=== PATIENT | female | born 1955 | race Caucasian/White ===

== ENCOUNTER 2017-06-12 15:58 | Inpatient (IN) | payer MEDICARE, MEDICAID ==
[2017-06-12] MEDS ORDERED: Sodium Chloride 0.9% 1,000 ML IV ONE (16:33)
--- NOTE | 2017-06-12 16:39 | ED Physician Chart ---
ED Chief Complaint/HPI - Patient Information Date Seen:: 06/12/17 Time Seen:: 16:25 Chief Complaint:: anorexia History of Present Illness:: Patient sent here for evaluation of anorexia. She states she is anorexic just because she does not have a good appetite. Allergies:: Allergies Allergy/AdvReac Type Severity Reaction Status Date / Time ciprofloxacin [From Cipro] Allergy Mild Verified 06/12/17 16:20 clonazepam [From Klonopin] Allergy Verified 06/12/17 16:20 tramadol Allergy Verified 06/12/17 16:20 Vitals:: Vital Signs - 8 hr 06/12/17 16:20 Temp 99.0 F HR 103 RR 21 BP 126/84 O2 Sat % 98 Historian:: Patient Review:: Nurse's Note Reviewed, Transfer documents Reviewed ED Review of Systems - Review of Systems General/Constitutional: No fever, No chills Skin: No skin lesions Head: No headache Eyes: No loss of vision ENT: No earache Neck: No neck pain, No swelling Cardio Vascular: No chest pain, No palpitations Pulmonary: No SOB GI: No nausea, No vomiting, No diarrhea G/U: No dysuria Musculoskeletal: No bone or joint pain Endocrine: No polyuria, No polydipsia Psychiatric: No prior psych history Hematopoietic: No bruising Allergic/Immuno: No urticaria Neurological: No syncope, No focal symptoms ED Past Medical History - Past Medical History Past Medical History: Other (Parkinson's disease; chronic pain of the neck and spine) Family History: None Social History: Non Smoker, No Alcohol Surgical History: Cholecystectomy, other (right knee surgery) Psychiatricy History: None Medication: Reviewed Family Medical History - Family Member Mother Ethnicity: Non- Living Status: Hx Family Cancer: Yes (melanoma) ED Physical Exam - Physical Examination General/Constitutional: Well-developed, well-nourished, Alert, No distress Other Gen/Cons comments:: Patient is alert and oriented to the correct month and a chronic year; she has constant head movement from side to side Head: Atraumatic Eyes: Lids, conjuctiva normal, PERRL Skin: Nl inspection, No rash, No skin lesions, No ecchymosis, Well hydrated, No lymphadenopathy ENMT: External ears, nose nl, Lips, teeth, gums nl, Oropharynx nl Neck: No nuchal rigidity Respiratory: Nl effort/Exclusion, Clear to Auscultation Cardio Vascular: RRR, No murmur, gallop, rubs, NL S1 S2 GI: No tenderness/rebounding/guarding : No CVA tenderness Extremities: Normal digits & nails Neuro/Psych: No focal deficits ED Labs/Radiology/EKG Results - Lab Results Results: Laboratory Results - last 24 hr 06/12/17 06/12/17 16:47 16:47 WBC 9.0 RBC 4.67 Hgb 14.1 Hct 42.4 MCV 90.7 MCH 30.2 MCHC Differential 33.3 RDW 14.1 Plt Count 203 MPV 8.1 Neutrophils % 73.3 Lymphocytes % 20.0 Monocytes % 5.0 Eosinophils % 1.0 Basophils % 0.7 Sodium 132 L Potassium 3.5 Chloride 104 Carbon Dioxide 20.3 L Anion Gap 11.2 BUN 9 Creatinine 0.4 L Est GFR ( Amer) > 60.0 Est GFR (Non-Af Amer) > 60.0 BUN/Creatinine Ratio 22.5 Glucose 101 Calcium 9.0 Total Bilirubin 0.4 AST 22 ALT < 3 L Alkaline Phosphatase 65 Total Protein 6.2 Albumin 3.7 Globulin 2.5 Albumin/Globulin Ratio 1.5 - EKG Interpretations Rate & Rhythm: normal sinus rhythm with a rate of 99 [place]: left axis deviation Comments:: Old anterior myocardial infarction ED Septic Shock - . Is Septic Shock (SBP<90, OR Lactate>4 mmol\L) present?: No - <6hrs of presentation: Vital Signs: Vital Signs - 8 hr 06/12/17 16:20 Temp 99.0 F HR 103 RR 21 BP 126/84 O2 Sat % 98 ED Reassessment (Disposition) - Reassessment Reassessment Condition:: Unchanged - Diagnosis Diagnosis:: Anorexia; Parkinson's disease - Patient Disposition Admitted to:: [facility] Spoke to:: Dannie Bowers Admitting Medical Physician:: Dannie Bowers Admitting Psych Physician:: Karen Diego ED Discharge Plan - Patient Disposition Instructions: Psychosis
[2017-06-12 16:56] LABS: % BASOPHILS 0.7 % (0.0-2.0); % NEUTROPHILS 73.3 % (40.0-80.0); BASOPHILE ABSOLUTE 0.1 Th/cumm (0-0.2); EOSINOPHILE ABSOLUTE 0.1 Th/cmm (0.1-0.4); HEMATOCRIT 42.4 % (41.0-60); HEMOGLOBIN 14.1 gm/dL (12-16); LYMPHOCYTE ABSOLUTE 1.8 Th/cmm (1.5-3.0); MEAN CELL VOLUME 90.7 fl (81-100); MEAN CORPUSCULAR HEMOGLOBIN 30.2 pg (27.0-31.0); MEAN CORPUSCULAR HGB CONC 33.3 pg (28.0-36.0); MEAN PLATELET VOLUME 8.1 fl; MONOCYTE ABSOLUTE 0.5 Th/cmm (0.3-1.0); NEUTROPHILE ABSOLUTE 6.5 Th/cmm (1.8-8.0); PLATELET COUNT 203 Th/cmm (150-400); RED BLOOD COUNT 4.67 Mil/cmm (3.80-5.10); RED CELL DISTRIBUTION WIDTH 14.1 % (11.5-20.0)
[2017-06-12 17:09] LABS: ALB/GLOB RATIO 1.5 (1.0-1.8); ALBUMIN 3.7 gm/dL (3.7-5.3); ALKALINE PHOSPHATASE 65 U/L (34-104); ANION GAP 11.2 (7.0-16.0); BILIRUBIN,TOTAL 0.4 mg/dL (0.3-1.0); BUN - UREA NITROGEN 9 mg/dL (7-25); CARBON DIOXIDE 20.3 mEq/L (21.0-31.0); CHLORIDE 104 mEq/L (98-107); CREATININE - SERUM 0.4 mg/dL (0.6-1.2); GFR AFRICAN-AMERICAN > 60.0 ml/min (>90); GFR NON AFRICAN-AMERICAN > 60.0 ml/min; GLUCOSE 101 mg/dL (70-105); POTASSIUM SERUM 3.5 mEq/L (3.5-5.1); SGOT 22 U/L (13-39); SODIUM SERUM 132 mEq/L (136-145); TOTAL PROTEIN,SERUM 6.2 gm/dL (6.0-8.3)
[2017-06-12 17:10] LABS: SGPT/ALT < 3 U/L (7-52)
[2017-06-12 18:26] LABS: CHOLESTEROL 171 mg/dL (<200); HDL -HIGH DENSITY LIPOPROTEIN 29 mg/dL (23-92); TRIGLYCERIDES 178 mg/dL (<150)
[2017-06-12 18:27] LABS: ACETAMINOPHEN < 10.0 ug/mL (10.0-30.0); SALICYLATES (ASPIRIN) < 25.0 mg/L (30.0-100.0)
[2017-06-12 19:14] VITALS: BP 130/75
--- NOTE | 2017-06-12 19:51 | History & Physical ---
ADMIT DATE: CHIEF COMPLAINT: Severe depression. HISTORY OF PRESENT ILLNESS: The patient is a 62-year-old female with long history of advanced Parkinson's disease, resident at [facility], presented to the Emergency Room with severe depression. The patient evaluated by the ER physician, admitted to the Geropsych Department under Dr. Diego's service. The patient denies any chest pain, shortness of breath, nausea, vomiting, fever or chills. No diarrhea. PAST MEDICAL HISTORY: Significant for advanced Parkinson disease, recurrent urinary infections, recurrent C. diff colitis. PAST SURGICAL HISTORY: No recent surgery. ALLERGIES: Ciprofloxacin, clonazepam, and trazodone. SOCIAL HISTORY: No smoking, no alcohol, no drugs. FAMILY HISTORY: Noncontributory. REVIEW OF SYSTEMS: RENAL SYSTEM: No history of chronic renal disorder. CARDIOVASCULAR SYSTEM: No coronary artery disease. ENDOCRINE SYSTEM: No diabetes or thyroid problem. GASTROINTESTINAL SYSTEM: She has history of recurrent Clostridium difficile colitis. NEUROLOGICAL: She has history of advanced Parkinson's disease, seizure disorder. MUSCULOSKELETAL SYSTEM: She has weakness on both lower extremities, chronic pain, joint pain. HEMATOLOGIC SYSTEM: No bleeding tendency. GENITOURINARY: She has recurrent urinary infection, bladder dysfunction. PHYSICAL EXAMINATION: GENERAL: She is awake, alert, oriented. VITAL SIGNS: Temperature 98.8, heart rate 100, blood pressure 120/70. HEENT: Normocephalic. Pupils reactive to light and accommodation. Sclerae clear. NECK: Supple. Negative for lymphadenopathy, JVD or bruit. CHEST: Bilateral normal. No rhonchi or wheezing. HEART: S1, S2 normal. No gallop or murmur. ABDOMEN: Soft, bowel sounds positive. EXTREMITIES: No edema. NEUROLOGIC: She is awake, alert, oriented. She has weakness of both lower extremities. LABORATORY DATA: White blood cell 9, hemoglobin 14.1, hematocrit 42.4, platelet is 203. Sodium 132, potassium 3.5, BUN 9, creatinine 0.4. ASSESSMENT: 1. Advanced Parkinson disease. 2. Seizure disorder. 3. Bladder dysfunction. 4. Depression. PLAN: The patient admitted to the hospital under Dr. Diego's service. MEDICAL PROBLEMS ADDRESSED DURING THE HOSPITALIZATION: Depression MEDICAL PROBLEM ADDRESSED AT DISCHARGE: Parkinson disease, seizure disorder. The patient is medically stable for activity. Thank you Dr. Diego for asking us to see your patient. [facility]# [id number]
[2017-06-12] MEDS: Potassium Chloride 20 mEq ER Tab PO SCH (21:18)
[2017-06-12] MEDS: Hydrocodone/APAP 5mg/325mg Tab PO PRN (21:21)
[2017-06-13] MEDS: Hydrocodone/APAP 5mg/325mg Tab PO PRN ×3 (01:08→17:32)
[2017-06-13] MEDS: Calcium Carb/Vit D 500 mg/200 U Tab PO SCH ×2 (09:00→17:32)
[2017-06-13] MEDS ORDERED: Non-Formulary Item 1 EA (Solifenacin Succinate [Vesicare] 5 MG) PO SCH (09:00)
[2017-06-13] MEDS: Potassium Chloride 20 mEq ER Tab PO SCH (09:15)
[2017-06-13] MEDS: Multivitamin w/ Minerals Tab PO SCH (09:15)
--- NOTE | 2017-06-13 19:47 | Internal Medicine Prog Note ---
Internal Medicine Subjective - Subjective Patient is:: awake, verbal, in bed, talking Per staff patient has:: no adverse event Internal Medicine Objective - Results Result Diagrams: 06/12/17 16:47 06/12/17 16:47 Recent Labs: Laboratory Last Values WBC 9.0 Th/cmm (4.8-10.8) 06/12/17 16:47 RBC 4.67 Mil/cmm (3.80-5.10) 06/12/17 16:47 Hgb 14.1 gm/dL (12-16) 06/12/17 16:47 Hct 42.4 % (41.0-60) 06/12/17 16:47 MCV 90.7 fl (81-100) 06/12/17 16:47 MCH 30.2 pg (27.0-31.0) 06/12/17 16:47 MCHC Differential 33.3 pg (28.0-36.0) 06/12/17 16:47 RDW 14.1 % (11.5-20.0) 06/12/17 16:47 Plt Count 203 Th/cmm (150-400) 06/12/17 16:47 MPV 8.1 fl 06/12/17 16:47 Neutrophils % 73.3 % (40.0-80.0) 06/12/17 16:47 Lymphocytes % 20.0 % (20.0-50.0) 06/12/17 16:47 Monocytes % 5.0 % (2.0-10.0) 06/12/17 16:47 Eosinophils % 1.0 % (0.0-5.0) 06/12/17 16:47 Basophils % 0.7 % (0.0-2.0) 06/12/17 16:47 Sodium 132 mEq/L (136-145) L 06/12/17 16:47 Potassium 3.5 mEq/L (3.5-5.1) 06/12/17 16:47 Chloride 104 mEq/L (98-107) 06/12/17 16:47 Carbon Dioxide 20.3 mEq/L (21.0-31.0) L 06/12/17 16:47 Anion Gap 11.2 (7.0-16.0) 06/12/17 16:47 BUN 9 mg/dL (7-25) 06/12/17 16:47 Creatinine 0.4 mg/dL (0.6-1.2) L 06/12/17 16:47 Est GFR ( Amer) > 60.0 ml/min (>90) 06/12/17 16:47 Est GFR (Non-Af Amer) > 60.0 ml/min 06/12/17 16:47 BUN/Creatinine Ratio 22.5 06/12/17 16:47 Glucose 101 mg/dL (70-105) 06/12/17 16:47 Hemoglobin A1c % 5.0 % (4.0-6.0) 06/12/17 16:47 Calcium 9.0 mg/dL (8.6-10.3) 06/12/17 16:47 Total Bilirubin 0.4 mg/dL (0.3-1.0) 06/12/17 16:47 AST 22 U/L (13-39) 06/12/17 16:47 ALT < 3 U/L (7-52) L 06/12/17 16:47 Alkaline Phosphatase 65 U/L (34-104) 06/12/17 16:47 Troponin I 0.11 ng/mL (0.01-0.05) H* 06/12/17 16:47 Total Protein 6.2 gm/dL (6.0-8.3) 06/12/17 16:47 Albumin 3.7 gm/dL (3.7-5.3) 06/12/17 16:47 Globulin 2.5 gm/dL 06/12/17 16:47 Albumin/Globulin Ratio 1.5 (1.0-1.8) 06/12/17 16:47 Triglycerides 178 mg/dL (<150) H 06/12/17 16:47 Cholesterol 171 mg/dL (<200) 06/12/17 16:47 LDL Cholesterol Direct 124 mg/dL (75-193) 06/12/17 16:47 HDL Cholesterol 29 mg/dL (23-92) 06/12/17 16:47 TSH 0.51 uIU/ml (0.34-5.60) 06/12/17 16:47 Salicylates < 25.0 mg/L (30.0-100.0) L 06/12/17 16:47 Acetaminophen < 10.0 ug/mL (10.0-30.0) L 06/12/17 16:47 Ethyl Alcohol < 10 mg/dL (0-10) 06/12/17 16:47 RPR NONREACTIVE (NONREACTIVE) 06/12/17 16:47 - Physical Exam Vitals and I&O: Vital Signs Temp 98.4 F 06/13/17 14:00 Pulse 98 06/13/17 14:00 Resp 18 06/13/17 14:00 BP 105/77 06/13/17 14:00 Pulse Ox 97 06/13/17 14:00 Intake & Output 06/13/17 06/13/17 06/14/17 06:59 18:59 06:59 Intake Total 1000 Balance 1000 Intake: Oral 1000 Other: # Voids 3 # Bowel Movements 1 Active Medications: Current Medications Acetaminophen (Tylenol) 650 mg PO Q4HR PRN PRN Reason: MILD BACK PAIN Stop: 08/11/17 20:08 Acetaminophen/Hydrocodone Bitart ([place] 5mg/325mg) 1 tab PO Q4H PRN PRN Reason: MOD/SEVERE PAIN Stop: 08/11/17 20:14 Last Admin: 06/13/17 17:32 Dose: 1 tab Amantadine HCl (Symmetrel) 100 mg PO TID [facility] Stop: 08/11/17 20:59 Last Admin: 06/13/17 14:57 Dose: 100 mg Calcium/Vitamin D (Oscal W/Vitamin D) 1 tab PO BIDWM [facility] Stop: 08/12/17 07:59 Last Admin: 06/13/17 17:32 Dose: 1 tab Carbidopa/Levodopa (Sinemet 25 Mg-250 Mg) 1 tab PO BID [facility] Stop: 08/12/17 08:59 Last Admin: 06/13/17 17:32 Dose: 1 tab Carisoprodol (Soma) 350 mg PO DAILY PRN PRN Reason: MUSCLE SPASM Stop: 08/11/17 19:27 Last Admin: 06/12/17 21:21 Dose: 350 mg Diphenoxylate HCl/Atropine (Lomotil) 1 tab PO Q8H PRN PRN Reason: Diarrhea Stop: 08/11/17 19:27 Docusate Sodium (Colace) 100 mg PO DAILY [facility] Stop: 08/12/17 08:59 Last Admin: 06/13/17 09:14 Dose: 100 mg Famotidine (Pepcid) 40 mg PO DAILY [facility] Stop: 08/11/17 20:14 Last Admin: 06/13/17 09:05 Dose: 40 mg Lactobacillus Rhamnosus (Culturelle 15b) 1 each PO DAILY [facility] Stop: 08/13/17 08:59 Levetiracetam (Keppra) 1,000 mg PO BID [facility] Stop: 08/11/17 20:59 Last Admin: 06/13/17 17:32 Dose: 1,000 mg Lorazepam (Ativan) 0.5 mg PO Q6HR PRN; Protocol PRN Reason: Agitation Stop: 08/12/17 03:08 Megestrol Acetate (Megace) 400 mg PO BID [facility] Stop: 08/11/17 20:29 Last Admin: 06/13/17 17:08 Dose: Not Given Miscellaneous (Solifenacin Succinate [Vesicare]) 5 mg PO DAILY [facility] Stop: 08/12/17 08:59 Ondansetron HCl (Zofran Odt) 8 mg PO Q8HR PRN PRN Reason: NAUSEA/VOMITING Stop: 08/11/17 20:29 Phenytoin (Dilantin) 200 mg PO Q12H [facility] Stop: 08/11/17 20:59 Last Admin: 06/13/17 09:04 Dose: 200 mg Potassium Chloride (Klor-Con) 20 meq PO DAILY [facility] Stop: 08/11/17 20:29 Last Admin: 06/13/17 09:15 Dose: 20 meq Sertraline HCl (Zoloft) 100 mg PO DAILY [facility] Stop: 08/11/17 20:29 Last Admin: 06/13/17 09:14 Dose: 100 mg Zolpidem Tartrate (Ambien) 5 mg PO HS PRN PRN Reason: Insomnia Stop: 08/12/17 03:10 General: alert HEENT: NC/AT, PERRLA, EOMI, anicteric sclerae, throat clear Neck: Supple, No JVD, No thyromegaly, +2 carotid pulse wo bruit, No LAD Lungs: congested Cardiovascular: Normal S1, Normal S2, without murmur Abdomen: soft Extremities: clear Neurological: no change - Procedures Procedures: Procedures Procedure Code Date CLOSED [ENDOSCOPIC] BIOPSY OF LARYNX 31.43 07/12/96 INJECT/INFUSE NEC 99.29 11/11/07 LARYGNOSCOPY AND OTH TRACHEOSCOPY 31.42 07/12/96 LARYNGOSCOPY WITH BIOPSY 22979 07/12/96 OTHER GROUP THERAPY 94.44 11/26/07 RECREATIONAL THERAPY 93.81 11/26/07 Internal Medicine Assmt/Plan - Assessment Assessment: 1.PARKINSON DISEASE. 2.SEIZURE DISORDER. 3.BLADDER DYSFUNCTION. 4.MAJOR DEPRESSION. - Plan Plan: CONTINUE ON CURRENT MEDICATION AND DIET.
[2017-06-14] MEDS: Hydrocodone/APAP 5mg/325mg Tab PO PRN ×2 (03:37→08:54)
[2017-06-14] MEDS: Multivitamin w/ Minerals Tab PO SCH (08:53)
[2017-06-14] MEDS: Potassium Chloride 20 mEq ER Tab PO SCH (08:53)
[2017-06-14] MEDS: Calcium Carb/Vit D 500 mg/200 U Tab PO SCH ×2 (08:53→17:17)
[2017-06-14] MEDS: Lactobacillus Rhamnosus GG 15 Billion CFU CAP.SPRINK PO SCH (08:53)
--- NOTE | 2017-06-14 19:18 | Internal Medicine Prog Note ---
Internal Medicine Subjective - Subjective Service Date: 06/14/17 Patient seen and examined:: with staff (SHE FEELS BETTER) Patient is:: awake, verbal, in bed, talking Per staff patient has:: no adverse event Internal Medicine Objective - Results Result Diagrams: 06/12/17 16:47 06/12/17 16:47 Recent Labs: Laboratory Last Values WBC 9.0 Th/cmm (4.8-10.8) 06/12/17 16:47 RBC 4.67 Mil/cmm (3.80-5.10) 06/12/17 16:47 Hgb 14.1 gm/dL (12-16) 06/12/17 16:47 Hct 42.4 % (41.0-60) 06/12/17 16:47 MCV 90.7 fl (81-100) 06/12/17 16:47 MCH 30.2 pg (27.0-31.0) 06/12/17 16:47 MCHC Differential 33.3 pg (28.0-36.0) 06/12/17 16:47 RDW 14.1 % (11.5-20.0) 06/12/17 16:47 Plt Count 203 Th/cmm (150-400) 06/12/17 16:47 MPV 8.1 fl 06/12/17 16:47 Neutrophils % 73.3 % (40.0-80.0) 06/12/17 16:47 Lymphocytes % 20.0 % (20.0-50.0) 06/12/17 16:47 Monocytes % 5.0 % (2.0-10.0) 06/12/17 16:47 Eosinophils % 1.0 % (0.0-5.0) 06/12/17 16:47 Basophils % 0.7 % (0.0-2.0) 06/12/17 16:47 Sodium 132 mEq/L (136-145) L 06/12/17 16:47 Potassium 3.5 mEq/L (3.5-5.1) 06/12/17 16:47 Chloride 104 mEq/L (98-107) 06/12/17 16:47 Carbon Dioxide 20.3 mEq/L (21.0-31.0) L 06/12/17 16:47 Anion Gap 11.2 (7.0-16.0) 06/12/17 16:47 BUN 9 mg/dL (7-25) 06/12/17 16:47 Creatinine 0.4 mg/dL (0.6-1.2) L 06/12/17 16:47 Est GFR ( Amer) > 60.0 ml/min (>90) 06/12/17 16:47 Est GFR (Non-Af Amer) > 60.0 ml/min 06/12/17 16:47 BUN/Creatinine Ratio 22.5 06/12/17 16:47 Glucose 101 mg/dL (70-105) 06/12/17 16:47 Hemoglobin A1c % 5.0 % (4.0-6.0) 06/12/17 16:47 Calcium 9.0 mg/dL (8.6-10.3) 06/12/17 16:47 Total Bilirubin 0.4 mg/dL (0.3-1.0) 06/12/17 16:47 AST 22 U/L (13-39) 06/12/17 16:47 ALT < 3 U/L (7-52) L 06/12/17 16:47 Alkaline Phosphatase 65 U/L (34-104) 06/12/17 16:47 Troponin I 0.11 ng/mL (0.01-0.05) H* 06/12/17 16:47 Total Protein 6.2 gm/dL (6.0-8.3) 06/12/17 16:47 Albumin 3.7 gm/dL (3.7-5.3) 06/12/17 16:47 Globulin 2.5 gm/dL 06/12/17 16:47 Albumin/Globulin Ratio 1.5 (1.0-1.8) 06/12/17 16:47 Triglycerides 178 mg/dL (<150) H 06/12/17 16:47 Cholesterol 171 mg/dL (<200) 06/12/17 16:47 LDL Cholesterol Direct 124 mg/dL (75-193) 06/12/17 16:47 HDL Cholesterol 29 mg/dL (23-92) 06/12/17 16:47 TSH 0.51 uIU/ml (0.34-5.60) 06/12/17 16:47 Salicylates < 25.0 mg/L (30.0-100.0) L 06/12/17 16:47 Acetaminophen < 10.0 ug/mL (10.0-30.0) L 06/12/17 16:47 Ethyl Alcohol < 10 mg/dL (0-10) 06/12/17 16:47 RPR NONREACTIVE (NONREACTIVE) 06/12/17 16:47 - Physical Exam Vitals and I&O: Vital Signs Temp 98.5 F 06/14/17 16:43 Pulse 84 06/14/17 16:43 Resp 20 06/14/17 16:43 BP 129/73 06/14/17 16:43 Pulse Ox 98 06/14/17 16:43 Intake & Output 06/14/17 06/14/17 06/15/17 06:59 18:59 07:59 Intake Total 240 1345 Balance 240 1345 Intake: Oral 240 1345 Other: # Voids 1 3 # Bowel Movements 2 Active Medications: Current Medications Acetaminophen (Tylenol) 650 mg PO Q4HR PRN PRN Reason: MILD BACK PAIN Stop: 08/11/17 20:08 Acetaminophen/Hydrocodone Bitart ([place] 5mg/325mg) 1 tab PO Q4H PRN PRN Reason: MOD/SEVERE PAIN Stop: 08/11/17 20:14 Last Admin: 06/14/17 08:54 Dose: 1 tab Amantadine HCl (Symmetrel) 100 mg PO TID [facility] Stop: 08/11/17 20:59 Last Admin: 06/14/17 15:46 Dose: Not Given Calcium/Vitamin D (Oscal W/Vitamin D) 1 tab PO BIDWM [facility] Stop: 08/12/17 07:59 Last Admin: 06/14/17 17:17 Dose: 1 tab Carbidopa/Levodopa (Sinemet 25 Mg-250 Mg) 1 tab PO BID [facility] Stop: 08/12/17 08:59 Last Admin: 06/14/17 17:16 Dose: 1 tab Carisoprodol (Soma) 350 mg PO DAILY PRN PRN Reason: MUSCLE SPASM Stop: 08/11/17 19:27 Last Admin: 06/12/17 21:21 Dose: 350 mg Diphenoxylate HCl/Atropine (Lomotil) 1 tab PO Q8H PRN PRN Reason: Diarrhea Stop: 08/11/17 19:27 Docusate Sodium (Colace) 100 mg PO DAILY [facility] Stop: 08/12/17 08:59 Last Admin: 06/14/17 08:54 Dose: 100 mg Famotidine (Pepcid) 40 mg PO DAILY [facility] Stop: 08/11/17 20:14 Last Admin: 06/14/17 08:53 Dose: 40 mg Lactobacillus Rhamnosus (Culturelle 15b) 1 each PO DAILY [facility] Stop: 08/13/17 08:59 Last Admin: 06/14/17 08:53 Dose: 1 each Levetiracetam (Keppra) 1,000 mg PO BID [facility] Stop: 08/11/17 20:59 Last Admin: 06/14/17 17:16 Dose: 1,000 mg Lorazepam (Ativan) 0.5 mg PO Q6HR PRN; Protocol PRN Reason: Agitation Stop: 08/12/17 03:08 Megestrol Acetate (Megace) 400 mg PO BID [facility] Stop: 08/11/17 20:29 Last Admin: 06/14/17 17:16 Dose: Not Given Miscellaneous (Solifenacin Succinate [Vesicare]) 5 mg PO DAILY [facility] Stop: 08/12/17 08:59 Ondansetron HCl (Zofran Odt) 8 mg PO Q8HR PRN PRN Reason: NAUSEA/VOMITING Stop: 08/11/17 20:29 Phenytoin (Dilantin) 200 mg PO Q12H [facility] Stop: 08/11/17 20:59 Last Admin: 06/14/17 08:52 Dose: 200 mg Potassium Chloride (Klor-Con) 20 meq PO DAILY [facility] Stop: 08/11/17 20:29 Last Admin: 06/14/17 08:53 Dose: 20 meq Sertraline HCl (Zoloft) 100 mg PO DAILY [facility] Stop: 08/11/17 20:29 Last Admin: 06/14/17 08:53 Dose: 100 mg Zolpidem Tartrate (Ambien) 5 mg PO HS PRN PRN Reason: Insomnia Stop: 08/12/17 03:10 Last Admin: 06/13/17 21:23 Dose: 5 mg General: alert HEENT: NC/AT, PERRLA, EOMI, anicteric sclerae, throat clear Neck: Supple, No JVD, No thyromegaly, +2 carotid pulse wo bruit, No LAD Lungs: congested Cardiovascular: Normal S1, Normal S2, without murmur Abdomen: soft Extremities: clear Neurological: no change - Procedures Procedures: Procedures Procedure Code Date CLOSED [ENDOSCOPIC] BIOPSY OF LARYNX 31.43 07/12/96 INJECT/INFUSE NEC 99.29 11/11/07 LARYGNOSCOPY AND OTH TRACHEOSCOPY 31.42 07/12/96 LARYNGOSCOPY WITH BIOPSY 78142 07/12/96 OTHER GROUP THERAPY 94.44 11/26/07 RECREATIONAL THERAPY 93.81 11/26/07 Internal Medicine Assmt/Plan - Assessment Assessment: 1.PARKINSON DISEASE. 2.SEIZURE DISORDER. 3.BLADDER DYSFUNCTION. 4.MAJOR DEPRESSION. - Plan Plan: CONTINUE ON CURRENT MEDICATION AND DIET.
--- NOTE | 2017-06-15 05:17 | Psychosocial Evaluation ---
DATE OF SERVICE: INITIAL EVALUATION AND MENTAL STATUS EXAM PATIENT'S AGE: 62-year-old SEX: Female. PHYSICIAN: Karen Diego MD, MPH CHIEF COMPLAINT: Striking others and hallucinating. HISTORY OF PRESENT ILLNESS: The patient is a 62-year-old female who was transferred from [facility] because of increased irritability and striking out behavior as well as hallucination. The patient has history of depression. The patient also has been easily irritable and has been throwing at times objects towards others. The patient threw a blanket towards the staff. She also seems to be responding to stimuli and seems to be hallucinating. PAST PSYCHIATRIC HISTORY: The patient has history of depression and anxiety. PAST MEDICAL HISTORY: The patient has Parkinson disease as well as seizure disorder and bladder dysfunction. SOCIAL HISTORY: The patient lives in [facility]. No known alcohol or drug use. ALLERGIES: CIPROFLOXACIN, CLONAZEPAM, AND TRAZODONE. MENTAL STATUS EXAMINATION: The patient appears older than her stated age. Irritable mood. Flat affect. Thought processes are with anger and irritability. The patient did not answer question regarding hallucinations or delusions, but she seems to be suspicious and paranoid. The patient denies any thoughts of suicide or homicide. The patient is alert and oriented to situation, but not to place and person. Impaired immediate, recent memories but intact remote memories. Poor insight and poor judgment. ASSESSMENT: PRIMARY DIAGNOSIS: Major depression, severe, recurrent, with psychotic features. TREATMENT PLAN: We will continue to monitor her behavior and her condition closely. Also, continue Zoloft 100 mg everyday and will consider adding antipsychotic medications depending on further evaluation. ESTIMATED LENGTH OF STAY: 5-7 days. THE PATIENT'S STRENGTHS AND WEAKNESSES: The patient's strength is not clear at this time. Weaknesses is ineffective coping and also psychosis and poor impulse control. AFTER DISCHARGE PLAN: The patient will return to [facility] with plans for outpatient treatment there. CRITERIA FOR DISCHARGE: Better impulse control. JOB# [id number]
--- NOTE | 2017-06-15 06:39 | Progress Notes ---
DATE: 06/14/2017 SUBJECTIVE: Chart reviewed and the patient interviewed. Also discussed the patient's condition with the staff and reviewed records and labs. The patient is still anxious and is still confused. Also, has unpredictable behavior. The patient also wants to be left alone and she is still easily agitated and easily irritable. Otherwise, the patient is compliant with taking her medications with no side effects of medications. ASSESSMENT: The patient is psychotic. TREATMENT PLAN: Continue to monitor her behavior and continue to work on her alcohol. Also, continue adjusting psychotropic medications and will continue to follow up. The patient is currently still taking Zoloft in a dose of 100 mg every day with no side effects. JOB# [id number]
[2017-06-15] MEDS: Calcium Carb/Vit D 500 mg/200 U Tab PO SCH ×2 (08:16→18:32)
[2017-06-15] MEDS: Lactobacillus Rhamnosus GG 15 Billion CFU CAP.SPRINK PO SCH (09:14)
[2017-06-15] MEDS: Multivitamin w/ Minerals Tab PO SCH (09:14)
[2017-06-15] MEDS: Potassium Chloride 20 mEq ER Tab PO SCH (09:16)
[2017-06-15] MEDS: Hydrocodone/APAP 5mg/325mg Tab PO PRN (09:57)
--- NOTE | 2017-06-15 23:49 | Internal Medicine Prog Note ---
Internal Medicine Subjective - Subjective Service Date: 06/15/17 Patient seen and examined:: with staff (SHE FEELS BETTER) Patient is:: awake, verbal, in bed, talking Per staff patient has:: no adverse event Internal Medicine Objective - Results Result Diagrams: 06/12/17 16:47 06/12/17 16:47 Recent Labs: Laboratory Last Values WBC 9.0 Th/cmm (4.8-10.8) 06/12/17 16:47 RBC 4.67 Mil/cmm (3.80-5.10) 06/12/17 16:47 Hgb 14.1 gm/dL (12-16) 06/12/17 16:47 Hct 42.4 % (41.0-60) 06/12/17 16:47 MCV 90.7 fl (81-100) 06/12/17 16:47 MCH 30.2 pg (27.0-31.0) 06/12/17 16:47 MCHC Differential 33.3 pg (28.0-36.0) 06/12/17 16:47 RDW 14.1 % (11.5-20.0) 06/12/17 16:47 Plt Count 203 Th/cmm (150-400) 06/12/17 16:47 MPV 8.1 fl 06/12/17 16:47 Neutrophils % 73.3 % (40.0-80.0) 06/12/17 16:47 Lymphocytes % 20.0 % (20.0-50.0) 06/12/17 16:47 Monocytes % 5.0 % (2.0-10.0) 06/12/17 16:47 Eosinophils % 1.0 % (0.0-5.0) 06/12/17 16:47 Basophils % 0.7 % (0.0-2.0) 06/12/17 16:47 Sodium 132 mEq/L (136-145) L 06/12/17 16:47 Potassium 3.5 mEq/L (3.5-5.1) 06/12/17 16:47 Chloride 104 mEq/L (98-107) 06/12/17 16:47 Carbon Dioxide 20.3 mEq/L (21.0-31.0) L 06/12/17 16:47 Anion Gap 11.2 (7.0-16.0) 06/12/17 16:47 BUN 9 mg/dL (7-25) 06/12/17 16:47 Creatinine 0.4 mg/dL (0.6-1.2) L 06/12/17 16:47 Est GFR ( Amer) > 60.0 ml/min (>90) 06/12/17 16:47 Est GFR (Non-Af Amer) > 60.0 ml/min 06/12/17 16:47 BUN/Creatinine Ratio 22.5 06/12/17 16:47 Glucose 101 mg/dL (70-105) 06/12/17 16:47 Hemoglobin A1c % 5.0 % (4.0-6.0) 06/12/17 16:47 Calcium 9.0 mg/dL (8.6-10.3) 06/12/17 16:47 Total Bilirubin 0.4 mg/dL (0.3-1.0) 06/12/17 16:47 AST 22 U/L (13-39) 06/12/17 16:47 ALT < 3 U/L (7-52) L 06/12/17 16:47 Alkaline Phosphatase 65 U/L (34-104) 06/12/17 16:47 Troponin I 0.11 ng/mL (0.01-0.05) H* 06/12/17 16:47 Total Protein 6.2 gm/dL (6.0-8.3) 06/12/17 16:47 Albumin 3.7 gm/dL (3.7-5.3) 06/12/17 16:47 Globulin 2.5 gm/dL 06/12/17 16:47 Albumin/Globulin Ratio 1.5 (1.0-1.8) 06/12/17 16:47 Triglycerides 178 mg/dL (<150) H 06/12/17 16:47 Cholesterol 171 mg/dL (<200) 06/12/17 16:47 LDL Cholesterol Direct 124 mg/dL (75-193) 06/12/17 16:47 HDL Cholesterol 29 mg/dL (23-92) 06/12/17 16:47 TSH 0.51 uIU/ml (0.34-5.60) 06/12/17 16:47 Salicylates < 25.0 mg/L (30.0-100.0) L 06/12/17 16:47 Acetaminophen < 10.0 ug/mL (10.0-30.0) L 06/12/17 16:47 Ethyl Alcohol < 10 mg/dL (0-10) 06/12/17 16:47 RPR NONREACTIVE (NONREACTIVE) 06/12/17 16:47 - Physical Exam Vitals and I&O: Vital Signs Temp 98.4 F 06/15/17 20:30 Pulse 108 06/15/17 20:30 Resp 19 06/15/17 20:30 BP 103/58 06/15/17 20:30 Pulse Ox 97 06/15/17 20:30 Intake & Output 06/15/17 06/15/17 06/16/17 06:59 18:59 06:59 Intake Total 1200 Output Total Balance 1200 Intake: Oral 1200 Output: Urine Other: # Voids 3 # Bowel Movements 1 Active Medications: Current Medications Acetaminophen (Tylenol) 650 mg PO Q4HR PRN PRN Reason: MILD BACK PAIN Stop: 08/11/17 20:08 Acetaminophen/Hydrocodone Bitart ([place] 5mg/325mg) 1 tab PO Q4H PRN PRN Reason: MOD/SEVERE PAIN Stop: 08/11/17 20:14 Last Admin: 06/15/17 09:57 Dose: 1 tab Amantadine HCl (Symmetrel) 100 mg PO TID [facility] Stop: 08/11/17 20:59 Last Admin: 06/15/17 21:41 Dose: 100 mg Calcium/Vitamin D (Oscal W/Vitamin D) 1 tab PO BIDWM [facility] Stop: 08/12/17 07:59 Last Admin: 06/15/17 18:32 Dose: 1 tab Carbidopa/Levodopa (Sinemet 25 Mg-250 Mg) 1 tab PO BID [facility] Stop: 08/12/17 08:59 Last Admin: 06/15/17 17:32 Dose: 1 tab Carisoprodol (Soma) 350 mg PO DAILY PRN PRN Reason: MUSCLE SPASM Stop: 08/11/17 19:27 Last Admin: 06/15/17 09:57 Dose: 350 mg Diphenoxylate HCl/Atropine (Lomotil) 1 tab PO Q8H PRN PRN Reason: Diarrhea Stop: 08/11/17 19:27 Docusate Sodium (Colace) 100 mg PO DAILY [facility] Stop: 08/12/17 08:59 Last Admin: 06/15/17 09:15 Dose: 100 mg Famotidine (Pepcid) 40 mg PO DAILY [facility] Stop: 08/11/17 20:14 Last Admin: 06/15/17 09:16 Dose: 40 mg Lactobacillus Rhamnosus (Culturelle 15b) 1 each PO DAILY [facility] Stop: 08/13/17 08:59 Last Admin: 06/15/17 09:14 Dose: 1 each Levetiracetam (Keppra) 1,000 mg PO BID [facility] Stop: 08/11/17 20:59 Last Admin: 06/15/17 17:33 Dose: 1,000 mg Lorazepam (Ativan) 0.5 mg PO Q6HR PRN; Protocol PRN Reason: Agitation Stop: 08/12/17 03:08 Megestrol Acetate (Megace) 400 mg PO BID [facility] Stop: 08/11/17 20:29 Last Admin: 06/15/17 18:34 Dose: Not Given Miscellaneous (Solifenacin Succinate [Vesicare]) 5 mg PO DAILY [facility] Stop: 08/12/17 08:59 Ondansetron HCl (Zofran Odt) 8 mg PO Q8HR PRN PRN Reason: NAUSEA/VOMITING Stop: 08/11/17 20:29 Phenytoin (Dilantin) 200 mg PO Q12H [facility] Stop: 08/11/17 20:59 Last Admin: 06/15/17 21:41 Dose: 200 mg Potassium Chloride (Klor-Con) 20 meq PO DAILY [facility] Stop: 08/11/17 20:29 Last Admin: 06/15/17 09:16 Dose: 20 meq Sertraline HCl (Zoloft) 100 mg PO DAILY [facility] Stop: 08/11/17 20:29 Last Admin: 06/15/17 09:16 Dose: 100 mg Zolpidem Tartrate (Ambien) 5 mg PO HS PRN PRN Reason: Insomnia Stop: 08/12/17 03:10 Last Admin: 06/13/17 21:23 Dose: 5 mg General: alert HEENT: NC/AT, PERRLA, EOMI, anicteric sclerae, throat clear Neck: Supple, No JVD, No thyromegaly, +2 carotid pulse wo bruit, No LAD Lungs: congested Cardiovascular: Normal S1, Normal S2, without murmur Abdomen: soft Extremities: clear Neurological: no change - Procedures Procedures: Procedures Procedure Code Date CLOSED [ENDOSCOPIC] BIOPSY OF LARYNX 31.43 07/12/96 INJECT/INFUSE NEC 99.29 11/11/07 LARYGNOSCOPY AND OTH TRACHEOSCOPY 31.42 07/12/96 LARYNGOSCOPY WITH BIOPSY 12538 07/12/96 OTHER GROUP THERAPY 94.44 11/26/07 RECREATIONAL THERAPY 93.81 11/26/07 Internal Medicine Assmt/Plan - Assessment Assessment: 1.PARKINSON DISEASE. 2.SEIZURE DISORDER. 3.BLADDER DYSFUNCTION. 4.MAJOR DEPRESSION. - Plan Plan: CONTINUE ON CURRENT MEDICATION AND DIET.
[2017-06-16] MEDS: Lactobacillus Rhamnosus GG 15 Billion CFU CAP.SPRINK PO SCH (10:07)
[2017-06-16] MEDS: Potassium Chloride 20 mEq ER Tab PO SCH (10:08)
[2017-06-16] MEDS: Multivitamin w/ Minerals Tab PO SCH (10:08)
[2017-06-16] MEDS: Hydrocodone/APAP 5mg/325mg Tab PO PRN ×2 (10:48→17:11)
[2017-06-16] MEDS: Calcium Carb/Vit D 500 mg/200 U Tab PO SCH ×2 (10:48→17:37)
--- NOTE | 2017-06-16 19:14 | Internal Medicine Prog Note ---
Internal Medicine Subjective - Subjective Service Date: 06/16/17 Patient seen and examined:: without staff (she feels better.no diarrhea) Patient is:: awake, verbal, in bed, talking Per staff patient has:: no adverse event Internal Medicine Objective - Results Result Diagrams: 06/12/17 16:47 06/12/17 16:47 Recent Labs: Laboratory Last Values WBC 9.0 Th/cmm (4.8-10.8) 06/12/17 16:47 RBC 4.67 Mil/cmm (3.80-5.10) 06/12/17 16:47 Hgb 14.1 gm/dL (12-16) 06/12/17 16:47 Hct 42.4 % (41.0-60) 06/12/17 16:47 MCV 90.7 fl (81-100) 06/12/17 16:47 MCH 30.2 pg (27.0-31.0) 06/12/17 16:47 MCHC Differential 33.3 pg (28.0-36.0) 06/12/17 16:47 RDW 14.1 % (11.5-20.0) 06/12/17 16:47 Plt Count 203 Th/cmm (150-400) 06/12/17 16:47 MPV 8.1 fl 06/12/17 16:47 Neutrophils % 73.3 % (40.0-80.0) 06/12/17 16:47 Lymphocytes % 20.0 % (20.0-50.0) 06/12/17 16:47 Monocytes % 5.0 % (2.0-10.0) 06/12/17 16:47 Eosinophils % 1.0 % (0.0-5.0) 06/12/17 16:47 Basophils % 0.7 % (0.0-2.0) 06/12/17 16:47 Sodium 132 mEq/L (136-145) L 06/12/17 16:47 Potassium 3.5 mEq/L (3.5-5.1) 06/12/17 16:47 Chloride 104 mEq/L (98-107) 06/12/17 16:47 Carbon Dioxide 20.3 mEq/L (21.0-31.0) L 06/12/17 16:47 Anion Gap 11.2 (7.0-16.0) 06/12/17 16:47 BUN 9 mg/dL (7-25) 06/12/17 16:47 Creatinine 0.4 mg/dL (0.6-1.2) L 06/12/17 16:47 Est GFR ( Amer) > 60.0 ml/min (>90) 06/12/17 16:47 Est GFR (Non-Af Amer) > 60.0 ml/min 06/12/17 16:47 BUN/Creatinine Ratio 22.5 06/12/17 16:47 Glucose 101 mg/dL (70-105) 06/12/17 16:47 Hemoglobin A1c % 5.0 % (4.0-6.0) 06/12/17 16:47 Calcium 9.0 mg/dL (8.6-10.3) 06/12/17 16:47 Total Bilirubin 0.4 mg/dL (0.3-1.0) 06/12/17 16:47 AST 22 U/L (13-39) 06/12/17 16:47 ALT < 3 U/L (7-52) L 06/12/17 16:47 Alkaline Phosphatase 65 U/L (34-104) 06/12/17 16:47 Troponin I 0.11 ng/mL (0.01-0.05) H* 06/12/17 16:47 Total Protein 6.2 gm/dL (6.0-8.3) 06/12/17 16:47 Albumin 3.7 gm/dL (3.7-5.3) 06/12/17 16:47 Globulin 2.5 gm/dL 06/12/17 16:47 Albumin/Globulin Ratio 1.5 (1.0-1.8) 06/12/17 16:47 Triglycerides 178 mg/dL (<150) H 06/12/17 16:47 Cholesterol 171 mg/dL (<200) 06/12/17 16:47 LDL Cholesterol Direct 124 mg/dL (75-193) 06/12/17 16:47 HDL Cholesterol 29 mg/dL (23-92) 06/12/17 16:47 TSH 0.51 uIU/ml (0.34-5.60) 06/12/17 16:47 Salicylates < 25.0 mg/L (30.0-100.0) L 06/12/17 16:47 Acetaminophen < 10.0 ug/mL (10.0-30.0) L 06/12/17 16:47 Ethyl Alcohol < 10 mg/dL (0-10) 06/12/17 16:47 RPR NONREACTIVE (NONREACTIVE) 06/12/17 16:47 - Physical Exam Vitals and I&O: Vital Signs Temp 98.3 F 06/16/17 18:17 Pulse 86 06/16/17 18:17 Resp 18 06/16/17 18:17 BP 105/73 06/16/17 18:17 Pulse Ox 98 06/16/17 18:17 Intake & Output 06/16/17 06/16/17 06/17/17 06:59 18:59 06:59 Intake Total 180 Balance 180 Intake: Oral 180 Other: # Voids 2 # Bowel Movements 1 Active Medications: Current Medications Acetaminophen (Tylenol) 650 mg PO Q4HR PRN PRN Reason: MILD BACK PAIN Stop: 08/11/17 20:08 Acetaminophen/Hydrocodone Bitart ([place] 5mg/325mg) 1 tab PO Q4H PRN PRN Reason: MOD/SEVERE PAIN Stop: 08/11/17 20:14 Last Admin: 06/16/17 17:11 Dose: 1 tab Amantadine HCl (Symmetrel) 100 mg PO TID [facility] Stop: 08/11/17 20:59 Last Admin: 06/16/17 14:08 Dose: 100 mg Calcium/Vitamin D (Oscal W/Vitamin D) 1 tab PO BIDWM [facility] Stop: 08/12/17 07:59 Last Admin: 06/16/17 17:37 Dose: 1 tab Carbidopa/Levodopa (Sinemet 25 Mg-250 Mg) 1 tab PO BID [facility] Stop: 08/12/17 08:59 Last Admin: 06/16/17 17:11 Dose: 1 tab Carisoprodol (Soma) 350 mg PO DAILY PRN PRN Reason: MUSCLE SPASM Stop: 08/11/17 19:27 Last Admin: 06/15/17 09:57 Dose: 350 mg Diphenoxylate HCl/Atropine (Lomotil) 1 tab PO Q8H PRN PRN Reason: Diarrhea Stop: 08/11/17 19:27 Docusate Sodium (Colace) 100 mg PO DAILY [facility] Stop: 08/12/17 08:59 Last Admin: 06/16/17 10:08 Dose: 100 mg Famotidine (Pepcid) 40 mg PO DAILY [facility] Stop: 08/11/17 20:14 Last Admin: 06/16/17 10:08 Dose: 40 mg Lactobacillus Rhamnosus (Culturelle 15b) 1 each PO DAILY [facility] Stop: 08/13/17 08:59 Last Admin: 06/16/17 10:07 Dose: 1 each Levetiracetam (Keppra) 1,000 mg PO BID [facility] Stop: 08/11/17 20:59 Last Admin: 06/16/17 17:11 Dose: 1,000 mg Lorazepam (Ativan) 0.5 mg PO Q6HR PRN; Protocol PRN Reason: Agitation Stop: 08/12/17 03:08 Megestrol Acetate (Megace) 400 mg PO BID [facility] Stop: 08/11/17 20:29 Last Admin: 06/16/17 17:28 Dose: Not Given Miscellaneous (Solifenacin Succinate [Vesicare]) 5 mg PO DAILY [facility] Stop: 08/12/17 08:59 Ondansetron HCl (Zofran Odt) 8 mg PO Q8HR PRN PRN Reason: NAUSEA/VOMITING Stop: 08/11/17 20:29 Phenytoin (Dilantin) 200 mg PO Q12H [facility] Stop: 08/11/17 20:59 Last Admin: 06/16/17 10:07 Dose: 200 mg Potassium Chloride (Klor-Con) 20 meq PO DAILY [facility] Stop: 08/11/17 20:29 Last Admin: 06/16/17 10:08 Dose: 20 meq Sertraline HCl (Zoloft) 100 mg PO DAILY [facility] Stop: 08/11/17 20:29 Last Admin: 06/16/17 10:06 Dose: 100 mg Zolpidem Tartrate (Ambien) 5 mg PO HS PRN PRN Reason: Insomnia Stop: 08/12/17 03:10 Last Admin: 06/13/17 21:23 Dose: 5 mg General: alert HEENT: NC/AT, PERRLA, EOMI, anicteric sclerae, throat clear Neck: Supple, No JVD, No thyromegaly, +2 carotid pulse wo bruit, No LAD Lungs: congested Cardiovascular: Normal S1, Normal S2, without murmur Abdomen: soft Extremities: clear Neurological: no change - Procedures Procedures: Procedures Procedure Code Date CLOSED [ENDOSCOPIC] BIOPSY OF LARYNX 31.43 07/12/96 INJECT/INFUSE NEC 99.29 11/11/07 LARYGNOSCOPY AND OTH TRACHEOSCOPY 31.42 07/12/96 LARYNGOSCOPY WITH BIOPSY 88514 07/12/96 OTHER GROUP THERAPY 94.44 11/26/07 RECREATIONAL THERAPY 93.81 11/26/07 Internal Medicine Assmt/Plan - Assessment Assessment: 1.PARKINSON DISEASE. 2.SEIZURE DISORDER. 3.BLADDER DYSFUNCTION. 4.MAJOR DEPRESSION. - Plan Plan: CONTINUE ON CURRENT MEDICATION AND DIET.
--- NOTE | 2017-06-16 20:00 | Progress Notes ---
DATE: 06/16/2017 A 62-year-old female transferred from [place], increased irritability, striking out behaviors, hallucinations. On [id number], the patient is a poor historian, asking for Dr. Diego, fairly confused, somewhat restless, alluding to poor appetite. She states she was drinking large amounts of water. Apparently, the patient was throwing items at other peoples, irritable, unruly, could not be cared for at a lower level of care. Dr. Diego saw the patient over the weekend noting that she remained still symptomatic, anxious, still confused, highly unpredictable, wanted to be left alone. He felt that she was quite psychotic. ASSESSMENT: The patient remains symptomatic, still unruly, a poor historian. Medications reviewed. PLAN: The patient is not safe for a lower level of care. We will continue Zoloft. The patient may need medication adjustments. She may need a low dose antipsychotic as well. She is currently on Amitiza and Zoloft. JOB# [id number]
[2017-06-17] MEDS: Diphenoxylate/Atropine 2.5mg Tab PO PRN ×3 (01:48→18:03)
[2017-06-17] MEDS: Calcium Carb/Vit D 500 mg/200 U Tab PO SCH ×2 (09:11→17:15)
[2017-06-17] MEDS: Lactobacillus Rhamnosus GG 15 Billion CFU CAP.SPRINK PO SCH (09:11)
[2017-06-17] MEDS: Multivitamin w/ Minerals Tab PO SCH (09:11)
[2017-06-17] MEDS: Potassium Chloride 20 mEq ER Tab PO SCH (09:12)
--- NOTE | 2017-06-17 20:35 | Progress Notes ---
DATE: 06/17/2017 SUBJECTIVE: The patient is in the hospital, transferred from [facility], with increased irritability, threatening behaviors, hallucinations, depression, easily irritable, throwing objects at staff. On face to face, the patient is significantly calmer, more redirectable. There are concerns about impulse control, but attesting to fair sleep and fair appetite. The patient remains anxious, still somewhat disoriented, mostly reclusive, isolating. It seems any psychotic symptoms are dissipating. There may be some residual psychotic symptoms. MEDICATIONS: Reviewed. ASSESSMENT: The patient is still impulsive, poor impulse control, highly unpredictable, but seemingly calmer. PLAN: We will continue to monitor. Continue medications at current dose. We will continue to monitor the patient and work on her coping. JOB# [id number]
[2017-06-18] MEDS: Diphenoxylate/Atropine 2.5mg Tab PO PRN ×2 (06:58→17:44)
[2017-06-18] MEDS: Hydrocodone/APAP 5mg/325mg Tab PO PRN ×2 (07:10→13:04)
[2017-06-18] MEDS: Calcium Carb/Vit D 500 mg/200 U Tab PO SCH ×2 (08:46→17:56)
[2017-06-18] MEDS: Potassium Chloride 20 mEq ER Tab PO SCH (08:46)
[2017-06-18] MEDS: Multivitamin w/ Minerals Tab PO SCH (08:46)
[2017-06-18] MEDS: Lactobacillus Rhamnosus GG 15 Billion CFU CAP.SPRINK PO SCH (08:47)
--- NOTE | 2017-06-18 13:33 | Internal Medicine Prog Note ---
Internal Medicine Subjective - Subjective Service Date: 06/17/17 Patient seen and examined:: with staff Patient is:: awake, verbal, in bed, talking Per staff patient has:: no adverse event Internal Medicine Objective - Results Result Diagrams: 06/12/17 16:47 06/12/17 16:47 Recent Labs: Laboratory Last Values WBC 9.0 Th/cmm (4.8-10.8) 06/12/17 16:47 RBC 4.67 Mil/cmm (3.80-5.10) 06/12/17 16:47 Hgb 14.1 gm/dL (12-16) 06/12/17 16:47 Hct 42.4 % (41.0-60) 06/12/17 16:47 MCV 90.7 fl (81-100) 06/12/17 16:47 MCH 30.2 pg (27.0-31.0) 06/12/17 16:47 MCHC Differential 33.3 pg (28.0-36.0) 06/12/17 16:47 RDW 14.1 % (11.5-20.0) 06/12/17 16:47 Plt Count 203 Th/cmm (150-400) 06/12/17 16:47 MPV 8.1 fl 06/12/17 16:47 Neutrophils % 73.3 % (40.0-80.0) 06/12/17 16:47 Lymphocytes % 20.0 % (20.0-50.0) 06/12/17 16:47 Monocytes % 5.0 % (2.0-10.0) 06/12/17 16:47 Eosinophils % 1.0 % (0.0-5.0) 06/12/17 16:47 Basophils % 0.7 % (0.0-2.0) 06/12/17 16:47 Sodium 132 mEq/L (136-145) L 06/12/17 16:47 Potassium 3.5 mEq/L (3.5-5.1) 06/12/17 16:47 Chloride 104 mEq/L (98-107) 06/12/17 16:47 Carbon Dioxide 20.3 mEq/L (21.0-31.0) L 06/12/17 16:47 Anion Gap 11.2 (7.0-16.0) 06/12/17 16:47 BUN 9 mg/dL (7-25) 06/12/17 16:47 Creatinine 0.4 mg/dL (0.6-1.2) L 06/12/17 16:47 Est GFR ( Amer) > 60.0 ml/min (>90) 06/12/17 16:47 Est GFR (Non-Af Amer) > 60.0 ml/min 06/12/17 16:47 BUN/Creatinine Ratio 22.5 06/12/17 16:47 Glucose 101 mg/dL (70-105) 06/12/17 16:47 Hemoglobin A1c % 5.0 % (4.0-6.0) 06/12/17 16:47 Calcium 9.0 mg/dL (8.6-10.3) 06/12/17 16:47 Total Bilirubin 0.4 mg/dL (0.3-1.0) 06/12/17 16:47 AST 22 U/L (13-39) 06/12/17 16:47 ALT < 3 U/L (7-52) L 06/12/17 16:47 Alkaline Phosphatase 65 U/L (34-104) 06/12/17 16:47 Troponin I 0.11 ng/mL (0.01-0.05) H* 06/12/17 16:47 Total Protein 6.2 gm/dL (6.0-8.3) 06/12/17 16:47 Albumin 3.7 gm/dL (3.7-5.3) 06/12/17 16:47 Globulin 2.5 gm/dL 06/12/17 16:47 Albumin/Globulin Ratio 1.5 (1.0-1.8) 06/12/17 16:47 Triglycerides 178 mg/dL (<150) H 06/12/17 16:47 Cholesterol 171 mg/dL (<200) 06/12/17 16:47 LDL Cholesterol Direct 124 mg/dL (75-193) 06/12/17 16:47 HDL Cholesterol 29 mg/dL (23-92) 06/12/17 16:47 TSH 0.51 uIU/ml (0.34-5.60) 06/12/17 16:47 Salicylates < 25.0 mg/L (30.0-100.0) L 06/12/17 16:47 Acetaminophen < 10.0 ug/mL (10.0-30.0) L 06/12/17 16:47 Ethyl Alcohol < 10 mg/dL (0-10) 06/12/17 16:47 RPR NONREACTIVE (NONREACTIVE) 06/12/17 16:47 - Physical Exam Vitals and I&O: Vital Signs Temp 97.9 F 06/18/17 05:51 Pulse 95 06/18/17 05:51 Resp 19 06/18/17 05:51 BP 113/75 06/18/17 05:51 Pulse Ox 95 06/18/17 05:51 Intake & Output 06/17/17 06/18/17 06/18/17 18:59 06:59 18:59 Intake Total 180 Balance 180 Weight (lbs) 77.111 kg Intake: Oral 180 Other: # Voids 3 # Bowel Movements 2 Stool Characteristics Liquid Liquid Active Medications: Current Medications Acetaminophen (Tylenol) 650 mg PO Q4HR PRN PRN Reason: MILD BACK PAIN Stop: 08/11/17 20:08 Last Admin: 06/17/17 21:24 Dose: 650 mg Acetaminophen/Hydrocodone Bitart ([place] 5mg/325mg) 1 tab PO Q4H PRN PRN Reason: MOD/SEVERE PAIN Stop: 08/11/17 20:14 Last Admin: 06/18/17 13:04 Dose: 1 tab Amantadine HCl (Symmetrel) 100 mg PO TID [facility] Stop: 08/11/17 20:59 Last Admin: 06/18/17 13:04 Dose: 100 mg Calcium/Vitamin D (Oscal W/Vitamin D) 1 tab PO BIDWM [facility] Stop: 08/12/17 07:59 Last Admin: 06/18/17 08:46 Dose: 1 tab Carbidopa/Levodopa (Sinemet 25 Mg-250 Mg) 1 tab PO BID [facility] Stop: 08/12/17 08:59 Last Admin: 06/18/17 08:46 Dose: 1 tab Carisoprodol (Soma) 350 mg PO DAILY PRN PRN Reason: MUSCLE SPASM Stop: 08/11/17 19:27 Last Admin: 06/18/17 07:10 Dose: 350 mg Diphenoxylate HCl/Atropine (Lomotil) 1 tab PO Q8H PRN PRN Reason: Diarrhea Stop: 08/11/17 19:27 Last Admin: 06/18/17 06:58 Dose: 1 tab Docusate Sodium (Colace) 100 mg PO DAILY [facility] Stop: 08/12/17 08:59 Last Admin: 06/18/17 08:46 Dose: Not Given Famotidine (Pepcid) 40 mg PO DAILY [facility] Stop: 08/11/17 20:14 Last Admin: 06/18/17 08:45 Dose: 40 mg Ketorolac Tromethamine (Toradol) 30 mg IM Q6HR [facility] Stop: 08/17/17 17:59 Lactobacillus Rhamnosus (Culturelle 15b) 1 each PO DAILY [facility] Stop: 08/13/17 08:59 Last Admin: 06/18/17 08:47 Dose: 1 each Levetiracetam (Keppra) 1,000 mg PO BID [facility] Stop: 08/11/17 20:59 Last Admin: 06/18/17 08:46 Dose: 1,000 mg Lidocaine (Lidoderm 5% Patch) 1 patch TD Q12HR [facility] Stop: 08/17/17 20:59 Lorazepam (Ativan) 0.5 mg PO Q6HR PRN; Protocol PRN Reason: Agitation Stop: 08/12/17 03:08 Megestrol Acetate (Megace) 400 mg PO BID [facility] Stop: 08/11/17 20:29 Last Admin: 06/18/17 08:47 Dose: Not Given Miscellaneous (Solifenacin Succinate [Vesicare]) 5 mg PO DAILY [facility] Stop: 08/12/17 08:59 Ondansetron HCl (Zofran Odt) 8 mg PO Q8HR PRN PRN Reason: NAUSEA/VOMITING Stop: 08/11/17 20:29 Last Admin: 06/17/17 09:13 Dose: 8 mg Phenytoin (Dilantin) 200 mg PO Q12H [facility] Stop: 08/11/17 20:59 Last Admin: 06/18/17 08:46 Dose: 200 mg Potassium Chloride (Klor-Con) 20 meq PO DAILY [facility] Stop: 08/11/17 20:29 Last Admin: 06/18/17 08:46 Dose: 20 meq Sertraline HCl (Zoloft) 100 mg PO DAILY [facility] Stop: 08/11/17 20:29 Last Admin: 06/18/17 08:45 Dose: 100 mg Zolpidem Tartrate (Ambien) 5 mg PO HS PRN PRN Reason: Insomnia Stop: 08/12/17 03:10 Last Admin: 06/13/17 21:23 Dose: 5 mg General: alert HEENT: NC/AT, PERRLA, EOMI, anicteric sclerae, throat clear Neck: Supple, No JVD, No thyromegaly, +2 carotid pulse wo bruit, No LAD Lungs: congested Cardiovascular: Normal S1, Normal S2, without murmur Abdomen: soft Extremities: clear Neurological: no change - Procedures Procedures: Procedures Procedure Code Date CLOSED [ENDOSCOPIC] BIOPSY OF LARYNX 31.43 07/12/96 INJECT/INFUSE NEC 99.29 11/11/07 LARYGNOSCOPY AND OTH TRACHEOSCOPY 31.42 07/12/96 LARYNGOSCOPY WITH BIOPSY 00053 07/12/96 OTHER GROUP THERAPY 94.44 11/26/07 RECREATIONAL THERAPY 93.81 11/26/07 Internal Medicine Assmt/Plan - Assessment Assessment: 1.PARKINSON DISEASE. 2.SEIZURE DISORDER. 3.BLADDER DYSFUNCTION. 4.MAJOR DEPRESSION. - Plan Plan: CONTINUE ON CURRENT MEDICATION AND DIET. Nutritional Asmnt/Malnutr-PDOC - Dietary Evaluation Malnutrition Findings (Please click <Entered> for more info): Nutritional Asmnt/Malnutrition Start: 06/17/17 17: 42 Text: Status: Complete Freq: Document 06/17/17 17:42 LCHENG (Rec: 06/17/17 17:49 [email or web address]) Nutritional Asmnt/Malnutrition Patient General Information Nutritional Screening Moderate Risk Diagnosis psychosis Pertinent Medical Hx/Surgical Hx [place], UTI, c diff colitis Subjective Information Per EMR, PO intake 75-100%. Per nurse note, Pt had loose BM x 4. pt refused medications d/t nausea. Current Diet Order/ Nutrition Support [facility] soft chopped Pertinent Medications oscal w/vit D, colace, culturelle, megace, kcl Pertinent Labs 06/12 Na 132,Cr 0.4 Nutritional Hx/Data Height 1.68 m Height (Calculated Centimeters) 167.6 Current Weight (lbs) 77.111 kg Weight (Calculated Kilograms) 77.1 Weight (Calculated Grams) 96474.7 [place] Body Weight 130 Body Mass Index (BMI) 27.4 Weight Status Overweight GI Symptoms GI Symptoms Nausea Last BM 06/17 x 4 Difficult in: None Skin Integrity/Comment: intact Current %PO Good (75-100%) Estimated Nutritional Goals Calories/Kcals/Kg 25-30 based on IBW 65kg Kcals Calculated 6531-4846 Protein g/k Protein Calculated 65 Fluid: ml 1625-1950ml (1ml/kcal) Nutritional Problem No current Nutrition Prob Problem N/A Malnutrition Alert Protein-Calorie Malnutrition N/A Is there a minimum of two criteria No selected? Query Text:Check all the applicable criteria. A minimum of two criteria are recommended for diagnosis of either severe or non-severe malnutrition. Intervention/Recommendation Comments 1. Continue with current diet as ordered. 2. Monitor PO intake, wt, labs and skin integrity 3. F/U as moderate risk in 3-5 days, 06/20-06/22 Expected Outcomes/Goals Expected Outcomes/Goals 1. PO intake to meet at least 75% of nutritional needs. 2. Wt stability, skin to remain intact, labs to approach WNL.
--- NOTE | 2017-06-18 13:35 | Internal Medicine Prog Note ---
Internal Medicine Subjective - Subjective Service Date: 06/18/17 Patient seen and examined:: with staff (she has back pain) Patient is:: awake, verbal, in bed, talking Per staff patient has:: no adverse event Internal Medicine Objective - Results Result Diagrams: 06/12/17 16:47 06/12/17 16:47 Recent Labs: Laboratory Last Values WBC 9.0 Th/cmm (4.8-10.8) 06/12/17 16:47 RBC 4.67 Mil/cmm (3.80-5.10) 06/12/17 16:47 Hgb 14.1 gm/dL (12-16) 06/12/17 16:47 Hct 42.4 % (41.0-60) 06/12/17 16:47 MCV 90.7 fl (81-100) 06/12/17 16:47 MCH 30.2 pg (27.0-31.0) 06/12/17 16:47 MCHC Differential 33.3 pg (28.0-36.0) 06/12/17 16:47 RDW 14.1 % (11.5-20.0) 06/12/17 16:47 Plt Count 203 Th/cmm (150-400) 06/12/17 16:47 MPV 8.1 fl 06/12/17 16:47 Neutrophils % 73.3 % (40.0-80.0) 06/12/17 16:47 Lymphocytes % 20.0 % (20.0-50.0) 06/12/17 16:47 Monocytes % 5.0 % (2.0-10.0) 06/12/17 16:47 Eosinophils % 1.0 % (0.0-5.0) 06/12/17 16:47 Basophils % 0.7 % (0.0-2.0) 06/12/17 16:47 Sodium 132 mEq/L (136-145) L 06/12/17 16:47 Potassium 3.5 mEq/L (3.5-5.1) 06/12/17 16:47 Chloride 104 mEq/L (98-107) 06/12/17 16:47 Carbon Dioxide 20.3 mEq/L (21.0-31.0) L 06/12/17 16:47 Anion Gap 11.2 (7.0-16.0) 06/12/17 16:47 BUN 9 mg/dL (7-25) 06/12/17 16:47 Creatinine 0.4 mg/dL (0.6-1.2) L 06/12/17 16:47 Est GFR ( Amer) > 60.0 ml/min (>90) 06/12/17 16:47 Est GFR (Non-Af Amer) > 60.0 ml/min 06/12/17 16:47 BUN/Creatinine Ratio 22.5 06/12/17 16:47 Glucose 101 mg/dL (70-105) 06/12/17 16:47 Hemoglobin A1c % 5.0 % (4.0-6.0) 06/12/17 16:47 Calcium 9.0 mg/dL (8.6-10.3) 06/12/17 16:47 Total Bilirubin 0.4 mg/dL (0.3-1.0) 06/12/17 16:47 AST 22 U/L (13-39) 06/12/17 16:47 ALT < 3 U/L (7-52) L 06/12/17 16:47 Alkaline Phosphatase 65 U/L (34-104) 06/12/17 16:47 Troponin I 0.11 ng/mL (0.01-0.05) H* 06/12/17 16:47 Total Protein 6.2 gm/dL (6.0-8.3) 06/12/17 16:47 Albumin 3.7 gm/dL (3.7-5.3) 06/12/17 16:47 Globulin 2.5 gm/dL 06/12/17 16:47 Albumin/Globulin Ratio 1.5 (1.0-1.8) 06/12/17 16:47 Triglycerides 178 mg/dL (<150) H 06/12/17 16:47 Cholesterol 171 mg/dL (<200) 06/12/17 16:47 LDL Cholesterol Direct 124 mg/dL (75-193) 06/12/17 16:47 HDL Cholesterol 29 mg/dL (23-92) 06/12/17 16:47 TSH 0.51 uIU/ml (0.34-5.60) 06/12/17 16:47 Salicylates < 25.0 mg/L (30.0-100.0) L 06/12/17 16:47 Acetaminophen < 10.0 ug/mL (10.0-30.0) L 06/12/17 16:47 Ethyl Alcohol < 10 mg/dL (0-10) 06/12/17 16:47 RPR NONREACTIVE (NONREACTIVE) 06/12/17 16:47 - Physical Exam Vitals and I&O: Vital Signs Temp 97.9 F 06/18/17 05:51 Pulse 95 06/18/17 05:51 Resp 19 06/18/17 05:51 BP 113/75 06/18/17 05:51 Pulse Ox 95 06/18/17 05:51 Intake & Output 06/17/17 06/18/17 06/18/17 18:59 06:59 18:59 Intake Total 180 Balance 180 Weight (lbs) 77.111 kg Intake: Oral 180 Other: # Voids 3 # Bowel Movements 2 Stool Characteristics Liquid Liquid Active Medications: Current Medications Acetaminophen (Tylenol) 650 mg PO Q4HR PRN PRN Reason: MILD BACK PAIN Stop: 08/11/17 20:08 Last Admin: 06/17/17 21:24 Dose: 650 mg Acetaminophen/Hydrocodone Bitart ([place] 5mg/325mg) 1 tab PO Q4H PRN PRN Reason: MOD/SEVERE PAIN Stop: 08/11/17 20:14 Last Admin: 06/18/17 13:04 Dose: 1 tab Amantadine HCl (Symmetrel) 100 mg PO TID [facility] Stop: 08/11/17 20:59 Last Admin: 06/18/17 13:04 Dose: 100 mg Calcium/Vitamin D (Oscal W/Vitamin D) 1 tab PO BIDWM [facility] Stop: 08/12/17 07:59 Last Admin: 06/18/17 08:46 Dose: 1 tab Carbidopa/Levodopa (Sinemet 25 Mg-250 Mg) 1 tab PO BID [facility] Stop: 08/12/17 08:59 Last Admin: 06/18/17 08:46 Dose: 1 tab Carisoprodol (Soma) 350 mg PO DAILY PRN PRN Reason: MUSCLE SPASM Stop: 08/11/17 19:27 Last Admin: 06/18/17 07:10 Dose: 350 mg Diphenoxylate HCl/Atropine (Lomotil) 1 tab PO Q8H PRN PRN Reason: Diarrhea Stop: 08/11/17 19:27 Last Admin: 06/18/17 06:58 Dose: 1 tab Docusate Sodium (Colace) 100 mg PO DAILY [facility] Stop: 08/12/17 08:59 Last Admin: 06/18/17 08:46 Dose: Not Given Famotidine (Pepcid) 40 mg PO DAILY [facility] Stop: 08/11/17 20:14 Last Admin: 06/18/17 08:45 Dose: 40 mg Ketorolac Tromethamine (Toradol) 30 mg IM Q6HR [facility] Stop: 08/17/17 17:59 Lactobacillus Rhamnosus (Culturelle 15b) 1 each PO DAILY [facility] Stop: 08/13/17 08:59 Last Admin: 06/18/17 08:47 Dose: 1 each Levetiracetam (Keppra) 1,000 mg PO BID [facility] Stop: 08/11/17 20:59 Last Admin: 06/18/17 08:46 Dose: 1,000 mg Lidocaine (Lidoderm 5% Patch) 1 patch TD Q12HR [facility] Stop: 08/17/17 20:59 Lorazepam (Ativan) 0.5 mg PO Q6HR PRN; Protocol PRN Reason: Agitation Stop: 08/12/17 03:08 Megestrol Acetate (Megace) 400 mg PO BID [facility] Stop: 08/11/17 20:29 Last Admin: 06/18/17 08:47 Dose: Not Given Miscellaneous (Solifenacin Succinate [Vesicare]) 5 mg PO DAILY [facility] Stop: 08/12/17 08:59 Ondansetron HCl (Zofran Odt) 8 mg PO Q8HR PRN PRN Reason: NAUSEA/VOMITING Stop: 08/11/17 20:29 Last Admin: 06/17/17 09:13 Dose: 8 mg Phenytoin (Dilantin) 200 mg PO Q12H [facility] Stop: 08/11/17 20:59 Last Admin: 06/18/17 08:46 Dose: 200 mg Potassium Chloride (Klor-Con) 20 meq PO DAILY [facility] Stop: 08/11/17 20:29 Last Admin: 06/18/17 08:46 Dose: 20 meq Sertraline HCl (Zoloft) 100 mg PO DAILY [facility] Stop: 08/11/17 20:29 Last Admin: 06/18/17 08:45 Dose: 100 mg Zolpidem Tartrate (Ambien) 5 mg PO HS PRN PRN Reason: Insomnia Stop: 08/12/17 03:10 Last Admin: 06/13/17 21:23 Dose: 5 mg General: alert HEENT: NC/AT, PERRLA, EOMI, anicteric sclerae, throat clear Neck: Supple, No JVD, No thyromegaly, +2 carotid pulse wo bruit, No LAD Lungs: congested Cardiovascular: Normal S1, Normal S2, without murmur Abdomen: soft Extremities: clear Neurological: no change - Procedures Procedures: Procedures Procedure Code Date CLOSED [ENDOSCOPIC] BIOPSY OF LARYNX 31.43 07/12/96 INJECT/INFUSE NEC 99.29 11/11/07 LARYGNOSCOPY AND OTH TRACHEOSCOPY 31.42 07/12/96 LARYNGOSCOPY WITH BIOPSY 42080 07/12/96 OTHER GROUP THERAPY 94.44 11/26/07 RECREATIONAL THERAPY 93.81 11/26/07 Internal Medicine Assmt/Plan - Assessment Assessment: 1.PARKINSON DISEASE. 2.SEIZURE DISORDER. 3.BLADDER DYSFUNCTION. 4.MAJOR DEPRESSION. 5.BACK PAIN. - Plan Plan: CONTINUE ON CURRENT MEDICATION AND DIET.TORADOL 30 MG IM Q 6H PRN.LIDOCAIN PATCH APPLY TO LOWER BACK. Nutritional Asmnt/Malnutr-PDOC - Dietary Evaluation Malnutrition Findings (Please click <Entered> for more info): Nutritional Asmnt/Malnutrition Start: 06/17/17 17: 42 Text: Status: Complete Freq: Document 06/17/17 17:42 LORETA (Rec: 06/17/17 17:49 LORETAREGENCY [email or web address]) Nutritional Asmnt/Malnutrition Patient General Information Nutritional Screening Moderate Risk Diagnosis psychosis Pertinent Medical Hx/Surgical Hx [place], UTI, c diff colitis Subjective Information Per EMR, PO intake 75-100%. Per nurse note, Pt had loose BM x 4. pt refused medications d/t nausea. Current Diet Order/ Nutrition Support [facility] soft chopped Pertinent Medications oscal w/vit D, colace, culturelle, megace, kcl Pertinent Labs 3/8 Na 132,Cr 0.4 Nutritional Hx/Data Height 1.68 m Height (Calculated Centimeters) 167.6 Current Weight (lbs) 77.111 kg Weight (Calculated Kilograms) 77.1 Weight (Calculated Grams) 87160.7 [place] Body Weight 130 Body Mass Index (BMI) 27.4 Weight Status Overweight GI Symptoms GI Symptoms Nausea Last BM 06/17 x 4 Difficult in: None Skin Integrity/Comment: intact Current %PO Good (75-100%) Estimated Nutritional Goals Calories/Kcals/Kg 25-30 based on IBW 65kg Kcals Calculated 0610-1084 Protein g/k Protein Calculated 65 Fluid: ml 1625-1950ml (1ml/kcal) Nutritional Problem No current Nutrition Prob Problem N/A Malnutrition Alert Protein-Calorie Malnutrition N/A Is there a minimum of two criteria No selected? Query Text:Check all the applicable criteria. A minimum of two criteria are recommended for diagnosis of either severe or non-severe malnutrition. Intervention/Recommendation Comments 1. Continue with current diet as ordered. 2. Monitor PO intake, wt, labs and skin integrity 3. F/U as moderate risk in 3-5 days, 06/20-06/22 Expected Outcomes/Goals Expected Outcomes/Goals 1. PO intake to meet at least 75% of nutritional needs. 2. Wt stability, skin to remain intact, labs to approach WNL.
[2017-06-18] MEDS ORDERED: NYSTATIN 100000 UNITS/GM POWD TP SCH (17:00)
[2017-06-18] MEDS: Menthol/Zinc Oxide Oint 113gm Tube TP SCH ×2 (17:56→23:57)
[2017-06-18] MEDS ORDERED: Lidocaine 5% Patch TD SCH (21:00)
--- NOTE | 2017-06-19 09:05 | Progress Notes ---
DATE: SUBJECTIVE: Chart reviewed and the patient interviewed. I also discussed the patient's condition with the staff and reviewed records and labs. The patient is still depressed and is still withdrawn. She also is still interacting minimally with peers and others. The patient also still has poor appetite and poor intake. Otherwise, the patient is cooperative and compliant with taking her medications with no side effects of medications. ASSESSMENT: The patient is still depressed and psychotic. TREATMENT PLAN: We will continue to monitor her behavior and her condition closely. Also, continue to work on her poor intake and her ineffective coping and continue to follow up closely. JOB# [id number]
--- NOTE | 2017-06-24 22:35 | Progress Notes ---
DATE: 06/15/2017 SUBJECTIVE: Chart reviewed and the patient interviewed. Also discussed the patient's condition with the staff and reviewed records and labs. The patient is still confused. The patient also still seems to be depressed and she still wants to be left alone, which made her have episodes of agitation and irritability. She also still needs redirections. On the other hand, the patient is compliant with taking her medications with no side effect of Zoloft. ASSESSMENT: The patient is still depressed and still seems to be psychotic. TREATMENT PLAN: Continue to monitor her behavior and medications and continue to work on her unpredictable behavior and followup. JOB# [id number]
== END 2017-06-19 00:55 | DRG 885 ==
LOC: ER 15:58 → GERO2 18:00
PROVIDERS: ADMIT Psychiatry & Neurology Psychiatry; ATTEND Psychiatry & Neurology Psychiatry
DX: F33.3 Major depressive disorder, recurrent, severe with psychotic symptoms (principal); G20 Parkinson's disease; Z66 Do not resuscitate; G40.909 Epilepsy, unspecified, not intractable, without status epilepticus; R63.0 Anorexia; N31.9 Neuromuscular dysfunction of bladder, unspecified; G89.29 Other chronic pain; M54.9 Dorsalgia, unspecified; Z88.1 Allergy status to other antibiotic agents; Z90.49 Acquired absence of other specified parts of digestive tract; Z88.8 Allergy status to other drugs, medicaments and biological substances; Z68.27 Body mass index [BMI] 27.0-27.9, adult
CPT/HCPCS: 36415-UA; 80053-TC; 80061-TC; 80320-TC; 80329-TC; 83036-90; 84443-TC; 84484-TC; 85025-TC; 86592-TC; 87046-90; 93005; J1885; J7030; Q0162; Z7610

== ENCOUNTER 2017-06-19 00:55 | Inpatient (IN) | payer MEDICARE, MEDICAID ==
[2017-06-19] MEDS: D5-0.9NS w/KCL 20mEq 1,000 ML IV SCH ×2 (02:34→13:15)
[2017-06-19] MEDS ORDERED: Sodium Chloride 0.9% 500 ML IV ONE (03:30)
[2017-06-19 04:18] VITALS: BP 101/58
[2017-06-19 06:07] LABS: % EOSINOPHILS 0.1 % (0.0-5.0); % LYMPHOCYTES 10.3 % (20.0-50.0); % MONOCYTES 5.4 % (2.0-10.0); % NEUTROPHILS 84.2 % (40.0-80.0); HEMOGLOBIN 16.6 gm/dL (12-16); LYMPHOCYTE ABSOLUTE 0.4 Th/cmm (1.5-3.0); MEAN CELL VOLUME 91.3 fl (81-100); MEAN PLATELET VOLUME 8.6 fl; MONOCYTE ABSOLUTE 0.2 Th/cmm (0.3-1.0); NEUTROPHILE ABSOLUTE 2.8 Th/cmm (1.8-8.0); PLATELET COUNT 217 Th/cmm (150-400); RED BLOOD COUNT 5.37 Mil/cmm (3.80-5.10); RED CELL DISTRIBUTION WIDTH 14.9 % (11.5-20.0)
[2017-06-19 06:15] LABS: WHITE BLOOD COUNT 3.4 Th/cmm (4.8-10.8)
[2017-06-19 06:25] LABS: ALB/GLOB RATIO 1.2 (1.0-1.8); ALBUMIN 3.5 gm/dL (3.7-5.3); ANION GAP 18.8 (7.0-16.0); BILIRUBIN,TOTAL 1.2 mg/dL (0.3-1.0); CALCIUM SERUM 9.4 mg/dL (8.6-10.3); CARBON DIOXIDE 13.1 mEq/L (21.0-31.0); CREATININE - SERUM 1.5 mg/dL (0.6-1.2); GFR AFRICAN-AMERICAN 45.4 ml/min (>90); GFR NON AFRICAN-AMERICAN 37.5 ml/min; TOTAL PROTEIN,SERUM 6.4 gm/dL (6.0-8.3)
[2017-06-19 06:29] LABS: POTASSIUM SERUM 2.9 mEq/L (3.5-5.1)
--- NOTE | 2017-06-19 06:38 | Discharge Summary ---
DATE OF DISCHARGE: 06/19/2017 AGE: 62. SEX: Female. PHYSICIAN: Karne Diego M.D., M.P.H. FINAL DIAGNOSIS: Psychosis, unspecified. SECONDARY DIAGNOSIS: Dementia, moderate to severe, with psychotic features. REASON FOR HOSPITALIZATION: The patient was admitted to the hospital from [facility] because of striking out behavior and agitation. HOSPITAL COURSE: The patient continued to be depressed and withdrawn and she was also actively hallucinating. The patient was having poor intake and poor appetite. The patient also was restless and she was not very cooperative with her treatment. The patient was discharged from the hospital to the medical floor when her oxygen level was fluctuating up and down. Physical examination of the patient was ____ by Dr. Bowers. AFTER DISCHARGE PLANS: The patient discharged from the hospital with plans for outpatient treatment and follow up in medical floor. EXPECTED OUTCOME AFTER DISCHARGE: Depends on course in medical floor. JOB# [id number]
[2017-06-19 06:46] LABS: pH 7.47 (7.35-7.45)
[2017-06-19 06:49] LABS: URINE MICROSCOPIC INDICATED? YES; URINE SOURCE FOLEY PORT
[2017-06-19 07:06] LABS: URINE BILIRUBIN MODERATE (NEGATIVE); URINE BLOOD LARGE (NEGATIVE); URINE GLUCOSE (UA) NEGATIVE (NEGATIVE); URINE KETONE 15 mg/dL (NEGATIVE); URINE LEUKOCYTE ESTERASE NEGATIVE (NEGATIVE); URINE NITRATE POSITIVE (NEGATIVE); URINE PROTEIN 30 mg/dL (NEGATIVE)
[2017-06-19 07:17] LABS: URINE CLARITY TURBID (CLEAR); URINE COLOR DARK YELLOW
[2017-06-19 07:19] LABS: URINE BACTERIA 3+ /hpf (NONE SEEN); URINE EPITHELIAL CELLS OCCASIONAL /lpf (FEW)
[2017-06-19] MEDS ORDERED: Potassium Chloride 40 MEQ, Lidocaine 1% 20mL Vial 25 MG in Sodium Chloride 0.9% 250 ML IV ONE (08:01)
[2017-06-19 13:26] LABS: ALB/GLOB RATIO 1.2 (1.0-1.8); ALBUMIN 3.4 gm/dL (3.7-5.3); ANION GAP 22.7 (7.0-16.0); BILIRUBIN,TOTAL 1.1 mg/dL (0.3-1.0); CREATININE - SERUM 1.6 mg/dL (0.6-1.2); GFR AFRICAN-AMERICAN 42.1 ml/min (>90); GFR NON AFRICAN-AMERICAN 34.8 ml/min; POTASSIUM SERUM 4.1 mEq/L (3.5-5.1); TOTAL PROTEIN,SERUM 6.3 gm/dL (6.0-8.3)
[2017-06-19 13:58] LABS: CARBON DIOXIDE 8.4 mEq/L (21.0-31.0)
--- NOTE | 2017-06-19 14:07 | Diagnostic Imaging Report ---
Portable chest x-ray HISTORY: Shortness of breath, nasogastric tube placement Patient is markedly rotated. There is a poor inspiration. Heart size difficult to assess. No focal pulmonary processes. A nasogastric tube is seen with tip extending into the region of the stomach. Surgical clips noted over the left abdomen. IMPRESSION: 1. Nasogastric tube extending into the region of the stomach over 2. No definite focal pulmonary processes
[2017-06-19] MEDS ORDERED: Morphine Sulfate 2 mg/mL 1mL Syr IVP PRN (15:22)
[2017-06-19] MEDS ORDERED: SODIUM BICARBONATE IVP ONE (16:37)
[2017-06-19] MEDS ORDERED: Sodium Bicarbonate 8.4% 50mEq PFS IVP ONE ×4 (16:38→23:59)
[2017-06-19] MEDS: Sodium Chloride 0.9% 1,000 ML IV SCH (18:00)
[2017-06-19] MEDS ORDERED: Sodium Chloride 0.9% 1,000 ML IV ONE (18:21)
--- NOTE | 2017-06-19 18:43 | History & Physical ---
ADMIT DATE: CHIEF COMPLAINT: Altered level of consciousness. HISTORY OF PRESENT ILLNESS: The patient is a 62-year-old female with long history of Parkinson's disease, depression, and psychosis, resident at [facility] and was found very lethargic yesterday, transferred to the ICU and started on IV fluid, IV antibiotic. The patient was found with urinary tract infection, possible C. diff colitis, dehydration, acute kidney injury. The patient is a very poor historian. PAST MEDICAL HISTORY: Significant for Parkinson's disease, recurrent urinary infection, and recurrent C. diff colitis. She has history of depression and psychosis. PAST SURGICAL HISTORY: No recent surgery. ALLERGIES: SHE IS ALLERGIC TO CIPRO, CLONAZEPAM, AND TRAMADOL. SOCIAL HISTORY: No smoking, no alcohol, no drugs. FAMILY HISTORY: Noncontributory. REVIEW OF SYSTEMS: IMMUNOSYSTEM: No history of chronic renal disorder. CARDIOVASCULAR SYSTEM: No coronary artery disease. ENDOCRINE SYSTEM: No diabetes or thyroid problem. GASTROINTESTINAL SYSTEM: No upper or lower GI bleeding. She has history of C. diff colitis. NEUROLOGICAL SYSTEM: She has history of Parkinson's disease and seizure disorder. SKELETOMUSCULAR SYSTEM: She has contracture of the lower extremities. HEMATOLOGIC SYSTEM: No bleeding tendencies. RESPIRATORY SYSTEM: No asthma. GENITOURINARY: She has recurrent urinary infection. PHYSICAL EXAMINATION: GENERAL: She is awake, not coherent. She is agitated. VITAL SIGNS: Temperature is 97.8, heart rate 132, and blood pressure 105/60. HEENT: Normocephalic. Pupils are reactive to light and accommodation. Sclerae clear. NECK: Supple. Negative for lymphadenopathy, JVD, or bruit. CHEST: ____ bilaterally normal. No rales, rhonchi, or wheezing. HEART: S1 and S2 normal. No gallop rhythm. Tachycardia. ABDOMEN: Soft. Bowel sounds positive. EXTREMITIES: No edema. NEUROLOGIC: Awake and not coherent. LABORATORY DATA: White blood cell 3.4, hemoglobin 16.6, hematocrit 49.0, and platelet is 217. ABG: pH 7.47, pCO2 13, pO2 425. Sodium 135, potassium 4.1, BUN 30, creatinine 0.6. Urinalysis; positive for nitrite, white blood cells 2 to 5. ASSESSMENT: 1. Urinary tract infection. 2. Possible Clostridium difficile colitis. 3. Sepsis. 4. Acute metabolic encephalopathy. 5. Parkinson's disease. 6. Seizure disorder. 7. Dehydration. 8. Acute kidney injury. PLAN: The patient admitted to the hospital under Dr. Bowers's service. Started on IV fluid, antibiotic. NG tube was placed for medication. Neurology consultation, Infectious Disease consultation, Psych consultation, and Cardiac consultation obtained. CBC and CMP for tomorrow. The patient is a full code. JOB# [id number]
[2017-06-19] MEDS: Calcium Carb/Vit D 500 mg/200 U Tab PO SCH (18:59)
[2017-06-19] MEDS: Vancomycin HCL 250 mg /10mL UDC NG SCH (19:45)
[2017-06-19] MEDS: Diltiazem 30 mg Tab PO SCH (19:47)
[2017-06-19] MEDS: metroNIDAZOLE 500mg/NS 100mL 500 MG/100 ML BAG IV SCH (22:30)
[2017-06-19] MEDS ORDERED: Piperacillin Sodium/Tazobact 3.375 gm Vial IV ONE (22:30)
--- NOTE | 2017-06-19 23:24 | Consultation ---
DATE OF CONSULTATION: 06/19/2017 RENAL CONSULTATION I was kindly asked because the patient has a decreased urine output. HISTORY OF PRESENT ILLNESS: The patient is a 62-year-old female with a history of dementia with psychotic feature. The patient was admitted to the hospital from [facility], because she had originally had striking out behavior and agitation. She was noted to have a decreased p.o. intake and altered and restless. Her oxygenation was down. Therefore, she was transferred to ICU. PAST MEDICAL HISTORY: Includes history of dementia with psychosis. PAST SURGICAL HISTORY: Not known. ALLERGIES: Includes CIPRO, CLONAZEPAM, and TRAMADOL. SOCIAL HISTORY: Negative for smoking, alcohol or drugs. LABORATORY DATA: Shows white count is 3.4, H and H is 16 and 49, platelets 217; pH is 7.47, pCO2 is 13, pO2 is 425. Serum potassium is 4.1, carbon dioxide is 8, BUN 30, creatinine 1.6, glucose is 372. She has very a positive urinalysis. PHYSICAL EXAMINATION: VITAL SIGNS: Blood pressure is 105/60, heart rate 130, temperature 97.8. HEENT: Anicteric sclerae. LUNGS: Bilateral rhonchi. CARDIOVASCULAR: Tachycardic, S1, S2. ABDOMEN: Soft. EXTREMITIES: No edema. ASSESSMENT: This is a 62-year-old female with dementia, psychosis, admitted with septic shock, urinary tract infection, acute renal failure and acute respiratory failure. The patient will get broad spectrum antibiotics. The patient will require to have some bicarbonates and aggressive fluid resuscitation. JOB# [id number]
[2017-06-20] MEDS: Enoxaparin 30 mg/0.3 mL 0.3mL Syr SUBQ SCH ×3 (01:00→21:15)
[2017-06-20] MEDS: Vancomycin HCL 250 mg /10mL UDC NG SCH ×4 (01:28→17:53)
[2017-06-20] MEDS ORDERED: Levetiracetam 500 mg/5mL 5mL Vial IV ONE (01:32)
[2017-06-20] MEDS ORDERED: Piperacillin Sodium/Tazobact 3.375 gm Vial IV ONE (04:24)
[2017-06-20] MEDS: metroNIDAZOLE 500mg/NS 100mL 500 MG/100 ML BAG IV SCH ×3 (04:55→21:14)
[2017-06-20 04:57] LABS: HEMATOCRIT 47.4 % (41.0-60); HEMOGLOBIN 15.8 gm/dL (12-16); MEAN CELL VOLUME 89.5 fl (81-100); MEAN CORPUSCULAR HEMOGLOBIN 29.9 pg (27.0-31.0); MEAN CORPUSCULAR HGB CONC 33.4 pg (28.0-36.0); MEAN PLATELET VOLUME 9.9 fl; PLATELET COUNT 204 Th/cmm (150-400); RED CELL DISTRIBUTION WIDTH 15.2 % (11.5-20.0); WHITE BLOOD COUNT 7.8 Th/cmm (4.8-10.8)
--- NOTE | 2017-06-20 05:00 | Consultation ---
DATE OF CONSULTATION: 06/19/[address] Bowers. HISTORY AND PHYSICAL: This is a 62-year-old female patient who was at [facility]. The patient became altered level at this time. The patient was transferred to ICU. The patient was found to have supraventricular tachycardia and hence Cardiology consult is requested. PAST MEDICAL HISTORY: Parkinson's disease, recurrent C. diff colitis, urinary tract infection, major depression and seizure disorder. FAMILY HISTORY: Unremarkable. SOCIAL HISTORY: No history of smoking or alcohol abuse. ALLERGIES: No known allergies. PHYSICAL EXAMINATION: VITAL SIGNS: Blood pressure 130/80, pulse 120 and respirations 28. HEAD: Normocephalic. No lumps or bumps. EYES: Pupils equal, reactive to light. Fundi show AV nicking, sclerae white, conjunctivae pink. NECK: Carotid 2+. Normal upstroke. JVD flat. Thyroid not palpable. Lymph nodes not palpable. CHEST: Shows increased AP diameter. No kyphosis or scoliosis. LUNGS: Bilateral bronchovesicular breath sounds. Occasional wheeze. No rales. HEART: PMI, fifth intercostal space with lateral to midclavicular line. S1 and S2. No S3 or S4. Soft systolic murmur. ABDOMEN: Soft. Liver and spleen not palpable. No organomegaly. Bowel sounds active. EXTREMITIES: Peripheral pulses 2+. No pedal edema. NEUROLOGIC: The patient has symptoms of Parkinson's disease. CLINICAL IMPRESSION: Acute respiratory failure, supraventricular tachycardia, Parkinson's disease, clostridium difficile colitis, recurrent urinary tract infection, major depression and seizure disorder. PLAN: We will start the patient on Cardizem and monitor the patient for any arrhythmias. JOB# [id number]
[2017-06-20 05:16] LABS: ALBUMIN 2.6 gm/dL (3.7-5.3); ANION GAP 20.7 (7.0-16.0); BILIRUBIN,TOTAL 0.9 mg/dL (0.3-1.0); CARBON DIOXIDE 24.5 mEq/L (21.0-31.0); CREATININE - SERUM 1.6 mg/dL (0.6-1.2); GFR AFRICAN-AMERICAN 42.1 ml/min (>90); GFR NON AFRICAN-AMERICAN 34.8 ml/min; POTASSIUM SERUM 3.2 mEq/L (3.5-5.1); TOTAL PROTEIN,SERUM 5.2 gm/dL (6.0-8.3)
[2017-06-20 05:23] LABS: MANUAL DIFF REQUIRED? YES
[2017-06-20 06:03] LABS: BAND NEUTROPHILE 10 % (0-10); LYMPHOCYTE 13 % (20-50); MONOCYTE 7 % (2-10); NEUTROPHILS 70 % (40-80); TOTAL CELLS COUNTED 100
--- NOTE | 2017-06-20 07:58 | Diagnostic Imaging Report ---
Exam: Portable KUB of the abdomen. HISTORY: Pain. Findings: Portable examination of the abdomen 1830 hours reviewed. Upper abdomen is not visualized on this examination. The study demonstrates nonspecific bowel gas pattern. There is a appearance of the mash device overlying the lower abdomen, most likely representing postsurgical changes status post hernia repair.. Bony structures are unremarkable for degenerative changes. No abnormal masses or calcifications are noted. IMPRESSION nonspecific bowel gas pattern.
[2017-06-20] MEDS: Sodium Chloride 0.9% 1,000 ML IV SCH ×2 (09:00→14:58)
[2017-06-20] MEDS: Calcium Carb/Vit D 500 mg/200 U Tab PO SCH ×2 (09:01→17:53)
[2017-06-20] MEDS: Potassium Chloride 20 mEq ER Tab PO SCH (09:01)
[2017-06-20] MEDS: Diltiazem 30 mg Tab PO SCH ×4 (09:02→16:00)
[2017-06-20 09:06] LABS: INR 1.93 (0.5-1.4); PROTHROMBIN TIME (TEST) 20.8 SECONDS (9.5-11.5)
--- NOTE | 2017-06-20 11:09 | Progress Notes ---
DATE: SUBJECTIVE: Chart reviewed and the patient interviewed. Also discussed the patient's condition with the staff and reviewed records and labs. The patient seems to be calmer and she is less agitated and less irritable. The patient also seems to be sedated. No major behavioral problems. Continue monitoring her behavior in ICU and continue working up on her both psychological issues as well as here behavior and also her medical issues. [facility]# [id number]
[2017-06-20] MEDS: Linezolid 600mg/300mL Premix Bag IV SCH (14:01)
[2017-06-20] MEDS ORDERED: Sodium Chloride 0.9% 200 ML IV ONE (14:47)
[2017-06-20] MEDS ORDERED: Probiotic Screen MC PRN (15:01)
[2017-06-20 15:07] LABS: pH 7.56 (7.35-7.45)
--- NOTE | 2017-06-20 15:32 | Diagnostic Imaging Report ---
Portable chest x-ray HISTORY: Shortness of breath Compared to prior exam of June 19, 2017, no focal point processes are seen. Nasogastric tube tip projects over the epigastric area. IMPRESSION: 1. No focal pulmonary processes 2. Nasogastric tube projecting over the upper gastric region.
--- NOTE | 2017-06-20 15:35 | General Progress Note ---
Subjective - Review of Systems Service Date: 06/20/17 Subjective: pt in icu low BP low urine out put Tachycardia Objective - Results Result Diagrams: 06/20/17 04:05 06/20/17 04:05 Recent Labs: Laboratory Last Values WBC 7.8 Th/cmm (4.8-10.8) D 06/20/17 04:05 RBC 5.30 Mil/cmm (3.80-5.10) H 06/20/17 04:05 Hgb 15.8 gm/dL (12-16) 06/20/17 04:05 Hct 47.4 % (41.0-60) 06/20/17 04:05 MCV 89.5 fl (81-100) 06/20/17 04:05 MCH 29.9 pg (27.0-31.0) 06/20/17 04:05 MCHC Differential 33.4 pg (28.0-36.0) 06/20/17 04:05 RDW 15.2 % (11.5-20.0) 06/20/17 04:05 Plt Count 204 Th/cmm (150-400) 06/20/17 04:05 MPV 9.9 fl 06/20/17 04:05 Neutrophils % 84.2 % (40.0-80.0) H 06/19/17 06:00 Band Neutrophils % 10 % (0-10) 06/20/17 04:05 Lymphocytes % 10.3 % (20.0-50.0) L 06/19/17 06:00 Monocytes % 5.4 % (2.0-10.0) 06/19/17 06:00 Eosinophils % 0.1 % (0.0-5.0) 06/19/17 06:00 Basophils % 0.0 % (0.0-2.0) 06/19/17 06:00 Neutrophils (Manual) 70 % (40-80) 06/20/17 04:05 Lymphocytes 13 % (20-50) L 06/20/17 04:05 Monocytes 7 % (2-10) 06/20/17 04:05 PT 20.8 SECONDS (9.5-11.5) H 06/20/17 08:30 INR 1.93 (0.5-1.4) H 06/20/17 08:30 Specimen Source Arterial 06/20/17 15:00 Sample Site RB 06/20/17 15:00 pH 7.56 (7.35-7.45) H* 06/20/17 15:00 pCO2 25.0 mmHg (35.0-45.0) L 06/20/17 15:00 pO2 198.0 mmHg (80.0-100.0) H 06/20/17 15:00 HCO3 26.1 mEq/L (20.0-26.0) H 06/20/17 15:00 Base Excess 1.4 mEq/L (-3.0-3.0) 06/20/17 15:00 O2 Saturation 100.0 % (92.0-100.0) 06/20/17 15:00 Stephen Test NA 06/20/17 15:00 Vent Rate NA 06/20/17 15:00 Inspired O2 28 06/20/17 15:00 Tidal Volume NA 06/20/17 15:00 PEEP NA 06/20/17 15:00 Pressure (ins/psv/peep) NA 06/20/17 15:00 Critical Value E.ESCAMILLA 06/20/17 15:00 Sodium 155 mEq/L (136-145) H D 06/20/17 04:05 Potassium 3.2 mEq/L (3.5-5.1) L 06/20/17 04:05 Chloride 113 mEq/L (98-107) H 06/20/17 04:05 Carbon Dioxide 24.5 mEq/L (21.0-31.0) 06/20/17 04:05 Anion Gap 20.7 (7.0-16.0) H 06/20/17 04:05 BUN 48 mg/dL (7-25) H 06/20/17 04:05 Creatinine 1.6 mg/dL (0.6-1.2) H 06/20/17 04:05 Est GFR ( Amer) 42.1 ml/min (>90) 06/20/17 04:05 Est GFR (Non-Af Amer) 34.8 ml/min 06/20/17 04:05 BUN/Creatinine Ratio 30.0 06/20/17 04:05 Glucose 232 mg/dL (70-105) H D 06/20/17 04:05 Calcium 8.0 mg/dL (8.6-10.3) L 06/20/17 04:05 Total Bilirubin 0.9 mg/dL (0.3-1.0) 06/20/17 04:05 AST 42 U/L (13-39) H 06/20/17 04:05 ALT 24 U/L (7-52) 06/20/17 04:05 Alkaline Phosphatase 38 U/L (34-104) 06/20/17 04:05 Total Protein 5.2 gm/dL (6.0-8.3) L 06/20/17 04:05 Albumin 2.6 gm/dL (3.7-5.3) L 06/20/17 04:05 Globulin 2.6 gm/dL 06/20/17 04:05 Albumin/Globulin Ratio 1.0 (1.0-1.8) 06/20/17 04:05 Urine Source [place] 06/19/17 05:55 Urine Color DARK YELLOW 06/19/17 05:55 Urine Clarity TURBID (CLEAR) H 06/19/17 05:55 Urine pH 5.0 (4.6 - 8.0) 06/19/17 05:55 Ur Specific [place] >= 1.030 (1.005-1.030) 06/19/17 05:55 Urine Protein 30 mg/dL (NEGATIVE) H 06/19/17 05:55 Urine Glucose (UA) NEGATIVE mg/dL (NEGATIVE) 06/19/17 05:55 Urine Ketones 15 mg/dL (NEGATIVE) H 06/19/17 05:55 Urine Blood LARGE (NEGATIVE) H 06/19/17 05:55 Urine Nitrate POSITIVE (NEGATIVE) H 06/19/17 05:55 Urine Bilirubin MODERATE (NEGATIVE) H 06/19/17 05:55 Urine Urobilinogen 1.0 E.U./dL (0.2 - 1.0) 06/19/17 05:55 Ur Leukocyte Esterase NEGATIVE (NEGATIVE) 06/19/17 05:55 Urine RBC 10-25 /hpf (0-5) H 06/19/17 05:55 Urine WBC 2-5 /hpf (0-5) 06/19/17 05:55 Ur Epithelial Cells OCCASIONAL /lpf (FEW) 06/19/17 05:55 Urine Bacteria 3+ /hpf (NONE SEEN) H 06/19/17 05:55 - Physical Exam Vitals and I&O: Vital Signs Temp 98.6 F 06/20/17 08:00 Pulse 136 06/20/17 12:00 Resp 40 06/20/17 15:20 BP 117/66 06/20/17 09:00 Pulse Ox 96 06/20/17 15:20 Intake & Output 06/19/17 06/20/17 06/20/17 18:59 06:59 18:59 Intake Total 1110 1200 1216.667 Output Total 200 Balance 1110 1000 1216.667 Weight (lbs) 77.111 kg 78.698 kg Intake: Intake, IV Amount 1110 1200 1216.667 D5-0.9NS w/KCL 20mEq 1, 1000 000 ml @ 100 mls/hr IV . Q10H [facility] Rx#:[id number] Levetiracetam 1,000 mg In 110 220 Sodium Chloride 0.9% 100 ml @ 400 mls/hr IV Q12H [facility] Rx#:[id number] Piperacillin Sodium/ 100 200 Tazobact 3.375 gm In Sodium Chloride 0.9% 100 ml @ 100 mls/hr IV Q6HR [facility] Rx#:[id number] Sodium Chloride 0.9% 1, 1000 596.667 000 ml @ 100 mls/hr IV . Q10H [facility] Rx#:[id number] metroNIDAZOLE 500mg/NS 100 200 100mL 500 mg In 100 ml @ 100 mls/hr IV Q8HR [facility] Rx #:[id number] Oral 0 0 Output: Urine 200 Other: # Voids 2 # Bowel Movements 1 2 Stool Characteristics Liquid Liquid Brown [place] Active Medications: Current Medications Acetaminophen (Tylenol) 650 mg PO Q4H PRN PRN Reason: MILD BACK PAIN Amantadine HCl (Symmetrel) 100 mg PO TID [facility] Stop: 08/18/17 20:59 Last Admin: 06/20/17 14:40 Dose: 100 mg Calcium/Vitamin D (Oscal W/Vitamin D) 1 tab PO BID [facility] Stop: 08/18/17 16:59 Last Admin: 06/20/17 09:01 Dose: 1 tab Carbidopa/Levodopa (Sinemet 25 Mg-250 Mg) 1 tab PO BID [facility] Stop: 08/18/17 16:59 Last Admin: 06/20/17 09:02 Dose: 1 tab Carisoprodol (Soma) 350 mg PO DAILY PRN PRN Reason: MUSCLE SPASM Stop: 08/18/17 15:12 Diltiazem HCl (Cardizem) 60 mg PO Q6HR [facility] Stop: 08/18/17 17:59 Last Admin: 06/20/17 12:00 Dose: Not Given Enoxaparin Sodium (Lovenox) 30 mg SUBQ Q12HR [facility] Stop: 08/18/17 20:59 Last Admin: 06/20/17 09:02 Dose: 30 mg Famotidine (Pepcid) 40 mg PO DAILY [facility] Stop: 08/19/17 08:59 Last Admin: 06/20/17 09:02 Dose: 40 mg Levetiracetam 1,000 mg/ Sodium (Chloride) 110 mls @ 400 mls/hr IV Q12H [facility] Stop: 08/18/17 12:59 Last Infusion: 06/20/17 14:39 Dose: Infused Metronidazole (Flagyl) 500 mg in 100 mls @ 100 mls/hr IV Q8HR [facility] Stop: 08/18/17 20:59 Last Infusion: 06/20/17 13:59 Dose: Infused Piperacillin Sod/Tazobactam (Sod 3.375 gm/ Sodium Chloride) 100 mls @ 100 mls/ hr IV Q6HR [facility] Stop: 08/18/17 20:59 Last Infusion: 06/20/17 13:59 Dose: Infused Sodium Chloride (Nacl 0.9%) 1,000 mls @ 100 mls/hr IV .Q10H [facility] Stop: 08/18/17 18:22 Last Admin: 06/20/17 14:58 Dose: 100 mls/hr Linezolid (Zyvox) 600 mg in 300 mls @ 300 mls/hr IV Q12H [facility] Stop: 08/19/17 13:59 Last Admin: 06/20/17 14:01 Dose: 300 mls/hr Amiodarone HCl 450 mg/ (Dextrose) 259 mls @ 0 mls/hr IV TITR [facility]; Titrate PRN Reason: Protocol Stop: 08/19/17 14:29 Norepinephrine Bitartrate 4 mg (/ Sodium Chloride) 254 mls @ 30.48 mls/hr IV TITR [facility]; 8 MCG/MIN PRN Reason: Protocol Stop: 08/19/17 14:44 Lactobacillus Rhamnosus (Culturelle 15b) 1 each PO DAILY [facility] Stop: 08/20/17 08:59 Levetiracetam (Keppra) 1,000 mg PO BID [facility] Stop: 08/18/17 16:59 Lorazepam (Ativan) 1 mg IVP Q4HR PRN; Protocol PRN Reason: Agitation Stop: 08/18/17 15:16 Miscellaneous (Zosyn Iv Per Pharmacy) 1 ea PRN PRN PRN Reason: PROTOCOL Stop: 08/18/17 18:14 Miscellaneous (Clinical Monitoring) 1 ea PRN PRN PRN Reason: ZOSYN PER RX Stop: 08/19/17 08:23 Miscellaneous (Probiotic Screen) 1 ea PRN PRN PRN Reason: PROTOCOL Stop: 08/19/17 15:00 Morphine Sulfate (Morphine) 2 mg IVP Q4HR PRN PRN Reason: Pain (Severe) Stop: 08/18/17 15:21 Ondansetron HCl (Zofran) 4 mg IV Q4H PRN PRN Reason: Nausea / Vomiting Stop: 08/18/17 15:23 Potassium Chloride (Klor-Con) 20 meq PO DAILY [facility] Stop: 08/19/17 08:59 Last Admin: 06/20/17 09:01 Dose: 20 meq Sertraline HCl (Zoloft) 100 mg PO DAILY [facility] Stop: 08/19/17 08:59 Vancomycin HCl (Vancomycin Oral) 250 mg NG Q6HR [facility] Stop: 08/18/17 17:59 Last Admin: 06/20/17 12:07 Dose: 250 mg General: Severe distress Neck: Supple, JVD Cardiovascular: Regular rate, Other (tachycardia) Lungs: Other (b/l rhonchi) Abdomen: Soft Extremities: Edema - Procedures Procedures: Procedures Procedure Code Date CLOSED [ENDOSCOPIC] BIOPSY OF LARYNX 31.43 07/12/96 INJECT/INFUSE NEC 99.29 11/11/07 LARYGNOSCOPY AND OTH TRACHEOSCOPY 31.42 07/12/96 LARYNGOSCOPY WITH BIOPSY 31047 07/12/96 OTHER GROUP THERAPY 94.44 11/26/07 RECREATIONAL THERAPY 93.81 11/26/07 Assessment/Plan - Assessment Assessment: sepsis septic shock acute respiratory failure acute renal failure UTI C. Diff colitis depression parkinson - Plan Plan: continue BiPAP IV abx IV fluids Nutritional Asmnt/Malnutr-PDOC - Dietary Evaluation Malnutrition Findings (Please click <Entered> for more info): Nutritional Asmnt/Malnutrition Start: 06/19/17 13: 46 Text: Status: Complete Freq: Document 06/19/17 13:46 HUGH (Rec: 06/19/17 13:59 [email or web address] [email or web address]) Nutritional Asmnt/Malnutrition Patient General Information Nutritional Screening High Risk Consult Diagnosis dehydration, tachycardia Pertinent Medical Hx/Surgical Hx [place], UTI, c diff colitis Subjective Information Consult received for BS 294 at admitting. Pt was transfered from [facility]. Pt seen resting in bed at time of visit. RN reported pt on NPO. Per nurse note, pt will start tube feeding when NGT placement verified. ordered Fibersource 30ml/hr continuous to start at dinner time today . Current Diet Order/ Nutrition Support NPO Pertinent Medications D5-0.9ns w/kcl 20meq Pertinent Labs 06/19 Na 135, K 2.9, Cl 106, BUN 23, Cr 1.5, glucose 295, alb 3.5 Nutritional Hx/Data Height 1.68 m Height (Calculated Centimeters) 167.6 Current Weight (lbs) 77.111 kg Weight (Calculated Kilograms) 77.1 Weight (Calculated Grams) 24863.7 [place] Body Weight 130 Body Mass Index (BMI) 27.4 Weight Status Overweight GI Symptoms GI Symptoms None Last BM 06/19 Difficult in: None Skin Integrity/Comment: GROIN AND SACRUM REDDNESS Estimated Nutritional Goals BEE in Kcals: Adj wt of IBW Calories/Kcals/Kg 25-30 Kcals Calculated 8646-4020 Protein: Adj wt of IBW Protein g/k Protein Calculated 64 Fluid: ml 1600-1920ml (1ml/kcal) Nutritional Problem 1. Problem Problem altered nutrition related lab values Etiology hyperglycemia Signs/Symptoms: glucose 295 Intervention/Recommendation Comments 1. Start TF as ordered - Fibersource HN 30ml/hr continuous. This will provide 864kcal, 38g protein and 589ml free water, meeting about 55% of nutritional needs. 2. pt on potassium replacement noted. If K level normal, will consider increase TF rate . 3. Monitor TF rate, tolerance, wt weekly, skin integrity and labs 4. F/U as high risk in 2-3 days, 06/21-06/22 Expected Outcomes/Goals Expected Outcomes/Goals 1. Pt to meet at least 75% of nutritional needs via nutrition support with tolerance 2. Wt stability, skin to remain intact, labs to approach WNL.
[2017-06-20] MEDS ORDERED: Amiodarone 150 MG in Sodium Chloride 0.9% 100 ML IV ONE (16:00)
--- NOTE | 2017-06-20 17:32 | Internal Medicine Prog Note ---
Internal Medicine Subjective - Subjective Service Date: 06/20/17 Patient seen and examined:: with staff Patient is:: asleep, non-verbal, in bed Per staff patient has:: other (THE PATIENT ON BIPAP,LEVAPHID AND AMIODARON IV DRIP.URIN OUTPUT IS NOT GOOD) Internal Medicine Objective - Results Result Diagrams: 06/20/17 04:05 06/20/17 04:05 Recent Labs: Laboratory Last Values WBC 7.8 Th/cmm (4.8-10.8) D 06/20/17 04:05 RBC 5.30 Mil/cmm (3.80-5.10) H 06/20/17 04:05 Hgb 15.8 gm/dL (12-16) 06/20/17 04:05 Hct 47.4 % (41.0-60) 06/20/17 04:05 MCV 89.5 fl (81-100) 06/20/17 04:05 MCH 29.9 pg (27.0-31.0) 06/20/17 04:05 MCHC Differential 33.4 pg (28.0-36.0) 06/20/17 04:05 RDW 15.2 % (11.5-20.0) 06/20/17 04:05 Plt Count 204 Th/cmm (150-400) 06/20/17 04:05 MPV 9.9 fl 06/20/17 04:05 Neutrophils % 84.2 % (40.0-80.0) H 06/19/17 06:00 Band Neutrophils % 10 % (0-10) 06/20/17 04:05 Lymphocytes % 10.3 % (20.0-50.0) L 06/19/17 06:00 Monocytes % 5.4 % (2.0-10.0) 06/19/17 06:00 Eosinophils % 0.1 % (0.0-5.0) 06/19/17 06:00 Basophils % 0.0 % (0.0-2.0) 06/19/17 06:00 Neutrophils (Manual) 70 % (40-80) 06/20/17 04:05 Lymphocytes 13 % (20-50) L 06/20/17 04:05 Monocytes 7 % (2-10) 06/20/17 04:05 PT 20.8 SECONDS (9.5-11.5) H 06/20/17 08:30 INR 1.93 (0.5-1.4) H 06/20/17 08:30 Specimen Source Arterial 06/20/17 15:00 Sample Site RB 06/20/17 15:00 pH 7.56 (7.35-7.45) H* 06/20/17 15:00 pCO2 25.0 mmHg (35.0-45.0) L 06/20/17 15:00 pO2 198.0 mmHg (80.0-100.0) H 06/20/17 15:00 HCO3 26.1 mEq/L (20.0-26.0) H 06/20/17 15:00 Base Excess 1.4 mEq/L (-3.0-3.0) 06/20/17 15:00 O2 Saturation 100.0 % (92.0-100.0) 06/20/17 15:00 Stephen Test NA 06/20/17 15:00 Vent Rate NA 06/20/17 15:00 Inspired O2 28 06/20/17 15:00 Tidal Volume NA 06/20/17 15:00 PEEP NA 06/20/17 15:00 Pressure (ins/psv/peep) NA 06/20/17 15:00 Critical Value E.ESCAMILLA 06/20/17 15:00 Sodium 155 mEq/L (136-145) H D 06/20/17 04:05 Potassium 3.2 mEq/L (3.5-5.1) L 06/20/17 04:05 Chloride 113 mEq/L (98-107) H 06/20/17 04:05 Carbon Dioxide 24.5 mEq/L (21.0-31.0) 06/20/17 04:05 Anion Gap 20.7 (7.0-16.0) H 06/20/17 04:05 BUN 48 mg/dL (7-25) H 06/20/17 04:05 Creatinine 1.6 mg/dL (0.6-1.2) H 06/20/17 04:05 Est GFR ( Amer) 42.1 ml/min (>90) 06/20/17 04:05 Est GFR (Non-Af Amer) 34.8 ml/min 06/20/17 04:05 BUN/Creatinine Ratio 30.0 06/20/17 04:05 Glucose 232 mg/dL (70-105) H D 06/20/17 04:05 Calcium 8.0 mg/dL (8.6-10.3) L 06/20/17 04:05 Total Bilirubin 0.9 mg/dL (0.3-1.0) 06/20/17 04:05 AST 42 U/L (13-39) H 06/20/17 04:05 ALT 24 U/L (7-52) 06/20/17 04:05 Alkaline Phosphatase 38 U/L (34-104) 06/20/17 04:05 Total Protein 5.2 gm/dL (6.0-8.3) L 06/20/17 04:05 Albumin 2.6 gm/dL (3.7-5.3) L 06/20/17 04:05 Globulin 2.6 gm/dL 06/20/17 04:05 Albumin/Globulin Ratio 1.0 (1.0-1.8) 06/20/17 04:05 Urine Source [place] 06/19/17 05:55 Urine Color DARK YELLOW 06/19/17 05:55 Urine Clarity TURBID (CLEAR) H 06/19/17 05:55 Urine pH 5.0 (4.6 - 8.0) 06/19/17 05:55 Ur Specific [place] >= 1.030 (1.005-1.030) 06/19/17 05:55 Urine Protein 30 mg/dL (NEGATIVE) H 06/19/17 05:55 Urine Glucose (UA) NEGATIVE mg/dL (NEGATIVE) 06/19/17 05:55 Urine Ketones 15 mg/dL (NEGATIVE) H 06/19/17 05:55 Urine Blood LARGE (NEGATIVE) H 06/19/17 05:55 Urine Nitrate POSITIVE (NEGATIVE) H 06/19/17 05:55 Urine Bilirubin MODERATE (NEGATIVE) H 06/19/17 05:55 Urine Urobilinogen 1.0 E.U./dL (0.2 - 1.0) 06/19/17 05:55 Ur Leukocyte Esterase NEGATIVE (NEGATIVE) 06/19/17 05:55 Urine RBC 10-25 /hpf (0-5) H 06/19/17 05:55 Urine WBC 2-5 /hpf (0-5) 06/19/17 05:55 Ur Epithelial Cells OCCASIONAL /lpf (FEW) 06/19/17 05:55 Urine Bacteria 3+ /hpf (NONE SEEN) H 06/19/17 05:55 - Physical Exam Vitals and I&O: Vital Signs Temp 98.6 F 06/20/17 08:00 Pulse 136 06/20/17 16:20 Resp 29 06/20/17 16:00 BP 108/87 06/20/17 16:13 Pulse Ox 95 06/20/17 16:00 Intake & Output 06/19/17 06/20/17 06/20/17 18:59 06:59 18:59 Intake Total 1110 1200 1651.163 Output Total 200 Balance 1110 1000 1651.163 Weight (lbs) 77.111 kg 78.698 kg Intake: Intake, IV Amount 1110 1200 1651.163 Amiodarone 150 mg In 103 Sodium Chloride 0.9% 100 ml @ 400 mls/hr IV ONCE ONE Rx#:[id number] D5-0.9NS w/KCL 20mEq 1, 1000 000 ml @ 100 mls/hr IV . Q10H [facility] Rx#:[id number] Levetiracetam 1,000 mg In 110 220 Sodium Chloride 0.9% 100 ml @ 400 mls/hr IV Q12H [facility] Rx#:[id number] Linezolid 600mg/300mL 600 300 mg In 300 ml @ 300 mls/ hr IV Q12H [facility] Rx#: [id number] Norepinephrine 4 mg In 31.496 Sodium Chloride 0.9% 250 ml @ 8 MCG/MIN 30.48 mls/ hr IV TITR [facility] Rx#: [id number] Piperacillin Sodium/ 100 200 Tazobact 3.375 gm In Sodium Chloride 0.9% 100 ml @ 100 mls/hr IV Q6HR [facility] Rx#:[id number] Sodium Chloride 0.9% 1, 1000 596.667 000 ml @ 100 mls/hr IV . Q10H [facility] Rx#:[id number] metroNIDAZOLE 500mg/NS 100 200 100mL 500 mg In 100 ml @ 100 mls/hr IV Q8HR [facility] Rx #:[id number] Oral 0 0 Output: Urine 200 Other: # Voids 2 # Bowel Movements 1 2 Stool Characteristics Liquid Liquid [place] Active Medications: Current Medications Acetaminophen (Tylenol) 650 mg PO Q4H PRN PRN Reason: MILD BACK PAIN Amantadine HCl (Symmetrel) 100 mg PO TID [facility] Stop: 08/18/17 20:59 Last Admin: 06/20/17 14:40 Dose: 100 mg Calcium/Vitamin D (Oscal W/Vitamin D) 1 tab PO BID [facility] Stop: 08/18/17 16:59 Last Admin: 06/20/17 09:01 Dose: 1 tab Carbidopa/Levodopa (Sinemet 25 Mg-250 Mg) 1 tab PO BID [facility] Stop: 08/18/17 16:59 Last Admin: 06/20/17 09:02 Dose: 1 tab Carisoprodol (Soma) 350 mg PO DAILY PRN PRN Reason: MUSCLE SPASM Stop: 08/18/17 15:12 Diltiazem HCl (Cardizem) 60 mg PO Q6HR [facility] Stop: 08/18/17 17:59 Last Admin: 06/20/17 12:00 Dose: Not Given Enoxaparin Sodium (Lovenox) 30 mg SUBQ Q12HR [facility] Stop: 08/18/17 20:59 Last Admin: 06/20/17 09:02 Dose: 30 mg Famotidine (Pepcid) 40 mg PO DAILY [facility] Stop: 08/19/17 08:59 Last Admin: 06/20/17 09:02 Dose: 40 mg Levetiracetam 1,000 mg/ Sodium (Chloride) 110 mls @ 400 mls/hr IV Q12H [facility] Stop: 08/18/17 12:59 Last Infusion: 06/20/17 14:39 Dose: Infused Metronidazole (Flagyl) 500 mg in 100 mls @ 100 mls/hr IV Q8HR [facility] Stop: 08/18/17 20:59 Last Infusion: 06/20/17 13:59 Dose: Infused Piperacillin Sod/Tazobactam (Sod 3.375 gm/ Sodium Chloride) 100 mls @ 100 mls/ hr IV Q6HR [facility] Stop: 08/18/17 20:59 Last Infusion: 06/20/17 13:59 Dose: Infused Sodium Chloride (Nacl 0.9%) 1,000 mls @ 100 mls/hr IV .Q10H [facility] Stop: 08/18/17 18:22 Last Admin: 06/20/17 14:58 Dose: 100 mls/hr Linezolid (Zyvox) 600 mg in 300 mls @ 300 mls/hr IV Q12H [facility] Stop: 08/19/17 13:59 Last Infusion: 06/20/17 16:00 Dose: Infused Amiodarone HCl 450 mg/ (Dextrose) 259 mls @ 0 mls/hr IV TITR [facility]; Titrate PRN Reason: Protocol Stop: 08/19/17 14:29 Last Admin: 06/20/17 16:20 Dose: 1 mg/hr, 0.57 mls/hr Norepinephrine Bitartrate 4 mg (/ Sodium Chloride) 254 mls @ 30.48 mls/hr IV TITR [facility]; 8 MCG/MIN PRN Reason: Protocol Stop: 08/19/17 14:44 Last Titration: 06/20/17 17:00 Dose: 6 mcg/min, 22.86 mls/hr Lactobacillus Rhamnosus (Culturelle 15b) 1 each PO DAILY [facility] Stop: 08/20/17 08:59 Levetiracetam (Keppra) 1,000 mg PO BID [facility] Stop: 08/18/17 16:59 Lorazepam (Ativan) 1 mg IVP Q4HR PRN; Protocol PRN Reason: Agitation Stop: 08/18/17 15:16 Miscellaneous (Zosyn Iv Per Pharmacy) 1 ea PRN PRN PRN Reason: PROTOCOL Stop: 08/18/17 18:14 Miscellaneous (Clinical Monitoring) 1 ea PRN PRN PRN Reason: ZOSYN PER RX Stop: 08/19/17 08:23 Miscellaneous (Probiotic Screen) 1 ea PRN PRN PRN Reason: PROTOCOL Stop: 08/19/17 15:00 Morphine Sulfate (Morphine) 2 mg IVP Q4HR PRN PRN Reason: Pain (Severe) Stop: 08/18/17 15:21 Ondansetron HCl (Zofran) 4 mg IV Q4H PRN PRN Reason: Nausea / Vomiting Stop: 08/18/17 15:23 Potassium Chloride (Klor-Con) 20 meq PO DAILY [facility] Stop: 08/19/17 08:59 Last Admin: 06/20/17 09:01 Dose: 20 meq Sertraline HCl (Zoloft) 100 mg PO DAILY [facility] Stop: 08/19/17 08:59 Vancomycin HCl (Vancomycin Oral) 250 mg NG Q6HR [facility] Stop: 08/18/17 17:59 Last Admin: 06/20/17 12:07 Dose: 250 mg General: obtunded HEENT: NC/AT, PERRLA, EOMI, anicteric sclerae, throat clear Neck: Supple, No JVD, No thyromegaly, +2 carotid pulse wo bruit, No LAD Lungs: CTAB Cardiovascular: tachy Abdomen: tender Extremities: clear Neurological: lethargic - Procedures Procedures: Procedures Procedure Code Date CLOSED [ENDOSCOPIC] BIOPSY OF LARYNX 31.43 07/12/96 INJECT/INFUSE NEC 99.29 11/11/07 LARYGNOSCOPY AND OTH TRACHEOSCOPY 31.42 07/12/96 LARYNGOSCOPY WITH BIOPSY 22385 07/12/96 OTHER GROUP THERAPY 94.44 11/26/07 RECREATIONAL THERAPY 93.81 11/26/07 Internal Medicine Assmt/Plan - Assessment Assessment: 1.SEPTIC SHOCK. 2.ACUTE RENAL FAILURE. 3.ACUTE REPIRATORY FAILURE. 4.PARKINSONS DISEASE. 5.POSSIBLE C DIFF COLITIS. - Plan Plan: CONTINUE ON CURRENT MEDICATION AND DIET. Nutritional Asmnt/Malnutr-PDOC - Dietary Evaluation Malnutrition Findings (Please click <Entered> for more info): Nutritional Asmnt/Malnutrition Start: 06/19/17 13: 46 Text: Status: Complete Freq: Document 06/19/17 13:46 LCHENG (Rec: 06/19/17 13:59 LCHENG [email or web address]) Nutritional Asmnt/Malnutrition Patient General Information Nutritional Screening High Risk Consult Diagnosis dehydration, tachycardia Pertinent Medical Hx/Surgical Hx [place], UTI, c diff colitis Subjective Information Consult received for BS 294 at admitting. Pt was transfered from [facility]. Pt seen resting in bed at time of visit. RN reported pt on NPO. Per nurse note, pt will start tube feeding when NGT placement verified. ordered Fibersource 30ml/hr continuous to start at dinner time today . Current Diet Order/ Nutrition Support NPO Pertinent Medications D5-0.9ns w/kcl 20meq Pertinent Labs 06/19 Na 135, K 2.9, Cl 106, BUN 23, Cr 1.5, glucose 295, alb 3.5 Nutritional Hx/Data Height 1.68 m Height (Calculated Centimeters) 167.6 Current Weight (lbs) 77.111 kg Weight (Calculated Kilograms) 77.1 Weight (Calculated Grams) 23583.7 [place] Body Weight 130 Body Mass Index (BMI) 27.4 Weight Status Overweight GI Symptoms GI Symptoms None Last BM 06/19 Difficult in: None Skin Integrity/Comment: GROIN AND SACRUM REDDNESS Estimated Nutritional Goals BEE in Kcals: Adj wt of IBW Calories/Kcals/Kg 25-30 Kcals Calculated 0024-0383 Protein: Adj wt of IBW Protein g/k Protein Calculated 64 Fluid: ml 1600-1920ml (1ml/kcal) Nutritional Problem 1. Problem Problem altered nutrition related lab values Etiology hyperglycemia Signs/Symptoms: glucose 295 Intervention/Recommendation Comments 1. Start TF as ordered - Fibersource HN 30ml/hr continuous. This will provide 864kcal, 38g protein and 589ml free water, meeting about 55% of nutritional needs. 2. pt on potassium replacement noted. If K level normal, will consider increase TF rate . 3. Monitor TF rate, tolerance, wt weekly, skin integrity and labs 4. F/U as high risk in 2-3 days, 06/21-06/22 Expected Outcomes/Goals Expected Outcomes/Goals 1. Pt to meet at least 75% of nutritional needs via nutrition support with tolerance 2. Wt stability, skin to remain intact, labs to approach WNL.
--- NOTE | 2017-06-20 17:48 | Consultation ---
DATE OF CONSULTATION: 06/20/[address] Bowers. Thank you very much Dr. Bowers for this consultation. HISTORY OF PRESENT ILLNESS: This is a 62-year-old female with history of dementia, dysphagia, who was admitted for sepsis, dehydration. We will start antibiotics and IV fluids. The patient is still very lethargic and tachypneic and called for further evaluation. The patient is do not resuscitate on nasal cannula, still hyperventilating with tachycardia. PAST MEDICAL HISTORY: Parkinson's disease. SOCIAL HISTORY: [facility] resident. REVIEW OF SYSTEMS: Unable to obtain because of the patient's condition. PHYSICAL EXAMINATION: GENERAL: The patient is lethargic, tachypneic. VITAL SIGNS: Temperature 98.6, pulse 120-134, blood pressure is 90/55, saturation 98%, respirations 22-30. HEENT: Atraumatic, normocephalic. Pupils react to light and accommodation. Ears, nose and throat are normal. NECK: Supple. No JVD. CHEST: There is fair air entry with rhonchi in bases. HEART: Regular. Sinus tachycardia. No murmurs. ABDOMEN: Soft. No tenderness. EXTREMITIES: No edema. LABORATORY DATA: WBC 7.8, hemoglobin 15.8, platelets 204. ABGs: pH 7.56, pCO2 of 25, pO2 of 198, bicarbonate 26. Sodium 150, potassium 3.2, BUN 40, creatinine 1.6. UA was positive. IMPRESSION: A 62-year-old female with: 1. Urinary tract infection. 2. Sepsis. 3. Hypoventilation secondary to sepsis. 4. Possible underlying neurologic issues. PLAN: 1. We will try to BiPAP hopefully to improve her decrease work of breathing and improve her heart rate and breathing. 2. Nebulizer treatment. 3. Antibiotics and supportive care. I will follow the patient with you. Thank you very much for this consultation. JOB# [id number]
[2017-06-20] MEDS ORDERED: Potassium Chloride Elixir 20 mEq /15 mL UDC GT ONE (19:44)
[2017-06-20] MEDS ORDERED: Linezolid 600mg/300mL Premix Bag IV SCH (21:00)
[2017-06-20] MEDS: D5-0.9%NS 1,000 ML IV SCH (21:13)
--- NOTE | 2017-06-20 21:22 | Cardiology ---
06/20/2017 ECHOCARDIOGRAM REPORT The patient of Dr. Bowers. M-MODE ECHOCARDIOGRAM: Mitral valve: Anterior leaflet of mitral valve shows decreased excursion, EF velocity. Posterior leaflet of the mitral valve shows decreased excursion. Left ventricular posterior wall shows increased thickness, decreased excursion. Interventricular septum shows increased thickness, decreased excursion cardiomyopathy, ejection fraction 45%. Left atrium normal. Aortic root shows normal dimension, normal excursion of aortic leaflets. CONCLUSION: Hypertrophy of the left ventricle, ejection fraction 45%. 2D ECHO: Long axis view showed no enlarged left ventricular cavity with hypertrophy of the left ventricle. Left atrium normal. Aortic root shows normal dimension, normal excursion of aortic leaflets. Short axis view of mitral valve normal. Short axis view of aortic valve normal. Apical four chamber view shows enlarged left ventricular cavity with decreased ejection fraction. Left atrium normal. Right ventricular cavity, right atrium normal. No pericardial effusion. CONCLUSION: Hypertrophy of the left ventricle, ejection fraction 45%. Doppler study shows trace mitral regurgitation. [facility]# [id number]
[2017-06-20] MEDS ORDERED: Amiodarone 450 MG in Sodium Chloride 0.9% 250 ML IV SCH (23:30)
[2017-06-21] MEDS: Vancomycin HCL 250 mg /10mL UDC NG SCH ×4 (00:16→18:09)
[2017-06-21] MEDS ORDERED: Levetiracetam 500 mg/5mL 5mL Vial IV ONE (01:28)
[2017-06-21] MEDS: Linezolid 600mg/300mL Premix Bag IV SCH ×2 (01:40→13:55)
[2017-06-21] MEDS: Diltiazem 30 mg Tab PO SCH ×4 (01:48→18:09)
--- NOTE | 2017-06-21 02:27 | Consultation ---
DATE OF CONSULTATION: 06/19/2017 PRIMARY CARE PHYSICIAN: Dr. Bowers. REASON FOR CONSULTATION: Septic shock. HISTORY OF PRESENT ILLNESS: This is a 62-year-old female who was transferred from [facility] because of altered mental status. The patient was found in septic shock, transferred to ICU. IV fluid was given, bolus 1 liter over half an hour followed by normal saline 100 mL an hour and antibiotic adjusted. The patient unable to provide meaningful history, unresponsive. Old chart reviewed, pertinent information obtained. PAST MEDICAL HISTORY: Parkinson's disease, intestinal obstruction, hemorrhage, gastroduodenitis, urinary incontinence, dermatophytosis, diabetes, hypertension, hyperlipidemia, interstitial cystitis, gastroparesis, seizures, neck pain, COPD, hyperlipidemia, arthritis, diabetes type 2, esophageal reflux, essential hypertension and depression. PAST SURGICAL HISTORY: Vocal cord tumor removal, hernia repair, ventral and cholecystectomy. FAMILY HISTORY: Hypertension present. SOCIAL HISTORY: Nonsmoker. REVIEW OF SYSTEMS: A 14-point review of system negative as the patient unable to provide any meaningful history, responding to only pain stimulus, no HIV, hepatitis, fall, trauma, bleeding, seizures noted. Also, she is allergic to CIPRO, KLONOPIN and TRAMADOL. A 14-point review of system negative except for above. PHYSICAL EXAMINATION: NEUROLOGIC: Unresponsive with cold, clammy skin. Peripheral pulses not palpable. VITAL SIGNS: Temperature 98.9, pulse 64 and respirations 19. HEENT: Mild pallor. No icterus or plaque. NECK: Supple. LUNGS: Breath sounds bilateral vesicular. ABDOMEN: Soft, bowel sounds ____. LYMPHATICS: No thyroid or cervical lymph nodes. LABORATORY AND DIAGNOSTIC DATA: Chest x-ray reviewed, nasogastric tube. No definite infiltrates seen. KUB ordered. White count is 3000, hemoglobin 16 grams and platelets 217. AB.4/7/13/425, creatinine 1.5. UA, large amount of blood and positive nitrites. DIAGNOSES: Septic shock. The patient was given IV fluids. Urinary tract infection and history of Clostridium difficile. The patient on p.o. vancomycin and IV Flagyl started. Because of septic shock, we will hold antihypertensive. Maxipime has been discontinued. Seizures, Keppra. Morphine for pain. Rest of the care as ordered in CPOE. Critical care of 60 minutes. Thank you, Dr. Bowers for this consultation. JOB# [id number]
[2017-06-21] MEDS: metroNIDAZOLE 500mg/NS 100mL 500 MG/100 ML BAG IV SCH ×3 (05:47→20:25)
[2017-06-21] MEDS: D5-0.9%NS 1,000 ML IV SCH ×2 (05:49→16:48)
[2017-06-21 05:56] LABS: HEMATOCRIT 44.6 % (41.0-60); HEMOGLOBIN 15.1 gm/dL (12-16); MEAN CELL VOLUME 91.4 fl (81-100); MEAN CORPUSCULAR HEMOGLOBIN 31.1 pg (27.0-31.0); MEAN PLATELET VOLUME 9.8 fl; PLATELET COUNT 188 Th/cmm (150-400); RED BLOOD COUNT 4.88 Mil/cmm (3.80-5.10); RED CELL DISTRIBUTION WIDTH 15.5 % (11.5-20.0)
[2017-06-21 06:25] LABS: ALBUMIN 2.5 gm/dL (3.7-5.3); ANION GAP 16.6 (7.0-16.0); BILIRUBIN,TOTAL 0.7 mg/dL (0.3-1.0); CALCIUM SERUM 7.2 mg/dL (8.6-10.3); CARBON DIOXIDE 21.8 mEq/L (21.0-31.0); CREATININE - SERUM 1.8 mg/dL (0.6-1.2); GFR AFRICAN-AMERICAN 36.8 ml/min (>90); GFR NON AFRICAN-AMERICAN 30.4 ml/min; POTASSIUM SERUM 3.4 mEq/L (3.5-5.1); TOTAL PROTEIN,SERUM 5.1 gm/dL (6.0-8.3)
[2017-06-21 06:48] LABS: MANUAL DIFF REQUIRED? YES; WHITE BLOOD COUNT 12.6 Th/cmm (4.8-10.8)
[2017-06-21 08:32] LABS: BAND NEUTROPHILE 12 % (0-10); LYMPHOCYTE 14 % (20-50); MONOCYTE 4 % (2-10); NEUTROPHILS 70 % (40-80); PLATELET ESTIMATE ADEQUATE (NORMAL); TOTAL CELLS COUNTED 100
[2017-06-21 08:33] LABS: TOXIC GRANULATION 2+
[2017-06-21] MEDS: Potassium Chloride 20 mEq ER Tab PO SCH (09:33)
[2017-06-21] MEDS: Enoxaparin 30 mg/0.3 mL 0.3mL Syr SUBQ SCH ×2 (09:35→20:26)
[2017-06-21] MEDS: Calcium Carb/Vit D 500 mg/200 U Tab PO SCH ×2 (09:35→16:48)
[2017-06-21] MEDS: Lactobacillus Rhamnosus GG 15 Billion CFU CAP.SPRINK PO SCH (09:35)
[2017-06-21] MEDS ORDERED: Morphine Sulfate 4 mg/mL 1mL Syr IVP PRN (11:33)
--- NOTE | 2017-06-21 14:41 | General Progress Note ---
Subjective - Review of Systems Service Date: 06/21/17 Subjective: awake and responsive feels better Objective - Results Result Diagrams: 06/21/17 05:01 06/21/17 05:01 Recent Labs: Laboratory Last Values WBC 12.6 Th/cmm (4.8-10.8) H 06/21/17 05:01 RBC 4.88 Mil/cmm (3.80-5.10) 06/21/17 05:01 Hgb 15.1 gm/dL (12-16) 06/21/17 05:01 Hct 44.6 % (41.0-60) 06/21/17 05:01 MCV 91.4 fl (81-100) 06/21/17 05:01 MCH 31.1 pg (27.0-31.0) H 06/21/17 05:01 MCHC Differential 34.0 pg (28.0-36.0) 06/21/17 05:01 RDW 15.5 % (11.5-20.0) 06/21/17 05:01 Plt Count 188 Th/cmm (150-400) 06/21/17 05:01 MPV 9.8 fl 06/21/17 05:01 Neutrophils % 84.2 % (40.0-80.0) H 06/19/17 06:00 Band Neutrophils % 12 % (0-10) H 06/21/17 05:01 Lymphocytes % 10.3 % (20.0-50.0) L 06/19/17 06:00 Monocytes % 5.4 % (2.0-10.0) 06/19/17 06:00 Eosinophils % 0.1 % (0.0-5.0) 06/19/17 06:00 Basophils % 0.0 % (0.0-2.0) 06/19/17 06:00 Neutrophils (Manual) 70 % (40-80) 06/21/17 05:01 Lymphocytes 14 % (20-50) L 06/21/17 05:01 Monocytes 4 % (2-10) 06/21/17 05:01 Toxic Granulation 2+ 06/21/17 05:01 Platelet Estimate ADEQUATE (NORMAL) 06/21/17 05:01 PT 20.8 SECONDS (9.5-11.5) H 06/20/17 08:30 INR 1.93 (0.5-1.4) H 06/20/17 08:30 Specimen Source Arterial 06/20/17 15:00 Sample Site RB 06/20/17 15:00 pH 7.56 (7.35-7.45) H* 06/20/17 15:00 pCO2 25.0 mmHg (35.0-45.0) L 06/20/17 15:00 pO2 198.0 mmHg (80.0-100.0) H 06/20/17 15:00 HCO3 26.1 mEq/L (20.0-26.0) H 06/20/17 15:00 Base Excess 1.4 mEq/L (-3.0-3.0) 06/20/17 15:00 O2 Saturation 100.0 % (92.0-100.0) 06/20/17 15:00 Stephen Test NA 06/20/17 15:00 Vent Rate NA 06/20/17 15:00 Inspired O2 28 06/20/17 15:00 Tidal Volume NA 06/20/17 15:00 PEEP NA 06/20/17 15:00 Pressure (ins/psv/peep) NA 06/20/17 15:00 Critical Value E.ESCAMILLA 06/20/17 15:00 Sodium 149 mEq/L (136-145) H 06/21/17 05:01 Potassium 3.4 mEq/L (3.5-5.1) L 06/21/17 05:01 Chloride 114 mEq/L (98-107) H 06/21/17 05:01 Carbon Dioxide 21.8 mEq/L (21.0-31.0) 06/21/17 05:01 Anion Gap 16.6 (7.0-16.0) H 06/21/17 05:01 BUN 64 mg/dL (7-25) H 06/21/17 05:01 Creatinine 1.8 mg/dL (0.6-1.2) H 06/21/17 05:01 Est GFR ( Amer) 36.8 ml/min (>90) 06/21/17 05:01 Est GFR (Non-Af Amer) 30.4 ml/min 06/21/17 05:01 BUN/Creatinine Ratio 35.6 06/21/17 05:01 Glucose 300 mg/dL (70-105) H 06/21/17 05:01 Calcium 7.2 mg/dL (8.6-10.3) L 06/21/17 05:01 Total Bilirubin 0.7 mg/dL (0.3-1.0) 06/21/17 05:01 AST 229 U/L (13-39) H 06/21/17 05:01 ALT 31 U/L (7-52) 06/21/17 05:01 Alkaline Phosphatase 62 U/L (34-104) 06/21/17 05:01 Total Protein 5.1 gm/dL (6.0-8.3) L 06/21/17 05:01 Albumin 2.5 gm/dL (3.7-5.3) L 06/21/17 05:01 Globulin 2.6 gm/dL 06/21/17 05:01 Albumin/Globulin Ratio 1.0 (1.0-1.8) 06/21/17 05:01 Urine Source [place] 06/19/17 05:55 Urine Color DARK YELLOW 06/19/17 05:55 Urine Clarity TURBID (CLEAR) H 06/19/17 05:55 Urine pH 5.0 (4.6 - 8.0) 06/19/17 05:55 Ur Specific [place] >= 1.030 (1.005-1.030) 06/19/17 05:55 Urine Protein 30 mg/dL (NEGATIVE) H 06/19/17 05:55 Urine Glucose (UA) NEGATIVE mg/dL (NEGATIVE) 06/19/17 05:55 Urine Ketones 15 mg/dL (NEGATIVE) H 06/19/17 05:55 Urine Blood LARGE (NEGATIVE) H 06/19/17 05:55 Urine Nitrate POSITIVE (NEGATIVE) H 06/19/17 05:55 Urine Bilirubin MODERATE (NEGATIVE) H 06/19/17 05:55 Urine Urobilinogen 1.0 E.U./dL (0.2 - 1.0) 06/19/17 05:55 Ur Leukocyte Esterase NEGATIVE (NEGATIVE) 06/19/17 05:55 Urine RBC 10-25 /hpf (0-5) H 06/19/17 05:55 Urine WBC 2-5 /hpf (0-5) 06/19/17 05:55 Ur Epithelial Cells OCCASIONAL /lpf (FEW) 06/19/17 05:55 Urine Bacteria 3+ /hpf (NONE SEEN) H 06/19/17 05:55 - Physical Exam Vitals and I&O: Vital Signs Temp 97.6 F 06/21/17 08:00 Pulse 91 06/21/17 13:56 Resp 13 06/21/17 10:00 BP 107/78 06/21/17 10:00 Pulse Ox 96 06/21/17 10:00 Intake & Output 06/20/17 06/21/17 06/21/17 18:59 06:59 18:59 Intake Total 8580.066 3088 1730 Output Total 1000 200 Balance 473.145 0577 1530 Weight (lbs) 78.698 kg 79.469 kg Intake: Intake, IV Amount 4159.046 3861 920 Amiodarone 150 mg In 103 Sodium Chloride 0.9% 100 ml @ 400 mls/hr IV ONCE ONE Rx#:[id number] Amiodarone 450 mg In 259 Dextrose 5% 250 ml @ Titrate 33.3 mls/hr IV TITR [facility] Rx#:[id number] D5-0.9%Ns 1,000 ml @ 100 860 mls/hr IV .Q10H [facility] Rx#: [id number] Levetiracetam 1,000 mg In 220 220 Sodium Chloride 0.9% 100 ml @ 400 mls/hr IV Q12H [facility] Rx#:[id number] Linezolid 600mg/300mL 600 300 300 mg In 300 ml @ 300 mls/ hr IV Q12H [facility] Rx#: [id number] Norepinephrine 4 mg In 52.832 Sodium Chloride 0.9% 250 ml @ 8 MCG/MIN 30.48 mls/ hr IV TITR [facility] Rx#: [id number] Piperacillin Sodium/ 200 200 200 Tazobact 3.375 gm In Sodium Chloride 0.9% 100 ml @ 100 mls/hr IV Q6HR [facility] Rx#:[id number] Sodium Chloride 0.9% 1, 596.667 000 ml @ 100 mls/hr IV . Q10H [facility] Rx#:[id number] metroNIDAZOLE 500mg/NS 200 100 200 100mL 500 mg In 100 ml @ 100 mls/hr IV Q8HR [facility] Rx #:[id number] Oral 0 Other 300 810 Output: Urine 1000 200 Other: # Bowel Movements 2 Active Medications: Current Medications Acetaminophen (Tylenol) 650 mg PO Q4H PRN PRN Reason: MILD BACK PAIN Amantadine HCl (Symmetrel) 100 mg PO TID [facility] Stop: 08/18/17 20:59 Last Admin: 06/21/17 13:44 Dose: 100 mg Calcium/Vitamin D (Oscal W/Vitamin D) 1 tab PO BID [facility] Stop: 08/18/17 16:59 Last Admin: 06/21/17 09:35 Dose: 1 tab Carbidopa/Levodopa (Sinemet 25 Mg-250 Mg) 1 tab PO BID [facility] Stop: 08/18/17 16:59 Last Admin: 06/21/17 09:34 Dose: 1 tab Carisoprodol (Soma) 350 mg PO DAILY PRN PRN Reason: MUSCLE SPASM Stop: 08/18/17 15:12 Diltiazem HCl (Cardizem) 60 mg PO Q6HR [facility] Stop: 08/18/17 17:59 Last Admin: 06/21/17 13:56 Dose: 60 mg Enoxaparin Sodium (Lovenox) 30 mg SUBQ Q12HR [facility] Stop: 08/18/17 20:59 Last Admin: 06/21/17 09:35 Dose: 30 mg Famotidine (Pepcid) 40 mg PO DAILY [facility] Stop: 08/19/17 08:59 Last Admin: 06/21/17 09:33 Dose: 40 mg Levetiracetam 1,000 mg/ Sodium (Chloride) 110 mls @ 400 mls/hr IV Q12H [facility] Stop: 08/18/17 12:59 Last Infusion: 06/21/17 13:57 Dose: Infused Metronidazole (Flagyl) 500 mg in 100 mls @ 100 mls/hr IV Q8HR [facility] Stop: 08/18/17 20:59 Last Infusion: 06/21/17 13:57 Dose: Infused Piperacillin Sod/Tazobactam (Sod 3.375 gm/ Sodium Chloride) 100 mls @ 100 mls/ hr IV Q6HR [facility] Stop: 08/18/17 20:59 Last Infusion: 06/21/17 13:56 Dose: Infused Linezolid (Zyvox) 600 mg in 300 mls @ 300 mls/hr IV Q12H [facility] Stop: 08/19/17 13:59 Last Admin: 06/21/17 13:55 Dose: 300 mls/hr Norepinephrine Bitartrate 4 mg (/ Sodium Chloride) 254 mls @ 30.48 mls/hr IV TITR [facility]; 8 MCG/MIN PRN Reason: Protocol Stop: 08/19/17 14:44 Last Titration: 06/20/17 17:56 Dose: 0 mcg/min, 0 mls/hr Amiodarone HCl 450 mg/ Sodium (Chloride) 259 mls @ 16.6 mls/hr IV TITR [facility]; Titrate PRN Reason: Protocol Stop: 08/19/17 23:29 Dextrose/Sodium Chloride (D5-0.9%Ns) 1,000 mls @ 100 mls/hr IV .Q10H [facility] Stop: 08/19/17 20:22 Last Admin: 06/21/17 05:49 Dose: 100 mls/hr Lactobacillus Rhamnosus (Culturelle 15b) 1 each PO DAILY [facility] Stop: 08/20/17 08:59 Last Admin: 06/21/17 09:35 Dose: 1 each Levetiracetam (Keppra) 1,000 mg PO BID [facility] Stop: 08/18/17 16:59 Lorazepam (Ativan) 1 mg IVP Q4HR PRN; Protocol PRN Reason: Seizures Stop: 08/18/17 15:16 Miscellaneous (Zosyn Iv Per Pharmacy) 1 ea PRN PRN PRN Reason: PROTOCOL Stop: 08/18/17 18:14 Miscellaneous (Clinical Monitoring) 1 [facility] PRN PRN PRN Reason: ZOSYN PER RX Stop: 08/19/17 08:23 Miscellaneous (Probiotic Screen) 1 [facility] PRN PRN PRN Reason: PROTOCOL Stop: 08/19/17 15:00 Morphine Sulfate (Morphine) 2 mg IVP Q4HR PRN PRN Reason: Pain (Severe) Stop: 08/18/17 15:21 Ondansetron HCl (Zofran) 4 mg IV Q4H PRN PRN Reason: Nausea / Vomiting Stop: 08/18/17 15:23 Potassium Chloride (Klor-Con) 20 meq PO DAILY [facility] Stop: 08/19/17 08:59 Last Admin: 06/21/17 09:33 Dose: 20 meq Sertraline HCl (Zoloft) 100 mg PO DAILY [facility] Stop: 08/19/17 08:59 Vancomycin HCl (Vancomycin Oral) 250 mg NG Q6HR [facility] Stop: 08/18/17 17:59 Last Admin: 06/21/17 12:07 Dose: 250 mg General: Alert, No acute distress, Severe distress HEENT: Atraumatic, PERRLA Neck: Supple, JVD Cardiovascular: Regular rate, Normal S1, Normal S2, Other (tachycardia) Lungs: Other (b/l rhonchi) Abdomen: Bowel sounds, Soft Extremities: Edema - Procedures Procedures: Procedures Procedure Code Date CLOSED [ENDOSCOPIC] BIOPSY OF LARYNX 31.43 07/12/96 INJECT/INFUSE NEC 99.29 11/11/07 LARYGNOSCOPY AND OTH TRACHEOSCOPY 31.42 07/12/96 LARYNGOSCOPY WITH BIOPSY 17564 07/12/96 OTHER GROUP THERAPY 94.44 11/26/07 RECREATIONAL THERAPY 93.81 11/26/07 Assessment/Plan - Assessment Assessment: 1.SEPTIC SHOCK. 2.ACUTE RENAL FAILURE. 3.ACUTE REPIRATORY FAILURE. 4.PARKINSONS DISEASE. 5.POSSIBLE C DIFF COLITIS. - Plan Plan: cont current treatment Nutritional Asmnt/Malnutr-PDOC - Dietary Evaluation Malnutrition Findings (Please click <Entered> for more info): Nutritional Asmnt/Malnutrition Start: 06/19/17 13: 46 Text: Status: Complete Freq: Document 06/19/17 13:46 TJ (Rec: 06/19/17 13:59 LCMARIOLA MOSHEFN) Nutritional Asmnt/Malnutrition Patient General Information Nutritional Screening High Risk Consult Diagnosis dehydration, tachycardia Pertinent Medical Hx/Surgical Hx [place], UTI, c diff colitis Subjective Information Consult received for BS 294 at admitting. Pt was transfered from [facility]. Pt seen resting in bed at time of visit. RN reported pt on NPO. Per nurse note, pt will start tube feeding when NGT placement verified. ordered Fibersource 30ml/hr continuous to start at dinner time today . Current Diet Order/ Nutrition Support NPO Pertinent Medications D5-0.9ns w/kcl 20meq Pertinent Labs 06/19 Na 135, K 2.9, Cl 106, BUN 23, Cr 1.5, glucose 295, alb 3.5 Nutritional Hx/Data Height 1.68 m Height (Calculated Centimeters) 167.6 Current Weight (lbs) 77.111 kg Weight (Calculated Kilograms) 77.1 Weight (Calculated Grams) 54219.7 [place] Body Weight 130 Body Mass Index (BMI) 27.4 Weight Status Overweight GI Symptoms GI Symptoms None Last BM 06/19 Difficult in: None Skin Integrity/Comment: GROIN AND SACRUM REDDNESS Estimated Nutritional Goals BEE in Kcals: Adj wt of IBW Calories/Kcals/Kg 25-30 Kcals Calculated 5023-5349 Protein: Adj wt of IBW Protein g/k Protein Calculated 64 Fluid: ml 1600-1920ml (1ml/kcal) Nutritional Problem 1. Problem Problem altered nutrition related lab values Etiology hyperglycemia Signs/Symptoms: glucose 295 Intervention/Recommendation Comments 1. Start TF as ordered - Fibersource HN 30ml/hr continuous. This will provide 864kcal, 38g protein and 589ml free water, meeting about 55% of nutritional needs. 2. pt on potassium replacement noted. If K level normal, will consider increase TF rate . 3. Monitor TF rate, tolerance, wt weekly, skin integrity and labs 4. F/U as high risk in 2-3 days, 06/21-06/22 Expected Outcomes/Goals Expected Outcomes/Goals 1. Pt to meet at least 75% of nutritional needs via nutrition support with tolerance 2. Wt stability, skin to remain intact, labs to approach WNL.
--- NOTE | 2017-06-21 15:05 | General Progress Note ---
Subjective - Review of Systems Service Date: 06/21/17 Events since last encounter: Off levophed. Better UO, more alert. Subjective: +NGT Objective - Results Result Diagrams: 06/21/17 05:01 06/21/17 05:01 Recent Labs: Laboratory Last Values WBC 12.6 Th/cmm (4.8-10.8) H 06/21/17 05:01 RBC 4.88 Mil/cmm (3.80-5.10) 06/21/17 05:01 Hgb 15.1 gm/dL (12-16) 06/21/17 05:01 Hct 44.6 % (41.0-60) 06/21/17 05:01 MCV 91.4 fl (81-100) 06/21/17 05:01 MCH 31.1 pg (27.0-31.0) H 06/21/17 05:01 MCHC Differential 34.0 pg (28.0-36.0) 06/21/17 05:01 RDW 15.5 % (11.5-20.0) 06/21/17 05:01 Plt Count 188 Th/cmm (150-400) 06/21/17 05:01 MPV 9.8 fl 06/21/17 05:01 Neutrophils % 84.2 % (40.0-80.0) H 06/19/17 06:00 Band Neutrophils % 12 % (0-10) H 06/21/17 05:01 Lymphocytes % 10.3 % (20.0-50.0) L 06/19/17 06:00 Monocytes % 5.4 % (2.0-10.0) 06/19/17 06:00 Eosinophils % 0.1 % (0.0-5.0) 06/19/17 06:00 Basophils % 0.0 % (0.0-2.0) 06/19/17 06:00 Neutrophils (Manual) 70 % (40-80) 06/21/17 05:01 Lymphocytes 14 % (20-50) L 06/21/17 05:01 Monocytes 4 % (2-10) 06/21/17 05:01 Toxic Granulation 2+ 06/21/17 05:01 Platelet Estimate ADEQUATE (NORMAL) 06/21/17 05:01 PT 20.8 SECONDS (9.5-11.5) H 06/20/17 08:30 INR 1.93 (0.5-1.4) H 06/20/17 08:30 Specimen Source Arterial 06/20/17 15:00 Sample Site RB 06/20/17 15:00 pH 7.56 (7.35-7.45) H* 06/20/17 15:00 pCO2 25.0 mmHg (35.0-45.0) L 06/20/17 15:00 pO2 198.0 mmHg (80.0-100.0) H 06/20/17 15:00 HCO3 26.1 mEq/L (20.0-26.0) H 06/20/17 15:00 Base Excess 1.4 mEq/L (-3.0-3.0) 06/20/17 15:00 O2 Saturation 100.0 % (92.0-100.0) 06/20/17 15:00 Stephen Test NA 06/20/17 15:00 Vent Rate NA 06/20/17 15:00 Inspired O2 28 06/20/17 15:00 Tidal Volume NA 06/20/17 15:00 PEEP NA 06/20/17 15:00 Pressure (ins/psv/peep) NA 06/20/17 15:00 Critical Value E.ESCAMILLA 06/20/17 15:00 Sodium 149 mEq/L (136-145) H 06/21/17 05:01 Potassium 3.4 mEq/L (3.5-5.1) L 06/21/17 05:01 Chloride 114 mEq/L (98-107) H 06/21/17 05:01 Carbon Dioxide 21.8 mEq/L (21.0-31.0) 06/21/17 05:01 Anion Gap 16.6 (7.0-16.0) H 06/21/17 05:01 BUN 64 mg/dL (7-25) H 06/21/17 05:01 Creatinine 1.8 mg/dL (0.6-1.2) H 06/21/17 05:01 Est GFR ( Amer) 36.8 ml/min (>90) 06/21/17 05:01 Est GFR (Non-Af Amer) 30.4 ml/min 06/21/17 05:01 BUN/Creatinine Ratio 35.6 06/21/17 05:01 Glucose 300 mg/dL (70-105) H 06/21/17 05:01 Calcium 7.2 mg/dL (8.6-10.3) L 06/21/17 05:01 Total Bilirubin 0.7 mg/dL (0.3-1.0) 06/21/17 05:01 AST 229 U/L (13-39) H 06/21/17 05:01 ALT 31 U/L (7-52) 06/21/17 05:01 Alkaline Phosphatase 62 U/L (34-104) 06/21/17 05:01 Total Protein 5.1 gm/dL (6.0-8.3) L 06/21/17 05:01 Albumin 2.5 gm/dL (3.7-5.3) L 06/21/17 05:01 Globulin 2.6 gm/dL 06/21/17 05:01 Albumin/Globulin Ratio 1.0 (1.0-1.8) 06/21/17 05:01 Urine Source [place] 06/19/17 05:55 Urine Color DARK YELLOW 06/19/17 05:55 Urine Clarity TURBID (CLEAR) H 06/19/17 05:55 Urine pH 5.0 (4.6 - 8.0) 06/19/17 05:55 Ur Specific [place] >= 1.030 (1.005-1.030) 06/19/17 05:55 Urine Protein 30 mg/dL (NEGATIVE) H 06/19/17 05:55 Urine Glucose (UA) NEGATIVE mg/dL (NEGATIVE) 06/19/17 05:55 Urine Ketones 15 mg/dL (NEGATIVE) H 06/19/17 05:55 Urine Blood LARGE (NEGATIVE) H 06/19/17 05:55 Urine Nitrate POSITIVE (NEGATIVE) H 06/19/17 05:55 Urine Bilirubin MODERATE (NEGATIVE) H 06/19/17 05:55 Urine Urobilinogen 1.0 E.U./dL (0.2 - 1.0) 06/19/17 05:55 Ur Leukocyte Esterase NEGATIVE (NEGATIVE) 06/19/17 05:55 Urine RBC 10-25 /hpf (0-5) H 06/19/17 05:55 Urine WBC 2-5 /hpf (0-5) 06/19/17 05:55 Ur Epithelial Cells OCCASIONAL /lpf (FEW) 06/19/17 05:55 Urine Bacteria 3+ /hpf (NONE SEEN) H 06/19/17 05:55 - Physical Exam Vitals and I&O: Vital Signs Temp 97.6 F 06/21/17 08:00 Pulse 91 06/21/17 13:56 Resp 13 06/21/17 10:00 BP 107/78 06/21/17 10:00 Pulse Ox 96 06/21/17 10:00 Intake & Output 06/20/17 06/21/17 06/21/17 18:59 06:59 18:59 Intake Total 5305.255 6842 1730 Output Total 1000 200 Balance 777.808 9392 1530 Weight (lbs) 78.698 kg 79.469 kg Intake: Intake, IV Amount 0485.338 2686 920 Amiodarone 150 mg In 103 Sodium Chloride 0.9% 100 ml @ 400 mls/hr IV ONCE ONE Rx#:[id number] Amiodarone 450 mg In 259 Dextrose 5% 250 ml @ Titrate 33.3 mls/hr IV TITR [facility] Rx#:[id number] D5-0.9%Ns 1,000 ml @ 100 860 mls/hr IV .Q10H [facility] Rx#: [id number] Levetiracetam 1,000 mg In 220 220 Sodium Chloride 0.9% 100 ml @ 400 mls/hr IV Q12H [facility] Rx#:[id number] Linezolid 600mg/300mL 600 300 300 mg In 300 ml @ 300 mls/ hr IV Q12H [facility] Rx#: [id number] Norepinephrine 4 mg In 52.832 Sodium Chloride 0.9% 250 ml @ 8 MCG/MIN 30.48 mls/ hr IV TITR [facility] Rx#: [id number] Piperacillin Sodium/ 200 200 200 Tazobact 3.375 gm In Sodium Chloride 0.9% 100 ml @ 100 mls/hr IV Q6HR [facility] Rx#:[id number] Sodium Chloride 0.9% 1, 596.667 000 ml @ 100 mls/hr IV . Q10H [facility] Rx#:[id number] metroNIDAZOLE 500mg/NS 200 100 200 100mL 500 mg In 100 ml @ 100 mls/hr IV Q8HR [facility] Rx #:[id number] Oral 0 Other 300 810 Output: Urine 1000 200 Other: # Bowel Movements 2 Active Medications: Current Medications Acetaminophen (Tylenol) 650 mg PO Q4H PRN PRN Reason: MILD BACK PAIN Amantadine HCl (Symmetrel) 100 mg PO TID [facility] Stop: 08/18/17 20:59 Last Admin: 06/21/17 13:44 Dose: 100 mg Calcium/Vitamin D (Oscal W/Vitamin D) 1 tab PO BID [facility] Stop: 08/18/17 16:59 Last Admin: 06/21/17 09:35 Dose: 1 tab Carbidopa/Levodopa (Sinemet 25 Mg-250 Mg) 1 tab PO BID [facility] Stop: 08/18/17 16:59 Last Admin: 06/21/17 09:34 Dose: 1 tab Carisoprodol (Soma) 350 mg PO DAILY PRN PRN Reason: MUSCLE SPASM Stop: 08/18/17 15:12 Diltiazem HCl (Cardizem) 60 mg PO Q6HR [facility] Stop: 08/18/17 17:59 Last Admin: 06/21/17 13:56 Dose: 60 mg Enoxaparin Sodium (Lovenox) 30 mg SUBQ Q12HR [facility] Stop: 08/18/17 20:59 Last Admin: 06/21/17 09:35 Dose: 30 mg Famotidine (Pepcid) 40 mg PO DAILY [facility] Stop: 08/19/17 08:59 Last Admin: 06/21/17 09:33 Dose: 40 mg Levetiracetam 1,000 mg/ Sodium (Chloride) 110 mls @ 400 mls/hr IV Q12H [facility] Stop: 08/18/17 12:59 Last Infusion: 06/21/17 13:57 Dose: Infused Metronidazole (Flagyl) 500 mg in 100 mls @ 100 mls/hr IV Q8HR [facility] Stop: 08/18/17 20:59 Last Infusion: 06/21/17 13:57 Dose: Infused Piperacillin Sod/Tazobactam (Sod 3.375 gm/ Sodium Chloride) 100 mls @ 100 mls/ hr IV Q6HR [facility] Stop: 08/18/17 20:59 Last Infusion: 06/21/17 13:56 Dose: Infused Linezolid (Zyvox) 600 mg in 300 mls @ 300 mls/hr IV Q12H [facility] Stop: 08/19/17 13:59 Last Admin: 06/21/17 13:55 Dose: 300 mls/hr Norepinephrine Bitartrate 4 mg (/ Sodium Chloride) 254 mls @ 30.48 mls/hr IV TITR [facility]; 8 MCG/MIN PRN Reason: Protocol Stop: 08/19/17 14:44 Last Titration: 06/20/17 17:56 Dose: 0 mcg/min, 0 mls/hr Amiodarone HCl 450 mg/ Sodium (Chloride) 259 mls @ 16.6 mls/hr IV TITR [facility]; Titrate PRN Reason: Protocol Stop: 08/19/17 23:29 Dextrose/Sodium Chloride (D5-0.9%Ns) 1,000 mls @ 100 mls/hr IV .Q10H [facility] Stop: 08/19/17 20:22 Last Admin: 06/21/17 05:49 Dose: 100 mls/hr Lactobacillus Rhamnosus (Culturelle 15b) 1 each PO DAILY [facility] Stop: 08/20/17 08:59 Last Admin: 06/21/17 09:35 Dose: 1 each Levetiracetam (Keppra) 1,000 mg PO BID [facility] Stop: 08/18/17 16:59 Lorazepam (Ativan) 1 mg IVP Q4HR PRN; Protocol PRN Reason: Seizures Stop: 08/18/17 15:16 Miscellaneous (Zosyn Iv Per Pharmacy) 1 ea PRN PRN PRN Reason: PROTOCOL Stop: 08/18/17 18:14 Miscellaneous (Clinical Monitoring) 1 ea PRN PRN PRN Reason: ZOSYN PER RX Stop: 08/19/17 08:23 Miscellaneous (Probiotic Screen) 1 ea PRN PRN PRN Reason: PROTOCOL Stop: 08/19/17 15:00 Morphine Sulfate (Morphine) 2 mg IVP Q4HR PRN PRN Reason: Pain (Severe) Stop: 08/18/17 15:21 Ondansetron HCl (Zofran) 4 mg IV Q4H PRN PRN Reason: Nausea / Vomiting Stop: 08/18/17 15:23 Potassium Chloride (Klor-Con) 20 meq PO DAILY [facility] Stop: 08/19/17 08:59 Last Admin: 06/21/17 09:33 Dose: 20 meq Sertraline HCl (Zoloft) 100 mg PO DAILY [facility] Stop: 08/19/17 08:59 Vancomycin HCl (Vancomycin Oral) 250 mg NG Q6HR [facility] Stop: 08/18/17 17:59 Last Admin: 06/21/17 12:07 Dose: 250 mg General: Alert (Has NGT in place. Has mittens on. Tried to climb out of bed), No acute distress HEENT: Atraumatic, PERRLA Neck: Supple, JVD Cardiovascular: Regular rate, Normal S1, Normal S2, Other (Irreg, irreg rhythm) Lungs: Other (b/l rhonchi) Abdomen: Bowel sounds, Soft Extremities: Edema (contractures) - Procedures Procedures: Procedures Procedure Code Date CLOSED [ENDOSCOPIC] BIOPSY OF LARYNX 31.43 07/12/96 INJECT/INFUSE NEC 99.29 11/11/07 LARYGNOSCOPY AND OTH TRACHEOSCOPY 31.42 07/12/96 LARYNGOSCOPY WITH BIOPSY 68432 07/12/96 OTHER GROUP THERAPY 94.44 11/26/07 RECREATIONAL THERAPY 93.81 11/26/07 Assessment/Plan - Assessment Assessment: sepsis septic shock. Better. Off pressor. acute respiratory failure. acute renal failure. Better UO today. UTI C. Diff colitis depression parkinson - Plan Plan: Improving. Continue current management. Nutritional Asmnt/Malnutr-PDOC - Dietary Evaluation Malnutrition Findings (Please click <Entered> for more info): Nutritional Asmnt/Malnutrition Start: 06/19/17 13: 46 Text: Status: Complete Freq: Document 06/19/17 13:46 [facility] (Rec: 06/19/17 13:59 [facility] Nutritional Asmnt/Malnutrition Patient General Information Nutritional Screening High Risk Consult Diagnosis dehydration, tachycardia Pertinent Medical Hx/Surgical Hx parkingson, UTI, c diff colitis Subjective Information Consult received for BS 294 at admitting. Pt was transfered from [facility]. Pt seen resting in bed at time of visit. RN reported pt on NPO. Per nurse note, pt will start tube feeding when NGT placement verified. ordered Fibersource 30ml/hr continuous to start at dinner time today . Current Diet Order/ Nutrition Support NPO Pertinent Medications D5-0.9ns w/kcl 20meq Pertinent Labs 06/19 Na 135, K 2.9, Cl 106, BUN 23, Cr 1.5, glucose 295, alb 3.5 Nutritional Hx/Data Height 1.68 m Height (Calculated Centimeters) 167.6 Current Weight (lbs) 77.111 kg Weight (Calculated Kilograms) 77.1 Weight (Calculated Grams) 36968.7 [place] Body Weight 130 Body Mass Index (BMI) 27.4 Weight Status Overweight GI Symptoms GI Symptoms None Last BM 06/19 Difficult in: None Skin Integrity/Comment: GROIN AND SACRUM REDDNESS Estimated Nutritional Goals BEE in Kcals: Adj wt of IBW Calories/Kcals/Kg 25-30 Kcals Calculated 7060-0255 Protein: Adj wt of IBW Protein g/k Protein Calculated 64 Fluid: ml 1600-1920ml (1ml/kcal) Nutritional Problem 1. Problem Problem altered nutrition related lab values Etiology hyperglycemia Signs/Symptoms: glucose 295 Intervention/Recommendation Comments 1. Start TF as ordered - Fibersource HN 30ml/hr continuous. This will provide 864kcal, 38g protein and 589ml free water, meeting about 55% of nutritional needs. 2. pt on potassium replacement noted. If K level normal, will consider increase TF rate . 3. Monitor TF rate, tolerance, wt weekly, skin integrity and labs 4. F/U as high risk in 2-3 days, 06/21-06/22 Expected Outcomes/Goals Expected Outcomes/Goals 1. Pt to meet at least 75% of nutritional needs via nutrition support with tolerance 2. Wt stability, skin to remain intact, labs to approach WNL.
--- NOTE | 2017-06-21 22:55 | Progress Notes ---
DATE: 06/21/[address] Diego. The patient was transferred from the psych unit. The patient is less agitated, irritable. She is calmer, but seems to be sedated. The patient have a seizure disorder and fungal infection. She is on Zoloft 100 mg daily. The patient was transferred from the medical floor because of being lethargic, transferred to ICU, started on IV fluid, have urinary tract infection, possible C. difficile colitis, dehydration and acute kidney injury. She is a poor historian with Parkinson's disease. Continues to monitor her medication. Thank you very much for allowing me to participate in the care of this most interesting lady. JOB# [id number]
[2017-06-22] MEDS: Diltiazem 30 mg Tab PO SCH ×4 (00:13→19:43)
[2017-06-22] MEDS: Vancomycin HCL 250 mg /10mL UDC NG SCH ×4 (00:13→18:15)
[2017-06-22] MEDS: Linezolid 600mg/300mL Premix Bag IV SCH ×2 (01:52→14:00)
[2017-06-22] MEDS: metroNIDAZOLE 500mg/NS 100mL 500 MG/100 ML BAG IV SCH ×3 (04:30→20:32)
[2017-06-22] MEDS: D5-0.9%NS 1,000 ML IV SCH ×2 (04:31→17:00)
[2017-06-22 05:10] LABS: % BASOPHILS 0.2 % (0.0-2.0); % EOSINOPHILS 0.2 % (0.0-5.0); % LYMPHOCYTES 5.7 % (20.0-50.0); % MONOCYTES 5.3 % (2.0-10.0); % NEUTROPHILS 88.6 % (40.0-80.0); HEMATOCRIT 42.4 % (41.0-60); HEMOGLOBIN 14.2 gm/dL (12-16); LYMPHOCYTE ABSOLUTE 0.7 Th/cmm (1.5-3.0); MEAN CELL VOLUME 91.6 fl (81-100); MEAN CORPUSCULAR HEMOGLOBIN 30.6 pg (27.0-31.0); MEAN CORPUSCULAR HGB CONC 33.4 pg (28.0-36.0); MONOCYTE ABSOLUTE 0.7 Th/cmm (0.3-1.0); NEUTROPHILE ABSOLUTE 11.7 Th/cmm (1.8-8.0); RED BLOOD COUNT 4.62 Mil/cmm (3.80-5.10); RED CELL DISTRIBUTION WIDTH 15.4 % (11.5-20.0)
[2017-06-22 05:18] LABS: WHITE BLOOD COUNT 13.1 Th/cmm (4.8-10.8)
[2017-06-22 05:19] LABS: PLATELET COUNT 122 Th/cmm (150-400)
[2017-06-22 05:41] LABS: ALBUMIN 2.4 gm/dL (3.7-5.3); ALKALINE PHOSPHATASE 68 U/L (34-104); ANION GAP 12.6 (7.0-16.0); BILIRUBIN,TOTAL 0.5 mg/dL (0.3-1.0); BUN - UREA NITROGEN 50 mg/dL (7-25); CALCIUM SERUM 7.3 mg/dL (8.6-10.3); CARBON DIOXIDE 21.8 mEq/L (21.0-31.0); CHLORIDE 119 mEq/L (98-107); CREATININE - SERUM 0.9 mg/dL (0.6-1.2); GFR AFRICAN-AMERICAN > 60.0 ml/min (>90); GFR NON AFRICAN-AMERICAN > 60.0 ml/min; GLUCOSE 285 mg/dL (70-105); SGOT 118 U/L (13-39); SGPT/ALT 28 U/L (7-52); SODIUM SERUM 151 mEq/L (136-145); TOTAL PROTEIN,SERUM 4.8 gm/dL (6.0-8.3)
[2017-06-22 06:21] LABS: POTASSIUM SERUM 2.4 mEq/L (3.5-5.1)
[2017-06-22] MEDS ORDERED: POTASSIUM PHOSPHATE IV ONE (06:38)
[2017-06-22] MEDS ORDERED: SODIUM CHLORIDE IV ONE (06:38)
[2017-06-22] MEDS ORDERED: Potassium Chloride Elixir 20 mEq /15 mL UDC NG ONE (06:39)
[2017-06-22] MEDS ORDERED: KCL 20mEq/100mL Premix 20 MEQ/100 ML PIGGYBACK IV ONE (07:03)
[2017-06-22] MEDS: KCL 20mEq/100mL Premix 20 MEQ/100 ML PIGGYBACK IV SCH ×2 (07:07→13:03)
[2017-06-22] MEDS ORDERED: KCL 20mEq/100mL Premix 20 MEQ/100 ML PIGGYBACK IV SCH (07:15)
[2017-06-22] MEDS: Enoxaparin 30 mg/0.3 mL 0.3mL Syr SUBQ SCH ×2 (09:12→21:10)
[2017-06-22] MEDS: Potassium Chloride 20 mEq ER Tab PO SCH (09:13)
[2017-06-22] MEDS: Lactobacillus Rhamnosus GG 15 Billion CFU CAP.SPRINK PO SCH (09:13)
[2017-06-22] MEDS: Calcium Carb/Vit D 500 mg/200 U Tab PO SCH ×2 (09:13→17:02)
--- NOTE | 2017-06-22 11:08 | General Progress Note ---
Subjective - Review of Systems Service Date: 06/22/17 Subjective: awake and responsive no distress Objective - Results Result Diagrams: 06/22/17 04:40 06/22/17 04:40 Recent Labs: Laboratory Last Values WBC 13.1 Th/cmm (4.8-10.8) H 06/22/17 04:40 RBC 4.62 Mil/cmm (3.80-5.10) 06/22/17 04:40 Hgb 14.2 gm/dL (12-16) 06/22/17 04:40 Hct 42.4 % (41.0-60) 06/22/17 04:40 MCV 91.6 fl (81-100) 06/22/17 04:40 MCH 30.6 pg (27.0-31.0) 06/22/17 04:40 MCHC Differential 33.4 pg (28.0-36.0) 06/22/17 04:40 RDW 15.4 % (11.5-20.0) 06/22/17 04:40 Plt Count 122 Th/cmm (150-400) L D 06/22/17 04:40 MPV 10.0 fl 06/22/17 04:40 Neutrophils % 88.6 % (40.0-80.0) H 06/22/17 04:40 Band Neutrophils % 12 % (0-10) H 06/21/17 05:01 Lymphocytes % 5.7 % (20.0-50.0) L 06/22/17 04:40 Monocytes % 5.3 % (2.0-10.0) 06/22/17 04:40 Eosinophils % 0.2 % (0.0-5.0) 06/22/17 04:40 Basophils % 0.2 % (0.0-2.0) 06/22/17 04:40 Neutrophils (Manual) 70 % (40-80) 06/21/17 05:01 Lymphocytes 14 % (20-50) L 06/21/17 05:01 Monocytes 4 % (2-10) 06/21/17 05:01 Toxic Granulation 2+ 06/21/17 05:01 Platelet Estimate ADEQUATE (NORMAL) 06/21/17 05:01 PT 20.8 SECONDS (9.5-11.5) H 06/20/17 08:30 INR 1.93 (0.5-1.4) H 06/20/17 08:30 Specimen Source Arterial 06/20/17 15:00 Sample Site RB 06/20/17 15:00 pH 7.56 (7.35-7.45) H* 06/20/17 15:00 pCO2 25.0 mmHg (35.0-45.0) L 06/20/17 15:00 pO2 198.0 mmHg (80.0-100.0) H 06/20/17 15:00 HCO3 26.1 mEq/L (20.0-26.0) H 06/20/17 15:00 Base Excess 1.4 mEq/L (-3.0-3.0) 06/20/17 15:00 O2 Saturation 100.0 % (92.0-100.0) 06/20/17 15:00 Stephen Test NA 06/20/17 15:00 Vent Rate NA 06/20/17 15:00 Inspired O2 28 06/20/17 15:00 Tidal Volume NA 06/20/17 15:00 PEEP NA 06/20/17 15:00 Pressure (ins/psv/peep) NA 06/20/17 15:00 Critical Value E.ESCAMILLA 06/20/17 15:00 Sodium 151 mEq/L (136-145) H 06/22/17 04:40 Potassium 2.4 mEq/L (3.5-5.1) L* D 06/22/17 04:40 Chloride 119 mEq/L (98-107) H 06/22/17 04:40 Carbon Dioxide 21.8 mEq/L (21.0-31.0) 06/22/17 04:40 Anion Gap 12.6 (7.0-16.0) 06/22/17 04:40 BUN 50 mg/dL (7-25) H 06/22/17 04:40 Creatinine 0.9 mg/dL (0.6-1.2) 06/22/17 04:40 Est GFR ( Amer) > 60.0 ml/min (>90) 06/22/17 04:40 Est GFR (Non-Af Amer) > 60.0 ml/min 06/22/17 04:40 BUN/Creatinine Ratio 55.6 06/22/17 04:40 Glucose 285 mg/dL (70-105) H 06/22/17 04:40 Calcium 7.3 mg/dL (8.6-10.3) L 06/22/17 04:40 Total Bilirubin 0.5 mg/dL (0.3-1.0) 06/22/17 04:40 AST 118 U/L (13-39) H 06/22/17 04:40 ALT 28 U/L (7-52) 06/22/17 04:40 Alkaline Phosphatase 68 U/L (34-104) 06/22/17 04:40 Total Protein 4.8 gm/dL (6.0-8.3) L 06/22/17 04:40 Albumin 2.4 gm/dL (3.7-5.3) L 06/22/17 04:40 Globulin 2.4 gm/dL 06/22/17 04:40 Albumin/Globulin Ratio 1.0 (1.0-1.8) 06/22/17 04:40 Urine Source [place] 06/19/17 05:55 Urine Color DARK YELLOW 06/19/17 05:55 Urine Clarity TURBID (CLEAR) H 06/19/17 05:55 Urine pH 5.0 (4.6 - 8.0) 06/19/17 05:55 Ur Specific [place] >= 1.030 (1.005-1.030) 06/19/17 05:55 Urine Protein 30 mg/dL (NEGATIVE) H 06/19/17 05:55 Urine Glucose (UA) NEGATIVE mg/dL (NEGATIVE) 06/19/17 05:55 Urine Ketones 15 mg/dL (NEGATIVE) H 06/19/17 05:55 Urine Blood LARGE (NEGATIVE) H 06/19/17 05:55 Urine Nitrate POSITIVE (NEGATIVE) H 06/19/17 05:55 Urine Bilirubin MODERATE (NEGATIVE) H 06/19/17 05:55 Urine Urobilinogen 1.0 E.U./dL (0.2 - 1.0) 06/19/17 05:55 Ur Leukocyte Esterase NEGATIVE (NEGATIVE) 06/19/17 05:55 Urine RBC 10-25 /hpf (0-5) H 06/19/17 05:55 Urine WBC 2-5 /hpf (0-5) 06/19/17 05:55 Ur Epithelial Cells OCCASIONAL /lpf (FEW) 06/19/17 05:55 Urine Bacteria 3+ /hpf (NONE SEEN) H 06/19/17 05:55 - Physical Exam Vitals and I&O: Vital Signs Temp 96.6 F 06/22/17 08:00 Pulse 100 06/22/17 08:00 Resp 17 06/22/17 08:00 BP 127/68 06/22/17 08:00 Pulse Ox 98 06/22/17 08:00 Intake & Output 06/21/17 06/22/17 06/22/17 18:59 06:59 18:59 Intake Total 3030 2370 Output Total 200 600 Balance 2830 1770 Weight (lbs) 79.469 kg 79.379 kg Intake: Intake, IV Amount 2220 1810 D5-0.9%Ns 1,000 ml @ 100 1000 1000 mls/hr IV .Q10H [facility] Rx#: [id number] Levetiracetam 1,000 mg In 220 110 Sodium Chloride 0.9% 100 ml @ 400 mls/hr IV Q12H [facility] Rx#:[id number] Linezolid 600mg/300mL 600 600 300 mg In 300 ml @ 300 mls/ hr IV Q12H [facility] Rx#: [id number] Piperacillin Sodium/ 200 200 Tazobact 3.375 gm In Sodium Chloride 0.9% 100 ml @ 100 mls/hr IV Q6HR [facility] Rx#:[id number] metroNIDAZOLE 500mg/NS 200 200 100mL 500 mg In 100 ml @ 100 mls/hr IV Q8HR [facility] Rx #:[id number] Oral 0 Tube Feeding 360 Other 810 200 Output: Urine 200 600 Other: # Bowel Movements 2 1 Stool Characteristics Liquid Green Active Medications: Current Medications Acetaminophen (Tylenol) 650 mg PO Q4H PRN PRN Reason: MILD BACK PAIN Last Admin: 06/21/17 16:48 Dose: 650 mg Amantadine HCl (Symmetrel) 100 mg PO TID [facility] Stop: 08/18/17 20:59 Last Admin: 06/22/17 09:14 Dose: 100 mg Calcium/Vitamin D (Oscal W/Vitamin D) 1 tab PO BID [facility] Stop: 08/18/17 16:59 Last Admin: 06/22/17 09:13 Dose: 1 tab Carbidopa/Levodopa (Sinemet 25 Mg-250 Mg) 1 tab PO BID [facility] Stop: 08/18/17 16:59 Last Admin: 06/22/17 09:13 Dose: 1 tab Carisoprodol (Soma) 350 mg PO DAILY PRN PRN Reason: MUSCLE SPASM Stop: 08/18/17 15:12 Diltiazem HCl (Cardizem) 60 mg PO Q6HR [facility] Stop: 08/18/17 17:59 Last Admin: 06/22/17 05:34 Dose: 60 mg Enoxaparin Sodium (Lovenox) 30 mg SUBQ Q12HR [facility] Stop: 08/18/17 20:59 Last Admin: 06/22/17 09:12 Dose: 30 mg Famotidine (Pepcid) 40 mg PO DAILY [facility] Stop: 08/19/17 08:59 Last Admin: 06/22/17 09:13 Dose: 40 mg Levetiracetam 1,000 mg/ Sodium (Chloride) 110 mls @ 400 mls/hr IV Q12H [facility] Stop: 08/18/17 12:59 Last Infusion: 06/22/17 01:27 Dose: Infused Metronidazole (Flagyl) 500 mg in 100 mls @ 100 mls/hr IV Q8HR [facility] Stop: 08/18/17 20:59 Last Infusion: 06/22/17 05:30 Dose: Infused Piperacillin Sod/Tazobactam (Sod 3.375 gm/ Sodium Chloride) 100 mls @ 100 mls/ hr IV Q6HR [facility] Stop: 08/18/17 20:59 Last Admin: 06/22/17 05:35 Dose: 100 mls/hr Linezolid (Zyvox) 600 mg in 300 mls @ 300 mls/hr IV Q12H [facility] Stop: 08/19/17 13:59 Last Infusion: 06/22/17 02:52 Dose: Infused Norepinephrine Bitartrate 4 mg (/ Sodium Chloride) 254 mls @ 30.48 mls/hr IV TITR [facility]; 8 MCG/MIN PRN Reason: Protocol Stop: 08/19/17 14:44 Last Titration: 06/20/17 17:56 Dose: 0 mcg/min, 0 mls/hr Amiodarone HCl 450 mg/ Sodium (Chloride) 259 mls @ 16.6 mls/hr IV TITR [facility]; Titrate PRN Reason: Protocol Stop: 08/19/17 23:29 Dextrose/Sodium Chloride (D5-0.9%Ns) 1,000 mls @ 100 mls/hr IV .Q10H [facility] Stop: 08/19/17 20:22 Last Admin: 06/22/17 04:31 Dose: 100 mls/hr Lactobacillus Rhamnosus (Culturelle 15b) 1 each PO DAILY [facility] Stop: 08/20/17 08:59 Last Admin: 06/22/17 09:13 Dose: 1 each Levetiracetam (Keppra) 1,000 mg PO BID [facility] Stop: 08/18/17 16:59 Lorazepam (Ativan) 1 mg IVP Q4HR PRN; Protocol PRN Reason: Seizures Stop: 08/18/17 15:16 Miscellaneous (Zosyn Iv Per Pharmacy) 1 ea PRN PRN PRN Reason: PROTOCOL Stop: 08/18/17 18:14 Miscellaneous (Clinical Monitoring) 1 [facility] PRN PRN PRN Reason: ZOSYN PER RX Stop: 08/19/17 08:23 Miscellaneous (Probiotic Screen) 1 [facility] PRN PRN PRN Reason: PROTOCOL Stop: 08/19/17 15:00 Morphine Sulfate (Morphine) 2 mg IVP Q4HR PRN PRN Reason: Pain (Severe) Stop: 08/18/17 15:21 Ondansetron HCl (Zofran) 4 mg IV Q4H PRN PRN Reason: Nausea / Vomiting Stop: 08/18/17 15:23 Potassium Chloride (Klor-Con) 20 meq PO DAILY [facility] Stop: 08/19/17 08:59 Last Admin: 06/22/17 09:13 Dose: 20 meq Sertraline HCl (Zoloft) 100 mg PO DAILY [facility] Stop: 08/20/17 15:59 Last Admin: 06/22/17 09:14 Dose: 100 mg Vancomycin HCl (Vancomycin Oral) 250 mg NG Q6HR [facility] Stop: 08/18/17 17:59 Last Admin: 06/22/17 05:34 Dose: 250 mg General: Alert (Has NGT in place. Has mittens on. Tried to climb out of bed), No acute distress HEENT: Atraumatic, PERRLA Neck: Supple, JVD Cardiovascular: Regular rate, Normal S1, Normal S2, Other (Irreg, irreg rhythm) Lungs: Other (b/l rhonchi) Abdomen: Bowel sounds, Soft Extremities: Edema (contractures) - Procedures Procedures: Procedures Procedure Code Date CLOSED [ENDOSCOPIC] BIOPSY OF LARYNX 31.43 07/12/96 INJECT/INFUSE NEC 99.29 11/11/07 LARYGNOSCOPY AND OTH TRACHEOSCOPY 31.42 07/12/96 LARYNGOSCOPY WITH BIOPSY 36360 07/12/96 OTHER GROUP THERAPY 94.44 11/26/07 RECREATIONAL THERAPY 93.81 11/26/07 Assessment/Plan - Assessment Assessment: 1.SEPTIC SHOCK. 2.ACUTE RENAL FAILURE. 3.ACUTE REPIRATORY FAILURE. 4.PARKINSONS DISEASE. 5.POSSIBLE C DIFF COLITIS. - Plan Plan: cont current treatment Nutritional Asmnt/Malnutr-PDOC - Dietary Evaluation Malnutrition Findings (Please click <Entered> for more info): Nutritional Asmnt/Malnutrition Start: 06/19/17 13: 46 Text: Status: Complete Freq: Document 06/19/17 13:46 LCLORETAG (Rec: 06/19/17 13:59 [facility] Nutritional Asmnt/Malnutrition Patient General Information Nutritional Screening High Risk Consult Diagnosis dehydration, tachycardia Pertinent Medical Hx/Surgical Hx [place], UTI, c diff colitis Subjective Information Consult received for BS 294 at admitting. Pt was transfered from [facility]. Pt seen resting in bed at time of visit. RN reported pt on NPO. Per nurse note, pt will start tube feeding when NGT placement verified. ordered Fibersource 30ml/hr continuous to start at dinner time today . Current Diet Order/ Nutrition Support NPO Pertinent Medications D5-0.9ns w/kcl 20meq Pertinent Labs 06/19 Na 135, K 2.9, Cl 106, BUN 23, Cr 1.5, glucose 295, alb 3.5 Nutritional Hx/Data Height 1.68 m Height (Calculated Centimeters) 167.6 Current Weight (lbs) 77.111 kg Weight (Calculated Kilograms) 77.1 Weight (Calculated Grams) 12441.7 [place] Body Weight 130 Body Mass Index (BMI) 27.4 Weight Status Overweight GI Symptoms GI Symptoms None Last BM 06/19 Difficult in: None Skin Integrity/Comment: GROIN AND SACRUM REDDNESS Estimated Nutritional Goals BEE in Kcals: Adj wt of IBW Calories/Kcals/Kg 25-30 Kcals Calculated 0643-8051 Protein: Adj wt of IBW Protein g/k Protein Calculated 64 Fluid: ml 1600-1920ml (1ml/kcal) Nutritional Problem 1. Problem Problem altered nutrition related lab values Etiology hyperglycemia Signs/Symptoms: glucose 295 Intervention/Recommendation Comments 1. Start TF as ordered - Fibersource HN 30ml/hr continuous. This will provide 864kcal, 38g protein and 589ml free water, meeting about 55% of nutritional needs. 2. pt on potassium replacement noted. If K level normal, will consider increase TF rate . 3. Monitor TF rate, tolerance, wt weekly, skin integrity and labs 4. F/U as high risk in 2-3 days, 06/21-06/22 Expected Outcomes/Goals Expected Outcomes/Goals 1. Pt to meet at least 75% of nutritional needs via nutrition support with tolerance 2. Wt stability, skin to remain intact, labs to approach WNL.
--- NOTE | 2017-06-22 15:46 | General Progress Note ---
Subjective - Review of Systems Service Date: 06/22/17 Events since last encounter: No new events Subjective: +NGT Objective - Results Result Diagrams: 06/22/17 04:40 06/22/17 04:40 Recent Labs: Laboratory Last Values WBC 13.1 Th/cmm (4.8-10.8) H 06/22/17 04:40 RBC 4.62 Mil/cmm (3.80-5.10) 06/22/17 04:40 Hgb 14.2 gm/dL (12-16) 06/22/17 04:40 Hct 42.4 % (41.0-60) 06/22/17 04:40 MCV 91.6 fl (81-100) 06/22/17 04:40 MCH 30.6 pg (27.0-31.0) 06/22/17 04:40 MCHC Differential 33.4 pg (28.0-36.0) 06/22/17 04:40 RDW 15.4 % (11.5-20.0) 06/22/17 04:40 Plt Count 122 Th/cmm (150-400) L D 06/22/17 04:40 MPV 10.0 fl 06/22/17 04:40 Neutrophils % 88.6 % (40.0-80.0) H 06/22/17 04:40 Band Neutrophils % 12 % (0-10) H 06/21/17 05:01 Lymphocytes % 5.7 % (20.0-50.0) L 06/22/17 04:40 Monocytes % 5.3 % (2.0-10.0) 06/22/17 04:40 Eosinophils % 0.2 % (0.0-5.0) 06/22/17 04:40 Basophils % 0.2 % (0.0-2.0) 06/22/17 04:40 Neutrophils (Manual) 70 % (40-80) 06/21/17 05:01 Lymphocytes 14 % (20-50) L 06/21/17 05:01 Monocytes 4 % (2-10) 06/21/17 05:01 Toxic Granulation 2+ 06/21/17 05:01 Platelet Estimate ADEQUATE (NORMAL) 06/21/17 05:01 PT 20.8 SECONDS (9.5-11.5) H 06/20/17 08:30 INR 1.93 (0.5-1.4) H 06/20/17 08:30 Specimen Source Arterial 06/20/17 15:00 Sample Site RB 06/20/17 15:00 pH 7.56 (7.35-7.45) H* 06/20/17 15:00 pCO2 25.0 mmHg (35.0-45.0) L 06/20/17 15:00 pO2 198.0 mmHg (80.0-100.0) H 06/20/17 15:00 HCO3 26.1 mEq/L (20.0-26.0) H 06/20/17 15:00 Base Excess 1.4 mEq/L (-3.0-3.0) 06/20/17 15:00 O2 Saturation 100.0 % (92.0-100.0) 06/20/17 15:00 Stephen Test NA 06/20/17 15:00 Vent Rate NA 06/20/17 15:00 Inspired O2 28 06/20/17 15:00 Tidal Volume NA 06/20/17 15:00 PEEP NA 06/20/17 15:00 Pressure (ins/psv/peep) NA 06/20/17 15:00 Critical Value E.ESCAMILLA 06/20/17 15:00 Sodium 151 mEq/L (136-145) H 06/22/17 04:40 Potassium 2.4 mEq/L (3.5-5.1) L* D 06/22/17 04:40 Chloride 119 mEq/L (98-107) H 06/22/17 04:40 Carbon Dioxide 21.8 mEq/L (21.0-31.0) 06/22/17 04:40 Anion Gap 12.6 (7.0-16.0) 06/22/17 04:40 BUN 50 mg/dL (7-25) H 06/22/17 04:40 Creatinine 0.9 mg/dL (0.6-1.2) 06/22/17 04:40 Est GFR ( Amer) > 60.0 ml/min (>90) 06/22/17 04:40 Est GFR (Non-Af Amer) > 60.0 ml/min 06/22/17 04:40 BUN/Creatinine Ratio 55.6 06/22/17 04:40 Glucose 285 mg/dL (70-105) H 06/22/17 04:40 Calcium 7.3 mg/dL (8.6-10.3) L 06/22/17 04:40 Total Bilirubin 0.5 mg/dL (0.3-1.0) 06/22/17 04:40 AST 118 U/L (13-39) H 06/22/17 04:40 ALT 28 U/L (7-52) 06/22/17 04:40 Alkaline Phosphatase 68 U/L (34-104) 06/22/17 04:40 Total Protein 4.8 gm/dL (6.0-8.3) L 06/22/17 04:40 Albumin 2.4 gm/dL (3.7-5.3) L 06/22/17 04:40 Globulin 2.4 gm/dL 06/22/17 04:40 Albumin/Globulin Ratio 1.0 (1.0-1.8) 06/22/17 04:40 Urine Source [place] 06/19/17 05:55 Urine Color DARK YELLOW 06/19/17 05:55 Urine Clarity TURBID (CLEAR) H 06/19/17 05:55 Urine pH 5.0 (4.6 - 8.0) 06/19/17 05:55 Ur Specific [place] >= 1.030 (1.005-1.030) 06/19/17 05:55 Urine Protein 30 mg/dL (NEGATIVE) H 06/19/17 05:55 Urine Glucose (UA) NEGATIVE mg/dL (NEGATIVE) 06/19/17 05:55 Urine Ketones 15 mg/dL (NEGATIVE) H 06/19/17 05:55 Urine Blood LARGE (NEGATIVE) H 06/19/17 05:55 Urine Nitrate POSITIVE (NEGATIVE) H 06/19/17 05:55 Urine Bilirubin MODERATE (NEGATIVE) H 06/19/17 05:55 Urine Urobilinogen 1.0 E.U./dL (0.2 - 1.0) 06/19/17 05:55 Ur Leukocyte Esterase NEGATIVE (NEGATIVE) 06/19/17 05:55 Urine RBC 10-25 /hpf (0-5) H 06/19/17 05:55 Urine WBC 2-5 /hpf (0-5) 06/19/17 05:55 Ur Epithelial Cells OCCASIONAL /lpf (FEW) 06/19/17 05:55 Urine Bacteria 3+ /hpf (NONE SEEN) H 06/19/17 05:55 - Physical Exam Vitals and I&O: Vital Signs Temp 96.6 F 06/22/17 08:00 Pulse 85 06/22/17 13:00 Resp 14 06/22/17 13:00 BP 116/67 06/22/17 13:00 Pulse Ox 100 06/22/17 13:00 Intake & Output 06/21/17 06/22/17 06/22/17 18:59 06:59 18:59 Intake Total 3030 2470 100 Output Total 200 600 Balance 2830 1870 100 Weight (lbs) 79.469 kg 79.379 kg 79.379 kg Intake: Intake, IV Amount 2220 1910 100 D5-0.9%Ns 1,000 ml @ 100 1000 1000 mls/hr IV .Q10H [facility] Rx#: [id number] KCL 20mEq/100mL Premix 20 100 meq In 100 ml @ 50 mls/ hr IV Q2H [facility] Rx#: [id number] Levetiracetam 1,000 mg In 220 110 Sodium Chloride 0.9% 100 ml @ 400 mls/hr IV Q12H [facility] Rx#:[id number] Linezolid 600mg/300mL 600 600 300 mg In 300 ml @ 300 mls/ hr IV Q12H [facility] Rx#: [id number] Piperacillin Sodium/ 200 300 Tazobact 3.375 gm In Sodium Chloride 0.9% 100 ml @ 100 mls/hr IV Q6HR [facility] Rx#:[id number] metroNIDAZOLE 500mg/NS 200 200 100mL 500 mg In 100 ml @ 100 mls/hr IV Q8HR [facility] Rx #:[id number] Oral 0 Tube Feeding 360 Other 810 200 Output: Urine 200 600 Other: # Bowel Movements 2 1 Stool Characteristics Liquid Soft Green Active Medications: Current Medications Acetaminophen (Tylenol) 650 mg PO Q4H PRN PRN Reason: MILD BACK PAIN Last Admin: 06/21/17 16:48 Dose: 650 mg Amantadine HCl (Symmetrel) 100 mg PO TID [facility] Stop: 08/18/17 20:59 Last Admin: 06/22/17 09:14 Dose: 100 mg Calcium/Vitamin D (Oscal W/Vitamin D) 1 tab PO BID [facility] Stop: 08/18/17 16:59 Last Admin: 06/22/17 09:13 Dose: 1 tab Carbidopa/Levodopa (Sinemet 25 Mg-250 Mg) 1 tab PO BID [facility] Stop: 08/18/17 16:59 Last Admin: 06/22/17 09:13 Dose: 1 tab Carisoprodol (Soma) 350 mg PO DAILY PRN PRN Reason: MUSCLE SPASM Stop: 08/18/17 15:12 Diltiazem HCl (Cardizem) 60 mg PO Q6HR [facility] Stop: 08/18/17 17:59 Last Admin: 06/22/17 12:55 Dose: 60 mg Enoxaparin Sodium (Lovenox) 30 mg SUBQ Q12HR [facility] Stop: 08/18/17 20:59 Last Admin: 06/22/17 09:12 Dose: 30 mg Famotidine (Pepcid) 40 mg PO DAILY [facility] Stop: 08/19/17 08:59 Last Admin: 06/22/17 09:13 Dose: 40 mg Levetiracetam 1,000 mg/ Sodium (Chloride) 110 mls @ 400 mls/hr IV Q12H [facility] Stop: 08/18/17 12:59 Last Infusion: 06/22/17 01:27 Dose: Infused Metronidazole (Flagyl) 500 mg in 100 mls @ 100 mls/hr IV Q8HR [facility] Stop: 08/18/17 20:59 Last Infusion: 06/22/17 05:30 Dose: Infused Piperacillin Sod/Tazobactam (Sod 3.375 gm/ Sodium Chloride) 100 mls @ 100 mls/ hr IV Q6HR [facility] Stop: 08/18/17 20:59 Last Admin: 06/22/17 13:04 Dose: 100 mls/hr Linezolid (Zyvox) 600 mg in 300 mls @ 300 mls/hr IV Q12H [facility] Stop: 08/19/17 13:59 Last Infusion: 06/22/17 02:52 Dose: Infused Norepinephrine Bitartrate 4 mg (/ Sodium Chloride) 254 mls @ 30.48 mls/hr IV TITR [facility]; 8 MCG/MIN PRN Reason: Protocol Stop: 08/19/17 14:44 Last Titration: 06/20/17 17:56 Dose: 0 mcg/min, 0 mls/hr Amiodarone HCl 450 mg/ Sodium (Chloride) 259 mls @ 16.6 mls/hr IV TITR [facility]; Titrate PRN Reason: Protocol Stop: 08/19/17 23:29 Dextrose/Sodium Chloride (D5-0.9%Ns) 1,000 mls @ 100 mls/hr IV .Q10H [facility] Stop: 08/19/17 20:22 Last Admin: 06/22/17 04:31 Dose: 100 mls/hr Lactobacillus Rhamnosus (Culturelle 15b) 1 each PO DAILY [facility] Stop: 08/20/17 08:59 Last Admin: 06/22/17 09:13 Dose: 1 each Levetiracetam (Keppra) 1,000 mg PO BID [facility] Stop: 08/18/17 16:59 Lorazepam (Ativan) 1 mg IVP Q4HR PRN; Protocol PRN Reason: Seizures Stop: 08/18/17 15:16 Miscellaneous (Zosyn Iv Per Pharmacy) 1 [facility] PRN PRN PRN Reason: PROTOCOL Stop: 08/18/17 18:14 Miscellaneous (Clinical Monitoring) 1 [facility] PRN PRN PRN Reason: ZOSYN PER RX Stop: 08/19/17 08:23 Miscellaneous (Probiotic Screen) 1 [facility] PRN PRN PRN Reason: PROTOCOL Stop: 08/19/17 15:00 Morphine Sulfate (Morphine) 2 mg IVP Q4HR PRN PRN Reason: Pain (Severe) Stop: 08/18/17 15:21 Ondansetron HCl (Zofran) 4 mg IV Q4H PRN PRN Reason: Nausea / Vomiting Stop: 08/18/17 15:23 Potassium Chloride (Klor-Con) 20 meq PO DAILY [facility] Stop: 08/19/17 08:59 Last Admin: 06/22/17 09:13 Dose: 20 meq Sertraline HCl (Zoloft) 100 mg PO DAILY [facility] Stop: 08/20/17 15:59 Last Admin: 06/22/17 09:14 Dose: 100 mg Vancomycin HCl (Vancomycin Oral) 250 mg NG Q6HR [facility] Stop: 08/18/17 17:59 Last Admin: 06/22/17 12:55 Dose: 250 mg General: Alert (Has NGT in place. Has mittens on.), No acute distress HEENT: Atraumatic, PERRLA Neck: Supple, JVD Cardiovascular: Regular rate, Normal S1, Normal S2, Other (Irreg, irreg rhythm) Lungs: Other (b/l rhonchi) Abdomen: Bowel sounds, Soft Extremities: Edema (contractures) - Procedures Procedures: Procedures Procedure Code Date CLOSED [ENDOSCOPIC] BIOPSY OF LARYNX 31.43 07/12/96 INJECT/INFUSE NEC 99.29 11/11/07 LARYGNOSCOPY AND OTH TRACHEOSCOPY 31.42 07/12/96 LARYNGOSCOPY WITH BIOPSY 92220 07/12/96 OTHER GROUP THERAPY 94.44 11/26/07 RECREATIONAL THERAPY 93.81 11/26/07 Assessment/Plan - Assessment Assessment: sepsis septic shock. Better. Off pressor. acute respiratory failure. acute renal failure. Better UO today. Cr improved. UTI C. Diff colitis depression parkinson - Plan Plan: Improving. Continue current management. Supplement potassium today. Nutritional Asmnt/Malnutr-PDOC - Dietary Evaluation Malnutrition Findings (Please click <Entered> for more info): Nutritional Asmnt/Malnutrition Start: 06/19/17 13: 46 Text: Status: Complete Freq: Document 06/19/17 13:46 HEN (Rec: 06/19/17 13:59 [place] [id number]) Nutritional Asmnt/Malnutrition Patient General Information Nutritional Screening High Risk Consult Diagnosis dehydration, tachycardia Pertinent Medical Hx/Surgical Hx [place], UTI, c diff colitis Subjective Information Consult received for BS 294 at admitting. Pt was transfered from [facility]. Pt seen resting in bed at time of visit. RN reported pt on NPO. Per nurse note, pt will start tube feeding when NGT placement verified. ordered Fibersource 30ml/hr continuous to start at dinner time today . Current Diet Order/ Nutrition Support NPO Pertinent Medications D5-0.9ns w/kcl 20meq Pertinent Labs 06/19 Na 135, K 2.9, Cl 106, BUN 23, Cr 1.5, glucose 295, alb 3.5 Nutritional Hx/Data Height 1.68 m Height (Calculated Centimeters) 167.6 Current Weight (lbs) 77.111 kg Weight (Calculated Kilograms) 77.1 Weight (Calculated Grams) 45783.7 [place] Body Weight 130 Body Mass Index (BMI) 27.4 Weight Status Overweight GI Symptoms GI Symptoms None Last BM 06/19 Difficult in: None Skin Integrity/Comment: GROIN AND SACRUM REDDNESS Estimated Nutritional Goals BEE in Kcals: Adj wt of IBW Calories/Kcals/Kg 25-30 Kcals Calculated 5765-2321 Protein: Adj wt of IBW Protein g/k Protein Calculated 64 Fluid: ml 1600-1920ml (1ml/kcal) Nutritional Problem 1. Problem Problem altered nutrition related lab values Etiology hyperglycemia Signs/Symptoms: glucose 295 Intervention/Recommendation Comments 1. Start TF as ordered - Fibersource HN 30ml/hr continuous. This will provide 864kcal, 38g protein and 589ml free water, meeting about 55% of nutritional needs. 2. pt on potassium replacement noted. If K level normal, will consider increase TF rate . 3. Monitor TF rate, tolerance, wt weekly, skin integrity and labs 4. F/U as high risk in 2-3 days, 06/21-06/22 Expected Outcomes/Goals Expected Outcomes/Goals 1. Pt to meet at least 75% of nutritional needs via nutrition support with tolerance 2. Wt stability, skin to remain intact, labs to approach WNL.
[2017-06-23] MEDS: Diltiazem 30 mg Tab PO SCH ×4 (00:18→17:09)
[2017-06-23] MEDS: Vancomycin HCL 250 mg /10mL UDC NG SCH ×4 (00:18→17:10)
[2017-06-23] MEDS: Linezolid 600mg/300mL Premix Bag IV SCH ×2 (02:41→14:51)
[2017-06-23] MEDS: metroNIDAZOLE 500mg/NS 100mL 500 MG/100 ML BAG IV SCH ×3 (04:44→20:32)
[2017-06-23 05:05] LABS: HEMATOCRIT 39.2 % (41.0-60); HEMOGLOBIN 13.4 gm/dL (12-16); MEAN CELL VOLUME 91.4 fl (81-100); MEAN CORPUSCULAR HEMOGLOBIN 31.2 pg (27.0-31.0); MEAN CORPUSCULAR HGB CONC 34.1 pg (28.0-36.0); PLATELET COUNT 88 Th/cmm (150-400); RED BLOOD COUNT 4.29 Mil/cmm (3.80-5.10); WHITE BLOOD COUNT 10.5 Th/cmm (4.8-10.8)
[2017-06-23 05:08] LABS: MANUAL DIFF REQUIRED? YES
[2017-06-23 05:11] LABS: ALB/GLOB RATIO 1.1 (1.0-1.8); ALBUMIN 2.2 gm/dL (3.7-5.3); ALKALINE PHOSPHATASE 94 U/L (34-104); BILIRUBIN,TOTAL 0.4 mg/dL (0.3-1.0); BUN - UREA NITROGEN 28 mg/dL (7-25); CALCIUM SERUM 7.6 mg/dL (8.6-10.3); CARBON DIOXIDE 21.2 mEq/L (21.0-31.0); CHLORIDE 125 mEq/L (98-107); CREATININE - SERUM 0.5 mg/dL (0.6-1.2); GFR AFRICAN-AMERICAN > 60.0 ml/min (>90); GFR NON AFRICAN-AMERICAN > 60.0 ml/min; GLUCOSE 268 mg/dL (70-105); MAGNESIUM 2.5 mg/dL (1.9-2.7); PHOSPHOROUS 1.4 mg/dL (2.5-5.0); POTASSIUM SERUM 3.2 mEq/L (3.5-5.1); SGOT 83 U/L (13-39); SGPT/ALT 23 U/L (7-52); SODIUM SERUM 152 mEq/L (136-145); TOTAL PROTEIN,SERUM 4.3 gm/dL (6.0-8.3)
--- NOTE | 2017-06-23 05:47 | Progress Notes ---
DATE: 06/22/[address] Diego. Case was discussed with staff of the patient, reviewed records. The patient currently in ICU. She was more alert. She is able to smile. She is sleeping better. She continues to have oxygen on. No side effects of medication. No sedation, no nausea. Thank you very much for allowing me to participate in the care of this most interesting lady and Dr. Diego will follow up with her tomorrow. JOB# [id number]
[2017-06-23 06:01] LABS: BAND NEUTROPHILE 6 % (0-10); LYMPHOCYTE 11 % (20-50); MONOCYTE 2 % (2-10); NEUTROPHILS 81 % (40-80); TOTAL CELLS COUNTED 100
[2017-06-23] MEDS: Potassium Chloride 20 mEq ER Tab PO SCH (08:52)
[2017-06-23] MEDS: Enoxaparin 30 mg/0.3 mL 0.3mL Syr SUBQ SCH ×2 (08:53→20:31)
[2017-06-23] MEDS: Calcium Carb/Vit D 500 mg/200 U Tab PO SCH ×2 (08:53→17:09)
[2017-06-23] MEDS: Lactobacillus Rhamnosus GG 15 Billion CFU CAP.SPRINK PO SCH (08:53)
--- NOTE | 2017-06-23 10:06 | Progress Notes ---
DATE: 06/23/2017 SUBJECTIVE: Chart reviewed and the patient interviewed. I also discussed the patient's condition with the staff and reviewed records and labs. The patient is still anxious and patient is fearful and asking staff to be with her most of the time. The patient also is still slightly suspicious. The patient on the other hand is cooperative with her treatment. This morning, the patient is complaining of feeling "cold." Otherwise, the patient continues to comply with taking medications with no side effects. ASSESSMENT: The patient seems to be more fearful and depressed, but no behavioral problems. TREATMENT PLAN: We will continue to monitor her behavior and her condition closely. Also, continue to work on her medical issues and continue to follow up. [facility]# [id number]
--- NOTE | 2017-06-23 10:27 | Diagnostic Imaging Report ---
KUB abdominal film HISTORY: Pain, nasogastric tube placement The exam demonstrates a nasogastric tube projecting over the left upper quadrant of the abdomen in the region of the stomach. There is a nonspecific gas pattern of nondilated bowel. IMPRESSION: 1. Nasogastric tube projecting over the gastric area.
--- NOTE | 2017-06-23 11:02 | Diagnostic Imaging Report ---
Portable chest x-ray HISTORY: Shortness of breath Exam is limited due to patient's size and radiographic technique with underpenetration. There is a poor inspiration. The heart size appears generous. There appears to be slight elevation the right hemidiaphragm. No definite focal pulmonary parenchymal processes are seen. A nasogastric tube is noted through the thoracic region. The distal tip cannot be clearly visualized. The KUB abdominal radiograph would provide additional assessment. IMPRESSION: 1. No definite focal pulmonary parenchymal processes 2. Incomplete visualization of the lower portion of the nasogastric tube. A KUB abdominal radiograph would provide for further assessment.
--- NOTE | 2017-06-23 15:18 | General Progress Note ---
Subjective - Review of Systems Service Date: 06/23/17 Subjective: pt in icu l Objective - Results Result Diagrams: 06/23/17 04:30 06/23/17 04:30 Recent Labs: Laboratory Last Values WBC 10.5 Th/cmm (4.8-10.8) 06/23/17 04:30 RBC 4.29 Mil/cmm (3.80-5.10) 06/23/17 04:30 Hgb 13.4 gm/dL (12-16) 06/23/17 04:30 Hct 39.2 % (41.0-60) L 06/23/17 04:30 MCV 91.4 fl (81-100) 06/23/17 04:30 MCH 31.2 pg (27.0-31.0) H 06/23/17 04:30 MCHC Differential 34.1 pg (28.0-36.0) 06/23/17 04:30 RDW 16.0 % (11.5-20.0) 06/23/17 04:30 Plt Count 88 Th/cmm (150-400) L 06/23/17 04:30 MPV 10.0 fl 06/23/17 04:30 Neutrophils % 88.6 % (40.0-80.0) H 06/22/17 04:40 Band Neutrophils % 6 % (0-10) 06/23/17 04:30 Lymphocytes % 5.7 % (20.0-50.0) L 06/22/17 04:40 Monocytes % 5.3 % (2.0-10.0) 06/22/17 04:40 Eosinophils % 0.2 % (0.0-5.0) 06/22/17 04:40 Basophils % 0.2 % (0.0-2.0) 06/22/17 04:40 Neutrophils (Manual) 81 % (40-80) H 06/23/17 04:30 Lymphocytes 11 % (20-50) L 06/23/17 04:30 Monocytes 2 % (2-10) 06/23/17 04:30 Toxic Granulation 2+ 06/21/17 05:01 Platelet Estimate ADEQUATE (NORMAL) 06/21/17 05:01 PT 20.8 SECONDS (9.5-11.5) H 06/20/17 08:30 INR 1.93 (0.5-1.4) H 06/20/17 08:30 Specimen Source Arterial 06/20/17 15:00 Sample Site RB 06/20/17 15:00 pH 7.56 (7.35-7.45) H* 06/20/17 15:00 pCO2 25.0 mmHg (35.0-45.0) L 06/20/17 15:00 pO2 198.0 mmHg (80.0-100.0) H 06/20/17 15:00 HCO3 26.1 mEq/L (20.0-26.0) H 06/20/17 15:00 Base Excess 1.4 mEq/L (-3.0-3.0) 06/20/17 15:00 O2 Saturation 100.0 % (92.0-100.0) 06/20/17 15:00 Stephen Test NA 06/20/17 15:00 Vent Rate NA 06/20/17 15:00 Inspired O2 28 06/20/17 15:00 Tidal Volume NA 06/20/17 15:00 PEEP NA 06/20/17 15:00 Pressure (ins/psv/peep) NA 06/20/17 15:00 Critical Value E.ESCAMILLA 06/20/17 15:00 Sodium 152 mEq/L (136-145) H 06/23/17 04:30 Potassium 3.2 mEq/L (3.5-5.1) L 06/23/17 04:30 Chloride 125 mEq/L (98-107) H 06/23/17 04:30 Carbon Dioxide 21.2 mEq/L (21.0-31.0) 06/23/17 04:30 Anion Gap 9.0 (7.0-16.0) 06/23/17 04:30 BUN 28 mg/dL (7-25) H 06/23/17 04:30 Creatinine 0.5 mg/dL (0.6-1.2) L 06/23/17 04:30 Est GFR ( Amer) > 60.0 ml/min (>90) 06/23/17 04:30 Est GFR (Non-Af Amer) > 60.0 ml/min 06/23/17 04:30 BUN/Creatinine Ratio 56.0 06/23/17 04:30 Glucose 268 mg/dL (70-105) H 06/23/17 04:30 POC Glucose 264 MG/DL (70-105) H 06/19/17 04:36 Calcium 7.6 mg/dL (8.6-10.3) L 06/23/17 04:30 Phosphorus 1.4 mg/dL (2.5-5.0) L 06/23/17 04:30 Magnesium 2.5 mg/dL (1.9-2.7) 06/23/17 04:30 Total Bilirubin 0.4 mg/dL (0.3-1.0) 06/23/17 04:30 AST 83 U/L (13-39) H 06/23/17 04:30 ALT 23 U/L (7-52) 06/23/17 04:30 Alkaline Phosphatase 94 U/L (34-104) 06/23/17 04:30 Total Protein 4.3 gm/dL (6.0-8.3) L 06/23/17 04:30 Albumin 2.2 gm/dL (3.7-5.3) L 06/23/17 04:30 Globulin 2.1 gm/dL 06/23/17 04:30 Albumin/Globulin Ratio 1.1 (1.0-1.8) 06/23/17 04:30 Urine Source [place] 06/19/17 05:55 Urine Color DARK YELLOW 06/19/17 05:55 Urine Clarity TURBID (CLEAR) H 06/19/17 05:55 Urine pH 5.0 (4.6 - 8.0) 06/19/17 05:55 Ur Specific [place] >= 1.030 (1.005-1.030) 06/19/17 05:55 Urine Protein 30 mg/dL (NEGATIVE) H 06/19/17 05:55 Urine Glucose (UA) NEGATIVE mg/dL (NEGATIVE) 06/19/17 05:55 Urine Ketones 15 mg/dL (NEGATIVE) H 06/19/17 05:55 Urine Blood LARGE (NEGATIVE) H 06/19/17 05:55 Urine Nitrate POSITIVE (NEGATIVE) H 06/19/17 05:55 Urine Bilirubin MODERATE (NEGATIVE) H 06/19/17 05:55 Urine Urobilinogen 1.0 E.U./dL (0.2 - 1.0) 06/19/17 05:55 Ur Leukocyte Esterase NEGATIVE (NEGATIVE) 06/19/17 05:55 Urine RBC 10-25 /hpf (0-5) H 06/19/17 05:55 Urine WBC 2-5 /hpf (0-5) 06/19/17 05:55 Ur Epithelial Cells OCCASIONAL /lpf (FEW) 06/19/17 05:55 Urine Bacteria 3+ /hpf (NONE SEEN) H 06/19/17 05:55 - Physical Exam Vitals and I&O: Vital Signs Temp 96.2 F 06/23/17 08:00 Pulse 88 06/23/17 12:00 Resp 17 06/23/17 12:00 BP 136/82 06/23/17 12:00 Pulse Ox 95 06/23/17 12:00 Intake & Output 06/22/17 06/23/17 06/23/17 18:59 06:59 18:59 Intake Total 2070 1200 Output Total 700 452 Balance 1370 748 Weight (lbs) 79.379 kg 89.857 kg Intake: Intake, IV Amount 1710 910 D5-0.9%Ns 1,000 ml @ 100 1000 mls/hr IV .Q10H [facility] Rx#: [id number] KCL 20mEq/100mL Premix 20 100 meq In 100 ml @ 50 mls/ hr IV Q2H [facility] Rx#: [id number] Levetiracetam 1,000 mg In 110 110 Sodium Chloride 0.9% 100 ml @ 400 mls/hr IV Q12H [facility] Rx#:[id number] Linezolid 600mg/300mL 600 300 300 mg In 300 ml @ 300 mls/ hr IV Q12H [facility] Rx#: [id number] Piperacillin Sodium/ 100 300 Tazobact 3.375 gm In Sodium Chloride 0.9% 100 ml @ 100 mls/hr IV Q6HR [facility] Rx#:[id number] metroNIDAZOLE 500mg/NS 100 200 100mL 500 mg In 100 ml @ 100 mls/hr IV Q8HR [facility] Rx #:[id number] Tube Feeding 360 290 Output: Urine 700 450 Stool 2 Other: # Bowel Movements 3 Stool Characteristics Soft Liquid Liquid Green Active Medications: Current Medications Acetaminophen (Tylenol) 650 mg PO Q4H PRN PRN Reason: MILD BACK PAIN Last Admin: 06/21/17 16:48 Dose: 650 mg Amantadine HCl (Symmetrel) 100 mg PO TID [facility] Stop: 05/14/18 20:59 Last Admin: 06/23/17 14:18 Dose: 100 mg Calcium/Vitamin D (Oscal W/Vitamin D) 1 tab PO BID [facility] Stop: 08/18/17 16:59 Last Admin: 06/23/17 08:53 Dose: 1 tab Carbidopa/Levodopa (Sinemet 25 Mg-250 Mg) 1 tab PO BID [facility] Stop: 08/18/17 16:59 Last Admin: 06/23/17 08:53 Dose: 1 tab Carisoprodol (Soma) 350 mg PO DAILY PRN PRN Reason: MUSCLE SPASM Stop: 08/18/17 15:12 Diltiazem HCl (Cardizem) 60 mg PO Q6HR [facility] Stop: 08/18/17 17:59 Last Admin: 06/23/17 11:48 Dose: 60 mg Enoxaparin Sodium (Lovenox) 30 mg SUBQ Q12HR [facility] Stop: 08/18/17 20:59 Last Admin: 06/23/17 08:53 Dose: 30 mg Famotidine (Pepcid) 40 mg PO DAILY [facility] Stop: 08/19/17 08:59 Last Admin: 06/23/17 08:52 Dose: 40 mg Levetiracetam 1,000 mg/ Sodium (Chloride) 110 mls @ 400 mls/hr IV Q12H [facility] Stop: 08/18/17 12:59 Last Admin: 06/23/17 13:46 Dose: 400 mls/hr Metronidazole (Flagyl) 500 mg in 100 mls @ 100 mls/hr IV Q8HR [facility] Stop: 08/18/17 20:59 Last Admin: 06/23/17 14:07 Dose: 100 mls/hr Piperacillin Sod/Tazobactam (Sod 3.375 gm/ Sodium Chloride) 100 mls @ 100 mls/ hr IV Q6HR [facility] Stop: 08/18/17 20:59 Last Admin: 06/23/17 11:47 Dose: 100 mls/hr Linezolid (Zyvox) 600 mg in 300 mls @ 300 mls/hr IV Q12H [facility] Stop: 08/19/17 13:59 Last Admin: 06/23/17 14:51 Dose: 300 mls/hr Norepinephrine Bitartrate 4 mg (/ Sodium Chloride) 254 mls @ 30.48 mls/hr IV TITR [facility]; 8 MCG/MIN PRN Reason: Protocol Stop: 08/19/17 14:44 Last Titration: 06/20/17 17:56 Dose: 0 mcg/min, 0 mls/hr Amiodarone HCl 450 mg/ Sodium (Chloride) 259 mls @ 16.6 mls/hr IV TITR [facility]; Titrate PRN Reason: Protocol Stop: 08/19/17 23:29 Dextrose/Sodium Chloride (D5-0.9%Ns) 1,000 mls @ 100 mls/hr IV .Q10H [facility] Stop: 08/19/17 20:22 Last Admin: 06/22/17 17:00 Dose: 100 mls/hr Lactobacillus Rhamnosus (Culturelle 15b) 1 each PO DAILY [facility] Stop: 08/20/17 08:59 Last Admin: 06/23/17 08:53 Dose: 1 each Levetiracetam (Keppra) 1,000 mg PO BID [facility] Stop: 08/18/17 16:59 Lorazepam (Ativan) 1 mg IVP Q4HR PRN; Protocol PRN Reason: Seizures Stop: 08/18/17 15:16 Miscellaneous (Zosyn Iv Per Pharmacy) 1 ea PRN PRN PRN Reason: PROTOCOL Stop: 08/18/17 18:14 Miscellaneous (Clinical Monitoring) 1 [facility] PRN PRN PRN Reason: ZOSYN PER RX Stop: 08/19/17 08:23 Miscellaneous (Probiotic Screen) 1 [facility] PRN PRN PRN Reason: PROTOCOL Stop: 08/19/17 15:00 Morphine Sulfate (Morphine) 2 mg IVP Q4HR PRN PRN Reason: Pain (Severe) Stop: 08/18/17 15:21 Ondansetron HCl (Zofran) 4 mg IV Q4H PRN PRN Reason: Nausea / Vomiting Stop: 08/18/17 15:23 Potassium Chloride (Klor-Con) 20 meq PO DAILY [facility] Stop: 08/19/17 08:59 Last Admin: 06/23/17 08:52 Dose: 20 meq Sertraline HCl (Zoloft) 100 mg PO DAILY [facility] Stop: 08/20/17 15:59 Last Admin: 06/23/17 08:53 Dose: 100 mg Vancomycin HCl (Vancomycin Oral) 250 mg NG Q6HR [facility] Stop: 08/18/17 17:59 Last Admin: 06/23/17 11:48 Dose: 250 mg General: Alert (Has NGT in place. Has mittens on.), No acute distress HEENT: Atraumatic, PERRLA Neck: Supple, JVD Cardiovascular: Regular rate, Normal S1, Normal S2, Other (Irreg, irreg rhythm) Lungs: Other (b/l rhonchi) Abdomen: Bowel sounds, Soft Extremities: Edema (contractures) - Procedures Procedures: Procedures Procedure Code Date ASSISTANCE WITH RESPIRATORY VENTILATION, <24 HRS, CPAP 9Y43973 06/19/17 CLOSED [ENDOSCOPIC] BIOPSY OF LARYNX 31.43 07/12/96 INJECT/INFUSE NEC 99.29 11/11/07 LARYGNOSCOPY AND OTH TRACHEOSCOPY 31.42 07/12/96 LARYNGOSCOPY WITH BIOPSY 66510 07/12/96 OTHER GROUP THERAPY 94.44 11/26/07 POS AIRWAY PRESSURE CPAP 60006 06/19/17 RECREATIONAL THERAPY 93.81 11/26/07 Assessment/Plan - Assessment Assessment: sepsis septic shock acute respiratory failure acute renal failure UTI C. Diff colitis depression parkinson - Plan Plan: continue BiPAP IV abx IV fluids replace potassium correct serum sodium Nutritional Asmnt/Malnutr-PDOC - Dietary Evaluation Malnutrition Findings (Please click <Entered> for more info): Nutritional Asmnt/Malnutrition Start: 06/19/17 13: 46 Text: Status: Complete Freq: Document 06/19/17 13:46 LCHENG (Rec: 06/19/17 13:59 LCHENG [id number]) Nutritional Asmnt/Malnutrition Patient General Information Nutritional Screening High Risk Consult Diagnosis dehydration, tachycardia Pertinent Medical Hx/Surgical Hx parkingson, UTI, c diff colitis Subjective Information Consult received for BS 294 at admitting. Pt was transfered from [facility]. Pt seen resting in bed at time of visit. RN reported pt on NPO. Per nurse note, pt will start tube feeding when NGT placement verified. ordered Fibersource 30ml/hr continuous to start at dinner time today . Current Diet Order/ Nutrition Support NPO Pertinent Medications D5-0.9ns w/kcl 20meq Pertinent Labs 06/19 Na 135, K 2.9, Cl 106, BUN 23, Cr 1.5, glucose 295, alb 3.5 Nutritional Hx/Data Height 1.68 m Height (Calculated Centimeters) 167.6 Current Weight (lbs) 77.111 kg Weight (Calculated Kilograms) 77.1 Weight (Calculated Grams) 76185.7 [place] Body Weight 130 Body Mass Index (BMI) 27.4 Weight Status Overweight GI Symptoms GI Symptoms None Last BM 06/19 Difficult in: None Skin Integrity/Comment: GROIN AND SACRUM REDDNESS Estimated Nutritional Goals BEE in Kcals: Adj wt of IBW Calories/Kcals/Kg 25-30 Kcals Calculated 3131-5818 Protein: Adj wt of IBW Protein g/k Protein Calculated 64 Fluid: ml 1600-1920ml (1ml/kcal) Nutritional Problem 1. Problem Problem altered nutrition related lab values Etiology hyperglycemia Signs/Symptoms: glucose 295 Intervention/Recommendation Comments 1. Start TF as ordered - Fibersource HN 30ml/hr continuous. This will provide 864kcal, 38g protein and 589ml free water, meeting about 55% of nutritional needs. 2. pt on potassium replacement noted. If K level normal, will consider increase TF rate . 3. Monitor TF rate, tolerance, wt weekly, skin integrity and labs 4. F/U as high risk in 2-3 days, 06/21-06/22 Expected Outcomes/Goals Expected Outcomes/Goals 1. Pt to meet at least 75% of nutritional needs via nutrition support with tolerance 2. Wt stability, skin to remain intact, labs to approach WNL.
[2017-06-23] MEDS ORDERED: Sodium Phos / Potassium Phos 1.25 GM PACK NG SCH (21:30)
--- NOTE | 2017-06-23 21:32 | Internal Medicine Prog Note ---
Internal Medicine Subjective - Subjective Service Date: 06/23/17 Patient seen and examined:: with staff (THE PATIENT STILL NOT RESPONDING.SHE IS ON NGT FEEDING AND IV ABS.) Patient is:: asleep, non-verbal, in bed Per staff patient has:: no adverse event, other (THE PATIENT ON BIPAP,LEVAPHID AND AMIODARON IV DRIP.URIN OUTPUT IS NOT GOOD) Internal Medicine Objective - Results Result Diagrams: 06/23/17 04:30 06/23/17 04:30 Recent Labs: Laboratory Last Values WBC 10.5 Th/cmm (4.8-10.8) 06/23/17 04:30 RBC 4.29 Mil/cmm (3.80-5.10) 06/23/17 04:30 Hgb 13.4 gm/dL (12-16) 06/23/17 04:30 Hct 39.2 % (41.0-60) L 06/23/17 04:30 MCV 91.4 fl (81-100) 06/23/17 04:30 MCH 31.2 pg (27.0-31.0) H 06/23/17 04:30 MCHC Differential 34.1 pg (28.0-36.0) 06/23/17 04:30 RDW 16.0 % (11.5-20.0) 06/23/17 04:30 Plt Count 88 Th/cmm (150-400) L 06/23/17 04:30 MPV 10.0 fl 06/23/17 04:30 Neutrophils % 88.6 % (40.0-80.0) H 06/22/17 04:40 Band Neutrophils % 6 % (0-10) 06/23/17 04:30 Lymphocytes % 5.7 % (20.0-50.0) L 06/22/17 04:40 Monocytes % 5.3 % (2.0-10.0) 06/22/17 04:40 Eosinophils % 0.2 % (0.0-5.0) 06/22/17 04:40 Basophils % 0.2 % (0.0-2.0) 06/22/17 04:40 Neutrophils (Manual) 81 % (40-80) H 06/23/17 04:30 Lymphocytes 11 % (20-50) L 06/23/17 04:30 Monocytes 2 % (2-10) 06/23/17 04:30 Toxic Granulation 2+ 06/21/17 05:01 Platelet Estimate ADEQUATE (NORMAL) 06/21/17 05:01 PT 20.8 SECONDS (9.5-11.5) H 06/20/17 08:30 INR 1.93 (0.5-1.4) H 06/20/17 08:30 Specimen Source Arterial 06/20/17 15:00 Sample Site RB 06/20/17 15:00 pH 7.56 (7.35-7.45) H* 06/20/17 15:00 pCO2 25.0 mmHg (35.0-45.0) L 06/20/17 15:00 pO2 198.0 mmHg (80.0-100.0) H 06/20/17 15:00 HCO3 26.1 mEq/L (20.0-26.0) H 06/20/17 15:00 Base Excess 1.4 mEq/L (-3.0-3.0) 06/20/17 15:00 O2 Saturation 100.0 % (92.0-100.0) 06/20/17 15:00 Stephen Test NA 06/20/17 15:00 Vent Rate NA 06/20/17 15:00 Inspired O2 28 06/20/17 15:00 Tidal Volume NA 06/20/17 15:00 PEEP NA 06/20/17 15:00 Pressure (ins/psv/peep) NA 06/20/17 15:00 Critical Value E.ESCAMILLA 06/20/17 15:00 Sodium 152 mEq/L (136-145) H 06/23/17 04:30 Potassium 3.2 mEq/L (3.5-5.1) L 06/23/17 04:30 Chloride 125 mEq/L (98-107) H 06/23/17 04:30 Carbon Dioxide 21.2 mEq/L (21.0-31.0) 06/23/17 04:30 Anion Gap 9.0 (7.0-16.0) 06/23/17 04:30 BUN 28 mg/dL (7-25) H 06/23/17 04:30 Creatinine 0.5 mg/dL (0.6-1.2) L 06/23/17 04:30 Est GFR ( Amer) > 60.0 ml/min (>90) 06/23/17 04:30 Est GFR (Non-Af Amer) > 60.0 ml/min 06/23/17 04:30 BUN/Creatinine Ratio 56.0 06/23/17 04:30 Glucose 268 mg/dL (70-105) H 06/23/17 04:30 POC Glucose 264 MG/DL (70-105) H 06/19/17 04:36 Calcium 7.6 mg/dL (8.6-10.3) L 06/23/17 04:30 Phosphorus 1.4 mg/dL (2.5-5.0) L 06/23/17 04:30 Magnesium 2.5 mg/dL (1.9-2.7) 06/23/17 04:30 Total Bilirubin 0.4 mg/dL (0.3-1.0) 06/23/17 04:30 AST 83 U/L (13-39) H 06/23/17 04:30 ALT 23 U/L (7-52) 06/23/17 04:30 Alkaline Phosphatase 94 U/L (34-104) 06/23/17 04:30 Total Protein 4.3 gm/dL (6.0-8.3) L 06/23/17 04:30 Albumin 2.2 gm/dL (3.7-5.3) L 06/23/17 04:30 Globulin 2.1 gm/dL 06/23/17 04:30 Albumin/Globulin Ratio 1.1 (1.0-1.8) 06/23/17 04:30 Urine Source [place] 06/19/17 05:55 Urine Color DARK YELLOW 06/19/17 05:55 Urine Clarity TURBID (CLEAR) H 06/19/17 05:55 Urine pH 5.0 (4.6 - 8.0) 06/19/17 05:55 Ur Specific [place] >= 1.030 (1.005-1.030) 06/19/17 05:55 Urine Protein 30 mg/dL (NEGATIVE) H 06/19/17 05:55 Urine Glucose (UA) NEGATIVE mg/dL (NEGATIVE) 06/19/17 05:55 Urine Ketones 15 mg/dL (NEGATIVE) H 06/19/17 05:55 Urine Blood LARGE (NEGATIVE) H 06/19/17 05:55 Urine Nitrate POSITIVE (NEGATIVE) H 06/19/17 05:55 Urine Bilirubin MODERATE (NEGATIVE) H 06/19/17 05:55 Urine Urobilinogen 1.0 E.U./dL (0.2 - 1.0) 06/19/17 05:55 Ur Leukocyte Esterase NEGATIVE (NEGATIVE) 06/19/17 05:55 Urine RBC 10-25 /hpf (0-5) H 06/19/17 05:55 Urine WBC 2-5 /hpf (0-5) 06/19/17 05:55 Ur Epithelial Cells OCCASIONAL /lpf (FEW) 06/19/17 05:55 Urine Bacteria 3+ /hpf (NONE SEEN) H 06/19/17 05:55 - Physical Exam Vitals and I&O: Vital Signs Temp 97.8 F 06/23/17 20:00 Pulse 88 06/23/17 20:11 Resp 24 06/23/17 20:11 BP 138/72 06/23/17 20:00 Pulse Ox 99 06/23/17 20:11 Intake & Output 06/23/17 06/23/17 06/24/17 06:59 18:59 06:59 Intake Total 1200 1320 Output Total 452 500 Balance 748 820 Weight (lbs) 89.857 kg 88.587 kg Intake: Intake, IV Amount 910 710 Levetiracetam 1,000 mg In 110 110 Sodium Chloride 0.9% 100 ml @ 400 mls/hr IV Q12H [facility] Rx#:[id number] Linezolid 600mg/300mL 600 300 300 mg In 300 ml @ 300 mls/ hr IV Q12H [facility] Rx#: [id number] Piperacillin Sodium/ 300 200 Tazobact 3.375 gm In Sodium Chloride 0.9% 100 ml @ 100 mls/hr IV Q6HR [facility] Rx#:[id number] metroNIDAZOLE 500mg/NS 200 100 100mL 500 mg In 100 ml @ 100 mls/hr IV Q8HR [facility] Rx #:[id number] Tube Feeding 290 360 Other 250 Output: Urine 450 500 Stool 2 Other: # Bowel Movements 2 Stool Characteristics Liquid Liquid Green Active Medications: Current Medications Acetaminophen (Tylenol) 650 mg PO Q4H PRN PRN Reason: MILD BACK PAIN Last Admin: 06/21/17 16:48 Dose: 650 mg Amantadine HCl (Symmetrel) 100 mg PO TID [facility] Stop: 08/18/17 20:59 Last Admin: 06/23/17 20:31 Dose: 100 mg Calcium/Vitamin D (Oscal W/Vitamin D) 1 tab PO BID [facility] Stop: 08/18/17 16:59 Last Admin: 06/23/17 17:09 Dose: 1 tab Carbidopa/Levodopa (Sinemet 25 Mg-250 Mg) 1 tab PO BID [facility] Stop: 08/18/17 16:59 Last Admin: 06/23/17 17:09 Dose: 1 tab Carisoprodol (Soma) 350 mg PO DAILY PRN PRN Reason: MUSCLE SPASM Stop: 08/18/17 15:12 Diltiazem HCl (Cardizem) 60 mg PO Q6HR [facility] Stop: 08/18/17 17:59 Last Admin: 06/23/17 17:09 Dose: 60 mg Enoxaparin Sodium (Lovenox) 30 mg SUBQ Q12HR [facility] Stop: 08/18/17 20:59 Last Admin: 06/23/17 20:31 Dose: 30 mg Famotidine (Pepcid) 40 mg PO DAILY [facility] Stop: 08/19/17 08:59 Last Admin: 06/23/17 08:52 Dose: 40 mg Levetiracetam 1,000 mg/ Sodium (Chloride) 110 mls @ 400 mls/hr IV Q12H [facility] Stop: 08/18/17 12:59 Last Infusion: 06/23/17 14:15 Dose: Infused Metronidazole (Flagyl) 500 mg in 100 mls @ 100 mls/hr IV Q8HR [facility] Stop: 08/18/17 20:59 Last Admin: 06/23/17 20:32 Dose: 100 mls/hr Piperacillin Sod/Tazobactam (Sod 3.375 gm/ Sodium Chloride) 100 mls @ 100 mls/ hr IV Q6HR [facility] Stop: 08/18/17 20:59 Last Infusion: 06/23/17 18:10 Dose: Infused Linezolid (Zyvox) 600 mg in 300 mls @ 300 mls/hr IV Q12H [facility] Stop: 08/19/17 13:59 Last Infusion: 06/23/17 15:55 Dose: Infused Norepinephrine Bitartrate 4 mg (/ Sodium Chloride) 254 mls @ 30.48 mls/hr IV TITR [facility]; 8 MCG/MIN PRN Reason: Protocol Stop: 08/19/17 14:44 Last Titration: 06/20/17 17:56 Dose: 0 mcg/min, 0 mls/hr Amiodarone HCl 450 mg/ Sodium (Chloride) 259 mls @ 16.6 mls/hr IV TITR [facility]; Titrate PRN Reason: Protocol Stop: 08/19/17 23:29 Lactobacillus Rhamnosus (Culturelle 15b) 1 each PO DAILY [facility] Stop: 08/20/17 08:59 Last Admin: 06/23/17 08:53 Dose: 1 each Levetiracetam (Keppra) 1,000 mg PO BID [facility] Stop: 08/18/17 16:59 Lorazepam (Ativan) 1 mg IVP Q4HR PRN; Protocol PRN Reason: Seizures Stop: 08/18/17 15:16 Last Admin: 06/23/17 20:11 Dose: 1 mg Miscellaneous (Zosyn Iv Per Pharmacy) 1 ea PRN PRN PRN Reason: PROTOCOL Stop: 08/18/17 18:14 Miscellaneous (Clinical Monitoring) 1 ea PRN PRN PRN Reason: ZOSYN PER RX Stop: 08/19/17 08:23 Miscellaneous (Probiotic Screen) 1 ea PRN PRN PRN Reason: PROTOCOL Stop: 08/19/17 15:00 Morphine Sulfate (Morphine) 2 mg IVP Q4HR PRN PRN Reason: Pain (Severe) Stop: 08/18/17 15:21 Ondansetron HCl (Zofran) 4 mg IV Q4H PRN PRN Reason: Nausea / Vomiting Stop: 08/18/17 15:23 Potassium Chloride (Klor-Con) 20 meq PO DAILY [facility] Stop: 08/19/17 08:59 Last Admin: 06/23/17 08:52 Dose: 20 meq Sertraline HCl (Zoloft) 100 mg PO DAILY [facility] Stop: 08/20/17 15:59 Last Admin: 06/23/17 08:53 Dose: 100 mg Vancomycin HCl (Vancomycin Oral) 250 mg NG Q6HR [facility] Stop: 08/18/17 17:59 Last Admin: 06/23/17 17:10 Dose: 250 mg General: obtunded HEENT: NC/AT, PERRLA, EOMI, anicteric sclerae, throat clear Neck: Supple, No JVD, No thyromegaly, +2 carotid pulse wo bruit, No LAD Lungs: CTAB Cardiovascular: tachy Abdomen: tender Extremities: clear Neurological: lethargic - Procedures Procedures: Procedures Procedure Code Date ASSISTANCE WITH RESPIRATORY VENTILATION, <24 HRS, CPAP [id number] 06/19/17 CLOSED [ENDOSCOPIC] BIOPSY OF LARYNX 31.43 07/12/96 INJECT/INFUSE NEC 99.29 11/11/07 LARYGNOSCOPY AND OTH TRACHEOSCOPY 31.42 07/12/96 LARYNGOSCOPY WITH BIOPSY 48125 07/12/96 OTHER GROUP THERAPY 94.44 11/26/07 POS AIRWAY PRESSURE CPAP 08716 06/19/17 RECREATIONAL THERAPY 93.81 11/26/07 Internal Medicine Assmt/Plan - Assessment Assessment: 1.SEPTIC SHOCK. 2.ACUTE RENAL FAILURE. 3.ACUTE REPIRATORY FAILURE. 4.PARKINSONS DISEASE. 5.POSSIBLE C DIFF COLITIS. 6.ACUTE METABOLIC ENCEPHALOPATHY. - Plan Plan: CONTINUE ON CURRENT MEDICATION AND DIET.KEEP THE PATIENT IN ICU UNTIL TOMORROW.CBC AND CMP IN AM. Nutritional Asmnt/Malnutr-PDOC - Dietary Evaluation Malnutrition Findings (Please click <Entered> for more info): Nutritional Asmnt/Malnutrition Start: 06/19/17 13: 46 Text: Status: Complete Freq: Document 06/19/17 13:46 LCHENG (Rec: 06/19/17 13:59 LCHENG [email or web address]) Nutritional Asmnt/Malnutrition Patient General Information Nutritional Screening High Risk Consult Diagnosis dehydration, tachycardia Pertinent Medical Hx/Surgical Hx [place], UTI, c diff colitis Subjective Information Consult received for BS 294 at admitting. Pt was transfered from [facility]. Pt seen resting in bed at time of visit. RN reported pt on NPO. Per nurse note, pt will start tube feeding when NGT placement verified. ordered Fibersource 30ml/hr continuous to start at dinner time today . Current Diet Order/ Nutrition Support NPO Pertinent Medications D5-0.9ns w/kcl 20meq Pertinent Labs 06/19 Na 135, K 2.9, Cl 106, BUN 23, Cr 1.5, glucose 295, alb 3.5 Nutritional Hx/Data Height 1.68 m Height (Calculated Centimeters) 167.6 Current Weight (lbs) 77.111 kg Weight (Calculated Kilograms) 77.1 Weight (Calculated Grams) 22716.7 [place] Body Weight 130 Body Mass Index (BMI) 27.4 Weight Status Overweight GI Symptoms GI Symptoms None Last BM 06/19 Difficult in: None Skin Integrity/Comment: GROIN AND SACRUM REDDNESS Estimated Nutritional Goals BEE in Kcals: Adj wt of IBW Calories/Kcals/Kg 25-30 Kcals Calculated 1780-9275 Protein: Adj wt of IBW Protein g/k Protein Calculated 64 Fluid: ml 1600-1920ml (1ml/kcal) Nutritional Problem 1. Problem Problem altered nutrition related lab values Etiology hyperglycemia Signs/Symptoms: glucose 295 Intervention/Recommendation Comments 1. Start TF as ordered - Fibersource HN 30ml/hr continuous. This will provide 864kcal, 38g protein and 589ml free water, meeting about 55% of nutritional needs. 2. pt on potassium replacement noted. If K level normal, will consider increase TF rate . 3. Monitor TF rate, tolerance, wt weekly, skin integrity and labs 4. F/U as high risk in 2-3 days, 06/21-06/22 Expected Outcomes/Goals Expected Outcomes/Goals 1. Pt to meet at least 75% of nutritional needs via nutrition support with tolerance 2. Wt stability, skin to remain intact, labs to approach WNL.
[2017-06-24] MEDS: Diltiazem 30 mg Tab PO SCH ×4 (01:01→17:16)
[2017-06-24] MEDS: Vancomycin HCL 250 mg /10mL UDC NG SCH ×4 (01:01→17:16)
[2017-06-24] MEDS: Linezolid 600mg/300mL Premix Bag IV SCH ×2 (01:53→15:54)
[2017-06-24] MEDS: metroNIDAZOLE 500mg/NS 100mL 500 MG/100 ML BAG IV SCH ×3 (04:59→20:53)
[2017-06-24 05:23] LABS: % BASOPHILS 0.1 % (0.0-2.0); % EOSINOPHILS 1.3 % (0.0-5.0); % LYMPHOCYTES 11.1 % (20.0-50.0); % MONOCYTES 0.8 % (2.0-10.0); % NEUTROPHILS 86.7 % (40.0-80.0); EOSINOPHILE ABSOLUTE 0.1 Th/cmm (0.1-0.4); HEMATOCRIT 37.6 % (41.0-60); HEMOGLOBIN 12.7 gm/dL (12-16); LYMPHOCYTE ABSOLUTE 0.9 Th/cmm (1.5-3.0); MEAN CELL VOLUME 91.7 fl (81-100); MEAN CORPUSCULAR HEMOGLOBIN 30.9 pg (27.0-31.0); MEAN CORPUSCULAR HGB CONC 33.7 pg (28.0-36.0); MEAN PLATELET VOLUME 10.5 fl; MONOCYTE ABSOLUTE 0.1 Th/cmm (0.3-1.0); NEUTROPHILE ABSOLUTE 6.9 Th/cmm (1.8-8.0); PLATELET COUNT 80 Th/cmm (150-400); RED CELL DISTRIBUTION WIDTH 16.4 % (11.5-20.0)
[2017-06-24 06:05] LABS: ALB/GLOB RATIO 1.1 (1.0-1.8); ALKALINE PHOSPHATASE 115 U/L (34-104); ANION GAP 8.7 (7.0-16.0); BILIRUBIN,TOTAL 0.4 mg/dL (0.3-1.0); BUN - UREA NITROGEN 21 mg/dL (7-25); CALCIUM SERUM 7.4 mg/dL (8.6-10.3); CARBON DIOXIDE 21.3 mEq/L (21.0-31.0); CHLORIDE 126 mEq/L (98-107); CREATININE - SERUM 0.5 mg/dL (0.6-1.2); GFR AFRICAN-AMERICAN > 60.0 ml/min (>90); GFR NON AFRICAN-AMERICAN > 60.0 ml/min; GLUCOSE 211 mg/dL (70-105); SGOT 74 U/L (13-39); SGPT/ALT 24 U/L (7-52); SODIUM SERUM 153 mEq/L (136-145); TOTAL PROTEIN,SERUM 3.9 gm/dL (6.0-8.3)
--- NOTE | 2017-06-24 08:35 | Diagnostic Imaging Report ---
CHEST X-RAY: AP view INDICATION: NG tube placement COMPARISON: None FINDINGS: Exam is limited due to positioning and technical factors. NG tube is visualized to the stomach. Low lung volumes are seen with elevation of the right hemidiaphragm. Heart size appears mildly prominent. Low lung volumes are noted. The osseous structures are intact. IMPRESSION: NG tube in the stomach. Elevation of the right hemidiaphragm. There may be a small right effusion. Atelectasis versus infiltrate of the right lung base cannot be excluded.
[2017-06-24] MEDS: Calcium Carb/Vit D 500 mg/200 U Tab PO SCH ×2 (08:36→17:17)
[2017-06-24] MEDS: Enoxaparin 30 mg/0.3 mL 0.3mL Syr SUBQ SCH ×2 (08:37→20:54)
[2017-06-24] MEDS: Potassium Chloride 20 mEq ER Tab PO SCH (08:37)
[2017-06-24] MEDS: Lactobacillus Rhamnosus GG 15 Billion CFU CAP.SPRINK PO SCH (08:37)
--- NOTE | 2017-06-24 09:44 | Progress Notes ---
DATE: 06/24/2017 SUBJECTIVE: Chart reviewed and the patient interviewed. Also discussed the patient's condition with the staff and reviewed records and labs. The patient seems to be slightly more oriented and tries to interact more according to the staff. She also seems to be slightly less confused. Also, during interview, the patient seems to be tired and she was not able to answer much of my questions. Otherwise, the patient is able to stay calm and she is not as anxious and interacting slightly more. We will continue monitoring her behavior and will continue to follow up. JOB# [id number]
--- NOTE | 2017-06-24 16:08 | General Progress Note ---
Subjective - Review of Systems Service Date: 06/24/17 Subjective: pt in icu NG TUBE IN PLACE ON WATER 250 cc q 6 hours Objective - Results Result Diagrams: 06/24/17 04:19 06/24/17 04:19 Recent Labs: Laboratory Last Values WBC 8.0 Th/cmm (4.8-10.8) D 06/24/17 04:19 RBC 4.10 Mil/cmm (3.80-5.10) 06/24/17 04:19 Hgb 12.7 gm/dL (12-16) 06/24/17 04:19 Hct 37.6 % (41.0-60) L 06/24/17 04:19 MCV 91.7 fl (81-100) 06/24/17 04:19 MCH 30.9 pg (27.0-31.0) 06/24/17 04:19 MCHC Differential 33.7 pg (28.0-36.0) 06/24/17 04:19 RDW 16.4 % (11.5-20.0) 06/24/17 04:19 Plt Count 80 Th/cmm (150-400) L 06/24/17 04:19 MPV 10.5 fl 06/24/17 04:19 Neutrophils % 86.7 % (40.0-80.0) H 06/24/17 04:19 Band Neutrophils % 6 % (0-10) 06/23/17 04:30 Lymphocytes % 11.1 % (20.0-50.0) L 06/24/17 04:19 Monocytes % 0.8 % (2.0-10.0) L 06/24/17 04:19 Eosinophils % 1.3 % (0.0-5.0) 06/24/17 04:19 Basophils % 0.1 % (0.0-2.0) 06/24/17 04:19 Neutrophils (Manual) 81 % (40-80) H 06/23/17 04:30 Lymphocytes 11 % (20-50) L 06/23/17 04:30 Monocytes 2 % (2-10) 06/23/17 04:30 Toxic Granulation 2+ 06/21/17 05:01 Platelet Estimate ADEQUATE (NORMAL) 06/21/17 05:01 PT 20.8 SECONDS (9.5-11.5) H 06/20/17 08:30 INR 1.93 (0.5-1.4) H 06/20/17 08:30 Specimen Source Arterial 06/20/17 15:00 Sample Site RB 06/20/17 15:00 pH 7.56 (7.35-7.45) H* 06/20/17 15:00 pCO2 25.0 mmHg (35.0-45.0) L 06/20/17 15:00 pO2 198.0 mmHg (80.0-100.0) H 06/20/17 15:00 HCO3 26.1 mEq/L (20.0-26.0) H 06/20/17 15:00 Base Excess 1.4 mEq/L (-3.0-3.0) 06/20/17 15:00 O2 Saturation 100.0 % (92.0-100.0) 06/20/17 15:00 Stephen Test NA 06/20/17 15:00 Vent Rate NA 06/20/17 15:00 Inspired O2 28 06/20/17 15:00 Tidal Volume NA 06/20/17 15:00 PEEP NA 06/20/17 15:00 Pressure (ins/psv/peep) NA 06/20/17 15:00 Critical Value E.ESCAMILLA 06/20/17 15:00 Sodium 153 mEq/L (136-145) H 06/24/17 04:19 Potassium 3.0 mEq/L (3.5-5.1) L 06/24/17 04:19 Chloride 126 mEq/L (98-107) H 06/24/17 04:19 Carbon Dioxide 21.3 mEq/L (21.0-31.0) 06/24/17 04:19 Anion Gap 8.7 (7.0-16.0) 06/24/17 04:19 BUN 21 mg/dL (7-25) 06/24/17 04:19 Creatinine 0.5 mg/dL (0.6-1.2) L 06/24/17 04:19 Est GFR ( Amer) > 60.0 ml/min (>90) 06/24/17 04:19 Est GFR (Non-Af Amer) > 60.0 ml/min 06/24/17 04:19 BUN/Creatinine Ratio 42.0 06/24/17 04:19 Glucose 211 mg/dL (70-105) H 06/24/17 04:19 POC Glucose 264 MG/DL (70-105) H 06/19/17 04:36 Calcium 7.4 mg/dL (8.6-10.3) L 06/24/17 04:19 Phosphorus 1.4 mg/dL (2.5-5.0) L 06/23/17 04:30 Magnesium 2.5 mg/dL (1.9-2.7) 06/23/17 04:30 Total Bilirubin 0.4 mg/dL (0.3-1.0) 06/24/17 04:19 AST 74 U/L (13-39) H 06/24/17 04:19 ALT 24 U/L (7-52) 06/24/17 04:19 Alkaline Phosphatase 115 U/L (34-104) H 06/24/17 04:19 Total Protein 3.9 gm/dL (6.0-8.3) L 06/24/17 04:19 Albumin 2.0 gm/dL (3.7-5.3) L 06/24/17 04:19 Globulin 1.9 gm/dL 06/24/17 04:19 Albumin/Globulin Ratio 1.1 (1.0-1.8) 06/24/17 04:19 Urine Source [place] 06/19/17 05:55 Urine Color DARK YELLOW 06/19/17 05:55 Urine Clarity TURBID (CLEAR) H 06/19/17 05:55 Urine pH 5.0 (4.6 - 8.0) 06/19/17 05:55 Ur Specific [place] >= 1.030 (1.005-1.030) 06/19/17 05:55 Urine Protein 30 mg/dL (NEGATIVE) H 06/19/17 05:55 Urine Glucose (UA) NEGATIVE mg/dL (NEGATIVE) 06/19/17 05:55 Urine Ketones 15 mg/dL (NEGATIVE) H 06/19/17 05:55 Urine Blood LARGE (NEGATIVE) H 06/19/17 05:55 Urine Nitrate POSITIVE (NEGATIVE) H 06/19/17 05:55 Urine Bilirubin MODERATE (NEGATIVE) H 06/19/17 05:55 Urine Urobilinogen 1.0 E.U./dL (0.2 - 1.0) 06/19/17 05:55 Ur Leukocyte Esterase NEGATIVE (NEGATIVE) 06/19/17 05:55 Urine RBC 10-25 /hpf (0-5) H 06/19/17 05:55 Urine WBC 2-5 /hpf (0-5) 06/19/17 05:55 Ur Epithelial Cells OCCASIONAL /lpf (FEW) 06/19/17 05:55 Urine Bacteria 3+ /hpf (NONE SEEN) H 06/19/17 05:55 - Physical Exam Vitals and I&O: Vital Signs Temp 96.6 F 06/24/17 08:00 Pulse 92 06/24/17 15:00 Resp 20 06/24/17 15:00 BP 115/69 06/24/17 15:00 Pulse Ox 98 06/24/17 15:00 Intake & Output 06/23/17 06/24/17 06/24/17 18:59 06:59 18:59 Intake Total 1320 1570 310 Output Total 500 252 Balance 820 1318 310 Weight (lbs) 88.587 kg 87.997 kg Intake: Intake, IV Amount 710 710 310 Levetiracetam 1,000 mg In 110 110 110 Sodium Chloride 0.9% 100 ml @ 400 mls/hr IV Q12H [facility] Rx#:[id number] Linezolid 600mg/300mL 600 300 300 mg In 300 ml @ 300 mls/ hr IV Q12H [facility] Rx#: [id number] Piperacillin Sodium/ 200 100 100 Tazobact 3.375 gm In Sodium Chloride 0.9% 100 ml @ 100 mls/hr IV Q6HR [facility] Rx#:[id number] metroNIDAZOLE 500mg/NS 100 200 100 100mL 500 mg In 100 ml @ 100 mls/hr IV Q8HR [facility] Rx #:[id number] Tube Feeding 360 360 Other 250 500 Output: Urine 500 250 Stool 2 Other: # Bowel Movements 2 Stool Characteristics Liquid Liquid Liquid Green Green Green Active Medications: Current Medications Acetaminophen (Tylenol) 650 mg PO Q4H PRN PRN Reason: MILD BACK PAIN Last Admin: 06/21/17 16:48 Dose: 650 mg Amantadine HCl (Symmetrel) 100 mg PO TID [facility] Stop: 08/18/17 20:59 Last Admin: 06/24/17 15:54 Dose: 100 mg Calcium/Vitamin D (Oscal W/Vitamin D) 1 tab PO BID [facility] Stop: 08/18/17 16:59 Last Admin: 06/24/17 08:36 Dose: 1 tab Carbidopa/Levodopa (Sinemet 25 Mg-250 Mg) [address] [facility] Stop: 08/18/17 16:59 Last Admin: 06/24/17 08:37 Dose: 1 tab Carisoprodol (Soma) 350 mg PO DAILY PRN PRN Reason: MUSCLE SPASM Stop: 08/18/17 15:12 Diltiazem HCl (Cardizem) [address] [facility] Stop: 08/18/17 17:59 Last Admin: 06/24/17 11:21 Dose: 60 mg Enoxaparin Sodium (Lovenox) [address] [facility] Stop: 08/18/17 20:59 Last Admin: 06/24/17 08:37 Dose: 30 mg Famotidine (Pepcid) [address] [facility] Stop: 08/19/17 08:59 Last Admin: 06/24/17 08:37 Dose: 40 mg Levetiracetam 1,000 mg/ Sodium (Chloride) 110 mls @ 400 mls/hr IV Q12H [facility] Stop: 08/18/17 12:59 Last Infusion: 06/24/17 14:25 Dose: Infused Metronidazole (Flagyl) 500 mg in 100 mls @ 100 mls/hr IV Q8HR [facility] Stop: 08/18/17 20:59 Last Infusion: 06/24/17 13:45 Dose: Infused Linezolid (Zyvox) 600 mg in 300 mls @ 300 mls/hr IV Q12H [facility] Stop: 08/19/17 13:59 Last Admin: 06/24/17 15:54 Dose: 300 mls/hr Norepinephrine Bitartrate 4 mg (/ Sodium Chloride) 254 mls @ 30.48 mls/hr IV TITR [facility]; 8 MCG/MIN PRN Reason: Protocol Stop: 08/19/17 14:44 Last Titration: 06/20/17 17:56 Dose: 0 mcg/min, 0 mls/hr Amiodarone HCl 450 mg/ Sodium (Chloride) 259 mls @ 16.6 mls/hr IV TITR [facility]; Titrate PRN Reason: Protocol Stop: 08/19/17 23:29 Piperacillin Sod/Tazobactam (Sod 3.375 gm/ Sodium Chloride) 50 mls @ 100 mls/ hr IV Q6HR [facility] Stop: 08/23/17 17:59 Lactobacillus Rhamnosus (Culturelle 15b) 1 each PO DAILY [facility] Stop: 08/20/17 08:59 Last Admin: 06/24/17 08:37 Dose: 1 each Levetiracetam (Keppra) 1,[address] [facility] Stop: 08/18/17 16:59 Lorazepam (Ativan) 1 mg IVP Q4HR PRN; Protocol PRN Reason: Seizures Stop: 08/18/17 15:16 Last Admin: 06/23/17 20:11 Dose: 1 mg Miscellaneous (Zosyn Iv Per Pharmacy) 1 ea PRN PRN PRN Reason: PROTOCOL Stop: 08/18/17 18:14 Miscellaneous (Clinical Monitoring) 1 [facility] PRN PRN PRN Reason: ZOSYN PER RX Stop: 08/19/17 08:23 Miscellaneous (Probiotic Screen) 1 ea PRN PRN PRN Reason: PROTOCOL Stop: 08/19/17 15:00 Morphine Sulfate (Morphine) 2 mg IVP Q4HR PRN PRN Reason: Pain (Severe) Stop: 08/18/17 15:21 Ondansetron HCl (Zofran) 4 mg IV Q4H PRN PRN Reason: Nausea / Vomiting Stop: 08/18/17 15:23 Potassium Chloride (Klor-Con) [address] [facility] Stop: 08/19/17 08:59 Last Admin: 06/24/17 08:37 Dose: 20 meq Potassium Phosphate (K Phos) 1,[address] [facility] Stop: 08/23/17 10:59 Last Admin: 06/24/17 11:20 Dose: 1,000 mg Sertraline HCl (Zoloft) [address] [facility] Stop: 08/20/17 15:59 Last Admin: 06/24/17 08:36 Dose: 100 mg Vancomycin HCl (Vancomycin Oral) [address] [facility] Stop: 08/18/17 17:59 Last Admin: 06/24/17 11:21 Dose: 250 mg General: Alert (Has NGT in place. Has mittens on.), No acute distress HEENT: Atraumatic, PERRLA Neck: Supple, JVD Cardiovascular: Regular rate, Normal S1, Normal S2, Other (Irreg, irreg rhythm) Lungs: Other (b/l rhonchi) Abdomen: Bowel sounds, Soft Extremities: Edema (contractures) - Procedures Procedures: Procedures Procedure Code Date ASSISTANCE WITH RESPIRATORY VENTILATION, <24 HRS, CPAP 6Y99511 06/19/17 CLOSED [ENDOSCOPIC] BIOPSY OF LARYNX 31.43 07/12/96 INJECT/INFUSE NEC 99.29 11/11/07 LARYGNOSCOPY AND OTH TRACHEOSCOPY 31.42 07/12/96 LARYNGOSCOPY WITH BIOPSY 69131 07/12/96 OTHER GROUP THERAPY 94.44 11/26/07 POS AIRWAY PRESSURE CPAP 50682 06/19/17 RECREATIONAL THERAPY 93.81 11/26/07 Assessment/Plan - Assessment Assessment: sepsis septic shock acute respiratory failure acute renal failure UTI C. Diff colitis depression parkinson - Plan Plan: continue BiPAP IV abx IV fluids replace potassium correct serum sodium increase water flush Nutritional Asmnt/Malnutr-PDOC - Dietary Evaluation Malnutrition Findings (Please click <Entered> for more info): Nutritional Asmnt/Malnutrition Start: 06/19/17 13: 46 Text: Status: Complete Freq: Document 06/19/17 13:46 LCHENG (Rec: 06/19/17 13:59 LCHENG [place] [id number]) Nutritional Asmnt/Malnutrition Patient General Information Nutritional Screening High Risk Consult Diagnosis dehydration, tachycardia Pertinent Medical Hx/Surgical Hx parkingson, UTI, c diff colitis Subjective Information Consult received for BS 294 at admitting. Pt was transfered from [facility]. Pt seen resting in bed at time of visit. RN reported pt on NPO. Per nurse note, pt will start tube feeding when NGT placement verified. ordered Fibersource 30ml/hr continuous to start at dinner time today . Current Diet Order/ Nutrition Support NPO Pertinent Medications D5-0.9ns w/kcl 20meq Pertinent Labs 06/19 Na 135, K 2.9, Cl 106, BUN 23, Cr 1.5, glucose 295, alb 3.5 Nutritional Hx/Data Height 1.68 m Height (Calculated Centimeters) 167.6 Current Weight (lbs) 77.111 kg Weight (Calculated Kilograms) 77.1 Weight (Calculated Grams) 02971.7 [place] Body Weight 130 Body Mass Index (BMI) 27.4 Weight Status Overweight GI Symptoms GI Symptoms None Last BM 06/19 Difficult in: None Skin Integrity/Comment: GROIN AND SACRUM REDDNESS Estimated Nutritional Goals BEE in Kcals: Adj wt of IBW Calories/Kcals/Kg 25-30 Kcals Calculated 1556-0107 Protein: Adj wt of IBW Protein g/k Protein Calculated 64 Fluid: ml 1600-1920ml (1ml/kcal) Nutritional Problem 1. Problem Problem altered nutrition related lab values Etiology hyperglycemia Signs/Symptoms: glucose 295 Intervention/Recommendation Comments 1. Start TF as ordered - Fibersource HN 30ml/hr continuous. This will provide 864kcal, 38g protein and 589ml free water, meeting about 55% of nutritional needs. 2. pt on potassium replacement noted. If K level normal, will consider increase TF rate . 3. Monitor TF rate, tolerance, wt weekly, skin integrity and labs 4. F/U as high risk in 2-3 days, 06/21-06/22 Expected Outcomes/Goals Expected Outcomes/Goals 1. Pt to meet at least 75% of nutritional needs via nutrition support with tolerance 2. Wt stability, skin to remain intact, labs to approach WNL.
--- NOTE | 2017-06-24 21:55 | Internal Medicine Prog Note ---
Internal Medicine Subjective - Subjective Service Date: 06/24/17 Patient seen and examined:: with staff (SHE IS SCHEDUALED FOR SWALLOW EVALUATION AN AM) Patient is:: asleep, non-verbal, in bed Per staff patient has:: no adverse event, other (THE PATIENT ON BIPAP,LEVAPHID AND AMIODARON IV DRIP.URIN OUTPUT IS NOT GOOD) Internal Medicine Objective - Results Result Diagrams: 06/24/17 04:19 06/24/17 04:19 Recent Labs: Laboratory Last Values WBC 8.0 Th/cmm (4.8-10.8) D 06/24/17 04:19 RBC 4.10 Mil/cmm (3.80-5.10) 06/24/17 04:19 Hgb 12.7 gm/dL (12-16) 06/24/17 04:19 Hct 37.6 % (41.0-60) L 06/24/17 04:19 MCV 91.7 fl (81-100) 06/24/17 04:19 MCH 30.9 pg (27.0-31.0) 06/24/17 04:19 MCHC Differential 33.7 pg (28.0-36.0) 06/24/17 04:19 RDW 16.4 % (11.5-20.0) 06/24/17 04:19 Plt Count 80 Th/cmm (150-400) L 06/24/17 04:19 MPV 10.5 fl 06/24/17 04:19 Neutrophils % 86.7 % (40.0-80.0) H 06/24/17 04:19 Band Neutrophils % 6 % (0-10) 06/23/17 04:30 Lymphocytes % 11.1 % (20.0-50.0) L 06/24/17 04:19 Monocytes % 0.8 % (2.0-10.0) L 06/24/17 04:19 Eosinophils % 1.3 % (0.0-5.0) 06/24/17 04:19 Basophils % 0.1 % (0.0-2.0) 06/24/17 04:19 Neutrophils (Manual) 81 % (40-80) H 06/23/17 04:30 Lymphocytes 11 % (20-50) L 06/23/17 04:30 Monocytes 2 % (2-10) 06/23/17 04:30 Toxic Granulation 2+ 06/21/17 05:01 Platelet Estimate ADEQUATE (NORMAL) 06/21/17 05:01 PT 20.8 SECONDS (9.5-11.5) H 06/20/17 08:30 INR 1.93 (0.5-1.4) H 06/20/17 08:30 Specimen Source Arterial 06/20/17 15:00 Sample Site RB 06/20/17 15:00 pH 7.56 (7.35-7.45) H* 06/20/17 15:00 pCO2 25.0 mmHg (35.0-45.0) L 06/20/17 15:00 pO2 198.0 mmHg (80.0-100.0) H 06/20/17 15:00 HCO3 26.1 mEq/L (20.0-26.0) H 06/20/17 15:00 Base Excess 1.4 mEq/L (-3.0-3.0) 06/20/17 15:00 O2 Saturation 100.0 % (92.0-100.0) 06/20/17 15:00 Stephen Test NA 06/20/17 15:00 Vent Rate NA 06/20/17 15:00 Inspired O2 28 06/20/17 15:00 Tidal Volume NA 06/20/17 15:00 PEEP NA 06/20/17 15:00 Pressure (ins/psv/peep) NA 06/20/17 15:00 Critical Value E.ESCAMILLA 06/20/17 15:00 Sodium 153 mEq/L (136-145) H 06/24/17 04:19 Potassium 3.0 mEq/L (3.5-5.1) L 06/24/17 04:19 Chloride 126 mEq/L (98-107) H 06/24/17 04:19 Carbon Dioxide 21.3 mEq/L (21.0-31.0) 06/24/17 04:19 Anion Gap 8.7 (7.0-16.0) 06/24/17 04:19 BUN 21 mg/dL (7-25) 06/24/17 04:19 Creatinine 0.5 mg/dL (0.6-1.2) L 06/24/17 04:19 Est GFR ( Amer) > 60.0 ml/min (>90) 06/24/17 04:19 Est GFR (Non-Af Amer) > 60.0 ml/min 06/24/17 04:19 BUN/Creatinine Ratio 42.0 06/24/17 04:19 Glucose 211 mg/dL (70-105) H 06/24/17 04:19 POC Glucose 264 MG/DL (70-105) H 06/19/17 04:36 Calcium 7.4 mg/dL (8.6-10.3) L 06/24/17 04:19 Phosphorus 1.4 mg/dL (2.5-5.0) L 06/23/17 04:30 Magnesium 2.5 mg/dL (1.9-2.7) 06/23/17 04:30 Total Bilirubin 0.4 mg/dL (0.3-1.0) 06/24/17 04:19 AST 74 U/L (13-39) H 06/24/17 04:19 ALT 24 U/L (7-52) 06/24/17 04:19 Alkaline Phosphatase 115 U/L (34-104) H 06/24/17 04:19 Total Protein 3.9 gm/dL (6.0-8.3) L 06/24/17 04:19 Albumin 2.0 gm/dL (3.7-5.3) L 06/24/17 04:19 Globulin 1.9 gm/dL 06/24/17 04:19 Albumin/Globulin Ratio 1.1 (1.0-1.8) 06/24/17 04:19 Urine Source [place] 06/19/17 05:55 Urine Color DARK YELLOW 06/19/17 05:55 Urine Clarity TURBID (CLEAR) H 06/19/17 05:55 Urine pH 5.0 (4.6 - 8.0) 06/19/17 05:55 Ur Specific [place] >= 1.030 (1.005-1.030) 06/19/17 05:55 Urine Protein 30 mg/dL (NEGATIVE) H 06/19/17 05:55 Urine Glucose (UA) NEGATIVE mg/dL (NEGATIVE) 06/19/17 05:55 Urine Ketones 15 mg/dL (NEGATIVE) H 06/19/17 05:55 Urine Blood LARGE (NEGATIVE) H 06/19/17 05:55 Urine Nitrate POSITIVE (NEGATIVE) H 06/19/17 05:55 Urine Bilirubin MODERATE (NEGATIVE) H 06/19/17 05:55 Urine Urobilinogen 1.0 E.U./dL (0.2 - 1.0) 06/19/17 05:55 Ur Leukocyte Esterase NEGATIVE (NEGATIVE) 06/19/17 05:55 Urine RBC 10-25 /hpf (0-5) H 06/19/17 05:55 Urine WBC 2-5 /hpf (0-5) 06/19/17 05:55 Ur Epithelial Cells OCCASIONAL /lpf (FEW) 06/19/17 05:55 Urine Bacteria 3+ /hpf (NONE SEEN) H 06/19/17 05:55 - Physical Exam Vitals and I&O: Vital Signs Temp 97.1 F 06/24/17 16:00 Pulse 87 06/24/17 19:37 Resp 18 06/24/17 19:37 BP 114/69 06/24/17 18:00 Pulse Ox 99 06/24/17 19:37 Intake & Output 06/24/17 06/24/17 06/25/17 06:59 18:59 06:59 Intake Total 1570 1520 Output Total 252 800 Balance 1318 720 Weight (lbs) 87.997 kg 87.997 kg Intake: Intake, IV Amount 710 660 Levetiracetam 1,000 mg In 110 110 Sodium Chloride 0.9% 100 ml @ 400 mls/hr IV Q12H [facility] Rx#:[id number] Linezolid 600mg/300mL 600 300 300 mg In 300 ml @ 300 mls/ hr IV Q12H [facility] Rx#: [id number] Piperacillin Sodium/ 100 100 Tazobact 3.375 gm In Sodium Chloride 0.9% 100 ml @ 100 mls/hr IV Q6HR [facility] Rx#:[id number] Piperacillin Sodium/ 50 Tazobact 3.375 gm In Sodium Chloride 0.9% 50 ml @ 100 mls/hr IV Q6HR [facility] Rx#:[id number] metroNIDAZOLE 500mg/NS 200 100 100mL 500 mg In 100 ml @ 100 mls/hr IV Q8HR [facility] Rx #:[id number] Tube Feeding 360 360 Other 500 500 Output: Urine 250 400 Stool 2 400 Other: # Bowel Movements 2 Stool Characteristics Liquid Liquid Green Green Active Medications: Current Medications Acetaminophen (Tylenol) 650 mg PO Q4H PRN PRN Reason: MILD BACK PAIN Last Admin: 06/21/17 16:48 Dose: 650 mg Amantadine HCl (Symmetrel) 100 mg PO TID [facility] Stop: 08/18/17 20:59 Last Admin: 06/24/17 20:53 Dose: 100 mg Calcium/Vitamin D (Oscal W/Vitamin D) 1 tab PO BID [facility] Stop: 08/18/17 16:59 Last Admin: 06/24/17 17:17 Dose: 1 tab Carbidopa/Levodopa (Sinemet 25 Mg-250 Mg) 1 tab PO BID [facility] Stop: 08/18/17 16:59 Last Admin: 06/24/17 17:16 Dose: 1 tab Carisoprodol (Soma) 350 mg PO DAILY PRN PRN Reason: MUSCLE SPASM Stop: 08/18/17 15:12 Diltiazem HCl (Cardizem) 60 mg PO Q6HR [facility] Stop: 08/18/17 17:59 Last Admin: 06/24/17 17:16 Dose: 60 mg Doxycycline Hyclate (Vibramycin) 100 mg PO Q12HR [facility] Stop: 08/23/17 20:59 Last Admin: 06/24/17 21:10 Dose: 100 mg Enoxaparin Sodium (Lovenox) 30 mg SUBQ Q12HR [facility] Stop: 08/18/17 20:59 Last Admin: 06/24/17 20:54 Dose: 30 mg Famotidine (Pepcid) 40 mg PO DAILY [facility] Stop: 08/19/17 08:59 Last Admin: 06/24/17 08:37 Dose: 40 mg Levetiracetam 1,000 mg/ Sodium (Chloride) 110 mls @ 400 mls/hr IV Q12H [facility] Stop: 08/18/17 12:59 Last Infusion: 06/24/17 14:25 Dose: Infused Metronidazole (Flagyl) 500 mg in 100 mls @ 100 mls/hr IV Q8HR [facility] Stop: 08/18/17 20:59 Last Admin: 06/24/17 20:53 Dose: 100 mls/hr Linezolid (Zyvox) 600 mg in 300 mls @ 300 mls/hr IV Q12H [facility] Stop: 08/19/17 13:59 Last Infusion: 06/24/17 16:55 Dose: Infused Norepinephrine Bitartrate 4 mg (/ Sodium Chloride) 254 mls @ 30.48 mls/hr IV TITR [facility]; 8 MCG/MIN PRN Reason: Protocol Stop: 08/19/17 14:44 Last Titration: 06/20/17 17:56 Dose: 0 mcg/min, 0 mls/hr Amiodarone HCl 450 mg/ Sodium (Chloride) 259 mls @ 16.6 mls/hr IV TITR [facility]; Titrate PRN Reason: Protocol Stop: 08/19/17 23:29 Lactobacillus Rhamnosus (Culturelle 15b) 1 each PO DAILY [facility] Stop: 08/20/17 08:59 Last Admin: 06/24/17 08:37 Dose: 1 each Levetiracetam (Keppra) 1,000 mg PO BID [facility] Stop: 08/18/17 16:59 Lorazepam (Ativan) 1 mg IVP Q4HR PRN; Protocol PRN Reason: Seizures Stop: 08/18/17 15:16 Last Admin: 06/23/17 20:11 Dose: 1 mg Miscellaneous (Clinical Monitoring) 1 ea PRN PRN PRN Reason: ZOSYN PER RX Stop: 08/19/17 08:23 Miscellaneous (Probiotic Screen) 1 [facility] PRN PRN PRN Reason: PROTOCOL Stop: 08/19/17 15:00 Morphine Sulfate (Morphine) 2 mg IVP Q4HR PRN PRN Reason: Pain (Severe) Stop: 08/18/17 15:21 Ondansetron HCl (Zofran) 4 mg IV Q4H PRN PRN Reason: Nausea / Vomiting Stop: 08/18/17 15:23 Potassium Chloride (Klor-Con) 20 meq PO DAILY [facility] Stop: 08/19/17 08:59 Last Admin: 06/24/17 08:37 Dose: 20 meq Potassium Phosphate (K Phos) 1,000 mg NG DAILY [facility] Stop: 08/23/17 10:59 Last Admin: 06/24/17 11:20 Dose: 1,000 mg Sertraline HCl (Zoloft) 100 mg PO DAILY [facility] Stop: 08/20/17 15:59 Last Admin: 06/24/17 08:36 Dose: 100 mg Vancomycin HCl (Vancomycin Oral) 250 mg NG Q6HR [facility] Stop: 08/18/17 17:59 Last Admin: 06/24/17 17:16 Dose: 250 mg General: obtunded HEENT: NC/AT, PERRLA, EOMI, anicteric sclerae, throat clear Neck: Supple, No JVD, No thyromegaly, +2 carotid pulse wo bruit, No LAD Lungs: CTAB Cardiovascular: tachy Abdomen: tender Extremities: clear Neurological: lethargic - Procedures Procedures: Procedures Procedure Code Date ASSISTANCE WITH RESPIRATORY VENTILATION, <24 HRS, CPAP [id number] 06/19/17 CLOSED [ENDOSCOPIC] BIOPSY OF LARYNX 31.43 07/12/96 INJECT/INFUSE NEC 99.29 11/11/07 LARYGNOSCOPY AND OTH TRACHEOSCOPY 31.42 07/12/96 LARYNGOSCOPY WITH BIOPSY 20638 07/12/96 OTHER GROUP THERAPY 94.44 11/26/07 POS AIRWAY PRESSURE CPAP 26835 06/19/17 RECREATIONAL THERAPY 93.81 11/26/07 Internal Medicine Assmt/Plan - Assessment Assessment: 1.SEPTIC SHOCK. 2.ACUTE RENAL FAILURE. 3.ACUTE REPIRATORY FAILURE. 4.PARKINSONS DISEASE. 5.POSSIBLE C DIFF COLITIS. 6.ACUTE METABOLIC ENCEPHALOPATHY. - Plan Plan: CONTINUE ON CURRENT MEDICATION AND DIET. Nutritional Asmnt/Malnutr-PDOC - Dietary Evaluation Malnutrition Findings (Please click <Entered> for more info): Nutritional Asmnt/Malnutrition Start: 06/19/17 13: 46 Text: Status: Complete Freq: Document 06/19/17 13:46 LCHENG (Rec: 06/19/17 13:59 LCHENG [email or web address]) Nutritional Asmnt/Malnutrition Patient General Information Nutritional Screening High Risk Consult Diagnosis dehydration, tachycardia Pertinent Medical Hx/Surgical Hx [place], UTI, c diff colitis Subjective Information Consult received for BS 294 at admitting. Pt was transfered from [facility]. Pt seen resting in bed at time of visit. RN reported pt on NPO. Per nurse note, pt will start tube feeding when NGT placement verified. ordered Fibersource 30ml/hr continuous to start at dinner time today . Current Diet Order/ Nutrition Support NPO Pertinent Medications D5-0.9ns w/kcl 20meq Pertinent Labs 06/19 Na 135, K 2.9, Cl 106, BUN 23, Cr 1.5, glucose 295, alb 3.5 Nutritional Hx/Data Height 1.68 m Height (Calculated Centimeters) 167.6 Current Weight (lbs) 77.111 kg Weight (Calculated Kilograms) 77.1 Weight (Calculated Grams) 17855.7 Tolar Body Weight 130 Body Mass Index (BMI) 27.4 Weight Status Overweight GI Symptoms GI Symptoms None Last BM 06/19 Difficult in: None Skin Integrity/Comment: GROIN AND SACRUM REDDNESS Estimated Nutritional Goals BEE in Kcals: Adj wt of IBW Calories/Kcals/Kg 25-30 Kcals Calculated 9703-3893 Protein: Adj wt of IBW Protein g/k Protein Calculated 64 Fluid: ml 1600-1920ml (1ml/kcal) Nutritional Problem 1. Problem Problem altered nutrition related lab values Etiology hyperglycemia Signs/Symptoms: glucose 295 Intervention/Recommendation Comments 1. Start TF as ordered - Fibersource HN 30ml/hr continuous. This will provide 864kcal, 38g protein and 589ml free water, meeting about 55% of nutritional needs. 2. pt on potassium replacement noted. If K level normal, will consider increase TF rate . 3. Monitor TF rate, tolerance, wt weekly, skin integrity and labs 4. F/U as high risk in 2-3 days, 06/21-06/22 Expected Outcomes/Goals Expected Outcomes/Goals 1. Pt to meet at least 75% of nutritional needs via nutrition support with tolerance 2. Wt stability, skin to remain intact, labs to approach WNL.
[2017-06-25] MEDS: Vancomycin HCL 250 mg /10mL UDC NG SCH ×4 (00:48→17:55)
[2017-06-25] MEDS: Diltiazem 30 mg Tab PO SCH ×4 (00:48→18:04)
[2017-06-25 05:49] LABS: % EOSINOPHILS 1.3 % (0.0-5.0); % LYMPHOCYTES 11.4 % (20.0-50.0); % MONOCYTES 0.9 % (2.0-10.0); % NEUTROPHILS 86.4 % (40.0-80.0); EOSINOPHILE ABSOLUTE 0.1 Th/cmm (0.1-0.4); HEMATOCRIT 39.4 % (41.0-60); HEMOGLOBIN 13.2 gm/dL (12-16); MEAN CELL VOLUME 92.1 fl (81-100); MEAN CORPUSCULAR HEMOGLOBIN 30.7 pg (27.0-31.0); MEAN CORPUSCULAR HGB CONC 33.4 pg (28.0-36.0); MEAN PLATELET VOLUME 10.2 fl; MONOCYTE ABSOLUTE 0.1 Th/cmm (0.3-1.0); NEUTROPHILE ABSOLUTE 7.4 Th/cmm (1.8-8.0); PLATELET COUNT 75 Th/cmm (150-400); RED BLOOD COUNT 4.28 Mil/cmm (3.80-5.10); RED CELL DISTRIBUTION WIDTH 16.3 % (11.5-20.0); WHITE BLOOD COUNT 8.6 Th/cmm (4.8-10.8)
[2017-06-25 06:01] LABS: ALB/GLOB RATIO 1.2 (1.0-1.8); ALBUMIN 2.2 gm/dL (3.7-5.3); ALKALINE PHOSPHATASE 137 U/L (34-104); ANION GAP 10.4 (7.0-16.0); BILIRUBIN,TOTAL 0.6 mg/dL (0.3-1.0); BUN - UREA NITROGEN 18 mg/dL (7-25); CALCIUM SERUM 7.7 mg/dL (8.6-10.3); CARBON DIOXIDE 20.9 mEq/L (21.0-31.0); CHLORIDE 126 mEq/L (98-107); CREATININE - SERUM 0.4 mg/dL (0.6-1.2); GFR AFRICAN-AMERICAN > 60.0 ml/min (>90); GFR NON AFRICAN-AMERICAN > 60.0 ml/min; GLUCOSE 166 mg/dL (70-105); POTASSIUM SERUM 3.3 mEq/L (3.5-5.1); SGOT 62 U/L (13-39); SGPT/ALT 24 U/L (7-52); SODIUM SERUM 154 mEq/L (136-145); TOTAL PROTEIN,SERUM 4.1 gm/dL (6.0-8.3)
[2017-06-25] MEDS: metroNIDAZOLE 500mg/NS 100mL 500 MG/100 ML BAG IV SCH ×3 (06:31→20:57)
[2017-06-25] MEDS: Linezolid 600mg/300mL Premix Bag IV SCH ×2 (06:35→14:33)
--- NOTE | 2017-06-25 07:49 | Progress Notes ---
DATE: SUBJECTIVE: Chart reviewed and the patient interviewed. Also discussed the patient's condition with the staff and reviewed records and labs. The patient is calm and she is slightly anxious. She also is still having episodes of being fearful of being alone in her room. Otherwise, the patient is cooperative with her treatment with no side effects. We will continue current level of treatment and continue to monitor her condition closely. [facility]# [id number]
[2017-06-25] MEDS: Potassium Chloride 20 mEq ER Tab PO SCH (08:21)
[2017-06-25] MEDS: Enoxaparin 30 mg/0.3 mL 0.3mL Syr SUBQ SCH (08:21)
[2017-06-25] MEDS: Lactobacillus Rhamnosus GG 15 Billion CFU CAP.SPRINK PO SCH (08:22)
[2017-06-25] MEDS: Calcium Carb/Vit D 500 mg/200 U Tab PO SCH ×2 (08:23→18:09)
--- NOTE | 2017-06-25 11:57 | General Progress Note ---
Subjective - Review of Systems Service Date: 06/25/17 Subjective: pt in icu NG TUBE IN PLACE ON WATER 250 cc q 6 hours Objective - Results Result Diagrams: 06/25/17 04:05 06/25/17 04:05 Recent Labs: Laboratory Last Values WBC 8.6 Th/cmm (4.8-10.8) 06/25/17 04:05 RBC 4.28 Mil/cmm (3.80-5.10) 06/25/17 04:05 Hgb 13.2 gm/dL (12-16) 06/25/17 04:05 Hct 39.4 % (41.0-60) L 06/25/17 04:05 MCV 92.1 fl (81-100) 06/25/17 04:05 MCH 30.7 pg (27.0-31.0) 06/25/17 04:05 MCHC Differential 33.4 pg (28.0-36.0) 06/25/17 04:05 RDW 16.3 % (11.5-20.0) 06/25/17 04:05 Plt Count 75 Th/cmm (150-400) L 06/25/17 04:05 MPV 10.2 fl 06/25/17 04:05 Neutrophils % 86.4 % (40.0-80.0) H 06/25/17 04:05 Band Neutrophils % 6 % (0-10) 06/23/17 04:30 Lymphocytes % 11.4 % (20.0-50.0) L 06/25/17 04:05 Monocytes % 0.9 % (2.0-10.0) L 06/25/17 04:05 Eosinophils % 1.3 % (0.0-5.0) 06/25/17 04:05 Basophils % 0.0 % (0.0-2.0) 06/25/17 04:05 Neutrophils (Manual) 81 % (40-80) H 06/23/17 04:30 Lymphocytes 11 % (20-50) L 06/23/17 04:30 Monocytes 2 % (2-10) 06/23/17 04:30 Toxic Granulation 2+ 06/21/17 05:01 Platelet Estimate ADEQUATE (NORMAL) 06/21/17 05:01 PT 20.8 SECONDS (9.5-11.5) H 06/20/17 08:30 INR 1.93 (0.5-1.4) H 06/20/17 08:30 Specimen Source Arterial 06/20/17 15:00 Sample Site RB 06/20/17 15:00 pH 7.56 (7.35-7.45) H* 06/20/17 15:00 pCO2 25.0 mmHg (35.0-45.0) L 06/20/17 15:00 pO2 198.0 mmHg (80.0-100.0) H 06/20/17 15:00 HCO3 26.1 mEq/L (20.0-26.0) H 06/20/17 15:00 Base Excess 1.4 mEq/L (-3.0-3.0) 06/20/17 15:00 O2 Saturation 100.0 % (92.0-100.0) 06/20/17 15:00 Stephen Test NA 06/20/17 15:00 Vent Rate NA 06/20/17 15:00 Inspired O2 28 06/20/17 15:00 Tidal Volume NA 06/20/17 15:00 PEEP NA 06/20/17 15:00 Pressure (ins/psv/peep) NA 06/20/17 15:00 Critical Value E.ESCAMILLA 06/20/17 15:00 Sodium 154 mEq/L (136-145) H 06/25/17 04:05 Potassium 3.3 mEq/L (3.5-5.1) L 06/25/17 04:05 Chloride 126 mEq/L (98-107) H 06/25/17 04:05 Carbon Dioxide 20.9 mEq/L (21.0-31.0) L 06/25/17 04:05 Anion Gap 10.4 (7.0-16.0) 06/25/17 04:05 BUN 18 mg/dL (7-25) 06/25/17 04:05 Creatinine 0.4 mg/dL (0.6-1.2) L 06/25/17 04:05 Est GFR ( Amer) > 60.0 ml/min (>90) 06/25/17 04:05 Est GFR (Non-Af Amer) > 60.0 ml/min 06/25/17 04:05 BUN/Creatinine Ratio 45.0 06/25/17 04:05 Glucose 166 mg/dL (70-105) H 06/25/17 04:05 POC Glucose 264 MG/DL (70-105) H 06/19/17 04:36 Calcium 7.7 mg/dL (8.6-10.3) L 06/25/17 04:05 Phosphorus 1.4 mg/dL (2.5-5.0) L 06/23/17 04:30 Magnesium 2.5 mg/dL (1.9-2.7) 06/23/17 04:30 Total Bilirubin 0.6 mg/dL (0.3-1.0) 06/25/17 04:05 AST 62 U/L (13-39) H 06/25/17 04:05 ALT 24 U/L (7-52) 06/25/17 04:05 Alkaline Phosphatase 137 U/L (34-104) H 06/25/17 04:05 Total Protein 4.1 gm/dL (6.0-8.3) L 06/25/17 04:05 Albumin 2.2 gm/dL (3.7-5.3) L 06/25/17 04:05 Globulin 1.9 gm/dL 06/25/17 04:05 Albumin/Globulin Ratio 1.2 (1.0-1.8) 06/25/17 04:05 Urine Source [place] 06/19/17 05:55 Urine Color DARK YELLOW 06/19/17 05:55 Urine Clarity TURBID (CLEAR) H 06/19/17 05:55 Urine pH 5.0 (4.6 - 8.0) 06/19/17 05:55 Ur Specific [place] >= 1.030 (1.005-1.030) 06/19/17 05:55 Urine Protein 30 mg/dL (NEGATIVE) H 06/19/17 05:55 Urine Glucose (UA) NEGATIVE mg/dL (NEGATIVE) 06/19/17 05:55 Urine Ketones 15 mg/dL (NEGATIVE) H 06/19/17 05:55 Urine Blood LARGE (NEGATIVE) H 06/19/17 05:55 Urine Nitrate POSITIVE (NEGATIVE) H 06/19/17 05:55 Urine Bilirubin MODERATE (NEGATIVE) H 06/19/17 05:55 Urine Urobilinogen 1.0 E.U./dL (0.2 - 1.0) 06/19/17 05:55 Ur Leukocyte Esterase NEGATIVE (NEGATIVE) 06/19/17 05:55 Urine RBC 10-25 /hpf (0-5) H 06/19/17 05:55 Urine WBC 2-5 /hpf (0-5) 06/19/17 05:55 Ur Epithelial Cells OCCASIONAL /lpf (FEW) 06/19/17 05:55 Urine Bacteria 3+ /hpf (NONE SEEN) H 06/19/17 05:55 - Physical Exam Vitals and I&O: Vital Signs Temp 97.3 F 06/25/17 08:00 Pulse 91 06/25/17 09:00 Resp 12 06/25/17 09:00 BP 105/67 06/25/17 09:00 Pulse Ox 99 06/25/17 10:00 Intake & Output 06/24/17 06/25/17 06/25/17 18:59 06:59 18:59 Intake Total 1520 960 400 Output Total 800 600 Balance 720 360 400 Weight (lbs) 87.997 kg 87.997 kg Intake: Intake, IV Amount 660 100 400 Levetiracetam 1,000 mg In 110 Sodium Chloride 0.9% 100 ml @ 400 mls/hr IV Q12H [facility] Rx#:[id number] Linezolid 600mg/300mL 600 300 300 mg In 300 ml @ 300 mls/ hr IV Q12H [facility] Rx#: [id number] Piperacillin Sodium/ 100 Tazobact 3.375 gm In Sodium Chloride 0.9% 100 ml @ 100 mls/hr IV Q6HR [facility] Rx#:[id number] Piperacillin Sodium/ 50 Tazobact 3.375 gm In Sodium Chloride 0.9% 50 ml @ 100 mls/hr IV Q6HR [facility] Rx#:[id number] metroNIDAZOLE 500mg/NS 100 100 100 100mL 500 mg In 100 ml @ 100 mls/hr IV Q8HR [facility] Rx #:[id number] Tube Feeding 360 360 Other 500 500 Output: Urine 400 300 Stool 400 300 Other: # Bowel Movements 2 Stool Characteristics Liquid Liquid Liquid Green Green Green Active Medications: Current Medications Acetaminophen (Tylenol) 650 mg PO Q4H PRN PRN Reason: MILD BACK PAIN Last Admin: 06/21/17 16:48 Dose: 650 mg Amantadine HCl (Symmetrel) 100 mg PO TID [facility] Stop: 08/18/17 20:59 Last Admin: 06/25/17 08:23 Dose: 100 mg Calcium/Vitamin D (Oscal W/Vitamin D) 1 tab PO BID [facility] Stop: 08/18/17 16:59 Last Admin: 06/25/17 08:23 Dose: 1 tab Carbidopa/Levodopa (Sinemet 25 Mg-250 Mg) 1 tab PO BID [facility] Stop: 08/18/17 16:59 Last Admin: 06/25/17 08:21 Dose: 1 tab Carisoprodol (Soma) 350 mg PO DAILY PRN PRN Reason: MUSCLE SPASM Stop: 08/18/17 15:12 Diltiazem HCl (Cardizem) 60 mg PO Q6HR [facility] Stop: 08/18/17 17:59 Last Admin: 06/25/17 06:34 Dose: 60 mg Doxycycline Hyclate (Vibramycin) 100 mg PO Q12HR [facility] Stop: 08/23/17 20:59 Last Admin: 06/24/17 21:10 Dose: 100 mg Enoxaparin Sodium (Lovenox) 30 mg SUBQ Q12HR [facility] Stop: 08/18/17 20:59 Last Admin: 06/25/17 08:21 Dose: 30 mg Famotidine (Pepcid) 40 mg PO DAILY [facility] Stop: 08/19/17 08:59 Last Admin: 06/25/17 08:21 Dose: 40 mg Levetiracetam 1,000 mg/ Sodium (Chloride) 110 mls @ 400 mls/hr IV Q12H [facility] Stop: 08/18/17 12:59 Last Admin: 06/25/17 00:49 Dose: 100 mls/hr Metronidazole (Flagyl) 500 mg in 100 mls @ 100 mls/hr IV Q8HR [facility] Stop: 08/18/17 20:59 Last Infusion: 06/25/17 07:30 Dose: Infused Linezolid (Zyvox) 600 mg in 300 mls @ 300 mls/hr IV Q12H [facility] Stop: 08/19/17 13:59 Last Infusion: 06/25/17 07:35 Dose: Infused Norepinephrine Bitartrate 4 mg (/ Sodium Chloride) 254 mls @ 30.48 mls/hr IV TITR [facility]; 8 MCG/MIN PRN Reason: Protocol Stop: 08/19/17 14:44 Last Titration: 06/20/17 17:56 Dose: 0 mcg/min, 0 mls/hr Lactobacillus Rhamnosus (Culturelle 15b) 1 each PO DAILY [facility] Stop: 08/20/17 08:59 Last Admin: 06/25/17 08:22 Dose: 1 each Levetiracetam (Keppra) 1,000 mg PO BID [facility] Stop: 08/18/17 16:59 Lorazepam (Ativan) 1 mg IVP Q4HR PRN; Protocol PRN Reason: Seizures Stop: 08/18/17 15:16 Last Admin: 06/24/17 22:38 Dose: 1 mg Miscellaneous (Probiotic Screen) 1 ea MC PRN PRN PRN Reason: PROTOCOL Stop: 08/19/17 15:00 Morphine Sulfate (Morphine) 2 mg IVP Q4HR PRN PRN Reason: Pain (Severe) Stop: 08/18/17 15:21 Ondansetron HCl (Zofran) 4 mg IV Q4H PRN PRN Reason: Nausea / Vomiting Stop: 08/18/17 15:23 Potassium Chloride (Klor-Con) 20 meq PO DAILY [facility] Stop: 08/19/17 08:59 Last Admin: 06/25/17 08:21 Dose: 20 meq Potassium Phosphate (K Phos) 1,000 mg NG DAILY [facility] Stop: 08/23/17 10:59 Last Admin: 06/25/17 08:21 Dose: 1,000 mg Sertraline HCl (Zoloft) 100 mg PO DAILY [facility] Stop: 08/20/17 15:59 Last Admin: 06/25/17 08:22 Dose: 100 mg Vancomycin HCl (Vancomycin Oral) 250 mg NG Q6HR [facility] Stop: 08/18/17 17:59 Last Admin: 06/25/17 06:37 Dose: 250 mg General: Alert (Has NGT in place. Has mittens on.), No acute distress HEENT: Atraumatic, PERRLA Neck: Supple, JVD Cardiovascular: Regular rate, Normal S1, Normal S2, Other (Irreg, irreg rhythm) Lungs: Other (b/l rhonchi) Abdomen: Bowel sounds, Soft Extremities: Edema (contractures) - Procedures Procedures: Procedures Procedure Code Date ASSISTANCE WITH RESPIRATORY VENTILATION, <24 HRS, CPAP 1J47577 06/19/17 CLOSED [ENDOSCOPIC] BIOPSY OF LARYNX 31.43 07/12/96 INJECT/INFUSE NEC 99.29 11/11/07 LARYGNOSCOPY AND OTH TRACHEOSCOPY 31.42 07/12/96 LARYNGOSCOPY WITH BIOPSY 28463 07/12/96 OTHER GROUP THERAPY 94.44 11/26/07 POS AIRWAY PRESSURE CPAP 73134 06/19/17 RECREATIONAL THERAPY 93.81 11/26/07 Assessment/Plan - Assessment Assessment: sepsis septic shock acute respiratory failure acute renal failure UTI C. Diff colitis depression parkinson - Plan Plan: continue BiPAP IV abx IV fluids replace potassium correct serum sodium increase water flush Nutritional Asmnt/Malnutr-PDOC - Dietary Evaluation Malnutrition Findings (Please click <Entered> for more info): Nutritional Asmnt/Malnutrition Start: 06/19/17 13: 46 Text: Status: Complete Freq: Document 06/19/17 13:46 LOREATG (Rec: 06/19/17 13:59 [place] [id number]) Nutritional Asmnt/Malnutrition Patient General Information Nutritional Screening High Risk Consult Diagnosis dehydration, tachycardia Pertinent Medical Hx/Surgical Hx parkingson, UTI, c diff colitis Subjective Information Consult received for BS 294 at admitting. Pt was transfered from [facility]. Pt seen resting in bed at time of visit. RN reported pt on NPO. Per nurse note, pt will start tube feeding when NGT placement verified. ordered Fibersource 30ml/hr continuous to start at dinner time today . Current Diet Order/ Nutrition Support NPO Pertinent Medications D5-0.9ns w/kcl 20meq Pertinent Labs 06/19 Na 135, K 2.9, Cl 106, BUN 23, Cr 1.5, glucose 295, alb 3.5 Nutritional Hx/Data Height 1.68 m Height (Calculated Centimeters) 167.6 Current Weight (lbs) 77.111 kg Weight (Calculated Kilograms) 77.1 Weight (Calculated Grams) 56680.7 [place] Body Weight 130 Body Mass Index (BMI) 27.4 Weight Status Overweight GI Symptoms GI Symptoms None Last BM 06/19 Difficult in: None Skin Integrity/Comment: GROIN AND SACRUM REDDNESS Estimated Nutritional Goals BEE in Kcals: Adj wt of IBW Calories/Kcals/Kg 25-30 Kcals Calculated 9360-2096 Protein: Adj wt of IBW Protein g/k Protein Calculated 64 Fluid: ml 1600-1920ml (1ml/kcal) Nutritional Problem 1. Problem Problem altered nutrition related lab values Etiology hyperglycemia Signs/Symptoms: glucose 295 Intervention/Recommendation Comments 1. Start TF as ordered - Fibersource HN 30ml/hr continuous. This will provide 864kcal, 38g protein and 589ml free water, meeting about 55% of nutritional needs. 2. pt on potassium replacement noted. If K level normal, will consider increase TF rate . 3. Monitor TF rate, tolerance, wt weekly, skin integrity and labs 4. F/U as high risk in 2-3 days, 06/21-06/22 Expected Outcomes/Goals Expected Outcomes/Goals 1. Pt to meet at least 75% of nutritional needs via nutrition support with tolerance 2. Wt stability, skin to remain intact, labs to approach WNL.
[2017-06-25] MEDS: Dextrose 5% 1,000 ML IV SCH (12:15)
[2017-06-25] MEDS: INSULIN ASPART SLIDING SCALE 100 UNITS/ML UNIT SUBQ SCH (18:10)
--- NOTE | 2017-06-25 22:51 | Internal Medicine Prog Note ---
Internal Medicine Subjective - Subjective Service Date: 06/25/17 Patient seen and examined:: with staff (SHE FELL SWALLOW EVALUATION.) Patient is:: asleep, non-verbal, in bed Per staff patient has:: no adverse event, other (THE PATIENT ON BIPAP,LEVAPHID AND AMIODARON IV DRIP.URIN OUTPUT IS NOT GOOD) Internal Medicine Objective - Results Result Diagrams: 06/25/17 04:05 06/25/17 04:05 Recent Labs: Laboratory Last Values WBC 8.6 Th/cmm (4.8-10.8) 06/25/17 04:05 RBC 4.28 Mil/cmm (3.80-5.10) 06/25/17 04:05 Hgb 13.2 gm/dL (12-16) 06/25/17 04:05 Hct 39.4 % (41.0-60) L 06/25/17 04:05 MCV 92.1 fl (81-100) 06/25/17 04:05 MCH 30.7 pg (27.0-31.0) 06/25/17 04:05 MCHC Differential 33.4 pg (28.0-36.0) 06/25/17 04:05 RDW 16.3 % (11.5-20.0) 06/25/17 04:05 Plt Count 75 Th/cmm (150-400) L 06/25/17 04:05 MPV 10.2 fl 06/25/17 04:05 Neutrophils % 86.4 % (40.0-80.0) H 06/25/17 04:05 Band Neutrophils % 6 % (0-10) 06/23/17 04:30 Lymphocytes % 11.4 % (20.0-50.0) L 06/25/17 04:05 Monocytes % 0.9 % (2.0-10.0) L 06/25/17 04:05 Eosinophils % 1.3 % (0.0-5.0) 06/25/17 04:05 Basophils % 0.0 % (0.0-2.0) 06/25/17 04:05 Neutrophils (Manual) 81 % (40-80) H 06/23/17 04:30 Lymphocytes 11 % (20-50) L 06/23/17 04:30 Monocytes 2 % (2-10) 06/23/17 04:30 Toxic Granulation 2+ 06/21/17 05:01 Platelet Estimate ADEQUATE (NORMAL) 06/21/17 05:01 PT 20.8 SECONDS (9.5-11.5) H 06/20/17 08:30 INR 1.93 (0.5-1.4) H 06/20/17 08:30 Specimen Source Arterial 06/20/17 15:00 Sample Site RB 06/20/17 15:00 pH 7.56 (7.35-7.45) H* 06/20/17 15:00 pCO2 25.0 mmHg (35.0-45.0) L 06/20/17 15:00 pO2 198.0 mmHg (80.0-100.0) H 06/20/17 15:00 HCO3 26.1 mEq/L (20.0-26.0) H 06/20/17 15:00 Base Excess 1.4 mEq/L (-3.0-3.0) 06/20/17 15:00 O2 Saturation 100.0 % (92.0-100.0) 06/20/17 15:00 Stephen Test NA 06/20/17 15:00 Vent Rate NA 06/20/17 15:00 Inspired O2 28 06/20/17 15:00 Tidal Volume NA 06/20/17 15:00 PEEP NA 06/20/17 15:00 Pressure (ins/psv/peep) NA 06/20/17 15:00 Critical Value E.ESCAMILLA 06/20/17 15:00 Sodium 154 mEq/L (136-145) H 06/25/17 04:05 Potassium 3.3 mEq/L (3.5-5.1) L 06/25/17 04:05 Chloride 126 mEq/L (98-107) H 06/25/17 04:05 Carbon Dioxide 20.9 mEq/L (21.0-31.0) L 06/25/17 04:05 Anion Gap 10.4 (7.0-16.0) 06/25/17 04:05 BUN 18 mg/dL (7-25) 06/25/17 04:05 Creatinine 0.4 mg/dL (0.6-1.2) L 06/25/17 04:05 Est GFR ( Amer) > 60.0 ml/min (>90) 06/25/17 04:05 Est GFR (Non-Af Amer) > 60.0 ml/min 06/25/17 04:05 BUN/Creatinine Ratio 45.0 06/25/17 04:05 Glucose 166 mg/dL (70-105) H 06/25/17 04:05 POC Glucose 191 MG/DL (70 - 105) H 06/25/17 18:05 Calcium 7.7 mg/dL (8.6-10.3) L 06/25/17 04:05 Phosphorus 1.4 mg/dL (2.5-5.0) L 06/23/17 04:30 Magnesium 2.5 mg/dL (1.9-2.7) 06/23/17 04:30 Total Bilirubin 0.6 mg/dL (0.3-1.0) 06/25/17 04:05 AST 62 U/L (13-39) H 06/25/17 04:05 ALT 24 U/L (7-52) 06/25/17 04:05 Alkaline Phosphatase 137 U/L (34-104) H 06/25/17 04:05 Total Protein 4.1 gm/dL (6.0-8.3) L 06/25/17 04:05 Albumin 2.2 gm/dL (3.7-5.3) L 06/25/17 04:05 Globulin 1.9 gm/dL 06/25/17 04:05 Albumin/Globulin Ratio 1.2 (1.0-1.8) 06/25/17 04:05 Urine Source [place] 06/19/17 05:55 Urine Color DARK YELLOW 06/19/17 05:55 Urine Clarity TURBID (CLEAR) H 06/19/17 05:55 Urine pH 5.0 (4.6 - 8.0) 06/19/17 05:55 Ur Specific [place] >= 1.030 (1.005-1.030) 06/19/17 05:55 Urine Protein 30 mg/dL (NEGATIVE) H 06/19/17 05:55 Urine Glucose (UA) NEGATIVE mg/dL (NEGATIVE) 06/19/17 05:55 Urine Ketones 15 mg/dL (NEGATIVE) H 06/19/17 05:55 Urine Blood LARGE (NEGATIVE) H 06/19/17 05:55 Urine Nitrate POSITIVE (NEGATIVE) H 06/19/17 05:55 Urine Bilirubin MODERATE (NEGATIVE) H 06/19/17 05:55 Urine Urobilinogen 1.0 E.U./dL (0.2 - 1.0) 06/19/17 05:55 Ur Leukocyte Esterase NEGATIVE (NEGATIVE) 06/19/17 05:55 Urine RBC 10-25 /hpf (0-5) H 06/19/17 05:55 Urine WBC 2-5 /hpf (0-5) 06/19/17 05:55 Ur Epithelial Cells OCCASIONAL /lpf (FEW) 06/19/17 05:55 Urine Bacteria 3+ /hpf (NONE SEEN) H 06/19/17 05:55 - Physical Exam Vitals and I&O: Vital Signs Temp 97 F 06/25/17 20:00 Pulse 89 06/25/17 20:23 Resp 18 06/25/17 20:23 BP 124/57 06/25/17 20:00 Pulse Ox 98 06/25/17 20:23 Intake & Output 06/25/17 06/25/17 06/26/17 06:59 18:59 06:59 Intake Total 970 610 150 Output Total 600 700 Balance 370 610 -550 Weight (lbs) 87.997 kg 87.997 kg Intake: Intake, IV Amount 110 610 Levetiracetam 1,000 mg In 10 110 Sodium Chloride 0.9% 100 ml @ 400 mls/hr IV Q12H [facility] Rx#:[id number] Linezolid 600mg/300mL 600 300 mg In 300 ml @ 300 mls/ hr IV Q12H [facility] Rx#: [id number] metroNIDAZOLE 500mg/NS 100 200 100mL 500 mg In 100 ml @ 100 mls/hr IV Q8HR [facility] Rx #:[id number] Tube Feeding 360 150 Other 500 Output: Urine 300 250 Stool 300 450 Other: Stool Characteristics Liquid Soft Green Liquid Active Medications: Current Medications Acetaminophen (Tylenol) 650 mg PO Q4H PRN PRN Reason: MILD BACK PAIN Last Admin: 06/21/17 16:48 Dose: 650 mg Amantadine HCl (Symmetrel) 100 mg PO TID [facility] Stop: 08/18/17 20:59 Last Admin: 06/25/17 20:55 Dose: 100 mg Calcium/Vitamin D (Oscal W/Vitamin D) 1 tab PO BID [facility] Stop: 08/18/17 16:59 Last Admin: 06/25/17 18:09 Dose: 1 tab Carbidopa/Levodopa (Sinemet 25 Mg-250 Mg) 1 tab PO BID [facility] Stop: 08/18/17 16:59 Last Admin: 06/25/17 17:56 Dose: 1 tab Carisoprodol (Soma) 350 mg PO DAILY PRN PRN Reason: MUSCLE SPASM Stop: 08/18/17 15:12 Diltiazem HCl (Cardizem) 60 mg PO Q6HR [facility] Stop: 08/18/17 17:59 Last Admin: 06/25/17 18:04 Dose: 60 mg Doxycycline Hyclate (Vibramycin) 100 mg PO Q12HR [facility] Stop: 08/23/17 20:59 Last Admin: 06/25/17 20:55 Dose: 100 mg Famotidine (Pepcid) 40 mg PO DAILY [facility] Stop: 08/19/17 08:59 Last Admin: 06/25/17 08:21 Dose: 40 mg Levetiracetam 1,000 mg/ Sodium (Chloride) 110 mls @ 400 mls/hr IV Q12H [facility] Stop: 08/18/17 12:59 Last Infusion: 06/25/17 14:21 Dose: Infused Metronidazole (Flagyl) 500 mg in 100 mls @ 100 mls/hr IV Q8HR [facility] Stop: 08/18/17 20:59 Last Admin: 06/25/17 20:57 Dose: 100 mls/hr Linezolid (Zyvox) 600 mg in 300 mls @ 300 mls/hr IV Q12H [facility] Stop: 08/19/17 13:59 Last Admin: 06/25/17 14:33 Dose: 300 mls/hr Norepinephrine Bitartrate 4 mg (/ Sodium Chloride) 254 mls @ 30.48 mls/hr IV TITR [facility]; 8 MCG/MIN PRN Reason: Protocol Stop: 08/19/17 14:44 Last Titration: 06/20/17 17:56 Dose: 0 mcg/min, 0 mls/hr Dextrose (D5w) 1,000 mls @ 100 mls/hr IV .Q10H [facility] Stop: 08/24/17 12:14 Last Admin: 06/25/17 12:15 Dose: 100 mls/hr Insulin Aspart (Novolog Insulin Sliding Scale) 0 units SUBQ Q6HR [facility] PRN Reason: Protocol Stop: 08/24/17 17:59 Last Admin: 06/25/17 18:10 Dose: 3 units Lactobacillus Rhamnosus (Culturelle 15b) 1 each PO DAILY [facility] Stop: 08/20/17 08:59 Last Admin: 06/25/17 08:22 Dose: 1 each Levetiracetam (Keppra) 1,000 mg PO BID [facility] Stop: 08/18/17 16:59 Lorazepam (Ativan) 1 mg IVP Q4HR PRN; Protocol PRN Reason: Seizures Stop: 08/18/17 15:16 Last Admin: 06/24/17 22:38 Dose: 1 mg Miscellaneous (Probiotic Screen) 1 ea MC PRN PRN PRN Reason: PROTOCOL Stop: 08/19/17 15:00 Morphine Sulfate (Morphine) 2 mg IVP Q4HR PRN PRN Reason: Pain (Severe) Stop: 08/18/17 15:21 Ondansetron HCl (Zofran) 4 mg IV Q4H PRN PRN Reason: Nausea / Vomiting Stop: 08/18/17 15:23 Potassium Chloride (Klor-Con) 20 meq PO DAILY [facility] Stop: 08/19/17 08:59 Last Admin: 06/25/17 08:21 Dose: 20 meq Potassium Phosphate (K Phos) 1,000 mg NG DAILY [facility] Stop: 08/23/17 10:59 Last Admin: 06/25/17 08:21 Dose: 1,000 mg Sertraline HCl (Zoloft) 100 mg PO DAILY [facility] Stop: 08/20/17 15:59 Last Admin: 06/25/17 08:22 Dose: 100 mg Vancomycin HCl (Vancomycin Oral) 250 mg NG Q6HR [facility] Stop: 08/18/17 17:59 Last Admin: 06/25/17 17:55 Dose: 250 mg General: obtunded HEENT: NC/AT, PERRLA, EOMI, anicteric sclerae, throat clear Neck: Supple, No JVD, No thyromegaly, +2 carotid pulse wo bruit, No LAD Lungs: CTAB Cardiovascular: tachy Abdomen: tender Extremities: clear Neurological: lethargic - Procedures Procedures: Procedures Procedure Code Date ASSISTANCE WITH RESPIRATORY VENTILATION, <24 HRS, CPAP [id number] 06/19/17 CLOSED [ENDOSCOPIC] BIOPSY OF LARYNX 31.43 07/12/96 INJECT/INFUSE NEC 99.29 11/11/07 LARYGNOSCOPY AND OTH TRACHEOSCOPY 31.42 07/12/96 LARYNGOSCOPY WITH BIOPSY 68198 07/12/96 OTHER GROUP THERAPY 94.44 11/26/07 POS AIRWAY PRESSURE CPAP 73032 06/19/17 RECREATIONAL THERAPY 93.81 11/26/07 Internal Medicine Assmt/Plan - Assessment Assessment: 1.SEPTIC SHOCK. 2.ACUTE RENAL FAILURE. 3.ACUTE REPIRATORY FAILURE. 4.PARKINSONS DISEASE. 5.POSSIBLE C DIFF COLITIS. 6.ACUTE METABOLIC ENCEPHALOPATHY. - Plan Plan: CONTINUE ON CURRENT MEDICATION AND DIET.GI CONSULTATION FOR GT PLACEMENT. Nutritional Asmnt/Malnutr-PDOC - Dietary Evaluation Malnutrition Findings (Please click <Entered> for more info): Nutritional Asmnt/Malnutrition Start: 06/19/17 13: 46 Text: Status: Complete Freq: Document 06/19/17 13:46 [facility] (Rec: 06/19/17 13:59 [facility] Nutritional Asmnt/Malnutrition Patient General Information Nutritional Screening High Risk Consult Diagnosis dehydration, tachycardia Pertinent Medical Hx/Surgical Hx [place], UTI, c diff colitis Subjective Information Consult received for BS 294 at admitting. Pt was transfered from [facility]. Pt seen resting in bed at time of visit. RN reported pt on NPO. Per nurse note, pt will start tube feeding when NGT placement verified. ordered Fibersource 30ml/hr continuous to start at dinner time today . Current Diet Order/ Nutrition Support NPO Pertinent Medications D5-0.9ns w/kcl 20meq Pertinent Labs 06/19 Na 135, K 2.9, Cl 106, BUN 23, Cr 1.5, glucose 295, alb 3.5 Nutritional Hx/Data Height 1.68 m Height (Calculated Centimeters) 167.6 Current Weight (lbs) 77.111 kg Weight (Calculated Kilograms) 77.1 Weight (Calculated Grams) [address]709.7 [place] Body Weight 130 Body Mass Index (BMI) 27.4 Weight Status Overweight GI Symptoms GI Symptoms None Last BM 06/19 Difficult in: None Skin Integrity/Comment: GROIN AND SACRUM REDDNESS Estimated Nutritional Goals BEE in Kcals: Adj wt of IBW Calories/Kcals/Kg 25-30 Kcals Calculated 1665-0532 Protein: Adj wt of IBW Protein g/k Protein Calculated 64 Fluid: ml 1600-1920ml (1ml/kcal) Nutritional Problem 1. Problem Problem altered nutrition related lab values Etiology hyperglycemia Signs/Symptoms: glucose 295 Intervention/Recommendation Comments 1. Start TF as ordered - Fibersource HN 30ml/hr continuous. This will provide 864kcal, 38g protein and 589ml free water, meeting about 55% of nutritional needs. 2. pt on potassium replacement noted. If K level normal, will consider increase TF rate . 3. Monitor TF rate, tolerance, wt weekly, skin integrity and labs 4. F/U as high risk in 2-3 days, 06/21-06/22 Expected Outcomes/Goals Expected Outcomes/Goals 1. Pt to meet at least 75% of nutritional needs via nutrition support with tolerance 2. Wt stability, skin to remain intact, labs to approach WNL.
[2017-06-26] MEDS: INSULIN ASPART SLIDING SCALE 100 UNITS/ML UNIT SUBQ SCH ×4 (00:22→17:45)
[2017-06-26] MEDS: Vancomycin HCL 250 mg /10mL UDC NG SCH ×4 (00:22→20:22)
[2017-06-26] MEDS: Diltiazem 30 mg Tab PO SCH ×4 (00:25→17:49)
[2017-06-26] MEDS ORDERED: Levetiracetam 500 mg/5mL 5mL Vial IV ONE (00:35)
[2017-06-26] MEDS: Linezolid 600mg/300mL Premix Bag IV SCH ×2 (02:24→14:27)
[2017-06-26] MEDS: Dextrose 5% 1,000 ML IV SCH (02:24)
[2017-06-26 05:55] LABS: % BASOPHILS 0.1 % (0.0-2.0); % LYMPHOCYTES 14.1 % (20.0-50.0); % MONOCYTES 1.6 % (2.0-10.0); % NEUTROPHILS 82.2 % (40.0-80.0); EOSINOPHILE ABSOLUTE 0.2 Th/cmm (0.1-0.4); HEMATOCRIT 37.9 % (41.0-60); HEMOGLOBIN 12.7 gm/dL (12-16); LYMPHOCYTE ABSOLUTE 1.2 Th/cmm (1.5-3.0); MEAN CELL VOLUME 91.2 fl (81-100); MEAN CORPUSCULAR HEMOGLOBIN 30.6 pg (27.0-31.0); MEAN CORPUSCULAR HGB CONC 33.6 pg (28.0-36.0); MEAN PLATELET VOLUME 9.6 fl; MONOCYTE ABSOLUTE 0.1 Th/cmm (0.3-1.0); PLATELET COUNT 84 Th/cmm (150-400); RED BLOOD COUNT 4.16 Mil/cmm (3.80-5.10); RED CELL DISTRIBUTION WIDTH 16.1 % (11.5-20.0); WHITE BLOOD COUNT 8.5 Th/cmm (4.8-10.8)
[2017-06-26 06:13] LABS: ALB/GLOB RATIO 1.2 (1.0-1.8); ALBUMIN 2.2 gm/dL (3.7-5.3); ALKALINE PHOSPHATASE 127 U/L (34-104); ANION GAP 8.9 (7.0-16.0); BILIRUBIN,TOTAL 0.6 mg/dL (0.3-1.0); BUN - UREA NITROGEN 16 mg/dL (7-25); CALCIUM SERUM 7.8 mg/dL (8.6-10.3); CARBON DIOXIDE 23.1 mEq/L (21.0-31.0); CHLORIDE 119 mEq/L (98-107); CREATININE - SERUM 0.4 mg/dL (0.6-1.2); GFR AFRICAN-AMERICAN > 60.0 ml/min (>90); GFR NON AFRICAN-AMERICAN > 60.0 ml/min; GLUCOSE 151 mg/dL (70-105); SGOT 49 U/L (13-39); SGPT/ALT 23 U/L (7-52); SODIUM SERUM 148 mEq/L (136-145)
[2017-06-26] MEDS: metroNIDAZOLE 500mg/NS 100mL 500 MG/100 ML BAG IV SCH ×3 (06:25→21:39)
[2017-06-26] MEDS ORDERED: ceFAZolin 1 GM in Sodium Chloride 0.9% 50 ML IV ONE (08:00)
--- NOTE | 2017-06-26 08:58 | Progress Notes ---
DATE: SUBJECTIVE: Chart reviewed and the patient interviewed. Also discussed the patient's condition with the staff and reviewed records and labs. The patient seems to be sedated. She was transferred from ICU to medical floor. She has not been able to answer much of the questions. The patient also still seems to be depressed and weak. She was trying to answer questions, but she was not able to do so because of her weakness. Otherwise, no behavioral problems. ASSESSMENT: The patient is showing no agitation or aggressive behavior about a week. TREATMENT PLAN: We will change his Zoloft to 25 mg at bedtime, which is a decrease of the previous dose and we will continue to follow up. JOB# [id number]
[2017-06-26] MEDS: Calcium Carb/Vit D 500 mg/200 U Tab PO SCH ×2 (09:00→17:53)
[2017-06-26] MEDS: Potassium Chloride 20 mEq ER Tab PO SCH (09:00)
[2017-06-26] MEDS: Lactobacillus Rhamnosus GG 15 Billion CFU CAP.SPRINK PO SCH (09:00)
--- NOTE | 2017-06-26 14:56 | Consultation ---
DATE OF CONSULTATION: 06/26/2017 INPATIENT GI CONSULTATION CONSULTING PHYSICIAN: Dr. Bowers. REASON FOR CONSULTATION: G-tube placement. HISTORY OF PRESENT ILLNESS: The patient is a 62-year-old female with a history of Parkinson's disease and Parkinson's disease related dementia, psychosis, depression, recurrent C. diff infection. She has been admitted to the hospital since 06/19/2017 with signs of septic shock. The patient was initially in the ICU being treated with broad-spectrum antibiotics for urinary tract infection, pneumonia, and possible recurrent C. diff and has since transferred out of the ICU. However, the patient has failed a swallow evaluation and currently has an NG tube in place for feeding; thus, GI is asked for G-tube placement. PAST MEDICAL HISTORY: Parkinson's disease, dementia, psychosis, recurrent C. diff infection. PAST SURGICAL HISTORY: No history of abdominal surgeries as per the chart. FAMILY HISTORY: Noncontributory. SOCIAL HISTORY: There is no documented history of alcoholism, tobacco use, or illicit drugs. CURRENT MEDICATIONS: Include Tylenol as needed, amantadine, calcium, carbidopa-levodopa, carisoprodol, diltiazem, doxycycline, famotidine, insulin, lactobacillus, Keppra, linezolid, lorazepam, Flagyl, morphine as needed, Zofran as needed, , vancomycin. REVIEW OF SYSTEMS: Was not possible given the patient is really not able to interact with the interview at this point and is only mumbling incoherently. PHYSICAL EXAMINATION: VITAL SIGNS: Blood pressure is 122/73, pulse 84 beats per minute, temperature 96.9, and oxygenation 94%. GENERAL: The patient is lying in bed. She is alert and oriented x seemingly 1. HEAD, EARS, EYES, NOSE AND THROAT: Normocephalic and atraumatic appearing head. She has an NG tube in place. Pupils are equal and reactive to light. Extraocular muscles are intact. There is no obvious scleral icterus. She has dry mucous membranes with some old blood in her mouth. NECK: Supple. There is no obvious JVD or thyromegaly. CHEST: There are crackles at both bases. CARDIOVASCULAR: S1 and S2 are present. Regular rate and rhythm. ABDOMEN: Soft, obese, nontender to palpation. No guarding or rebound. No distention. EXTREMITIES: 1+ pitting edema is noted bilaterally. Pulses are not present. SKIN: No obvious jaundice or cyanosis. LABORATORY DATA AND DIAGNOSTIC STUDIES: White blood cell count 8.5, hemoglobin 12.7, platelet count is 84. Sodium 148, BUN 16, creatinine 0.4. AST is 49, ALT 23, total bilirubin 0.6. No recent abdominal imaging has been performed. IMPRESSION: This is a 62-year-old female with Parkinson's disease, dementia and psychosis, who is recovering from septic shock related to urinary tract infection, pneumonia and possibly Clostridium difficile colitis. 1. Dysphagia related to dementia and Parkinson's disease. 2. Septic shock from urinary tract infection and pneumonia. 3. Recurrent Clostridium difficile infection. DISCUSSION: The patient has failed a swallow evaluation and certainly does not appear able to take in adequate nutrition orally on her own accord; however, it was brought to my attention that the patient has a POLST, which is a physician order for life-sustaining treatment already in place that dictates that she does not want any artificial feeding including tube feeding; thus, we did not perform a G-tube placement today. The patient also has a conservator that helps make medical decisions; thus, it will have to be ironed out with the conservator and the patient's niece whether there can be a consent obtained for G-tube placement given this already signed statement. If we can obtain a consent that is binding legally and in agreement with her niece and her conservator and with hospital administration, then we will proceed with G-tube placement. RECOMMENDATIONS: 1. We will hold off on G-tube today as per the above discussion. 2. We will continue to follow any developments. Thank you for allowing me to participate in this patient's care. Please call with any further questions. JOB# [id number]
[2017-06-26] MEDS ORDERED: KCL 20mEq/100mL Premix 20 MEQ/100 ML PIGGYBACK IV SCH (16:00)
--- NOTE | 2017-06-26 16:04 | General Progress Note ---
Subjective - Review of Systems Service Date: 06/26/17 Subjective: pt in icu NG TUBE IN PLACE ON WATER 250 cc q 6 hours Objective - Results Result Diagrams: 06/26/17 05:00 06/26/17 05:00 Recent Labs: Laboratory Last Values WBC 8.5 Th/cmm (4.8-10.8) 06/26/17 05:00 RBC 4.16 Mil/cmm (3.80-5.10) 06/26/17 05:00 Hgb 12.7 gm/dL (12-16) 06/26/17 05:00 Hct 37.9 % (41.0-60) L 06/26/17 05:00 MCV 91.2 fl (81-100) 06/26/17 05:00 MCH 30.6 pg (27.0-31.0) 06/26/17 05:00 MCHC Differential 33.6 pg (28.0-36.0) 06/26/17 05:00 RDW 16.1 % (11.5-20.0) 06/26/17 05:00 Plt Count 84 Th/cmm (150-400) L 06/26/17 05:00 MPV 9.6 fl 06/26/17 05:00 Neutrophils % 82.2 % (40.0-80.0) H 06/26/17 05:00 Band Neutrophils % 6 % (0-10) 06/23/17 04:30 Lymphocytes % 14.1 % (20.0-50.0) L 06/26/17 05:00 Monocytes % 1.6 % (2.0-10.0) L 06/26/17 05:00 Eosinophils % 2.0 % (0.0-5.0) 06/26/17 05:00 Basophils % 0.1 % (0.0-2.0) 06/26/17 05:00 Neutrophils (Manual) 81 % (40-80) H 06/23/17 04:30 Lymphocytes 11 % (20-50) L 06/23/17 04:30 Monocytes 2 % (2-10) 06/23/17 04:30 Toxic Granulation 2+ 06/21/17 05:01 Platelet Estimate ADEQUATE (NORMAL) 06/21/17 05:01 PT 20.8 SECONDS (9.5-11.5) H 06/20/17 08:30 INR 1.93 (0.5-1.4) H 06/20/17 08:30 PTT (Actin FS) 27.4 SECONDS (26.0-38.0) 06/26/17 05:00 Specimen Source Arterial 06/20/17 15:00 Sample Site RB 06/20/17 15:00 pH 7.56 (7.35-7.45) H* 06/20/17 15:00 pCO2 25.0 mmHg (35.0-45.0) L 06/20/17 15:00 pO2 198.0 mmHg (80.0-100.0) H 06/20/17 15:00 HCO3 26.1 mEq/L (20.0-26.0) H 06/20/17 15:00 Base Excess 1.4 mEq/L (-3.0-3.0) 06/20/17 15:00 O2 Saturation 100.0 % (92.0-100.0) 06/20/17 15:00 Stephen Test NA 06/20/17 15:00 Vent Rate NA 06/20/17 15:00 Inspired O2 28 06/20/17 15:00 Tidal Volume NA 06/20/17 15:00 PEEP NA 06/20/17 15:00 Pressure (ins/psv/peep) NA 06/20/17 15:00 Critical Value E.ESCAMILLA 06/20/17 15:00 Sodium 148 mEq/L (136-145) H 06/26/17 05:00 Potassium 3.0 mEq/L (3.5-5.1) L 06/26/17 05:00 Chloride 119 mEq/L (98-107) H 06/26/17 05:00 Carbon Dioxide 23.1 mEq/L (21.0-31.0) 06/26/17 05:00 Anion Gap 8.9 (7.0-16.0) 06/26/17 05:00 BUN 16 mg/dL (7-25) 06/26/17 05:00 Creatinine 0.4 mg/dL (0.6-1.2) L 06/26/17 05:00 Est GFR ( Amer) > 60.0 ml/min (>90) 06/26/17 05:00 Est GFR (Non-Af Amer) > 60.0 ml/min 06/26/17 05:00 BUN/Creatinine Ratio 40.0 06/26/17 05:00 Glucose 151 mg/dL (70-105) H 06/26/17 05:00 POC Glucose 151 MG/DL (70 - 105) H 06/26/17 10:52 Calcium 7.8 mg/dL (8.6-10.3) L 06/26/17 05:00 Phosphorus 1.4 mg/dL (2.5-5.0) L 06/23/17 04:30 Magnesium 2.5 mg/dL (1.9-2.7) 06/23/17 04:30 Total Bilirubin 0.6 mg/dL (0.3-1.0) 06/26/17 05:00 AST 49 U/L (13-39) H 06/26/17 05:00 ALT 23 U/L (7-52) 06/26/17 05:00 Alkaline Phosphatase 127 U/L (34-104) H 06/26/17 05:00 Total Protein 4.0 gm/dL (6.0-8.3) L 06/26/17 05:00 Albumin 2.2 gm/dL (3.7-5.3) L 06/26/17 05:00 Globulin 1.8 gm/dL 06/26/17 05:00 Albumin/Globulin Ratio 1.2 (1.0-1.8) 06/26/17 05:00 Urine Source [place] 06/19/17 05:55 Urine Color DARK YELLOW 06/19/17 05:55 Urine Clarity TURBID (CLEAR) H 06/19/17 05:55 Urine pH 5.0 (4.6 - 8.0) 06/19/17 05:55 Ur Specific [place] >= 1.030 (1.005-1.030) 06/19/17 05:55 Urine Protein 30 mg/dL (NEGATIVE) H 06/19/17 05:55 Urine Glucose (UA) NEGATIVE mg/dL (NEGATIVE) 06/19/17 05:55 Urine Ketones 15 mg/dL (NEGATIVE) H 06/19/17 05:55 Urine Blood LARGE (NEGATIVE) H 06/19/17 05:55 Urine Nitrate POSITIVE (NEGATIVE) H 06/19/17 05:55 Urine Bilirubin MODERATE (NEGATIVE) H 06/19/17 05:55 Urine Urobilinogen 1.0 E.U./dL (0.2 - 1.0) 06/19/17 05:55 Ur Leukocyte Esterase NEGATIVE (NEGATIVE) 06/19/17 05:55 Urine RBC 10-25 /hpf (0-5) H 06/19/17 05:55 Urine WBC 2-5 /hpf (0-5) 06/19/17 05:55 Ur Epithelial Cells OCCASIONAL /lpf (FEW) 06/19/17 05:55 Urine Bacteria 3+ /hpf (NONE SEEN) H 06/19/17 05:55 - Physical Exam Vitals and I&O: Vital Signs Temp 96.8 F 06/26/17 12:00 Pulse 85 06/26/17 12:12 Resp 17 06/26/17 12:00 BP 140/68 06/26/17 12:00 Pulse Ox 100 06/26/17 12:00 Intake & Output 06/25/17 06/26/17 06/26/17 18:59 06:59 18:59 Intake Total 910 1660 200 Output Total 700 Balance 910 960 200 Weight (lbs) 87.997 kg Intake: Intake, IV Amount 910 1510 200 Dextrose 5% 1,000 ml @ 1000 100 mls/hr IV .Q10H ON LICENSE OF [facility] Rx#:[id number] Levetiracetam 1,000 mg In 110 110 Sodium Chloride 0.9% 100 ml @ 400 mls/hr IV Q12H [facility] Rx#:[id number] Linezolid 600mg/300mL 600 600 300 mg In 300 ml @ 300 mls/ hr IV Q12H [facility] Rx#: [id number] metroNIDAZOLE 500mg/NS 200 100 200 100mL 500 mg In 100 ml @ 100 mls/hr IV Q8HR ON LICENSE OF [facility] Rx #:[id number] Tube Feeding 150 Output: Urine 250 Stool 450 Other: Stool Characteristics Soft Soft Soft Liquid Liquid Liquid Active Medications: Current Medications Acetaminophen (Tylenol) 650 mg PO Q4H PRN PRN Reason: MILD BACK PAIN Last Admin: 06/21/17 16:48 Dose: 650 mg Amantadine HCl (Symmetrel) 100 mg PO TID ON LICENSE OF [facility] Stop: 08/18/17 20:59 Last Admin: 06/26/17 14:20 Dose: Not Given Calcium/Vitamin D (Oscal W/Vitamin D) 1 tab PO BID ON LICENSE OF [facility] Stop: 08/18/17 16:59 Last Admin: 06/26/17 09:00 Dose: Not Given Carbidopa/Levodopa (Sinemet 25 Mg-250 Mg) 1 tab PO BID ON LICENSE OF [facility] Stop: 08/18/17 16:59 Last Admin: 06/26/17 09:00 Dose: Not Given Carisoprodol (Soma) 350 mg PO DAILY PRN PRN Reason: MUSCLE SPASM Stop: 08/18/17 15:12 Diltiazem HCl (Cardizem) 60 mg PO Q6HR ON LICENSE OF [facility] Stop: 08/18/17 17:59 Last Admin: 06/26/17 12:12 Dose: Not Given Doxycycline Hyclate (Vibramycin) 100 mg PO Q12HR ON LICENSE OF [facility] Stop: 08/23/17 20:59 Last Admin: 06/26/17 09:00 Dose: Not Given Famotidine (Pepcid) 40 mg PO DAILY ON LICENSE OF [facility] Stop: 08/19/17 08:59 Last Admin: 06/26/17 09:00 Dose: Not Given Levetiracetam 1,000 mg/ Sodium (Chloride) 110 mls @ 400 mls/hr IV Q12H ON LICENSE OF [facility] Stop: 08/18/17 12:59 Last Admin: 06/26/17 15:27 Dose: 400 mls/hr Metronidazole (Flagyl) 500 mg in 100 mls @ 100 mls/hr IV Q8HR ON LICENSE OF [facility] Stop: 08/18/17 20:59 Last Infusion: 06/26/17 13:08 Dose: Infused Linezolid (Zyvox) 600 mg in 300 mls @ 300 mls/hr IV Q12H ON LICENSE OF [facility] Stop: 08/19/17 13:59 Last Admin: 06/26/17 14:27 Dose: 300 mls/hr Norepinephrine Bitartrate 4 mg (/ Sodium Chloride) 254 mls @ 30.48 mls/hr IV TITR [facility]; 8 MCG/MIN PRN Reason: Protocol Stop: 08/19/17 14:44 Last Titration: 06/20/17 17:56 Dose: 0 mcg/min, 0 mls/hr Dextrose (D5w) 1,000 mls @ 100 mls/hr IV .Q10H ON LICENSE OF [facility] Stop: 08/24/17 12:14 Last Admin: 06/26/17 02:24 Dose: 100 mls/hr Potassium Chloride (Potassium Chloride) 20 meq in 100 mls @ 50 mls/hr IV Q2H ON LICENSE OF [facility] Stop: 06/26/17 19:29 Insulin Aspart (Novolog Insulin Sliding Scale) 0 units SUBQ Q6HR [facility] PRN Reason: Protocol Stop: 08/24/17 17:59 Last Admin: 06/26/17 12:07 Dose: 3 units Lactobacillus Rhamnosus (Culturelle 15b) 1 each PO DAILY [facility] Stop: 08/20/17 08:59 Last Admin: 06/26/17 09:00 Dose: Not Given Levetiracetam (Keppra) 1,000 mg PO BID ON LICENSE OF [facility] Stop: 08/18/17 16:59 Lorazepam (Ativan) 1 mg IVP Q4HR PRN; Protocol PRN Reason: Seizures Stop: 08/18/17 15:16 Last Admin: 06/24/17 22:38 Dose: 1 mg Miscellaneous (Probiotic Screen) 1 ea MC PRN PRN PRN Reason: PROTOCOL Stop: 08/19/17 15:00 Morphine Sulfate (Morphine) 2 mg IVP Q4HR PRN PRN Reason: Pain (Severe) Stop: 08/18/17 15:21 Ondansetron HCl (Zofran) 4 mg IV Q4H PRN PRN Reason: Nausea / Vomiting Stop: 08/18/17 15:23 Potassium Chloride (Klor-Con) 20 meq PO DAILY ON LICENSE OF [facility] Stop: 08/19/17 08:59 Last Admin: 06/26/17 09:00 Dose: Not Given Potassium Phosphate (K Phos) 1,000 mg NG DAILY ON LICENSE OF [facility] Stop: 08/23/17 10:59 Last Admin: 06/26/17 09:00 Dose: Not Given Sertraline HCl (Zoloft) 25 mg PO HS ON LICENSE OF [facility] Stop: 08/25/17 20:59 Vancomycin HCl (Vancomycin Oral) 250 mg NG Q6HR ON LICENSE OF [facility] Stop: 08/18/17 17:59 Last Admin: 06/26/17 14:20 Dose: Not Given General: Alert (Has NGT in place. Has mittens on.), No acute distress HEENT: Atraumatic, PERRLA Neck: Supple, JVD Cardiovascular: Regular rate, Normal S1, Normal S2, Other (Irreg, irreg rhythm) Lungs: Other (b/l rhonchi) Abdomen: Bowel sounds, Soft Extremities: Edema (contractures) - Procedures Procedures: Procedures Procedure Code Date ASSISTANCE WITH RESPIRATORY VENTILATION, <24 HRS, CPAP 1Y47451 06/19/17 CLOSED [ENDOSCOPIC] BIOPSY OF LARYNX 31.43 07/12/96 INJECT/INFUSE NEC 99.29 11/11/07 LARYGNOSCOPY AND OTH TRACHEOSCOPY 31.42 07/12/96 LARYNGOSCOPY WITH BIOPSY 01088 07/12/96 OTHER GROUP THERAPY 94.44 11/26/07 POS AIRWAY PRESSURE CPAP 60116 06/19/17 RECREATIONAL THERAPY 93.81 11/26/07 Assessment/Plan - Assessment Assessment: sepsis septic shock acute respiratory failure acute renal failure UTI C. Diff colitis depression parkinson - Plan Plan: continue BiPAP IV abx IV fluids replace potassium correct serum sodium increase water flush Nutritional Asmnt/Malnutr-PDOC - Dietary Evaluation Malnutrition Findings (Please click <Entered> for more info): Nutritional Asmnt/Malnutrition Start: 06/19/17 13: 46 Text: Status: Complete Freq: Document 06/19/17 13:46 HUGH (Rec: 06/19/17 13:59 [place] [id number]) Nutritional Asmnt/Malnutrition Patient General Information Nutritional Screening High Risk Consult Diagnosis dehydration, tachycardia Pertinent Medical Hx/Surgical Hx parkings[place], UTI, c diff colitis Subjective Information Consult received for BS 294 at admitting. Pt was transfered from [facility]. Pt seen resting in bed at time of visit. RN reported pt on NPO. Per nurse note, pt will start tube feeding when NGT placement verified. ordered Fibersource 30ml/hr continuous to start at dinner time today . Current Diet Order/ Nutrition Support NPO Pertinent Medications D5-0.9ns w/kcl 20meq Pertinent Labs 06/19 Na 135, K 2.9, Cl 106, BUN 23, Cr 1.5, glucose 295, alb 3.5 Nutritional Hx/Data Height 1.68 m Height (Calculated Centimeters) 167.6 Current Weight (lbs) 77.111 kg Weight (Calculated Kilograms) 77.1 Weight (Calculated Grams) 98794.7 [place] Body Weight 130 Body Mass Index (BMI) 27.4 Weight Status Overweight GI Symptoms GI Symptoms None Last BM 06/19 Difficult in: None Skin Integrity/Comment: GROIN AND SACRUM REDDNESS Estimated Nutritional Goals BEE in Kcals: Adj wt of IBW Calories/Kcals/Kg 25-30 Kcals Calculated [id number] Protein: Adj wt of IBW Protein g/k Protein Calculated 64 Fluid: ml 1600-1920ml (1ml/kcal) Nutritional Problem 1. Problem Problem altered nutrition related lab values Etiology hyperglycemia Signs/Symptoms: glucose 295 Intervention/Recommendation Comments 1. Start TF as ordered - Fibersource HN 30ml/hr continuous. This will provide 864kcal, 38g protein and 589ml free water, meeting about 55% of nutritional needs. 2. pt on potassium replacement noted. If K level normal, will consider increase TF rate . 3. Monitor TF rate, tolerance, wt weekly, skin integrity and labs 4. F/U as high risk in 2-3 days, 06/21-06/22 Expected Outcomes/Goals Expected Outcomes/Goals 1. Pt to meet at least 75% of nutritional needs via nutrition support with tolerance 2. Wt stability, skin to remain intact, labs to approach WNL.
--- NOTE | 2017-06-26 20:54 | Internal Medicine Prog Note ---
Internal Medicine Subjective - Subjective Service Date: 06/26/17 Patient seen and examined:: with staff (THE PATIENT LOST HER PICC LINE.SHE IS SCHEDUALED FOR GT PLACEMENT IN AM.), without staff Patient is:: asleep, non-verbal, in bed Per staff patient has:: no adverse event, other (THE PATIENT ON BIPAP,LEVAPHID AND AMIODARON IV DRIP.URIN OUTPUT IS NOT GOOD) Internal Medicine Objective - Results Result Diagrams: 06/26/17 05:00 06/26/17 05:00 Recent Labs: Laboratory Last Values WBC 8.5 Th/cmm (4.8-10.8) 06/26/17 05:00 RBC 4.16 Mil/cmm (3.80-5.10) 06/26/17 05:00 Hgb 12.7 gm/dL (12-16) 06/26/17 05:00 Hct 37.9 % (41.0-60) L 06/26/17 05:00 MCV 91.2 fl (81-100) 06/26/17 05:00 MCH 30.6 pg (27.0-31.0) 06/26/17 05:00 MCHC Differential 33.6 pg (28.0-36.0) 06/26/17 05:00 RDW 16.1 % (11.5-20.0) 06/26/17 05:00 Plt Count 84 Th/cmm (150-400) L 06/26/17 05:00 MPV 9.6 fl 06/26/17 05:00 Neutrophils % 82.2 % (40.0-80.0) H 06/26/17 05:00 Band Neutrophils % 6 % (0-10) 06/23/17 04:30 Lymphocytes % 14.1 % (20.0-50.0) L 06/26/17 05:00 Monocytes % 1.6 % (2.0-10.0) L 06/26/17 05:00 Eosinophils % 2.0 % (0.0-5.0) 06/26/17 05:00 Basophils % 0.1 % (0.0-2.0) 06/26/17 05:00 Neutrophils (Manual) 81 % (40-80) H 06/23/17 04:30 Lymphocytes 11 % (20-50) L 06/23/17 04:30 Monocytes 2 % (2-10) 06/23/17 04:30 Toxic Granulation 2+ 06/21/17 05:01 Platelet Estimate ADEQUATE (NORMAL) 06/21/17 05:01 PT 20.8 SECONDS (9.5-11.5) H 06/20/17 08:30 INR 1.93 (0.5-1.4) H 06/20/17 08:30 PTT (Actin FS) 27.4 SECONDS (26.0-38.0) 06/26/17 05:00 Specimen Source Arterial 06/20/17 15:00 Sample Site RB 06/20/17 15:00 pH 7.56 (7.35-7.45) H* 06/20/17 15:00 pCO2 25.0 mmHg (35.0-45.0) L 06/20/17 15:00 pO2 198.0 mmHg (80.0-100.0) H 06/20/17 15:00 HCO3 26.1 mEq/L (20.0-26.0) H 06/20/17 15:00 Base Excess 1.4 mEq/L (-3.0-3.0) 06/20/17 15:00 O2 Saturation 100.0 % (92.0-100.0) 06/20/17 15:00 Stephen Test NA 06/20/17 15:00 Vent Rate NA 06/20/17 15:00 Inspired O2 28 06/20/17 15:00 Tidal Volume NA 06/20/17 15:00 PEEP NA 06/20/17 15:00 Pressure (ins/psv/peep) NA 06/20/17 15:00 Critical Value E.ESCAMILLA 06/20/17 15:00 Sodium 148 mEq/L (136-145) H 06/26/17 05:00 Potassium 3.0 mEq/L (3.5-5.1) L 06/26/17 05:00 Chloride 119 mEq/L (98-107) H 06/26/17 05:00 Carbon Dioxide 23.1 mEq/L (21.0-31.0) 06/26/17 05:00 Anion Gap 8.9 (7.0-16.0) 06/26/17 05:00 BUN 16 mg/dL (7-25) 06/26/17 05:00 Creatinine 0.4 mg/dL (0.6-1.2) L 06/26/17 05:00 Est GFR ( Amer) > 60.0 ml/min (>90) 06/26/17 05:00 Est GFR (Non-Af Amer) > 60.0 ml/min 06/26/17 05:00 BUN/Creatinine Ratio 40.0 06/26/17 05:00 Glucose 151 mg/dL (70-105) H 06/26/17 05:00 POC Glucose 134 MG/DL (70 - 105) H 06/26/17 17:27 Calcium 7.8 mg/dL (8.6-10.3) L 06/26/17 05:00 Phosphorus 1.4 mg/dL (2.5-5.0) L 06/23/17 04:30 Magnesium 2.5 mg/dL (1.9-2.7) 06/23/17 04:30 Total Bilirubin 0.6 mg/dL (0.3-1.0) 06/26/17 05:00 AST 49 U/L (13-39) H 06/26/17 05:00 ALT 23 U/L (7-52) 06/26/17 05:00 Alkaline Phosphatase 127 U/L (34-104) H 06/26/17 05:00 Total Protein 4.0 gm/dL (6.0-8.3) L 06/26/17 05:00 Albumin 2.2 gm/dL (3.7-5.3) L 06/26/17 05:00 Globulin 1.8 gm/dL 06/26/17 05:00 Albumin/Globulin Ratio 1.2 (1.0-1.8) 06/26/17 05:00 Urine Source [place] 06/19/17 05:55 Urine Color DARK YELLOW 06/19/17 05:55 Urine Clarity TURBID (CLEAR) H 06/19/17 05:55 Urine pH 5.0 (4.6 - 8.0) 06/19/17 05:55 Ur Specific [place] >= 1.030 (1.005-1.030) 06/19/17 05:55 Urine Protein 30 mg/dL (NEGATIVE) H 06/19/17 05:55 Urine Glucose (UA) NEGATIVE mg/dL (NEGATIVE) 06/19/17 05:55 Urine Ketones 15 mg/dL (NEGATIVE) H 06/19/17 05:55 Urine Blood LARGE (NEGATIVE) H 06/19/17 05:55 Urine Nitrate POSITIVE (NEGATIVE) H 06/19/17 05:55 Urine Bilirubin MODERATE (NEGATIVE) H 06/19/17 05:55 Urine Urobilinogen 1.0 E.U./dL (0.2 - 1.0) 06/19/17 05:55 Ur Leukocyte Esterase NEGATIVE (NEGATIVE) 06/19/17 05:55 Urine RBC 10-25 /hpf (0-5) H 06/19/17 05:55 Urine WBC 2-5 /hpf (0-5) 06/19/17 05:55 Ur Epithelial Cells OCCASIONAL /lpf (FEW) 06/19/17 05:55 Urine Bacteria 3+ /hpf (NONE SEEN) H 06/19/17 05:55 - Physical Exam Vitals and I&O: Vital Signs Temp 98.2 F 06/26/17 16:00 Pulse 58 06/26/17 17:49 Resp 20 06/26/17 16:00 BP 154/76 06/26/17 16:00 Pulse Ox 100 06/26/17 16:00 Intake & Output 06/26/17 06/26/17 06/27/17 06:59 18:59 06:59 Intake Total 1660 610 Output Total 700 Balance 960 610 Weight (lbs) 87.997 kg Intake: Intake, IV Amount 1510 610 Dextrose 5% 1,000 ml @ 1000 100 mls/hr IV .Q10H [facility] Rx#:[id number] Levetiracetam 1,000 mg In 110 110 Sodium Chloride 0.9% 100 ml @ 400 mls/hr IV Q12H [facility] Rx#:[id number] Linezolid 600mg/300mL 600 300 300 mg In 300 ml @ 300 mls/ hr IV Q12H [facility] Rx#: [id number] metroNIDAZOLE 500mg/NS 100 200 100mL 500 mg In 100 ml @ 100 mls/hr IV Q8HR [facility] Rx #:[id number] Tube Feeding 150 Output: Urine 250 Stool 450 Other: Stool Characteristics Soft Soft Liquid Liquid Active Medications: Current Medications Acetaminophen (Tylenol) 650 mg PO Q4H PRN PRN Reason: MILD BACK PAIN Last Admin: 06/21/17 16:48 Dose: 650 mg Amantadine HCl (Symmetrel) 100 mg PO TID [facility] Stop: 08/18/17 20:59 Last Admin: 06/26/17 14:20 Dose: Not Given Calcium/Vitamin D (Oscal W/Vitamin D) 1 tab PO BID [facility] Stop: 08/18/17 16:59 Last Admin: 06/26/17 17:53 Dose: 1 tab Carbidopa/Levodopa (Sinemet 25 Mg-250 Mg) 1 tab PO BID [facility] Stop: 08/18/17 16:59 Last Admin: 06/26/17 17:53 Dose: 1 tab Carisoprodol (Soma) 350 mg PO DAILY PRN PRN Reason: MUSCLE SPASM Stop: 08/18/17 15:12 Diltiazem HCl (Cardizem) 60 mg PO Q6HR [facility] Stop: 08/18/17 17:59 Last Admin: 06/26/17 17:49 Dose: 60 mg Doxycycline Hyclate (Vibramycin) 100 mg PO Q12HR [facility] Stop: 08/23/17 20:59 Last Admin: 06/26/17 09:00 Dose: Not Given Famotidine (Pepcid) 40 mg PO DAILY [facility] Stop: 08/19/17 08:59 Last Admin: 06/26/17 09:00 Dose: Not Given Levetiracetam 1,000 mg/ Sodium (Chloride) 110 mls @ 400 mls/hr IV Q12H [facility] Stop: 08/18/17 12:59 Last Infusion: 06/26/17 15:44 Dose: Infused Metronidazole (Flagyl) 500 mg in 100 mls @ 100 mls/hr IV Q8HR [facility] Stop: 08/18/17 20:59 Last Infusion: 06/26/17 13:08 Dose: Infused Linezolid (Zyvox) 600 mg in 300 mls @ 300 mls/hr IV Q12H [facility] Stop: 08/19/17 13:59 Last Infusion: 06/26/17 15:27 Dose: Infused Norepinephrine Bitartrate 4 mg (/ Sodium Chloride) 254 mls @ 30.48 mls/hr IV TITR [facility]; 8 MCG/MIN PRN Reason: Protocol Stop: 08/19/17 14:44 Last Titration: 06/20/17 17:56 Dose: 0 mcg/min, 0 mls/hr Dextrose (D5w) 1,000 mls @ 100 mls/hr IV .Q10H [facility] Stop: 08/24/17 12:14 Last Admin: 06/26/17 02:24 Dose: 100 mls/hr Insulin Aspart (Novolog Insulin Sliding Scale) 0 units SUBQ Q6HR [facility] PRN Reason: Protocol Stop: 08/24/17 17:59 Last Admin: 06/26/17 17:45 Dose: Not Given Lactobacillus Rhamnosus (Culturelle 15b) 1 each PO DAILY [facility] Stop: 08/20/17 08:59 Last Admin: 06/26/17 09:00 Dose: Not Given Levetiracetam (Keppra) 1,000 mg PO BID [facility] Stop: 08/18/17 16:59 Lorazepam (Ativan) 1 mg IVP Q4HR PRN; Protocol PRN Reason: Seizures Stop: 08/18/17 15:16 Last Admin: 06/24/17 22:38 Dose: 1 mg Miscellaneous (Probiotic Screen) 1 ea MC PRN PRN PRN Reason: PROTOCOL Stop: 08/19/17 15:00 Morphine Sulfate (Morphine) 2 mg IVP Q4HR PRN PRN Reason: Pain (Severe) Stop: 08/18/17 15:21 Ondansetron HCl (Zofran) 4 mg IV Q4H PRN PRN Reason: Nausea / Vomiting Stop: 08/18/17 15:23 Potassium Chloride (Potassium Chloride Elixir) 40 meq NG DAILY [facility] Stop: 08/26/17 08:59 Potassium Phosphate (K Phos) 1,000 mg NG DAILY [facility] Stop: 08/23/17 10:59 Last Admin: 06/26/17 09:00 Dose: Not Given Sertraline HCl (Zoloft) 25 mg PO HS [facility] Stop: 08/25/17 20:59 Vancomycin HCl (Vancomycin Oral) 250 mg NG Q6HR [facility] Stop: 08/18/17 17:59 Last Admin: 06/26/17 20:22 Dose: 250 mg General: obtunded HEENT: NC/AT, PERRLA, EOMI, anicteric sclerae, throat clear Neck: Supple, No JVD, No thyromegaly, +2 carotid pulse wo bruit, No LAD Lungs: CTAB Cardiovascular: tachy Abdomen: tender Extremities: clear Neurological: lethargic - Procedures Procedures: Procedures Procedure Code Date ASSISTANCE WITH RESPIRATORY VENTILATION, <24 HRS, CPAP 7N03418 06/19/17 CLOSED [ENDOSCOPIC] BIOPSY OF LARYNX 31.43 07/12/96 INJECT/INFUSE NEC 99.29 11/11/07 LARYGNOSCOPY AND OTH TRACHEOSCOPY 31.42 07/12/96 LARYNGOSCOPY WITH BIOPSY 96660 07/12/96 OTHER GROUP THERAPY 94.44 11/26/07 POS AIRWAY PRESSURE CPAP 25028 06/19/17 RECREATIONAL THERAPY 93.81 11/26/07 Internal Medicine Assmt/Plan - Assessment Assessment: 1.SEPTIC SHOCK. 2.ACUTE RENAL FAILURE. 3.ACUTE REPIRATORY FAILURE. 4.PARKINSONS DISEASE. 5.POSSIBLE C DIFF COLITIS. 6.ACUTE METABOLIC ENCEPHALOPATHY. - Plan Plan: CONTINUE ON CURRENT MEDICATION AND DIET.CALL PICC LINE NURSE TO REPLACE THE OLD ONE. Nutritional Asmnt/Malnutr-PDOC - Dietary Evaluation Malnutrition Findings (Please click <Entered> for more info): Nutritional Asmnt/Malnutrition Start: 06/19/17 13: 46 Text: Status: Complete Freq: Document 06/19/17 13:46 LCHENG (Rec: 06/19/17 13:59 LCHENG [place] [id number]) Nutritional Asmnt/Malnutrition Patient General Information Nutritional Screening High Risk Consult Diagnosis dehydration, tachycardia Pertinent Medical Hx/Surgical Hx [place], UTI, c diff colitis Subjective Information Consult received for BS 294 at admitting. Pt was transfered from [facility]. Pt seen resting in bed at time of visit. RN reported pt on NPO. Per nurse note, pt will start tube feeding when NGT placement verified. ordered Fibersource 30ml/hr continuous to start at dinner time today . Current Diet Order/ Nutrition Support NPO Pertinent Medications D5-0.9ns w/kcl 20meq Pertinent Labs 06/19 Na 135, K 2.9, Cl 106, BUN 23, Cr 1.5, glucose 295, alb 3.5 Nutritional Hx/Data Height 1.68 m Height (Calculated Centimeters) 167.6 Current Weight (lbs) 77.111 kg Weight (Calculated Kilograms) 77.1 Weight (Calculated Grams) 03957.7 [place] Body Weight 130 Body Mass Index (BMI) 27.4 Weight Status Overweight GI Symptoms GI Symptoms None Last BM 06/19 Difficult in: None Skin Integrity/Comment: GROIN AND SACRUM REDDNESS Estimated Nutritional Goals BEE in Kcals: Adj wt of IBW Calories/Kcals/Kg 25-30 Kcals Calculated 6174-4241 Protein: Adj wt of IBW Protein g/k Protein Calculated 64 Fluid: ml 1600-1920ml (1ml/kcal) Nutritional Problem 1. Problem Problem altered nutrition related lab values Etiology hyperglycemia Signs/Symptoms: glucose 295 Intervention/Recommendation Comments 1. Start TF as ordered - Fibersource HN 30ml/hr continuous. This will provide 864kcal, 38g protein and 589ml free water, meeting about 55% of nutritional needs. 2. pt on potassium replacement noted. If K level normal, will consider increase TF rate . 3. Monitor TF rate, tolerance, wt weekly, skin integrity and labs 4. F/U as high risk in 2-3 days, 06/21-06/22 Expected Outcomes/Goals Expected Outcomes/Goals 1. Pt to meet at least 75% of nutritional needs via nutrition support with tolerance 2. Wt stability, skin to remain intact, labs to approach WNL.
[2017-06-26 22:05] LABS: INR 1.05 (0.5-1.4); PROTHROMBIN TIME (TEST) 10.9 SECONDS (9.5-11.5)
[2017-06-27] MEDS: Diltiazem 30 mg Tab PO SCH ×4 (00:08→17:12)
[2017-06-27] MEDS: Vancomycin HCL 250 mg /10mL UDC NG SCH ×4 (00:09→17:12)
[2017-06-27] MEDS: INSULIN ASPART SLIDING SCALE 100 UNITS/ML UNIT SUBQ SCH ×4 (00:23→17:55)
[2017-06-27] MEDS: Linezolid 600mg/300mL Premix Bag IV SCH ×2 (02:51→15:01)
[2017-06-27] MEDS: metroNIDAZOLE 500mg/NS 100mL 500 MG/100 ML BAG IV SCH (04:39)
[2017-06-27 06:44] LABS: ANION GAP 11.8 (7.0-16.0); BUN - UREA NITROGEN 14 mg/dL (7-25); CALCIUM SERUM 7.9 mg/dL (8.6-10.3); CARBON DIOXIDE 21.2 mEq/L (21.0-31.0); CHLORIDE 117 mEq/L (98-107); CREATININE - SERUM 0.4 mg/dL (0.6-1.2); GFR AFRICAN-AMERICAN > 60.0 ml/min (>90); GFR NON AFRICAN-AMERICAN > 60.0 ml/min; GLUCOSE 142 mg/dL (70-105); SODIUM SERUM 147 mEq/L (136-145)
[2017-06-27 07:05] LABS: INR 1.13 (0.5-1.4); PROTHROMBIN TIME (TEST) 11.9 SECONDS (9.5-11.5)
--- NOTE | 2017-06-27 08:10 | Diagnostic Imaging Report ---
Exam: Portable chest x-ray HISTORY: Status post PICC line placement Findings: Portable examination of the chest at the 0322 hours reviewed the study compared to previous one of 06/23/2017 demonstrates NG tube passes stomach. Right lower lobe infiltrate and effusion are noted. PICC line is not seen with correlated clinically. There is a question of left basilar atelectasis versus small effusion. Mild left basilar infiltrate cannot be excluded. Mild congestion cannot be excluded. Bony thorax intact. IMPRESSION: Nonvisualization of PICC line. Please correlate clinically. Right lobe pneumonia and effusion. Follow-up examination recommended. Blunting of left costophrenic angle is noted this might be representing small effusion versus atelectasis.
[2017-06-27] MEDS: Calcium Carb/Vit D 500 mg/200 U Tab PO SCH ×2 (08:17→16:43)
[2017-06-27] MEDS: Lactobacillus Rhamnosus GG 15 Billion CFU CAP.SPRINK PO SCH (08:17)
[2017-06-27] MEDS: Potassium Chloride Elixir 20 mEq /15 mL UDC NG SCH (08:17)
--- NOTE | 2017-06-27 08:20 | Diagnostic Imaging Report ---
Exam: Ultrasound examination of the deep venous circulation upper extremities bilaterally HISTORY: DVT. Findings: Real-time ultrasound examination of deep venous circulation upper extremities bilaterally was performed in multiple planes utilizing color Doppler technique. The study is limited. The study demonstrates grossly no evidence of deep venous thrombosis of the deep venous circulation of the upper extremity is bilaterally. Subcutaneous soft tissue swelling over the right arm at the area insertion of the catheter appreciated. Left basilic and brachial vein the poorly visualized. IMPRESSION: Somewhat limited study No evidence of deep venous thrombosis upper extremities bilaterally.
--- NOTE | 2017-06-27 10:45 | GI Progress Note ---
Subjective - Review of Systems Service Date: 06/27/17 Subjective: No new overnight events, pt does not have IV access Objective - Results Result Diagrams: 06/26/17 05:00 06/27/17 05:45 Recent Labs: Laboratory Last Values WBC 8.5 Th/cmm (4.8-10.8) 06/26/17 05:00 RBC 4.16 Mil/cmm (3.80-5.10) 06/26/17 05:00 Hgb 12.7 gm/dL (12-16) 06/26/17 05:00 Hct 37.9 % (41.0-60) L 06/26/17 05:00 MCV 91.2 fl (81-100) 06/26/17 05:00 MCH 30.6 pg (27.0-31.0) 06/26/17 05:00 MCHC Differential 33.6 pg (28.0-36.0) 06/26/17 05:00 RDW 16.1 % (11.5-20.0) 06/26/17 05:00 Plt Count 84 Th/cmm (150-400) L 06/26/17 05:00 MPV 9.6 fl 06/26/17 05:00 Neutrophils % 82.2 % (40.0-80.0) H 06/26/17 05:00 Band Neutrophils % 6 % (0-10) 06/23/17 04:30 Lymphocytes % 14.1 % (20.0-50.0) L 06/26/17 05:00 Monocytes % 1.6 % (2.0-10.0) L 06/26/17 05:00 Eosinophils % 2.0 % (0.0-5.0) 06/26/17 05:00 Basophils % 0.1 % (0.0-2.0) 06/26/17 05:00 Neutrophils (Manual) 81 % (40-80) H 06/23/17 04:30 Lymphocytes 11 % (20-50) L 06/23/17 04:30 Monocytes 2 % (2-10) 06/23/17 04:30 Toxic Granulation 2+ 06/21/17 05:01 Platelet Estimate ADEQUATE (NORMAL) 06/21/17 05:01 PT 11.9 SECONDS (9.5-11.5) H 06/27/17 05:45 INR 1.13 (0.5-1.4) 06/27/17 05:45 PTT (Actin FS) 27.4 SECONDS (26.0-38.0) 06/26/17 05:00 Specimen Source Arterial 06/20/17 15:00 Sample Site RB 06/20/17 15:00 pH 7.56 (7.35-7.45) H* 06/20/17 15:00 pCO2 25.0 mmHg (35.0-45.0) L 06/20/17 15:00 pO2 198.0 mmHg (80.0-100.0) H 06/20/17 15:00 HCO3 26.1 mEq/L (20.0-26.0) H 06/20/17 15:00 Base Excess 1.4 mEq/L (-3.0-3.0) 06/20/17 15:00 O2 Saturation 100.0 % (92.0-100.0) 06/20/17 15:00 Stephen Test NA 06/20/17 15:00 Vent Rate NA 06/20/17 15:00 Inspired O2 28 06/20/17 15:00 Tidal Volume NA 06/20/17 15:00 PEEP NA 06/20/17 15:00 Pressure (ins/psv/peep) NA 06/20/17 15:00 Critical Value E.ESCAMILLA 06/20/17 15:00 Sodium 147 mEq/L (136-145) H 06/27/17 05:45 Potassium 3.0 mEq/L (3.5-5.1) L 06/27/17 05:45 Chloride 117 mEq/L (98-107) H 06/27/17 05:45 Carbon Dioxide 21.2 mEq/L (21.0-31.0) 06/27/17 05:45 Anion Gap 11.8 (7.0-16.0) 06/27/17 05:45 BUN 14 mg/dL (7-25) 06/27/17 05:45 Creatinine 0.4 mg/dL (0.6-1.2) L 06/27/17 05:45 Est GFR ( Amer) > 60.0 ml/min (>90) 06/27/17 05:45 Est GFR (Non-Af Amer) > 60.0 ml/min 06/27/17 05:45 BUN/Creatinine Ratio 35.0 06/27/17 05:45 Glucose 142 mg/dL (70-105) H 06/27/17 05:45 POC Glucose 133 MG/DL (70 - 105) H 06/27/17 05:39 Calcium 7.9 mg/dL (8.6-10.3) L 06/27/17 05:45 Phosphorus 1.4 mg/dL (2.5-5.0) L 06/23/17 04:30 Magnesium 2.5 mg/dL (1.9-2.7) 06/23/17 04:30 Total Bilirubin 0.6 mg/dL (0.3-1.0) 06/26/17 05:00 AST 49 U/L (13-39) H 06/26/17 05:00 ALT 23 U/L (7-52) 06/26/17 05:00 Alkaline Phosphatase 127 U/L (34-104) H 06/26/17 05:00 Total Protein 4.0 gm/dL (6.0-8.3) L 06/26/17 05:00 Albumin 2.2 gm/dL (3.7-5.3) L 06/26/17 05:00 Globulin 1.8 gm/dL 06/26/17 05:00 Albumin/Globulin Ratio 1.2 (1.0-1.8) 06/26/17 05:00 Urine Source [place] 06/19/17 05:55 Urine Color DARK YELLOW 06/19/17 05:55 Urine Clarity TURBID (CLEAR) H 06/19/17 05:55 Urine pH 5.0 (4.6 - 8.0) 06/19/17 05:55 Ur Specific [place] >= 1.030 (1.005-1.030) 06/19/17 05:55 Urine Protein 30 mg/dL (NEGATIVE) H 06/19/17 05:55 Urine Glucose (UA) NEGATIVE mg/dL (NEGATIVE) 06/19/17 05:55 Urine Ketones 15 mg/dL (NEGATIVE) H 06/19/17 05:55 Urine Blood LARGE (NEGATIVE) H 06/19/17 05:55 Urine Nitrate POSITIVE (NEGATIVE) H 06/19/17 05:55 Urine Bilirubin MODERATE (NEGATIVE) H 06/19/17 05:55 Urine Urobilinogen 1.0 E.U./dL (0.2 - 1.0) 06/19/17 05:55 Ur Leukocyte Esterase NEGATIVE (NEGATIVE) 06/19/17 05:55 Urine RBC 10-25 /hpf (0-5) H 06/19/17 05:55 Urine WBC 2-5 /hpf (0-5) 06/19/17 05:55 Ur Epithelial Cells OCCASIONAL /lpf (FEW) 06/19/17 05:55 Urine Bacteria 3+ /hpf (NONE SEEN) H 06/19/17 05:55 - Physical Exam Vitals and I&O: Vital Signs Temp 96.6 F 06/27/17 08:02 Pulse 95 06/27/17 08:02 Resp 17 06/27/17 08:02 BP 146/75 06/27/17 08:02 Pulse Ox 100 06/27/17 08:02 Intake & Output 06/26/17 06/27/17 06/27/17 18:59 06:59 18:59 Intake Total 610 200 Output Total 500 Balance 610 -300 Weight (lbs) 93.485 kg Intake: Intake, IV Amount 610 Levetiracetam 1,000 mg In 110 Sodium Chloride 0.9% 100 ml @ 400 mls/hr IV Q12H [facility] Rx#:[id number] Linezolid 600mg/300mL 600 300 mg In 300 ml @ 300 mls/ hr IV Q12H [facility] Rx#: [id number] metroNIDAZOLE 500mg/NS 200 100mL 500 mg In 100 ml @ 100 mls/hr IV Q8HR [facility] Rx #:[id number] Tube Feeding 200 Output: Urine 350 Stool 150 Other: Stool Characteristics Soft Soft Liquid Liquid Active Medications: Current Medications Acetaminophen (Tylenol) 650 mg PO Q4H PRN PRN Reason: MILD BACK PAIN Last Admin: 06/21/17 16:48 Dose: 650 mg Amantadine HCl (Symmetrel) 100 mg PO TID [facility] Stop: 08/18/17 20:59 Last Admin: 06/27/17 08:17 Dose: Not Given Calcium/Vitamin D (Oscal W/Vitamin D) 1 tab PO BID [facility] Stop: 08/18/17 16:59 Last Admin: 06/27/17 08:17 Dose: Not Given Carbidopa/Levodopa (Sinemet 25 Mg-250 Mg) 1 tab PO BID [facility] Stop: 08/18/17 16:59 Last Admin: 06/27/17 08:17 Dose: Not Given Carisoprodol (Soma) 350 mg PO DAILY PRN PRN Reason: MUSCLE SPASM Stop: 08/18/17 15:12 Diltiazem HCl (Cardizem) 60 mg PO Q6HR [facility] Stop: 08/18/17 17:59 Last Admin: 06/27/17 05:15 Dose: Not Given Doxycycline Hyclate (Vibramycin) 100 mg PO Q12HR [facility] Stop: 08/23/17 20:59 Last Admin: 06/27/17 08:17 Dose: Not Given Famotidine (Pepcid) 40 mg PO DAILY [facility] Stop: 08/19/17 08:59 Last Admin: 06/27/17 08:17 Dose: Not Given Linezolid (Zyvox) 600 mg in 300 mls @ 300 mls/hr IV Q12H [facility] Stop: 08/19/17 13:59 Last Admin: 06/27/17 02:51 Dose: Not Given Norepinephrine Bitartrate 4 mg (/ Sodium Chloride) 254 mls @ 30.48 mls/hr IV TITR [facility]; 8 MCG/MIN PRN Reason: Protocol Stop: 08/19/17 14:44 Last Titration: 06/20/17 17:56 Dose: 0 mcg/min, 0 mls/hr Dextrose (D5w) 1,000 mls @ 100 mls/hr IV .Q10H [facility] Stop: 08/24/17 12:14 Last Admin: 06/26/17 02:24 Dose: 100 mls/hr Insulin Aspart (Novolog Insulin Sliding Scale) 0 units SUBQ Q6HR [facility] PRN Reason: Protocol Stop: 08/24/17 17:59 Last Admin: 06/27/17 05:46 Dose: Not Given Lactobacillus Rhamnosus (Culturelle 15b) 1 each PO DAILY [facility] Stop: 08/20/17 08:59 Last Admin: 06/27/17 08:17 Dose: Not Given Levetiracetam (Keppra) 1,000 mg PO BID [facility] Stop: 08/18/17 16:59 Levetiracetam (Keppra) 1,000 mg PO BID [facility] Stop: 08/25/17 20:59 Last Admin: 06/27/17 08:17 Dose: Not Given Miscellaneous (Probiotic Screen) 1 ea MC PRN PRN PRN Reason: PROTOCOL Stop: 08/19/17 15:00 Morphine Sulfate (Morphine) 2 mg IVP Q4HR PRN PRN Reason: Pain (Severe) Stop: 08/18/17 15:21 Ondansetron HCl (Zofran) 4 mg IV Q4H PRN PRN Reason: Nausea / Vomiting Stop: 08/18/17 15:23 Potassium Chloride (Potassium Chloride Elixir) 40 meq NG DAILY [facility] Stop: 08/26/17 08:59 Last Admin: 06/27/17 08:17 Dose: Not Given Potassium Phosphate (K Phos) 1,000 mg NG DAILY [facility] Stop: 08/23/17 10:59 Last Admin: 06/27/17 08:17 Dose: Not Given Vancomycin HCl (Vancomycin Oral) 250 mg NG Q6HR [facility] Stop: 08/18/17 17:59 Last Admin: 06/27/17 05:16 Dose: Not Given General: Alert (Has NGT in place. Has mittens on.), No acute distress HEENT: Atraumatic, PERRLA Neck: Supple, JVD Cardiovascular: Regular rate, Other (Irreg, irreg rhythm) Lungs: Other (b/l rhonchi) Abdomen: Bowel sounds, Soft Extremities: Edema (contractures) - Procedures Procedures: Procedures Procedure Code Date ASSISTANCE WITH RESPIRATORY VENTILATION, <24 HRS, CPAP [id number] 06/19/17 CLOSED [ENDOSCOPIC] BIOPSY OF LARYNX 31.43 07/12/96 INJECT/INFUSE NEC 99.29 11/11/07 LARYGNOSCOPY AND OTH TRACHEOSCOPY 31.42 07/12/96 LARYNGOSCOPY WITH BIOPSY 18785 07/12/96 OTHER GROUP THERAPY 94.44 11/26/07 POS AIRWAY PRESSURE CPAP 14717 06/19/17 RECREATIONAL THERAPY 93.81 11/26/07 Assessment/Plan - Assessment Assessment: # Parkinsons disease # Dementia # Sepsis # Dysphagia wtih failed swallow evaluation The pt's directives have been clarified, and she has a recent POLST that notes she would like a trial of artificial tube feeding. Thus, we will plan for G tube placement as she is not able to take in adequate nutrition by mouth at this point. Plan: - G tube placement after she obtains IV access - ancef 1g to be given 1 hour prior to procedure - NPO - further recs to follow G tube
[2017-06-27] MEDS ORDERED: Midazolam 1mg/ml 2 ml vial IV ONE (11:20)
--- NOTE | 2017-06-27 12:59 | General Progress Note ---
Subjective - Review of Systems Service Date: 06/27/17 Subjective: patient seen and examined more awake Objective - Results Result Diagrams: 06/26/17 05:00 06/27/17 05:45 Recent Labs: Laboratory Last Values WBC 8.5 Th/cmm (4.8-10.8) 06/26/17 05:00 RBC 4.16 Mil/cmm (3.80-5.10) 06/26/17 05:00 Hgb 12.7 gm/dL (12-16) 06/26/17 05:00 Hct 37.9 % (41.0-60) L 06/26/17 05:00 MCV 91.2 fl (81-100) 06/26/17 05:00 MCH 30.6 pg (27.0-31.0) 06/26/17 05:00 MCHC Differential 33.6 pg (28.0-36.0) 06/26/17 05:00 RDW 16.1 % (11.5-20.0) 06/26/17 05:00 Plt Count 84 Th/cmm (150-400) L 06/26/17 05:00 MPV 9.6 fl 06/26/17 05:00 Neutrophils % 82.2 % (40.0-80.0) H 06/26/17 05:00 Band Neutrophils % 6 % (0-10) 06/23/17 04:30 Lymphocytes % 14.1 % (20.0-50.0) L 06/26/17 05:00 Monocytes % 1.6 % (2.0-10.0) L 06/26/17 05:00 Eosinophils % 2.0 % (0.0-5.0) 06/26/17 05:00 Basophils % 0.1 % (0.0-2.0) 06/26/17 05:00 Neutrophils (Manual) 81 % (40-80) H 06/23/17 04:30 Lymphocytes 11 % (20-50) L 06/23/17 04:30 Monocytes 2 % (2-10) 06/23/17 04:30 Toxic Granulation 2+ 06/21/17 05:01 Platelet Estimate ADEQUATE (NORMAL) 06/21/17 05:01 PT 11.9 SECONDS (9.5-11.5) H 06/27/17 05:45 INR 1.13 (0.5-1.4) 06/27/17 05:45 PTT (Actin FS) 27.4 SECONDS (26.0-38.0) 06/26/17 05:00 Specimen Source Arterial 06/20/17 15:00 Sample Site RB 06/20/17 15:00 pH 7.56 (7.35-7.45) H* 06/20/17 15:00 pCO2 25.0 mmHg (35.0-45.0) L 06/20/17 15:00 pO2 198.0 mmHg (80.0-100.0) H 06/20/17 15:00 HCO3 26.1 mEq/L (20.0-26.0) H 06/20/17 15:00 Base Excess 1.4 mEq/L (-3.0-3.0) 06/20/17 15:00 O2 Saturation 100.0 % (92.0-100.0) 06/20/17 15:00 Stephen Test NA 06/20/17 15:00 Vent Rate NA 06/20/17 15:00 Inspired O2 28 06/20/17 15:00 Tidal Volume NA 06/20/17 15:00 PEEP NA 06/20/17 15:00 Pressure (ins/psv/peep) NA 06/20/17 15:00 Critical Value E.ESCAMILLA 06/20/17 15:00 Sodium 147 mEq/L (136-145) H 06/27/17 05:45 Potassium 3.0 mEq/L (3.5-5.1) L 06/27/17 05:45 Chloride 117 mEq/L (98-107) H 06/27/17 05:45 Carbon Dioxide 21.2 mEq/L (21.0-31.0) 06/27/17 05:45 Anion Gap 11.8 (7.0-16.0) 06/27/17 05:45 BUN 14 mg/dL (7-25) 06/27/17 05:45 Creatinine 0.4 mg/dL (0.6-1.2) L 06/27/17 05:45 Est GFR ( Amer) > 60.0 ml/min (>90) 06/27/17 05:45 Est GFR (Non-Af Amer) > 60.0 ml/min 06/27/17 05:45 BUN/Creatinine Ratio 35.0 06/27/17 05:45 Glucose 142 mg/dL (70-105) H 06/27/17 05:45 POC Glucose 85 MG/DL (70 - 105) 06/27/17 12:30 Calcium 7.9 mg/dL (8.6-10.3) L 06/27/17 05:45 Phosphorus 1.4 mg/dL (2.5-5.0) L 06/23/17 04:30 Magnesium 2.5 mg/dL (1.9-2.7) 06/23/17 04:30 Total Bilirubin 0.6 mg/dL (0.3-1.0) 06/26/17 05:00 AST 49 U/L (13-39) H 06/26/17 05:00 ALT 23 U/L (7-52) 06/26/17 05:00 Alkaline Phosphatase 127 U/L (34-104) H 06/26/17 05:00 Total Protein 4.0 gm/dL (6.0-8.3) L 06/26/17 05:00 Albumin 2.2 gm/dL (3.7-5.3) L 06/26/17 05:00 Globulin 1.8 gm/dL 06/26/17 05:00 Albumin/Globulin Ratio 1.2 (1.0-1.8) 06/26/17 05:00 Urine Source [place] 06/19/17 05:55 Urine Color DARK YELLOW 06/19/17 05:55 Urine Clarity TURBID (CLEAR) H 06/19/17 05:55 Urine pH 5.0 (4.6 - 8.0) 06/19/17 05:55 Ur Specific [place] >= 1.030 (1.005-1.030) 06/19/17 05:55 Urine Protein 30 mg/dL (NEGATIVE) H 06/19/17 05:55 Urine Glucose (UA) NEGATIVE mg/dL (NEGATIVE) 06/19/17 05:55 Urine Ketones 15 mg/dL (NEGATIVE) H 06/19/17 05:55 Urine Blood LARGE (NEGATIVE) H 06/19/17 05:55 Urine Nitrate POSITIVE (NEGATIVE) H 06/19/17 05:55 Urine Bilirubin MODERATE (NEGATIVE) H 06/19/17 05:55 Urine Urobilinogen 1.0 E.U./dL (0.2 - 1.0) 06/19/17 05:55 Ur Leukocyte Esterase NEGATIVE (NEGATIVE) 06/19/17 05:55 Urine RBC 10-25 /hpf (0-5) H 06/19/17 05:55 Urine WBC 2-5 /hpf (0-5) 06/19/17 05:55 Ur Epithelial Cells OCCASIONAL /lpf (FEW) 06/19/17 05:55 Urine Bacteria 3+ /hpf (NONE SEEN) H 06/19/17 05:55 - Physical Exam Vitals and I&O: Vital Signs Temp 96.8 F 06/27/17 11:56 Pulse 100 06/27/17 12:32 Resp 18 06/27/17 11:56 BP 126/77 06/27/17 11:56 Pulse Ox 99 06/27/17 11:56 Intake & Output 06/26/17 06/27/17 06/27/17 18:59 06:59 18:59 Intake Total 610 200 Output Total 500 Balance 610 -300 Weight (lbs) 93.485 kg Intake: Intake, IV Amount 610 Levetiracetam 1,000 mg In 110 Sodium Chloride 0.9% 100 ml @ 400 mls/hr IV Q12H [facility] Rx#:[id number] Linezolid 600mg/300mL 600 300 mg In 300 ml @ 300 mls/ hr IV Q12H [facility] Rx#: [id number] metroNIDAZOLE 500mg/NS 200 100mL 500 mg In 100 ml @ 100 mls/hr IV Q8HR [facility] Rx #:[id number] Tube Feeding 200 Output: Urine 350 Stool 150 Other: Stool Characteristics Soft Soft Liquid Liquid Active Medications: Current Medications Acetaminophen (Tylenol) 650 mg PO Q4H PRN PRN Reason: MILD BACK PAIN Last Admin: 06/21/17 16:48 Dose: 650 mg Amantadine HCl (Symmetrel) 100 mg PO TID [facility] Stop: 08/18/17 20:59 Last Admin: 06/27/17 08:17 Dose: Not Given Calcium/Vitamin D (Oscal W/Vitamin D) 1 tab PO BID [facility] Stop: 08/18/17 16:59 Last Admin: 06/27/17 08:17 Dose: Not Given Carbidopa/Levodopa (Sinemet 25 Mg-250 Mg) 1 tab PO BID [facility] Stop: 08/18/17 16:59 Last Admin: 03/23/18 08:17 Dose: Not Given Carisoprodol (Soma) 350 mg PO DAILY PRN PRN Reason: MUSCLE SPASM Stop: 08/18/17 15:12 Diltiazem HCl (Cardizem) 60 mg PO Q6HR [facility] Stop: 08/18/17 17:59 Last Admin: 06/27/17 12:32 Dose: Not Given Doxycycline Hyclate (Vibramycin) 100 mg PO Q12HR [facility] Stop: 08/23/17 20:59 Last Admin: 06/27/17 08:17 Dose: Not Given Famotidine (Pepcid) 40 mg PO DAILY [facility] Stop: 08/19/17 08:59 Last Admin: 06/27/17 08:17 Dose: Not Given Linezolid (Zyvox) 600 mg in 300 mls @ 300 mls/hr IV Q12H [facility] Stop: 08/19/17 13:59 Last Admin: 06/27/17 02:51 Dose: Not Given Norepinephrine Bitartrate 4 mg (/ Sodium Chloride) 254 mls @ 30.48 mls/hr IV TITR [facility]; 8 MCG/MIN PRN Reason: Protocol Stop: 08/19/17 14:44 Last Titration: 06/20/17 17:56 Dose: 0 mcg/min, 0 mls/hr Dextrose (D5w) 1,000 mls @ 100 mls/hr IV .Q10H [facility] Stop: 08/24/17 12:14 Last Admin: 06/26/17 02:24 Dose: 100 mls/hr Potassium Chloride (Potassium Chloride) 20 meq in 100 mls @ 50 mls/hr IV Q2H [facility] Stop: 06/27/17 16:59 Insulin Aspart (Novolog Insulin Sliding Scale) 0 units SUBQ Q6HR [facility] PRN Reason: Protocol Stop: 08/24/17 17:59 Last Admin: 06/27/17 12:33 Dose: Not Given Lactobacillus Rhamnosus (Culturelle 15b) 1 each PO DAILY [facility] Stop: 08/20/17 08:59 Last Admin: 06/27/17 08:17 Dose: Not Given Levetiracetam (Keppra) 1,000 mg PO BID [facility] Stop: 08/18/17 16:59 Levetiracetam (Keppra) 1,000 mg PO BID [facility] Stop: 08/25/17 20:59 Last Admin: 06/27/17 08:17 Dose: Not Given Miscellaneous (Probiotic Screen) 1 ea MC PRN PRN PRN Reason: PROTOCOL Stop: 08/19/17 15:00 Morphine Sulfate (Morphine) 2 mg IVP Q4HR PRN PRN Reason: Pain (Severe) Stop: 08/18/17 15:21 Ondansetron HCl (Zofran) 4 mg IV Q4H PRN PRN Reason: Nausea / Vomiting Stop: 08/18/17 15:23 Potassium Chloride (Potassium Chloride Elixir) 40 meq NG DAILY [facility] Stop: 08/26/17 08:59 Last Admin: 06/27/17 08:17 Dose: Not Given Potassium Phosphate (K Phos) 1,000 mg NG DAILY [facility] Stop: 08/23/17 10:59 Last Admin: 06/27/17 08:17 Dose: Not Given Vancomycin HCl (Vancomycin Oral) 250 mg NG Q6HR [facility] Stop: 08/18/17 17:59 Last Admin: 06/27/17 12:34 Dose: Not Given General: Alert (Has NGT in place. Has mittens on.), No acute distress HEENT: Atraumatic, PERRLA Neck: Supple, JVD Cardiovascular: Regular rate, Other (Irreg, irreg rhythm) Lungs: Other (b/l rhonchi) Abdomen: Bowel sounds, Soft Extremities: Edema (contractures) - Procedures Procedures: Procedures Procedure Code Date ASSISTANCE WITH RESPIRATORY VENTILATION, <24 HRS, CPAP [id number] 06/19/17 CLOSED [ENDOSCOPIC] BIOPSY OF LARYNX 31.43 07/12/96 INJECT/INFUSE NEC 99.29 11/11/07 LARYGNOSCOPY AND OTH TRACHEOSCOPY 31.42 07/12/96 LARYNGOSCOPY WITH BIOPSY 22490 07/12/96 OTHER GROUP THERAPY 94.44 11/26/07 POS AIRWAY PRESSURE CPAP 68542 06/19/17 RECREATIONAL THERAPY 93.81 11/26/07 Assessment/Plan - Assessment Assessment: sepsis septic shock acute respiratory failure acute renal failure UTI C. Diff colitis depression parkinson - Plan Plan: renal function and serum sodium improved monitor electrolytes and replace as needed Nutritional Asmnt/Malnutr-PDOC - Dietary Evaluation Malnutrition Findings (Please click <Entered> for more info): Nutritional Asmnt/Malnutrition Start: 06/19/17 13: 46 Text: Status: Complete Freq: Document 06/19/17 13:46 TJRani (Rec: 06/19/17 13:59 [facility]-[email or web address]) Nutritional Asmnt/Malnutrition Patient General Information Nutritional Screening High Risk Consult Diagnosis dehydration, tachycardia Pertinent Medical Hx/Surgical Hx parkingson, UTI, c diff colitis Subjective Information Consult received for BS 294 at admitting. Pt was transfered from [facility]. Pt seen resting in bed at time of visit. RN reported pt on NPO. Per nurse note, pt will start tube feeding when NGT placement verified. ordered Fibersource 30ml/hr continuous to start at dinner time today . Current Diet Order/ Nutrition Support NPO Pertinent Medications D5-0.9ns w/kcl 20meq Pertinent Labs 06/19 Na 135, K 2.9, Cl 106, BUN 23, Cr 1.5, glucose 295, alb 3.5 Nutritional Hx/Data Height 1.68 m Height (Calculated Centimeters) 167.6 Current Weight (lbs) 77.111 kg Weight (Calculated Kilograms) 77.1 Weight (Calculated Grams) 90098.7 [place] Body Weight 130 Body Mass Index (BMI) 27.4 Weight Status Overweight GI Symptoms GI Symptoms None Last BM 06/19 Difficult in: None Skin Integrity/Comment: GROIN AND SACRUM REDDNESS Estimated Nutritional Goals BEE in Kcals: Adj wt of IBW Calories/Kcals/Kg 25-30 Kcals Calculated 3899-3565 Protein: Adj wt of IBW Protein g/k Protein Calculated 64 Fluid: ml 1600-1920ml (1ml/kcal) Nutritional Problem 1. Problem Problem altered nutrition related lab values Etiology hyperglycemia Signs/Symptoms: glucose 295 Intervention/Recommendation Comments 1. Start TF as ordered - Fibersource HN 30ml/hr continuous. This will provide 864kcal, 38g protein and 589ml free water, meeting about 55% of nutritional needs. 2. pt on potassium replacement noted. If K level normal, will consider increase TF rate . 3. Monitor TF rate, tolerance, wt weekly, skin integrity and labs 4. F/U as high risk in 2-3 days, 06/21-06/22 Expected Outcomes/Goals Expected Outcomes/Goals 1. Pt to meet at least 75% of nutritional needs via nutrition support with tolerance 2. Wt stability, skin to remain intact, labs to approach WNL.
[2017-06-27] MEDS ORDERED: KCL 20mEq/100mL Premix 20 MEQ/100 ML PIGGYBACK IV SCH (13:00)
[2017-06-27] MEDS ORDERED: D5W w/20 mEq KCL 1,000 ML IV SCH (15:00)
--- NOTE | 2017-06-27 21:34 | Internal Medicine Prog Note ---
Internal Medicine Subjective - Subjective Service Date: 06/27/17 Patient seen and examined:: with staff (THE GT IS NOT DONE.) Patient is:: asleep, non-verbal, in bed Per staff patient has:: no adverse event, other (THE PATIENT ON BIPAP,LEVAPHID AND AMIODARON IV DRIP.URIN OUTPUT IS NOT GOOD) Internal Medicine Objective - Results Result Diagrams: 06/26/17 05:00 06/27/17 05:45 Recent Labs: Laboratory Last Values WBC 8.5 Th/cmm (4.8-10.8) 06/26/17 05:00 RBC 4.16 Mil/cmm (3.80-5.10) 06/26/17 05:00 Hgb 12.7 gm/dL (12-16) 06/26/17 05:00 Hct 37.9 % (41.0-60) L 06/26/17 05:00 MCV 91.2 fl (81-100) 06/26/17 05:00 MCH 30.6 pg (27.0-31.0) 06/26/17 05:00 MCHC Differential 33.6 pg (28.0-36.0) 06/26/17 05:00 RDW 16.1 % (11.5-20.0) 06/26/17 05:00 Plt Count 84 Th/cmm (150-400) L 06/26/17 05:00 MPV 9.6 fl 06/26/17 05:00 Neutrophils % 82.2 % (40.0-80.0) H 06/26/17 05:00 Band Neutrophils % 6 % (0-10) 06/23/17 04:30 Lymphocytes % 14.1 % (20.0-50.0) L 06/26/17 05:00 Monocytes % 1.6 % (2.0-10.0) L 06/26/17 05:00 Eosinophils % 2.0 % (0.0-5.0) 06/26/17 05:00 Basophils % 0.1 % (0.0-2.0) 06/26/17 05:00 Neutrophils (Manual) 81 % (40-80) H 06/23/17 04:30 Lymphocytes 11 % (20-50) L 06/23/17 04:30 Monocytes 2 % (2-10) 06/23/17 04:30 Toxic Granulation 2+ 06/21/17 05:01 Platelet Estimate ADEQUATE (NORMAL) 06/21/17 05:01 PT 11.9 SECONDS (9.5-11.5) H 06/27/17 05:45 INR 1.13 (0.5-1.4) 06/27/17 05:45 PTT (Actin FS) 27.4 SECONDS (26.0-38.0) 06/26/17 05:00 Specimen Source Arterial 06/20/17 15:00 Sample Site RB 06/20/17 15:00 pH 7.56 (7.35-7.45) H* 06/20/17 15:00 pCO2 25.0 mmHg (35.0-45.0) L 06/20/17 15:00 pO2 198.0 mmHg (80.0-100.0) H 06/20/17 15:00 HCO3 26.1 mEq/L (20.0-26.0) H 06/20/17 15:00 Base Excess 1.4 mEq/L (-3.0-3.0) 06/20/17 15:00 O2 Saturation 100.0 % (92.0-100.0) 06/20/17 15:00 Stephen Test NA 06/20/17 15:00 Vent Rate NA 06/20/17 15:00 Inspired O2 28 06/20/17 15:00 Tidal Volume NA 06/20/17 15:00 PEEP NA 06/20/17 15:00 Pressure (ins/psv/peep) NA 06/20/17 15:00 Critical Value E.ESCAMILLA 06/20/17 15:00 Sodium 147 mEq/L (136-145) H 06/27/17 05:45 Potassium 3.0 mEq/L (3.5-5.1) L 06/27/17 05:45 Chloride 117 mEq/L (98-107) H 06/27/17 05:45 Carbon Dioxide 21.2 mEq/L (21.0-31.0) 06/27/17 05:45 Anion Gap 11.8 (7.0-16.0) 06/27/17 05:45 BUN 14 mg/dL (7-25) 06/27/17 05:45 Creatinine 0.4 mg/dL (0.6-1.2) L 06/27/17 05:45 Est GFR ( Amer) > 60.0 ml/min (>90) 06/27/17 05:45 Est GFR (Non-Af Amer) > 60.0 ml/min 06/27/17 05:45 BUN/Creatinine Ratio 35.0 06/27/17 05:45 Glucose 142 mg/dL (70-105) H 06/27/17 05:45 POC Glucose 186 MG/DL (70 - 105) H 06/27/17 17:48 Calcium 7.9 mg/dL (8.6-10.3) L 06/27/17 05:45 Phosphorus 1.4 mg/dL (2.5-5.0) L 06/23/17 04:30 Magnesium 2.5 mg/dL (1.9-2.7) 06/23/17 04:30 Total Bilirubin 0.6 mg/dL (0.3-1.0) 06/26/17 05:00 AST 49 U/L (13-39) H 06/26/17 05:00 ALT 23 U/L (7-52) 06/26/17 05:00 Alkaline Phosphatase 127 U/L (34-104) H 06/26/17 05:00 Total Protein 4.0 gm/dL (6.0-8.3) L 06/26/17 05:00 Albumin 2.2 gm/dL (3.7-5.3) L 06/26/17 05:00 Globulin 1.8 gm/dL 06/26/17 05:00 Albumin/Globulin Ratio 1.2 (1.0-1.8) 06/26/17 05:00 Urine Source [place] 06/19/17 05:55 Urine Color DARK YELLOW 06/19/17 05:55 Urine Clarity TURBID (CLEAR) H 06/19/17 05:55 Urine pH 5.0 (4.6 - 8.0) 06/19/17 05:55 Ur Specific [place] >= 1.030 (1.005-1.030) 06/19/17 05:55 Urine Protein 30 mg/dL (NEGATIVE) H 06/19/17 05:55 Urine Glucose (UA) NEGATIVE mg/dL (NEGATIVE) 06/19/17 05:55 Urine Ketones 15 mg/dL (NEGATIVE) H 06/19/17 05:55 Urine Blood LARGE (NEGATIVE) H 06/19/17 05:55 Urine Nitrate POSITIVE (NEGATIVE) H 06/19/17 05:55 Urine Bilirubin MODERATE (NEGATIVE) H 06/19/17 05:55 Urine Urobilinogen 1.0 E.U./dL (0.2 - 1.0) 06/19/17 05:55 Ur Leukocyte Esterase NEGATIVE (NEGATIVE) 06/19/17 05:55 Urine RBC 10-25 /hpf (0-5) H 06/19/17 05:55 Urine WBC 2-5 /hpf (0-5) 06/19/17 05:55 Ur Epithelial Cells OCCASIONAL /lpf (FEW) 06/19/17 05:55 Urine Bacteria 3+ /hpf (NONE SEEN) H 06/19/17 05:55 - Physical Exam Vitals and I&O: Vital Signs Temp 97.2 F 06/27/17 16:11 Pulse 100 06/27/17 19:00 Resp 20 06/27/17 19:00 BP 139/84 06/27/17 16:11 Pulse Ox 100 06/27/17 19:00 Intake & Output 06/27/17 06/27/17 06/28/17 06:59 18:59 06:59 Intake Total 200 80 Output Total 500 675 Balance -300 -595 Weight (lbs) 93.485 kg 92.986 kg Intake: Oral 0 Tube Feeding 200 0 Other 80 Output: Urine 350 450 Stool 150 225 Other: Stool Characteristics Soft Soft Liquid Liquid Weight Source Bedscale Bedscale Active Medications: Current Medications Acetaminophen (Tylenol) 650 mg PO Q4H PRN PRN Reason: MILD BACK PAIN Last Admin: 06/21/17 16:48 Dose: 650 mg Amantadine HCl (Symmetrel) 100 mg PO TID [facility] Stop: 08/18/17 20:59 Last Admin: 06/27/17 14:19 Dose: Not Given Calcium/Vitamin D (Oscal W/Vitamin D) 1 tab PO BID [facility] Stop: 08/18/17 16:59 Last Admin: 06/27/17 16:43 Dose: Not Given Carbidopa/Levodopa (Sinemet 25 Mg-250 Mg) 1 tab PO BID [facility] Stop: 08/18/17 16:59 Last Admin: 06/27/17 16:43 Dose: Not Given Carisoprodol (Soma) 350 mg PO DAILY PRN PRN Reason: MUSCLE SPASM Stop: 08/18/17 15:12 Diltiazem HCl (Cardizem) 60 mg PO Q6HR [facility] Stop: 08/18/17 17:59 Last Admin: 06/27/17 17:12 Dose: Not Given Doxycycline Hyclate (Vibramycin) 100 mg PO Q12HR [facility] Stop: 08/23/17 20:59 Last Admin: 06/27/17 08:17 Dose: Not Given Famotidine (Pepcid) 40 mg PO DAILY [facility] Stop: 08/19/17 08:59 Last Admin: 06/27/17 08:17 Dose: Not Given Linezolid (Zyvox) 600 mg in 300 mls @ 300 mls/hr IV Q12H [facility] Stop: 08/19/17 13:59 Last Admin: 06/27/17 15:01 Dose: 300 mls/hr Norepinephrine Bitartrate 4 mg (/ Sodium Chloride) 254 mls @ 30.48 mls/hr IV TITR [facility]; 8 MCG/MIN PRN Reason: Protocol Stop: 08/19/17 14:44 Last Titration: 06/20/17 17:56 Dose: 0 mcg/min, 0 mls/hr Potassium Chloride/Dextrose (D5w W/20 Meq Kcl) 1,000 mls @ 75 mls/hr IV .[id number] [facility] Stop: 08/26/17 14:59 Last Admin: 06/27/17 14:54 Dose: 75 mls/hr Insulin Aspart (Novolog Insulin Sliding Scale) 0 units SUBQ Q6HR [facility] PRN Reason: Protocol Stop: 08/24/17 17:59 Last Admin: 06/27/17 17:55 Dose: Not Given Lactobacillus Rhamnosus (Culturelle 15b) 1 each PO DAILY [facility] Stop: 08/20/17 08:59 Last Admin: 06/27/17 08:17 Dose: Not Given Levetiracetam (Keppra) 1,000 mg PO BID [facility] Stop: 08/18/17 16:59 Levetiracetam (Keppra) 1,000 mg PO BID [facility] Stop: 08/25/17 20:59 Last Admin: 06/27/17 16:43 Dose: Not Given Miscellaneous (Probiotic Screen) 1 ea MC PRN PRN PRN Reason: PROTOCOL Stop: 08/19/17 15:00 Morphine Sulfate (Morphine) 2 mg IVP Q4HR PRN PRN Reason: Pain (Severe) Stop: 08/18/17 15:21 Ondansetron HCl (Zofran) 4 mg IV Q4H PRN PRN Reason: Nausea / Vomiting Stop: 08/18/17 15:23 Potassium Chloride (Potassium Chloride Elixir) 40 meq NG DAILY [facility] Stop: 08/26/17 08:59 Last Admin: 06/27/17 08:17 Dose: Not Given Potassium Phosphate (K Phos) 1,000 mg NG DAILY [facility] Stop: 08/23/17 10:59 Last Admin: 06/27/17 08:17 Dose: Not Given Vancomycin HCl (Vancomycin Oral) 250 mg NG Q6HR [facility] Stop: 08/18/17 17:59 Last Admin: 06/27/17 17:12 Dose: Not Given General: obtunded HEENT: NC/AT, PERRLA, EOMI, anicteric sclerae, throat clear Neck: Supple, No JVD, No thyromegaly, +2 carotid pulse wo bruit, No LAD Lungs: CTAB Cardiovascular: tachy Abdomen: tender Extremities: clear Neurological: lethargic - Procedures Procedures: Procedures Procedure Code Date ASSISTANCE WITH RESPIRATORY VENTILATION, <24 HRS, CPAP [id number] 06/19/17 CLOSED [ENDOSCOPIC] BIOPSY OF LARYNX 31.43 07/12/96 INJECT/INFUSE NEC 99.29 11/11/07 LARYGNOSCOPY AND OTH TRACHEOSCOPY 31.42 07/12/96 LARYNGOSCOPY WITH BIOPSY 99716 07/12/96 OTHER GROUP THERAPY 94.44 11/26/07 POS AIRWAY PRESSURE CPAP [id number] 06/19/17 RECREATIONAL THERAPY 93.81 11/26/07 Internal Medicine Assmt/Plan - Assessment Assessment: 1.SEPTIC SHOCK. 2.ACUTE RENAL FAILURE. 3.ACUTE REPIRATORY FAILURE. 4.PARKINSONS DISEASE. 5.POSSIBLE C DIFF COLITIS. 6.ACUTE METABOLIC ENCEPHALOPATHY. - Plan Plan: CONTINUE ON CURRENT MEDICATION AND DIET. Nutritional Asmnt/Malnutr-PDOC - Dietary Evaluation Malnutrition Findings (Please click <Entered> for more info): Nutritional Asmnt/Malnutrition Start: 06/19/17 13: 46 Text: Status: Complete Freq: Document 06/19/17 13:46 HEN (Rec: 06/19/17 13:59 [email or web address] Nutritional Asmnt/Malnutrition Patient General Information Nutritional Screening High Risk Consult Diagnosis dehydration, tachycardia Pertinent Medical Hx/Surgical Hx parkingson, UTI, c diff colitis Subjective Information Consult received for BS 294 at admitting. Pt was transfered from [facility]. Pt seen resting in bed at time of visit. RN reported pt on NPO. Per nurse note, pt will start tube feeding when NGT placement verified. ordered Fibersource 30ml/hr continuous to start at dinner time today . Current Diet Order/ Nutrition Support NPO Pertinent Medications D5-0.9ns w/kcl 20meq Pertinent Labs 06/19 Na 135, K 2.9, Cl 106, BUN 23, Cr 1.5, glucose 295, alb 3.5 Nutritional Hx/Data Height 1.68 m Height (Calculated Centimeters) 167.6 Current Weight (lbs) 77.111 kg Weight (Calculated Kilograms) 77.1 Weight (Calculated Grams) 50309.7 [place] Body Weight 130 Body Mass Index (BMI) 27.4 Weight Status Overweight GI Symptoms GI Symptoms None Last BM 06/19 Difficult in: None Skin Integrity/Comment: GROIN AND SACRUM REDDNESS Estimated Nutritional Goals BEE in Kcals: Adj wt of IBW Calories/Kcals/Kg 25-30 Kcals Calculated 4001-8081 Protein: Adj wt of IBW Protein g/k Protein Calculated 64 Fluid: ml 1600-1920ml (1ml/kcal) Nutritional Problem 1. Problem Problem altered nutrition related lab values Etiology hyperglycemia Signs/Symptoms: glucose 295 Intervention/Recommendation Comments 1. Start TF as ordered - Fibersource HN 30ml/hr continuous. This will provide 864kcal, 38g protein and 589ml free water, meeting about 55% of nutritional needs. 2. pt on potassium replacement noted. If K level normal, will consider increase TF rate . 3. Monitor TF rate, tolerance, wt weekly, skin integrity and labs 4. F/U as high risk in 2-3 days, 06/21-06/22 Expected Outcomes/Goals Expected Outcomes/Goals 1. Pt to meet at least 75% of nutritional needs via nutrition support with tolerance 2. Wt stability, skin to remain intact, labs to approach WNL.
--- NOTE | 2017-06-27 22:09 | Progress Notes ---
DATE: SUBJECTIVE: Chart reviewed and the patient interviewed. Also discussed the patient's condition with the staff and reviewed records and labs. The patient continued to be depressed and she still seems to be sedated and sleeping most of the time in spite that, I cut down her Zoloft. The patient also still has minimum interaction with others, but easier to redirect her. She seems to be tired. Otherwise, no behavioral issues. ASSESSMENT: The patient is still depressed. TREATMENT PLAN: We will discontinue Zoloft. If it was just some sedation, would be less sleepy and less tired. Also, continue to monitor her behavior. JOB# [id number]
[2017-06-27] MEDS: D5-0.45NS w/20 mEq KCL 1,000 ML IV SCH (22:12)
[2017-06-28] MEDS: Diltiazem 30 mg Tab PO SCH ×5 (01:18→23:43)
[2017-06-28] MEDS: Vancomycin HCL 250 mg /10mL UDC NG SCH ×5 (01:21→23:42)
[2017-06-28] MEDS: INSULIN ASPART SLIDING SCALE 100 UNITS/ML UNIT SUBQ SCH ×4 (01:27→17:43)
[2017-06-28] MEDS: Linezolid 600mg/300mL Premix Bag IV SCH ×2 (03:01→17:00)
--- NOTE | 2017-06-28 08:37 | GI Progress Note ---
Subjective - Review of Systems Service Date: 06/28/17 Subjective: GI NOTE PULLED OUT NGT. IV ACCESS GAINED. Objective - Results Result Diagrams: 06/26/17 05:00 06/27/17 05:45 Recent Labs: Laboratory Last Values WBC 8.5 Th/cmm (4.8-10.8) 06/26/17 05:00 RBC 4.16 Mil/cmm (3.80-5.10) 06/26/17 05:00 Hgb 12.7 gm/dL (12-16) 06/26/17 05:00 Hct 37.9 % (41.0-60) L 06/26/17 05:00 MCV 91.2 fl (81-100) 06/26/17 05:00 MCH 30.6 pg (27.0-31.0) 06/26/17 05:00 MCHC Differential 33.6 pg (28.0-36.0) 06/26/17 05:00 RDW 16.1 % (11.5-20.0) 06/26/17 05:00 Plt Count 84 Th/cmm (150-400) L 06/26/17 05:00 MPV 9.6 fl 06/26/17 05:00 Neutrophils % 82.2 % (40.0-80.0) H 06/26/17 05:00 Band Neutrophils % 6 % (0-10) 06/23/17 04:30 Lymphocytes % 14.1 % (20.0-50.0) L 06/26/17 05:00 Monocytes % 1.6 % (2.0-10.0) L 06/26/17 05:00 Eosinophils % 2.0 % (0.0-5.0) 06/26/17 05:00 Basophils % 0.1 % (0.0-2.0) 06/26/17 05:00 Neutrophils (Manual) 81 % (40-80) H 06/23/17 04:30 Lymphocytes 11 % (20-50) L 06/23/17 04:30 Monocytes 2 % (2-10) 06/23/17 04:30 Toxic Granulation 2+ 06/21/17 05:01 Platelet Estimate ADEQUATE (NORMAL) 06/21/17 05:01 PT 11.9 SECONDS (9.5-11.5) H 06/27/17 05:45 INR 1.13 (0.5-1.4) 06/27/17 05:45 PTT (Actin FS) 27.4 SECONDS (26.0-38.0) 06/26/17 05:00 Specimen Source Arterial 06/20/17 15:00 Sample Site RB 06/20/17 15:00 pH 7.56 (7.35-7.45) H* 06/20/17 15:00 pCO2 25.0 mmHg (35.0-45.0) L 06/20/17 15:00 pO2 198.0 mmHg (80.0-100.0) H 06/20/17 15:00 HCO3 26.1 mEq/L (20.0-26.0) H 06/20/17 15:00 Base Excess 1.4 mEq/L (-3.0-3.0) 06/20/17 15:00 O2 Saturation 100.0 % (92.0-100.0) 06/20/17 15:00 Stephen Test NA 06/20/17 15:00 Vent Rate NA 06/20/17 15:00 Inspired O2 28 06/20/17 15:00 Tidal Volume NA 06/20/17 15:00 PEEP NA 06/20/17 15:00 Pressure (ins/psv/peep) NA 06/20/17 15:00 Critical Value E.ESCAMILLA 06/20/17 15:00 Sodium 147 mEq/L (136-145) H 06/27/17 05:45 Potassium 3.0 mEq/L (3.5-5.1) L 06/27/17 05:45 Chloride 117 mEq/L (98-107) H 06/27/17 05:45 Carbon Dioxide 21.2 mEq/L (21.0-31.0) 06/27/17 05:45 Anion Gap 11.8 (7.0-16.0) 06/27/17 05:45 BUN 14 mg/dL (7-25) 06/27/17 05:45 Creatinine 0.4 mg/dL (0.6-1.2) L 06/27/17 05:45 Est GFR ( Amer) > 60.0 ml/min (>90) 06/27/17 05:45 Est GFR (Non-Af Amer) > 60.0 ml/min 06/27/17 05:45 BUN/Creatinine Ratio 35.0 06/27/17 05:45 Glucose 142 mg/dL (70-105) H 06/27/17 05:45 POC Glucose 156 MG/DL (70 - 105) H 06/28/17 06:45 Calcium 7.9 mg/dL (8.6-10.3) L 06/27/17 05:45 Phosphorus 1.4 mg/dL (2.5-5.0) L 06/23/17 04:30 Magnesium 2.5 mg/dL (1.9-2.7) 06/23/17 04:30 Total Bilirubin 0.6 mg/dL (0.3-1.0) 06/26/17 05:00 AST 49 U/L (13-39) H 06/26/17 05:00 ALT 23 U/L (7-52) 06/26/17 05:00 Alkaline Phosphatase 127 U/L (34-104) H 06/26/17 05:00 Total Protein 4.0 gm/dL (6.0-8.3) L 06/26/17 05:00 Albumin 2.2 gm/dL (3.7-5.3) L 06/26/17 05:00 Globulin 1.8 gm/dL 06/26/17 05:00 Albumin/Globulin Ratio 1.2 (1.0-1.8) 06/26/17 05:00 Urine Source [place] 06/19/17 05:55 Urine Color DARK YELLOW 06/19/17 05:55 Urine Clarity TURBID (CLEAR) H 06/19/17 05:55 Urine pH 5.0 (4.6 - 8.0) 06/19/17 05:55 Ur Specific [place] >= 1.030 (1.005-1.030) 06/19/17 05:55 Urine Protein 30 mg/dL (NEGATIVE) H 06/19/17 05:55 Urine Glucose (UA) NEGATIVE mg/dL (NEGATIVE) 06/19/17 05:55 Urine Ketones 15 mg/dL (NEGATIVE) H 06/19/17 05:55 Urine Blood LARGE (NEGATIVE) H 06/19/17 05:55 Urine Nitrate POSITIVE (NEGATIVE) H 06/19/17 05:55 Urine Bilirubin MODERATE (NEGATIVE) H 06/19/17 05:55 Urine Urobilinogen 1.0 E.U./dL (0.2 - 1.0) 06/19/17 05:55 Ur Leukocyte Esterase NEGATIVE (NEGATIVE) 06/19/17 05:55 Urine RBC 10-25 /hpf (0-5) H 06/19/17 05:55 Urine WBC 2-5 /hpf (0-5) 06/19/17 05:55 Ur Epithelial Cells OCCASIONAL /lpf (FEW) 06/19/17 05:55 Urine Bacteria 3+ /hpf (NONE SEEN) H 06/19/17 05:55 - Physical Exam Vitals and I&O: Vital Signs Temp 96.8 F 06/28/17 08:15 Pulse 97 06/28/17 08:15 Resp 19 06/28/17 08:15 BP 123/69 06/28/17 08:15 Pulse Ox 97 06/28/17 08:15 Intake & Output 06/27/17 06/28/17 06/28/17 18:59 06:59 18:59 Intake Total 380 Output Total 675 Balance -295 Weight (lbs) 92.986 kg Intake: Intake, IV Amount 300 Linezolid 600mg/300mL 600 300 mg In 300 ml @ 300 mls/ hr IV Q12H [facility] Rx#: [id number] Oral 0 Tube Feeding 0 Other 80 Output: Urine 450 Stool 225 Other: Stool Characteristics Soft Soft Liquid Liquid Weight Source Bedscale Active Medications: Current Medications Acetaminophen (Tylenol) 650 mg PO Q4H PRN PRN Reason: MILD BACK PAIN Last Admin: 06/21/17 16:48 Dose: 650 mg Amantadine HCl (Symmetrel) 100 mg PO TID [facility] Stop: 08/18/17 20:59 Last Admin: 06/27/17 22:11 Dose: 100 mg Calcium/Vitamin D (Oscal W/Vitamin D) 1 tab PO BID [facility] Stop: 08/18/17 16:59 Last Admin: 06/27/17 16:43 Dose: Not Given Carbidopa/Levodopa (Sinemet 25 Mg-250 Mg) 1 tab PO BID [facility] Stop: 08/18/17 16:59 Last Admin: 06/27/17 16:43 Dose: Not Given Carisoprodol (Soma) 350 mg PO DAILY PRN PRN Reason: MUSCLE SPASM Stop: 08/18/17 15:12 Diltiazem HCl (Cardizem) 60 mg PO Q6HR [facility] Stop: 08/18/17 17:59 Last Admin: 06/28/17 07:13 Dose: 60 mg Doxycycline Hyclate (Vibramycin) 100 mg PO Q12HR [facility] Stop: 08/23/17 20:59 Last Admin: 06/27/17 22:11 Dose: 100 mg Famotidine (Pepcid) 40 mg PO DAILY [facility] Stop: 08/19/17 08:59 Last Admin: 06/27/17 08:17 Dose: Not Given Linezolid (Zyvox) 600 mg in 300 mls @ 300 mls/hr IV Q12H [facility] Stop: 08/19/17 13:59 Last Admin: 06/28/17 03:01 Dose: 300 mls/hr Norepinephrine Bitartrate 4 mg (/ Sodium Chloride) 254 mls @ 30.48 mls/hr IV TITR [facility]; 8 MCG/MIN PRN Reason: Protocol Stop: 08/19/17 14:44 Last Titration: 06/20/17 17:56 Dose: 0 mcg/min, 0 mls/hr Potassium Chloride/Dextrose/Sod Cl (D5-0.45ns W/20 Meq Kcl) 1,000 mls @ 75 mls/ hr IV .[id number] [facility] Stop: 08/26/17 21:49 Last Admin: 06/27/17 22:12 Dose: 75 mls/hr Insulin Aspart (Novolog Insulin Sliding Scale) 0 units SUBQ Q6HR [facility] PRN Reason: Protocol Stop: 08/24/17 17:59 Last Admin: 06/28/17 06:58 Dose: 3 units Lactobacillus Rhamnosus (Culturelle 15b) 1 each PO DAILY [facility] Stop: 08/20/17 08:59 Last Admin: 06/27/17 08:17 Dose: Not Given Levetiracetam (Keppra) 1,000 mg PO BID [facility] Stop: 08/18/17 16:59 Levetiracetam (Keppra) 1,000 mg PO BID [facility] Stop: 08/25/17 20:59 Last Admin: 06/27/17 16:43 Dose: Not Given Miscellaneous (Probiotic Screen) 1 ea MC PRN PRN PRN Reason: PROTOCOL Stop: 08/19/17 15:00 Morphine Sulfate (Morphine) 2 mg IVP Q4HR PRN PRN Reason: Pain (Severe) Stop: 08/18/17 15:21 Ondansetron HCl (Zofran) 4 mg IV Q4H PRN PRN Reason: Nausea / Vomiting Stop: 08/18/17 15:23 Potassium Chloride (Potassium Chloride Elixir) 40 meq NG DAILY [facility] Stop: 08/26/17 08:59 Last Admin: 06/27/17 08:17 Dose: Not Given Potassium Phosphate (K Phos) 1,000 mg NG DAILY [facility] Stop: 08/23/17 10:59 Last Admin: 06/27/17 08:17 Dose: Not Given Vancomycin HCl (Vancomycin Oral) 250 mg NG Q6HR [facility] Stop: 08/18/17 17:59 Last Admin: 06/28/17 06:54 Dose: 250 mg General: No acute distress Cardiovascular: Regular rate Lungs: Other (OCC RHONCHI) Abdomen: Bowel sounds, Soft - Procedures Procedures: Procedures Procedure Code Date ASSISTANCE WITH RESPIRATORY VENTILATION, <24 HRS, CPAP [id number] 06/19/17 CLOSED [ENDOSCOPIC] BIOPSY OF LARYNX 31.43 07/12/96 INJECT/INFUSE NEC 99.29 11/11/07 LARYGNOSCOPY AND OTH TRACHEOSCOPY 31.42 07/12/96 LARYNGOSCOPY WITH BIOPSY 91584 07/12/96 OTHER GROUP THERAPY 94.44 11/26/07 POS AIRWAY PRESSURE CPAP 89902 06/19/17 RECREATIONAL THERAPY 93.81 11/26/07 Assessment/Plan - Assessment Assessment: # Parkinsons disease # Dementia # Sepsis # Dysphagia wtih failed swallow evaluation The pt's directives have been clarified, and she has a recent POLST that notes she would like a trial of artificial tube feeding. Thus, we will plan for G tube placement as she is not able to take in adequate nutrition by mouth at this point. Plan: - G tube placement likely 06/30. - NGT feeds for now. Will attempt to reinsert NGT if pulled out by patient. - ancef 1g to be given 1 hour prior to procedure - NPO - further recs to follow G tube
[2017-06-28] MEDS: Potassium Chloride Elixir 20 mEq /15 mL UDC NG SCH (09:59)
[2017-06-28] MEDS: Calcium Carb/Vit D 500 mg/200 U Tab PO SCH ×2 (10:00→17:43)
[2017-06-28] MEDS: Lactobacillus Rhamnosus GG 15 Billion CFU CAP.SPRINK PO SCH (10:00)
[2017-06-28 10:26] LABS: ANION GAP 10.8 (7.0-16.0); BUN - UREA NITROGEN 12 mg/dL (7-25); CALCIUM SERUM 8.1 mg/dL (8.6-10.3); CARBON DIOXIDE 23.1 mEq/L (21.0-31.0); CHLORIDE 116 mEq/L (98-107); CREATININE - SERUM 0.4 mg/dL (0.6-1.2); GFR AFRICAN-AMERICAN > 60.0 ml/min (>90); GFR NON AFRICAN-AMERICAN > 60.0 ml/min; GLUCOSE 183 mg/dL (70-105); SODIUM SERUM 147 mEq/L (136-145)
[2017-06-28 10:32] LABS: POTASSIUM SERUM 2.9 mEq/L (3.5-5.1)
[2017-06-28] MEDS ORDERED: Potassium Chloride 40 MEQ, Lidocaine 1% 20mL Vial 25 MG in Sodium Chloride 0.9% 250 ML IV ONE (11:07)
--- NOTE | 2017-06-28 12:07 | Internal Medicine Prog Note ---
Internal Medicine Subjective - Subjective Service Date: 06/28/17 Patient seen and examined:: with staff (SHE PULLED NGT) Patient is:: asleep, non-verbal, in bed Per staff patient has:: no adverse event, other (THE PATIENT ON BIPAP,LEVAPHID AND AMIODARON IV DRIP.URIN OUTPUT IS NOT GOOD) Internal Medicine Objective - Results Result Diagrams: 06/26/17 05:00 06/28/17 09:58 Recent Labs: Laboratory Last Values WBC 8.5 Th/cmm (4.8-10.8) 06/26/17 05:00 RBC 4.16 Mil/cmm (3.80-5.10) 06/26/17 05:00 Hgb 12.7 gm/dL (12-16) 06/26/17 05:00 Hct 37.9 % (41.0-60) L 06/26/17 05:00 MCV 91.2 fl (81-100) 06/26/17 05:00 MCH 30.6 pg (27.0-31.0) 06/26/17 05:00 MCHC Differential 33.6 pg (28.0-36.0) 06/26/17 05:00 RDW 16.1 % (11.5-20.0) 06/26/17 05:00 Plt Count 84 Th/cmm (150-400) L 06/26/17 05:00 MPV 9.6 fl 06/26/17 05:00 Neutrophils % 82.2 % (40.0-80.0) H 06/26/17 05:00 Band Neutrophils % 6 % (0-10) 06/23/17 04:30 Lymphocytes % 14.1 % (20.0-50.0) L 06/26/17 05:00 Monocytes % 1.6 % (2.0-10.0) L 06/26/17 05:00 Eosinophils % 2.0 % (0.0-5.0) 06/26/17 05:00 Basophils % 0.1 % (0.0-2.0) 06/26/17 05:00 Neutrophils (Manual) 81 % (40-80) H 06/23/17 04:30 Lymphocytes 11 % (20-50) L 06/23/17 04:30 Monocytes 2 % (2-10) 06/23/17 04:30 Toxic Granulation 2+ 06/21/17 05:01 Platelet Estimate ADEQUATE (NORMAL) 06/21/17 05:01 PT 11.9 SECONDS (9.5-11.5) H 06/27/17 05:45 INR 1.13 (0.5-1.4) 06/27/17 05:45 PTT (Actin FS) 27.4 SECONDS (26.0-38.0) 06/26/17 05:00 Specimen Source Arterial 06/20/17 15:00 Sample Site RB 06/20/17 15:00 pH 7.56 (7.35-7.45) H* 06/20/17 15:00 pCO2 25.0 mmHg (35.0-45.0) L 06/20/17 15:00 pO2 198.0 mmHg (80.0-100.0) H 06/20/17 15:00 HCO3 26.1 mEq/L (20.0-26.0) H 06/20/17 15:00 Base Excess 1.4 mEq/L (-3.0-3.0) 06/20/17 15:00 O2 Saturation 100.0 % (92.0-100.0) 06/20/17 15:00 Stephen Test NA 06/20/17 15:00 Vent Rate NA 06/20/17 15:00 Inspired O2 28 06/20/17 15:00 Tidal Volume NA 06/20/17 15:00 PEEP NA 06/20/17 15:00 Pressure (ins/psv/peep) NA 06/20/17 15:00 Critical Value E.ESCAMILLA 06/20/17 15:00 Sodium 147 mEq/L (136-145) H 06/28/17 09:58 Potassium 2.9 mEq/L (3.5-5.1) L* 06/28/17 09:58 Chloride 116 mEq/L (98-107) H 06/28/17 09:58 Carbon Dioxide 23.1 mEq/L (21.0-31.0) 06/28/17 09:58 Anion Gap 10.8 (7.0-16.0) 06/28/17 09:58 BUN 12 mg/dL (7-25) 06/28/17 09:58 Creatinine 0.4 mg/dL (0.6-1.2) L 06/28/17 09:58 Est GFR ( Amer) > 60.0 ml/min (>90) 06/28/17 09:58 Est GFR (Non-Af Amer) > 60.0 ml/min 06/28/17 09:58 BUN/Creatinine Ratio 30.0 06/28/17 09:58 Glucose 183 mg/dL (70-105) H 06/28/17 09:58 POC Glucose 156 MG/DL (70 - 105) H 06/28/17 06:45 Calcium 8.1 mg/dL (8.6-10.3) L 06/28/17 09:58 Phosphorus 1.4 mg/dL (2.5-5.0) L 06/23/17 04:30 Magnesium 2.5 mg/dL (1.9-2.7) 06/23/17 04:30 Total Bilirubin 0.6 mg/dL (0.3-1.0) 06/26/17 05:00 AST 49 U/L (13-39) H 06/26/17 05:00 ALT 23 U/L (7-52) 06/26/17 05:00 Alkaline Phosphatase 127 U/L (34-104) H 06/26/17 05:00 Total Protein 4.0 gm/dL (6.0-8.3) L 06/26/17 05:00 Albumin 2.2 gm/dL (3.7-5.3) L 06/26/17 05:00 Globulin 1.8 gm/dL 06/26/17 05:00 Albumin/Globulin Ratio 1.2 (1.0-1.8) 06/26/17 05:00 Urine Source [place] 06/19/17 05:55 Urine Color DARK YELLOW 06/19/17 05:55 Urine Clarity TURBID (CLEAR) H 06/19/17 05:55 Urine pH 5.0 (4.6 - 8.0) 06/19/17 05:55 Ur Specific [place] >= 1.030 (1.005-1.030) 06/19/17 05:55 Urine Protein 30 mg/dL (NEGATIVE) H 06/19/17 05:55 Urine Glucose (UA) NEGATIVE mg/dL (NEGATIVE) 06/19/17 05:55 Urine Ketones 15 mg/dL (NEGATIVE) H 06/19/17 05:55 Urine Blood LARGE (NEGATIVE) H 06/19/17 05:55 Urine Nitrate POSITIVE (NEGATIVE) H 06/19/17 05:55 Urine Bilirubin MODERATE (NEGATIVE) H 06/19/17 05:55 Urine Urobilinogen 1.0 E.U./dL (0.2 - 1.0) 06/19/17 05:55 Ur Leukocyte Esterase NEGATIVE (NEGATIVE) 06/19/17 05:55 Urine RBC 10-25 /hpf (0-5) H 06/19/17 05:55 Urine WBC 2-5 /hpf (0-5) 06/19/17 05:55 Ur Epithelial Cells OCCASIONAL /lpf (FEW) 06/19/17 05:55 Urine Bacteria 3+ /hpf (NONE SEEN) H 06/19/17 05:55 - Physical Exam Vitals and I&O: Vital Signs Temp 96.8 F 06/28/17 08:15 Pulse 101 06/28/17 08:49 Resp 16 06/28/17 08:49 BP 123/69 06/28/17 08:15 Pulse Ox 97 06/28/17 08:49 Intake & Output 06/27/17 06/28/17 06/28/17 18:59 06:59 18:59 Intake Total 380 780 Output Total 675 600 Balance -295 180 Weight (lbs) 92.986 kg 94.801 kg Intake: Intake, IV Amount 300 300 Linezolid 600mg/300mL 600 300 300 mg In 300 ml @ 300 mls/ hr IV Q12H [facility] Rx#: [id number] Oral 0 Tube Feeding 0 280 Other 80 200 Output: Urine 450 400 Stool 225 Other 200 Other: Stool Characteristics Soft Soft Liquid Liquid Weight Source Bedscale Bedscale Active Medications: Current Medications Acetaminophen (Tylenol) 650 mg PO Q4H PRN PRN Reason: MILD BACK PAIN Last Admin: 06/21/17 16:48 Dose: 650 mg Amantadine HCl (Symmetrel) 100 mg PO TID [facility] Stop: 08/18/17 20:59 Last Admin: 06/28/17 10:00 Dose: Not Given Calcium/Vitamin D (Oscal W/Vitamin D) 1 tab PO BID [facility] Stop: 08/18/17 16:59 Last Admin: 06/28/17 10:00 Dose: Not Given Carbidopa/Levodopa (Sinemet 25 Mg-250 Mg) 1 tab PO BID [facility] Stop: 08/18/17 16:59 Last Admin: 06/28/17 10:00 Dose: Not Given Carisoprodol (Soma) 350 mg PO DAILY PRN PRN Reason: MUSCLE SPASM Stop: 08/18/17 15:12 Diltiazem HCl (Cardizem) 60 mg PO Q6HR [facility] Stop: 08/18/17 17:59 Last Admin: 06/28/17 07:13 Dose: 60 mg Doxycycline Hyclate (Vibramycin) 100 mg PO Q12HR [facility] Stop: 08/23/17 20:59 Last Admin: 06/28/17 10:00 Dose: Not Given Famotidine (Pepcid) 40 mg PO DAILY [facility] Stop: 08/19/17 08:59 Last Admin: 06/28/17 10:00 Dose: Not Given Linezolid (Zyvox) 600 mg in 300 mls @ 300 mls/hr IV Q12H [facility] Stop: 08/19/17 13:59 Last Infusion: 06/28/17 08:00 Dose: Infused Norepinephrine Bitartrate 4 mg (/ Sodium Chloride) 254 mls @ 30.48 mls/hr IV TITR [facility]; 8 MCG/MIN PRN Reason: Protocol Stop: 08/19/17 14:44 Last Titration: 06/20/17 17:56 Dose: 0 mcg/min, 0 mls/hr Potassium Chloride/Dextrose/Sod Cl (D5-0.45ns W/20 Meq Kcl) 1,000 mls @ 75 mls/ hr IV .[id number] [facility] Stop: 08/26/17 21:49 Last Admin: 06/27/17 22:12 Dose: 75 mls/hr Levetiracetam 1,000 mg/ Sodium (Chloride) 110 mls @ 400 mls/hr IV Q12H [facility] Stop: 08/27/17 10:59 Last Admin: 06/28/17 11:25 Dose: 400 mls/hr Potassium Chloride 40 meq/Lidocaine HCl 25 mg/ Sodium Chloride 272.5 mls @ 68 mls/hr IV X1 ONE Stop: 06/28/17 15:07 Insulin Aspart (Novolog Insulin Sliding Scale) 0 units SUBQ Q6HR [facility] PRN Reason: Protocol Stop: 08/24/17 17:59 Last Admin: 06/28/17 06:58 Dose: 3 units Lactobacillus Rhamnosus (Culturelle 15b) 1 each PO DAILY [facility] Stop: 08/20/17 08:59 Last Admin: 06/28/17 10:00 Dose: Not Given Miscellaneous (Probiotic Screen) 1 ea MC PRN PRN PRN Reason: PROTOCOL Stop: 08/19/17 15:00 Morphine Sulfate (Morphine) 2 mg IVP Q4HR PRN PRN Reason: Pain (Severe) Stop: 08/18/17 15:21 Ondansetron HCl (Zofran) 4 mg IV Q4H PRN PRN Reason: Nausea / Vomiting Stop: 08/18/17 15:23 Potassium Chloride (Potassium Chloride Elixir) 40 meq NG DAILY [facility] Stop: 08/26/17 08:59 Last Admin: 06/28/17 09:59 Dose: Not Given Potassium Phosphate (K Phos) 1,000 mg NG DAILY [facility] Stop: 08/23/17 10:59 Last Admin: 06/28/17 09:59 Dose: Not Given Vancomycin HCl (Vancomycin Oral) 250 mg NG Q6HR [facility] Stop: 08/18/17 17:59 Last Admin: 06/28/17 06:54 Dose: 250 mg General: obtunded HEENT: NC/AT, PERRLA, EOMI, anicteric sclerae, throat clear Neck: Supple, No JVD, No thyromegaly, +2 carotid pulse wo bruit, No LAD Lungs: CTAB Cardiovascular: tachy Abdomen: tender Extremities: clear Neurological: lethargic - Procedures Procedures: Procedures Procedure Code Date ASSISTANCE WITH RESPIRATORY VENTILATION, <24 HRS, CPAP [id number] 06/19/17 CLOSED [ENDOSCOPIC] BIOPSY OF LARYNX 31.43 07/12/96 INJECT/INFUSE NEC 99.29 11/11/07 LARYGNOSCOPY AND OTH TRACHEOSCOPY 31.42 07/12/96 LARYNGOSCOPY WITH BIOPSY 79606 07/12/96 OTHER GROUP THERAPY 94.44 11/26/07 POS AIRWAY PRESSURE CPAP 29645 06/19/17 RECREATIONAL THERAPY 93.81 11/26/07 Internal Medicine Assmt/Plan - Assessment Assessment: 1.SEPTIC SHOCK. 2.ACUTE RENAL FAILURE. 3.ACUTE REPIRATORY FAILURE. 4.PARKINSONS DISEASE. 5.POSSIBLE C DIFF COLITIS. 6.ACUTE METABOLIC ENCEPHALOPATHY. - Plan Plan: CONTINUE ON CURRENT MEDICATION AND DIET. Nutritional Asmnt/Malnutr-PDOC - Dietary Evaluation Malnutrition Findings (Please click <Entered> for more info): Nutritional Asmnt/Malnutrition Start: 06/19/17 13: 46 Text: Status: Complete Freq: Document 06/19/17 13:46 JOCELYNEMARIOLA (Rec: 06/19/17 13:59 LCHENG [email or web address]) Nutritional Asmnt/Malnutrition Patient General Information Nutritional Screening High Risk Consult Diagnosis dehydration, tachycardia Pertinent Medical Hx/Surgical Hx [place], UTI, c diff colitis Subjective Information Consult received for BS 294 at admitting. Pt was transfered from [facility]. Pt seen resting in bed at time of visit. RN reported pt on NPO. Per nurse note, pt will start tube feeding when NGT placement verified. ordered Fibersource 30ml/hr continuous to start at dinner time today . Current Diet Order/ Nutrition Support NPO Pertinent Medications D5-0.9ns w/kcl 20meq Pertinent Labs 06/19 Na 135, K 2.9, Cl 106, BUN 23, Cr 1.5, glucose 295, alb 3.5 Nutritional Hx/Data Height 1.68 m Height (Calculated Centimeters) 167.6 Current Weight (lbs) 77.111 kg Weight (Calculated Kilograms) 77.1 Weight (Calculated Grams) 12550.7 Reading Body Weight 130 Body Mass Index (BMI) 27.4 Weight Status Overweight GI Symptoms GI Symptoms None Last BM 06/19 Difficult in: None Skin Integrity/Comment: GROIN AND SACRUM REDDNESS Estimated Nutritional Goals BEE in Kcals: Adj wt of IBW Calories/Kcals/Kg 25-30 Kcals Calculated [id number] Protein: Adj wt of IBW Protein g/k Protein Calculated 64 Fluid: ml 1600-1920ml (1ml/kcal) Nutritional Problem 1. Problem Problem altered nutrition related lab values Etiology hyperglycemia Signs/Symptoms: glucose 295 Intervention/Recommendation Comments 1. Start TF as ordered - Fibersource HN 30ml/hr continuous. This will provide 864kcal, 38g protein and 589ml free water, meeting about 55% of nutritional needs. 2. pt on potassium replacement noted. If K level normal, will consider increase TF rate . 3. Monitor TF rate, tolerance, wt weekly, skin integrity and labs 4. F/U as high risk in 2-3 days, 06/21-06/22 Expected Outcomes/Goals Expected Outcomes/Goals 1. Pt to meet at least 75% of nutritional needs via nutrition support with tolerance 2. Wt stability, skin to remain intact, labs to approach WNL.
[2017-06-29] MEDS: INSULIN ASPART SLIDING SCALE 100 UNITS/ML UNIT SUBQ SCH ×4 (00:25→20:04)
[2017-06-29] MEDS: Linezolid 600mg/300mL Premix Bag IV SCH ×2 (02:51→16:06)
[2017-06-29 06:41] LABS: % EOSINOPHILS 1.9 % (0.0-5.0); % LYMPHOCYTES 11.6 % (20.0-50.0); % MONOCYTES 6.1 % (2.0-10.0); % NEUTROPHILS 79.4 % (40.0-80.0); BASOPHILE ABSOLUTE 0.1 Th/cumm (0-0.2); EOSINOPHILE ABSOLUTE 0.2 Th/cmm (0.1-0.4); HEMATOCRIT 39.6 % (41.0-60); HEMOGLOBIN 13.4 gm/dL (12-16); LYMPHOCYTE ABSOLUTE 1.2 Th/cmm (1.5-3.0); MEAN CELL VOLUME 92.5 fl (81-100); MEAN CORPUSCULAR HEMOGLOBIN 31.3 pg (27.0-31.0); MEAN CORPUSCULAR HGB CONC 33.8 pg (28.0-36.0); MEAN PLATELET VOLUME 8.9 fl; MONOCYTE ABSOLUTE 0.7 Th/cmm (0.3-1.0); NEUTROPHILE ABSOLUTE 8.5 Th/cmm (1.8-8.0); PLATELET COUNT 107 Th/cmm (150-400); RED BLOOD COUNT 4.28 Mil/cmm (3.80-5.10); WHITE BLOOD COUNT 10.7 Th/cmm (4.8-10.8)
[2017-06-29 06:57] LABS: ALB/GLOB RATIO 1.3 (1.0-1.8); ALBUMIN 2.4 gm/dL (3.7-5.3); ALKALINE PHOSPHATASE 98 U/L (34-104); ANION GAP 10.3 (7.0-16.0); BILIRUBIN,TOTAL 0.7 mg/dL (0.3-1.0); BUN - UREA NITROGEN 9 mg/dL (7-25); CALCIUM SERUM 7.6 mg/dL (8.6-10.3); CARBON DIOXIDE 22.9 mEq/L (21.0-31.0); CHLORIDE 116 mEq/L (98-107); CREATININE - SERUM 0.3 mg/dL (0.6-1.2); GFR AFRICAN-AMERICAN > 60.0 ml/min (>90); GFR NON AFRICAN-AMERICAN > 60.0 ml/min; GLUCOSE 163 mg/dL (70-105); POTASSIUM SERUM 3.2 mEq/L (3.5-5.1); SGOT 36 U/L (13-39); SGPT/ALT 29 U/L (7-52); SODIUM SERUM 146 mEq/L (136-145); TOTAL PROTEIN,SERUM 4.2 gm/dL (6.0-8.3)
[2017-06-29] MEDS: Diltiazem 30 mg Tab PO SCH ×3 (07:47→18:30)
[2017-06-29] MEDS: Vancomycin HCL 250 mg /10mL UDC NG SCH ×3 (07:48→20:04)
--- NOTE | 2017-06-29 08:17 | GI Progress Note ---
Subjective - Review of Systems Service Date: 06/29/17 Subjective: GI NOTE IV ACCESS GAINED. EVENTS NOTED. Objective - Results Result Diagrams: 06/29/17 06:10 06/29/17 06:10 Recent Labs: Laboratory Last Values WBC 10.7 Th/cmm (4.8-10.8) 06/29/17 06:10 RBC 4.28 Mil/cmm (3.80-5.10) 06/29/17 06:10 Hgb 13.4 gm/dL (12-16) 06/29/17 06:10 Hct 39.6 % (41.0-60) L 06/29/17 06:10 MCV 92.5 fl (81-100) 06/29/17 06:10 MCH 31.3 pg (27.0-31.0) H 06/29/17 06:10 MCHC Differential 33.8 pg (28.0-36.0) 06/29/17 06:10 RDW 16.0 % (11.5-20.0) 06/29/17 06:10 Plt Count 107 Th/cmm (150-400) L 06/29/17 06:10 MPV 8.9 fl 06/29/17 06:10 Neutrophils % 79.4 % (40.0-80.0) 06/29/17 06:10 Band Neutrophils % 6 % (0-10) 06/23/17 04:30 Lymphocytes % 11.6 % (20.0-50.0) L 06/29/17 06:10 Monocytes % 6.1 % (2.0-10.0) 06/29/17 06:10 Eosinophils % 1.9 % (0.0-5.0) 06/29/17 06:10 Basophils % 1.0 % (0.0-2.0) 06/29/17 06:10 Neutrophils (Manual) 81 % (40-80) H 06/23/17 04:30 Lymphocytes 11 % (20-50) L 06/23/17 04:30 Monocytes 2 % (2-10) 06/23/17 04:30 Toxic Granulation 2+ 06/21/17 05:01 Platelet Estimate ADEQUATE (NORMAL) 06/21/17 05:01 PT 11.9 SECONDS (9.5-11.5) H 06/27/17 05:45 INR 1.13 (0.5-1.4) 06/27/17 05:45 PTT (Actin FS) 27.4 SECONDS (26.0-38.0) 06/26/17 05:00 Specimen Source Arterial 06/20/17 15:00 Sample Site RB 06/20/17 15:00 pH 7.56 (7.35-7.45) H* 06/20/17 15:00 pCO2 25.0 mmHg (35.0-45.0) L 06/20/17 15:00 pO2 198.0 mmHg (80.0-100.0) H 06/20/17 15:00 HCO3 26.1 mEq/L (20.0-26.0) H 06/20/17 15:00 Base Excess 1.4 mEq/L (-3.0-3.0) 06/20/17 15:00 O2 Saturation 100.0 % (92.0-100.0) 06/20/17 15:00 Stephen Test NA 06/20/17 15:00 Vent Rate NA 06/20/17 15:00 Inspired O2 28 06/20/17 15:00 Tidal Volume NA 06/20/17 15:00 PEEP NA 06/20/17 15:00 Pressure (ins/psv/peep) NA 06/20/17 15:00 Critical Value E.ESCAMILLA 06/20/17 15:00 Sodium 146 mEq/L (136-145) H 06/29/17 06:10 Potassium 3.2 mEq/L (3.5-5.1) L 06/29/17 06:10 Chloride 116 mEq/L (98-107) H 06/29/17 06:10 Carbon Dioxide 22.9 mEq/L (21.0-31.0) 06/29/17 06:10 Anion Gap 10.3 (7.0-16.0) 06/29/17 06:10 BUN 9 mg/dL (7-25) 06/29/17 06:10 Creatinine 0.3 mg/dL (0.6-1.2) L 06/29/17 06:10 Est GFR ( Amer) > 60.0 ml/min (>90) 06/29/17 06:10 Est GFR (Non-Af Amer) > 60.0 ml/min 06/29/17 06:10 BUN/Creatinine Ratio 30.0 06/29/17 06:10 Glucose 163 mg/dL (70-105) H 06/29/17 06:10 POC Glucose 126 MG/DL (70 - 105) H 06/29/17 00:01 Calcium 7.6 mg/dL (8.6-10.3) L 06/29/17 06:10 Phosphorus 1.4 mg/dL (2.5-5.0) L 06/23/17 04:30 Magnesium 2.5 mg/dL (1.9-2.7) 06/23/17 04:30 Total Bilirubin 0.7 mg/dL (0.3-1.0) 06/29/17 06:10 AST 36 U/L (13-39) 06/29/17 06:10 ALT 29 U/L (7-52) 06/29/17 06:10 Alkaline Phosphatase 98 U/L (34-104) 06/29/17 06:10 Total Protein 4.2 gm/dL (6.0-8.3) L 06/29/17 06:10 Albumin 2.4 gm/dL (3.7-5.3) L 06/29/17 06:10 Globulin 1.8 gm/dL 06/29/17 06:10 Albumin/Globulin Ratio 1.3 (1.0-1.8) 06/29/17 06:10 Urine Source [place] 06/19/17 05:55 Urine Color DARK YELLOW 06/19/17 05:55 Urine Clarity TURBID (CLEAR) H 06/19/17 05:55 Urine pH 5.0 (4.6 - 8.0) 06/19/17 05:55 Ur Specific [place] >= 1.030 (1.005-1.030) 06/19/17 05:55 Urine Protein 30 mg/dL (NEGATIVE) H 06/19/17 05:55 Urine Glucose (UA) NEGATIVE mg/dL (NEGATIVE) 06/19/17 05:55 Urine Ketones 15 mg/dL (NEGATIVE) H 06/19/17 05:55 Urine Blood LARGE (NEGATIVE) H 06/19/17 05:55 Urine Nitrate POSITIVE (NEGATIVE) H 06/19/17 05:55 Urine Bilirubin MODERATE (NEGATIVE) H 06/19/17 05:55 Urine Urobilinogen 1.0 E.U./dL (0.2 - 1.0) 06/19/17 05:55 Ur Leukocyte Esterase NEGATIVE (NEGATIVE) 06/19/17 05:55 Urine RBC 10-25 /hpf (0-5) H 06/19/17 05:55 Urine WBC 2-5 /hpf (0-5) 06/19/17 05:55 Ur Epithelial Cells OCCASIONAL /lpf (FEW) 06/19/17 05:55 Urine Bacteria 3+ /hpf (NONE SEEN) H 06/19/17 05:55 - Physical Exam Vitals and I&O: Vital Signs Temp 96.4 F 06/29/17 04:00 Pulse 93 06/29/17 07:47 Resp 16 06/29/17 07:18 BP 104/55 06/29/17 04:00 Pulse Ox 100 06/29/17 07:18 Intake & Output 06/28/17 06/29/17 06/29/17 18:59 06:59 18:59 Intake Total 1190 410 Output Total 600 Balance 590 410 Weight (lbs) 94.801 kg Intake: Intake, IV Amount 710 410 Levetiracetam 1,000 mg In 110 110 Sodium Chloride 0.9% 100 ml @ 400 mls/hr IV Q12H [facility] Rx#:[id number] Linezolid 600mg/300mL 600 600 300 mg In 300 ml @ 300 mls/ hr IV Q12H [facility] Rx#: [id number] Tube Feeding 280 Other 200 Output: Urine 400 Other 200 Other: Stool Characteristics Soft Soft Liquid Liquid Weight Source Bedscale Active Medications: Current Medications Acetaminophen (Tylenol) 650 mg PO Q4H PRN PRN Reason: MILD BACK PAIN Last Admin: 06/21/17 16:48 Dose: 650 mg Amantadine HCl (Symmetrel) 100 mg PO TID [facility] Stop: 08/18/17 20:59 Last Admin: 06/28/17 22:51 Dose: 100 mg Calcium/Vitamin D (Oscal W/Vitamin D) 1 tab PO BID [facility] Stop: 08/18/17 16:59 Last Admin: 06/28/17 17:43 Dose: Not Given Carbidopa/Levodopa (Sinemet 25 Mg-250 Mg) 1 tab PO BID [facility] Stop: 08/18/17 16:59 Last Admin: 06/28/17 17:43 Dose: Not Given Carisoprodol (Soma) 350 mg PO DAILY PRN PRN Reason: MUSCLE SPASM Stop: 08/18/17 15:12 Diltiazem HCl (Cardizem) 60 mg PO Q6HR [facility] Stop: 08/18/17 17:59 Last Admin: 06/29/17 07:47 Dose: Not Given Doxycycline Hyclate (Vibramycin) 100 mg PO Q12HR [facility] Stop: 08/23/17 20:59 Last Admin: 06/28/17 22:51 Dose: 100 mg Famotidine (Pepcid) 40 mg PO DAILY [facility] Stop: 08/19/17 08:59 Last Admin: 06/28/17 10:00 Dose: Not Given Linezolid (Zyvox) 600 mg in 300 mls @ 300 mls/hr IV Q12H [facility] Stop: 08/19/17 13:59 Last Infusion: 06/29/17 03:57 Dose: Infused Norepinephrine Bitartrate 4 mg (/ Sodium Chloride) 254 mls @ 30.48 mls/hr IV TITR LUIS; 8 MCG/MIN PRN Reason: Protocol Stop: 08/19/17 14:44 Last Titration: 06/20/17 17:56 Dose: 0 mcg/min, 0 mls/hr Potassium Chloride/Dextrose/Sod Cl (D5-0.45ns W/20 Meq Kcl) 1,000 mls @ 75 mls/ hr IV .[id number] [facility] Stop: 08/26/17 21:49 Last Admin: 06/27/17 22:12 Dose: 75 mls/hr Levetiracetam 1,000 mg/ Sodium (Chloride) 110 mls @ 400 mls/hr IV Q12H [facility] Stop: 08/27/17 10:59 Last Infusion: 06/29/17 03:27 Dose: Infused Insulin Aspart (Novolog Insulin Sliding Scale) 0 units SUBQ Q6HR [facility] PRN Reason: Protocol Stop: 08/24/17 17:59 Last Admin: 06/29/17 06:56 Dose: Not Given Lactobacillus Rhamnosus (Culturelle 15b) 1 each PO DAILY [facility] Stop: 08/20/17 08:59 Last Admin: 06/28/17 10:00 Dose: Not Given Miscellaneous (Probiotic Screen) 1 ea MC PRN PRN PRN Reason: PROTOCOL Stop: 08/19/17 15:00 Ondansetron HCl (Zofran) 4 mg IV Q4H PRN PRN Reason: Nausea / Vomiting Stop: 08/18/17 15:23 Potassium Chloride (Potassium Chloride Elixir) 40 meq NG DAILY [facility] Stop: 08/26/17 08:59 Last Admin: 06/28/17 09:59 Dose: Not Given Potassium Phosphate (K Phos) 1,000 mg NG DAILY [facility] Stop: 08/23/17 10:59 Last Admin: 06/28/17 09:59 Dose: Not Given Vancomycin HCl (Vancomycin Oral) 250 mg NG Q6HR [facility] Stop: 08/18/17 17:59 Last Admin: 06/29/17 07:48 Dose: Not Given General: No acute distress Neck: Supple, JVD Cardiovascular: Regular rate Lungs: Other (OCC RHONCHI) Abdomen: Bowel sounds, Soft Extremities: Edema (contractures) - Procedures Procedures: Procedures Procedure Code Date ASSISTANCE WITH RESPIRATORY VENTILATION, <24 HRS, CPAP [id number] 06/19/17 CLOSED [ENDOSCOPIC] BIOPSY OF LARYNX 31.43 07/12/96 INJECT/INFUSE NEC 99.29 11/11/07 LARYGNOSCOPY AND OTH TRACHEOSCOPY 31.42 07/12/96 LARYNGOSCOPY WITH BIOPSY 11319 07/12/96 OTHER GROUP THERAPY 94.44 11/26/07 POS AIRWAY PRESSURE CPAP 40700 06/19/17 RECREATIONAL THERAPY 93.81 11/26/07 Assessment/Plan - Assessment Assessment: # Parkinsons disease # Dementia # Sepsis # Dysphagia with failed swallow evaluation The pt's directives have been clarified, and she has a recent POLST that notes she would like a trial of artificial tube feeding. Thus, we will plan for G tube placement as she is not able to take in adequate nutrition by mouth at this point. Plan: - G tube placement likely 06/30. Hopefully IV access will be maintained. May need central line placement. - NGT pulled out multiple times. - ancef 1g to be given 1 hour prior to procedure - NPO - further recs to follow G tube
[2017-06-29] MEDS: Calcium Carb/Vit D 500 mg/200 U Tab PO SCH ×2 (08:51→17:30)
[2017-06-29] MEDS: Potassium Chloride Elixir 20 mEq /15 mL UDC NG SCH (08:52)
[2017-06-29] MEDS: Lactobacillus Rhamnosus GG 15 Billion CFU CAP.SPRINK PO SCH (08:52)
--- NOTE | 2017-06-29 10:11 | General Progress Note ---
Subjective - Review of Systems Service Date: 06/29/17 Events since last encounter: central line LSV Objective - Results Result Diagrams: 06/29/17 06:10 06/29/17 06:10 Recent Labs: Laboratory Last Values WBC 10.7 Th/cmm (4.8-10.8) 06/29/17 06:10 RBC 4.28 Mil/cmm (3.80-5.10) 06/29/17 06:10 Hgb 13.4 gm/dL (12-16) 06/29/17 06:10 Hct 39.6 % (41.0-60) L 06/29/17 06:10 MCV 92.5 fl (81-100) 06/29/17 06:10 MCH 31.3 pg (27.0-31.0) H 06/29/17 06:10 MCHC Differential 33.8 pg (28.0-36.0) 06/29/17 06:10 RDW 16.0 % (11.5-20.0) 06/29/17 06:10 Plt Count 107 Th/cmm (150-400) L 06/29/17 06:10 MPV 8.9 fl 06/29/17 06:10 Neutrophils % 79.4 % (40.0-80.0) 06/29/17 06:10 Band Neutrophils % 6 % (0-10) 06/23/17 04:30 Lymphocytes % 11.6 % (20.0-50.0) L 06/29/17 06:10 Monocytes % 6.1 % (2.0-10.0) 06/29/17 06:10 Eosinophils % 1.9 % (0.0-5.0) 06/29/17 06:10 Basophils % 1.0 % (0.0-2.0) 06/29/17 06:10 Neutrophils (Manual) 81 % (40-80) H 06/23/17 04:30 Lymphocytes 11 % (20-50) L 06/23/17 04:30 Monocytes 2 % (2-10) 06/23/17 04:30 Toxic Granulation 2+ 06/21/17 05:01 Platelet Estimate ADEQUATE (NORMAL) 06/21/17 05:01 PT 11.9 SECONDS (9.5-11.5) H 06/27/17 05:45 INR 1.13 (0.5-1.4) 06/27/17 05:45 PTT (Actin FS) 27.4 SECONDS (26.0-38.0) 06/26/17 05:00 Specimen Source Arterial 06/20/17 15:00 Sample Site RB 06/20/17 15:00 pH 7.56 (7.35-7.45) H* 06/20/17 15:00 pCO2 25.0 mmHg (35.0-45.0) L 06/20/17 15:00 pO2 198.0 mmHg (80.0-100.0) H 06/20/17 15:00 HCO3 26.1 mEq/L (20.0-26.0) H 06/20/17 15:00 Base Excess 1.4 mEq/L (-3.0-3.0) 06/20/17 15:00 O2 Saturation 100.0 % (92.0-100.0) 06/20/17 15:00 Stephen Test NA 06/20/17 15:00 Vent Rate NA 06/20/17 15:00 Inspired O2 28 06/20/17 15:00 Tidal Volume NA 06/20/17 15:00 PEEP NA 06/20/17 15:00 Pressure (ins/psv/peep) NA 06/20/17 15:00 Critical Value E.ESCAMILLA 06/20/17 15:00 Sodium 146 mEq/L (136-145) H 06/29/17 06:10 Potassium 3.2 mEq/L (3.5-5.1) L 06/29/17 06:10 Chloride 116 mEq/L (98-107) H 06/29/17 06:10 Carbon Dioxide 22.9 mEq/L (21.0-31.0) 06/29/17 06:10 Anion Gap 10.3 (7.0-16.0) 06/29/17 06:10 BUN 9 mg/dL (7-25) 06/29/17 06:10 Creatinine 0.3 mg/dL (0.6-1.2) L 06/29/17 06:10 Est GFR ( Amer) > 60.0 ml/min (>90) 06/29/17 06:10 Est GFR (Non-Af Amer) > 60.0 ml/min 06/29/17 06:10 BUN/Creatinine Ratio 30.0 06/29/17 06:10 Glucose 163 mg/dL (70-105) H 06/29/17 06:10 POC Glucose 126 MG/DL (70 - 105) H 06/29/17 00:01 Calcium 7.6 mg/dL (8.6-10.3) L 06/29/17 06:10 Phosphorus 1.4 mg/dL (2.5-5.0) L 06/23/17 04:30 Magnesium 2.5 mg/dL (1.9-2.7) 06/23/17 04:30 Total Bilirubin 0.7 mg/dL (0.3-1.0) 06/29/17 06:10 AST 36 U/L (13-39) 06/29/17 06:10 ALT 29 U/L (7-52) 06/29/17 06:10 Alkaline Phosphatase 98 U/L (34-104) 06/29/17 06:10 Total Protein 4.2 gm/dL (6.0-8.3) L 06/29/17 06:10 Albumin 2.4 gm/dL (3.7-5.3) L 06/29/17 06:10 Globulin 1.8 gm/dL 06/29/17 06:10 Albumin/Globulin Ratio 1.3 (1.0-1.8) 06/29/17 06:10 Urine Source [place] 06/19/17 05:55 Urine Color DARK YELLOW 06/19/17 05:55 Urine Clarity TURBID (CLEAR) H 06/19/17 05:55 Urine pH 5.0 (4.6 - 8.0) 06/19/17 05:55 Ur Specific [place] >= 1.030 (1.005-1.030) 06/19/17 05:55 Urine Protein 30 mg/dL (NEGATIVE) H 06/19/17 05:55 Urine Glucose (UA) NEGATIVE mg/dL (NEGATIVE) 06/19/17 05:55 Urine Ketones 15 mg/dL (NEGATIVE) H 06/19/17 05:55 Urine Blood LARGE (NEGATIVE) H 06/19/17 05:55 Urine Nitrate POSITIVE (NEGATIVE) H 06/19/17 05:55 Urine Bilirubin MODERATE (NEGATIVE) H 06/19/17 05:55 Urine Urobilinogen 1.0 E.U./dL (0.2 - 1.0) 06/19/17 05:55 Ur Leukocyte Esterase NEGATIVE (NEGATIVE) 06/19/17 05:55 Urine RBC 10-25 /hpf (0-5) H 06/19/17 05:55 Urine WBC 2-5 /hpf (0-5) 06/19/17 05:55 Ur Epithelial Cells OCCASIONAL /lpf (FEW) 06/19/17 05:55 Urine Bacteria 3+ /hpf (NONE SEEN) H 06/19/17 05:55 - Physical Exam Vitals and I&O: Vital Signs Temp 96.8 F 06/29/17 08:00 Pulse 96 06/29/17 08:00 Resp 18 06/29/17 08:25 BP 141/78 06/29/17 08:00 Pulse Ox 98 06/29/17 08:00 Intake & Output 06/28/17 06/29/17 06/29/17 18:59 06:59 18:59 Intake Total 1190 410 Output Total 600 Balance 590 410 Weight (lbs) 94.801 kg Intake: Intake, IV Amount 710 410 Levetiracetam 1,000 mg In 110 110 Sodium Chloride 0.9% 100 ml @ 400 mls/hr IV Q12H [facility] Rx#:[id number] Linezolid 600mg/300mL 600 600 300 mg In 300 ml @ 300 mls/ hr IV Q12H [facility] Rx#: [id number] Tube Feeding 280 Other 200 Output: Urine 400 Other 200 Other: Stool Characteristics Soft Soft Soft Liquid Liquid Liquid Weight Source Bedscale Active Medications: Current Medications Acetaminophen (Tylenol) 650 mg PO Q4H PRN PRN Reason: MILD BACK PAIN Last Admin: 06/21/17 16:48 Dose: 650 mg Amantadine HCl (Symmetrel) 100 mg PO TID [facility] Stop: 08/18/17 20:59 Last Admin: 06/29/17 08:51 Dose: Not Given Calcium/Vitamin D (Oscal W/Vitamin D) 1 tab PO BID [facility] Stop: 08/18/17 16:59 Last Admin: 06/29/17 08:51 Dose: Not Given Carbidopa/Levodopa (Sinemet 25 Mg-250 Mg) 1 tab PO BID [facility] Stop: 08/18/17 16:59 Last Admin: 06/29/17 08:51 Dose: Not Given Carisoprodol (Soma) 350 mg PO DAILY PRN PRN Reason: MUSCLE SPASM Stop: 08/18/17 15:12 Diltiazem HCl (Cardizem) 60 mg PO Q6HR [facility] Stop: 08/18/17 17:59 Last Admin: 06/29/17 07:47 Dose: Not Given Doxycycline Hyclate (Vibramycin) 100 mg PO Q12HR [facility] Stop: 08/23/17 20:59 Last Admin: 06/29/17 08:51 Dose: Not Given Famotidine (Pepcid) 40 mg PO DAILY [facility] Stop: 08/19/17 08:59 Last Admin: 06/29/17 08:52 Dose: Not Given Linezolid (Zyvox) 600 mg in 300 mls @ 300 mls/hr IV Q12H [facility] Stop: 08/19/17 13:59 Last Infusion: 06/29/17 03:57 Dose: Infused Norepinephrine Bitartrate 4 mg (/ Sodium Chloride) 254 mls @ 30.48 mls/hr IV TITR [facility]; 8 MCG/MIN PRN Reason: Protocol Stop: 08/19/17 14:44 Last Titration: 06/20/17 17:56 Dose: 0 mcg/min, 0 mls/hr Potassium Chloride/Dextrose/Sod Cl (D5-0.45ns W/20 Meq Kcl) 1,000 mls @ 75 mls/ hr IV .[id number] [facility] Stop: 08/26/17 21:49 Last Admin: 06/27/17 22:12 Dose: 75 mls/hr Levetiracetam 1,000 mg/ Sodium (Chloride) 110 mls @ 400 mls/hr IV Q12H [facility] Stop: 08/27/17 10:59 Last Infusion: 06/29/17 03:27 Dose: Infused Insulin Aspart (Novolog Insulin Sliding Scale) 0 units SUBQ Q6HR [facility] PRN Reason: Protocol Stop: 08/24/17 17:59 Last Admin: 06/29/17 06:56 Dose: Not Given Lactobacillus Rhamnosus (Culturelle 15b) 1 each PO DAILY [facility] Stop: 08/20/17 08:59 Last Admin: 06/29/17 08:52 Dose: Not Given Miscellaneous (Probiotic Screen) 1 ea MC PRN PRN PRN Reason: PROTOCOL Stop: 08/19/17 15:00 Ondansetron HCl (Zofran) 4 mg IV Q4H PRN PRN Reason: Nausea / Vomiting Stop: 08/18/17 15:23 Potassium Chloride (Potassium Chloride Elixir) 40 meq NG DAILY [facility] Stop: 08/26/17 08:59 Last Admin: 06/29/17 08:52 Dose: Not Given Potassium Phosphate (K Phos) 1,000 mg NG DAILY [facility] Stop: 08/23/17 10:59 Last Admin: 06/29/17 08:52 Dose: Not Given Vancomycin HCl (Vancomycin Oral) 250 mg NG Q6HR [facility] Stop: 08/18/17 17:59 Last Admin: 06/29/17 07:48 Dose: Not Given General: No acute distress HEENT: Atraumatic, PERRLA Neck: Supple, JVD Cardiovascular: Regular rate Lungs: Other (OCC RHONCHI) Abdomen: Bowel sounds, Soft Extremities: Edema (contractures) - Procedures Procedures: Procedures Procedure Code Date ASSISTANCE WITH RESPIRATORY VENTILATION, <24 HRS, CPAP [id number] 06/19/17 CLOSED [ENDOSCOPIC] BIOPSY OF LARYNX 31.43 07/12/96 INJECT/INFUSE NEC 99.29 11/11/07 LARYGNOSCOPY AND OTH TRACHEOSCOPY 31.42 07/12/96 LARYNGOSCOPY WITH BIOPSY 29852 07/12/96 OTHER GROUP THERAPY 94.44 11/26/07 POS AIRWAY PRESSURE CPAP 32192 06/19/17 RECREATIONAL THERAPY 93.81 11/26/07 Nutritional Asmnt/Malnutr-PDOC - Dietary Evaluation Malnutrition Findings (Please click <Entered> for more info): Nutritional Asmnt/Malnutrition Start: 06/19/17 13: 46 Text: Status: Complete Freq: Document 06/19/17 13:46 LCHENG (Rec: 06/19/17 13:59 [email or web address] [id number]) Nutritional Asmnt/Malnutrition Patient General Information Nutritional Screening High Risk Consult Diagnosis dehydration, tachycardia Pertinent Medical Hx/Surgical Hx [place], UTI, c diff colitis Subjective Information Consult received for BS 294 at admitting. Pt was transfered from [facility]. Pt seen resting in bed at time of visit. RN reported pt on NPO. Per nurse note, pt will start tube feeding when NGT placement verified. ordered Fibersource 30ml/hr continuous to start at dinner time today . Current Diet Order/ Nutrition Support NPO Pertinent Medications D5-0.9ns w/kcl 20meq Pertinent Labs 06/19 Na 135, K 2.9, Cl 106, BUN 23, Cr 1.5, glucose 295, alb 3.5 Nutritional Hx/Data Height 1.68 m Height (Calculated Centimeters) 167.6 Current Weight (lbs) 77.111 kg Weight (Calculated Kilograms) 77.1 Weight (Calculated Grams) 85335.7 Kelly Body Weight 130 Body Mass Index (BMI) 27.4 Weight Status Overweight GI Symptoms GI Symptoms None Last BM 06/19 Difficult in: None Skin Integrity/Comment: GROIN AND SACRUM REDDNESS Estimated Nutritional Goals BEE in Kcals: Adj wt of IBW Calories/Kcals/Kg 25-30 Kcals Calculated 1101-4757 Protein: Adj wt of IBW Protein g/k Protein Calculated 64 Fluid: ml 1600-1920ml (1ml/kcal) Nutritional Problem 1. Problem Problem altered nutrition related lab values Etiology hyperglycemia Signs/Symptoms: glucose 295 Intervention/Recommendation Comments 1. Start TF as ordered - Fibersource HN 30ml/hr continuous. This will provide 864kcal, 38g protein and 589ml free water, meeting about 55% of nutritional needs. 2. pt on potassium replacement noted. If K level normal, will consider increase TF rate . 3. Monitor TF rate, tolerance, wt weekly, skin integrity and labs 4. F/U as high risk in 2-3 days, 06/21-06/22 Expected Outcomes/Goals Expected Outcomes/Goals 1. Pt to meet at least 75% of nutritional needs via nutrition support with tolerance 2. Wt stability, skin to remain intact, labs to approach WNL.
--- NOTE | 2017-06-29 10:37 | Diagnostic Imaging Report ---
CHEST X-RAY: AP view INDICATION: Central line placement COMPARISON: 06/26/2017 FINDINGS: The prior NG tube is been removed. Left subclavian central line is seen with tip in the SVC. Findings of CHF are seen bilateral infiltrates and effusions right greater than left. Cardiomegaly is noted. No evidence of pneumothorax. IMPRESSION: Left subclavian central line with tip in SVC. No evidence of pneumothorax. CHF with bilateral effusions and infiltrates.
[2017-06-29] MEDS: D5-0.45NS w/20 mEq KCL 1,000 ML IV SCH (11:29)
[2017-06-29 17:57] LABS: pH 7.48 (7.35-7.45)
[2017-06-29 17:59] LABS: ALLEN TEST Positive
--- NOTE | 2017-06-29 20:10 | Internal Medicine Prog Note ---
Internal Medicine Subjective - Subjective Service Date: 06/29/17 Patient seen and examined:: with staff (SHE HAD CENTRAL LINE PLACED TODAY.) Patient is:: asleep, non-verbal, in bed Per staff patient has:: no adverse event, other (THE PATIENT ON BIPAP,LEVAPHID AND AMIODARON IV DRIP.URIN OUTPUT IS NOT GOOD) Internal Medicine Objective - Results Result Diagrams: 06/29/17 06:10 06/29/17 06:10 Recent Labs: Laboratory Last Values WBC 10.7 Th/cmm (4.8-10.8) 06/29/17 06:10 RBC 4.28 Mil/cmm (3.80-5.10) 06/29/17 06:10 Hgb 13.4 gm/dL (12-16) 06/29/17 06:10 Hct 39.6 % (41.0-60) L 06/29/17 06:10 MCV 92.5 fl (81-100) 06/29/17 06:10 MCH 31.3 pg (27.0-31.0) H 06/29/17 06:10 MCHC Differential 33.8 pg (28.0-36.0) 06/29/17 06:10 RDW 16.0 % (11.5-20.0) 06/29/17 06:10 Plt Count 107 Th/cmm (150-400) L 06/29/17 06:10 MPV 8.9 fl 06/29/17 06:10 Neutrophils % 79.4 % (40.0-80.0) 06/29/17 06:10 Band Neutrophils % 6 % (0-10) 06/23/17 04:30 Lymphocytes % 11.6 % (20.0-50.0) L 06/29/17 06:10 Monocytes % 6.1 % (2.0-10.0) 06/29/17 06:10 Eosinophils % 1.9 % (0.0-5.0) 06/29/17 06:10 Basophils % 1.0 % (0.0-2.0) 06/29/17 06:10 Neutrophils (Manual) 81 % (40-80) H 06/23/17 04:30 Lymphocytes 11 % (20-50) L 06/23/17 04:30 Monocytes 2 % (2-10) 06/23/17 04:30 Toxic Granulation 2+ 06/21/17 05:01 Platelet Estimate ADEQUATE (NORMAL) 06/21/17 05:01 PT 11.9 SECONDS (9.5-11.5) H 06/27/17 05:45 INR 1.13 (0.5-1.4) 06/27/17 05:45 PTT (Actin FS) 27.4 SECONDS (26.0-38.0) 06/26/17 05:00 Specimen Source Arterial 06/29/17 17:24 Sample Site Right Radial 06/29/17 17:24 pH 7.48 (7.35-7.45) H 06/29/17 17:24 pCO2 36.0 mmHg (35.0-45.0) 06/29/17 17:24 pO2 168.0 mmHg (80.0-100.0) H 06/29/17 17:24 HCO3 27.6 mEq/L (20.0-26.0) H 06/29/17 17:24 Base Excess 3.3 mEq/L (-3.0-3.0) H 06/29/17 17:24 O2 Saturation 100.0 % (92.0-100.0) 06/29/17 17:24 Stephen Test Positive 06/29/17 17:24 Vent Rate NA 06/29/17 17:24 Inspired O2 37 06/29/17 17:24 Tidal Volume NA 06/29/17 17:24 PEEP NA 06/29/17 17:24 Pressure (ins/psv/peep) NA 06/29/17 17:24 Critical Value SH 06/29/17 17:24 Sodium 146 mEq/L (136-145) H 06/29/17 06:10 Potassium 3.2 mEq/L (3.5-5.1) L 06/29/17 06:10 Chloride 116 mEq/L (98-107) H 06/29/17 06:10 Carbon Dioxide 22.9 mEq/L (21.0-31.0) 06/29/17 06:10 Anion Gap 10.3 (7.0-16.0) 06/29/17 06:10 BUN 9 mg/dL (7-25) 06/29/17 06:10 Creatinine 0.3 mg/dL (0.6-1.2) L 06/29/17 06:10 Est GFR ( Amer) > 60.0 ml/min (>90) 06/29/17 06:10 Est GFR (Non-Af Amer) > 60.0 ml/min 06/29/17 06:10 BUN/Creatinine Ratio 30.0 06/29/17 06:10 Glucose 163 mg/dL (70-105) H 06/29/17 06:10 POC Glucose 81 MG/DL (70 - 105) 06/29/17 17:02 Calcium 7.6 mg/dL (8.6-10.3) L 06/29/17 06:10 Phosphorus 1.4 mg/dL (2.5-5.0) L 06/23/17 04:30 Magnesium 2.5 mg/dL (1.9-2.7) 06/23/17 04:30 Total Bilirubin 0.7 mg/dL (0.3-1.0) 06/29/17 06:10 AST 36 U/L (13-39) 06/29/17 06:10 ALT 29 U/L (7-52) 06/29/17 06:10 Alkaline Phosphatase 98 U/L (34-104) 06/29/17 06:10 Total Protein 4.2 gm/dL (6.0-8.3) L 06/29/17 06:10 Albumin 2.4 gm/dL (3.7-5.3) L 06/29/17 06:10 Globulin 1.8 gm/dL 06/29/17 06:10 Albumin/Globulin Ratio 1.3 (1.0-1.8) 06/29/17 06:10 Urine Source [place] 06/19/17 05:55 Urine Color DARK YELLOW 06/19/17 05:55 Urine Clarity TURBID (CLEAR) H 06/19/17 05:55 Urine pH 5.0 (4.6 - 8.0) 06/19/17 05:55 Ur Specific [place] >= 1.030 (1.005-1.030) 06/19/17 05:55 Urine Protein 30 mg/dL (NEGATIVE) H 06/19/17 05:55 Urine Glucose (UA) NEGATIVE mg/dL (NEGATIVE) 06/19/17 05:55 Urine Ketones 15 mg/dL (NEGATIVE) H 06/19/17 05:55 Urine Blood LARGE (NEGATIVE) H 06/19/17 05:55 Urine Nitrate POSITIVE (NEGATIVE) H 06/19/17 05:55 Urine Bilirubin MODERATE (NEGATIVE) H 06/19/17 05:55 Urine Urobilinogen 1.0 E.U./dL (0.2 - 1.0) 06/19/17 05:55 Ur Leukocyte Esterase NEGATIVE (NEGATIVE) 06/19/17 05:55 Urine RBC 10-25 /hpf (0-5) H 06/19/17 05:55 Urine WBC 2-5 /hpf (0-5) 06/19/17 05:55 Ur Epithelial Cells OCCASIONAL /lpf (FEW) 06/19/17 05:55 Urine Bacteria 3+ /hpf (NONE SEEN) H 06/19/17 05:55 - Physical Exam Vitals and I&O: Vital Signs Temp 98.1 F 06/29/17 16:00 Pulse 72 06/29/17 16:00 Resp 18 06/29/17 16:00 BP 131/81 06/29/17 16:00 Pulse Ox 100 06/29/17 16:00 Intake & Output 06/29/17 06/29/17 06/30/17 06:59 18:59 06:59 Intake Total 410 110 Balance 410 110 Intake: Intake, IV Amount 410 110 Levetiracetam 1,000 mg In 110 110 Sodium Chloride 0.9% 100 ml @ 400 mls/hr IV Q12H [facility] Rx#:[id number] Linezolid 600mg/300mL 600 300 mg In 300 ml @ 300 mls/ hr IV Q12H [facility] Rx#: [id number] Other: Stool Characteristics Soft Soft Liquid Liquid Active Medications: Current Medications Acetaminophen (Tylenol) 650 mg PO Q4H PRN PRN Reason: MILD BACK PAIN Last Admin: 06/21/17 16:48 Dose: 650 mg Amantadine HCl (Symmetrel) 100 mg PO TID [facility] Stop: 08/18/17 20:59 Last Admin: 06/29/17 16:09 Dose: Not Given Calcium/Vitamin D (Oscal W/Vitamin D) 1 tab PO BID [facility] Stop: 08/18/17 16:59 Last Admin: 06/29/17 17:30 Dose: Not Given Carbidopa/Levodopa (Sinemet 25 Mg-250 Mg) 1 tab PO BID [facility] Stop: 08/18/17 16:59 Last Admin: 06/29/17 17:30 Dose: Not Given Carisoprodol (Soma) 350 mg PO DAILY PRN PRN Reason: MUSCLE SPASM Stop: 08/18/17 15:12 Diltiazem HCl (Cardizem) 60 mg PO Q6HR [facility] Stop: 08/18/17 17:59 Last Admin: 06/29/17 18:30 Dose: Not Given Doxycycline Hyclate (Vibramycin) 100 mg PO Q12HR [facility] Stop: 08/23/17 20:59 Last Admin: 06/29/17 08:51 Dose: Not Given Famotidine (Pepcid) 40 mg PO DAILY [facility] Stop: 08/19/17 08:59 Last Admin: 06/29/17 08:52 Dose: Not Given Linezolid (Zyvox) 600 mg in 300 mls @ 300 mls/hr IV Q12H [facility] Stop: 08/19/17 13:59 Last Admin: 06/29/17 16:06 Dose: 300 mls/hr Norepinephrine Bitartrate 4 mg (/ Sodium Chloride) 254 mls @ 30.48 mls/hr IV TITR [facility]; 8 MCG/MIN PRN Reason: Protocol Stop: 08/19/17 14:44 Last Titration: 06/20/17 17:56 Dose: 0 mcg/min, 0 mls/hr Potassium Chloride/Dextrose/Sod Cl (D5-0.45ns W/20 Meq Kcl) 1,000 mls @ 75 mls/ hr IV .[id number] [facility] Stop: 08/26/17 21:49 Last Admin: 06/29/17 11:29 Dose: 75 mls/hr Levetiracetam 1,000 mg/ Sodium (Chloride) 110 mls @ 400 mls/hr IV Q12H [facility] Stop: 08/27/17 10:59 Last Infusion: 06/29/17 11:56 Dose: Infused Insulin Aspart (Novolog Insulin Sliding Scale) 0 units SUBQ Q6HR [facility] PRN Reason: Protocol Stop: 08/24/17 17:59 Last Admin: 06/29/17 20:04 Dose: Not Given Lactobacillus Rhamnosus (Culturelle 15b) 1 each PO DAILY [facility] Stop: 08/20/17 08:59 Last Admin: 06/29/17 08:52 Dose: Not Given Miscellaneous (Probiotic Screen) 1 ea MC PRN PRN PRN Reason: PROTOCOL Stop: 08/19/17 15:00 Ondansetron HCl (Zofran) 4 mg IV Q4H PRN PRN Reason: Nausea / Vomiting Stop: 08/18/17 15:23 Potassium Chloride (Potassium Chloride Elixir) 40 meq NG DAILY [facility] Stop: 08/26/17 08:59 Last Admin: 06/29/17 08:52 Dose: Not Given Potassium Phosphate (K Phos) 1,000 mg NG DAILY [facility] Stop: 08/23/17 10:59 Last Admin: 06/29/17 08:52 Dose: Not Given Vancomycin HCl (Vancomycin Oral) 250 mg NG Q6HR [facility] Stop: 08/18/17 17:59 Last Admin: 06/29/17 20:04 Dose: Not Given General: obtunded HEENT: NC/AT, PERRLA, EOMI, anicteric sclerae, throat clear Neck: Supple, No JVD, No thyromegaly, +2 carotid pulse wo bruit, No LAD Lungs: CTAB Cardiovascular: tachy Abdomen: tender Extremities: clear Neurological: lethargic - Procedures Procedures: Procedures Procedure Code Date ASSISTANCE WITH RESPIRATORY VENTILATION, <24 HRS, CPAP [id number] 06/19/17 CLOSED [ENDOSCOPIC] BIOPSY OF LARYNX 31.43 07/12/96 INJECT/INFUSE NEC 99.29 11/11/07 LARYGNOSCOPY AND OTH TRACHEOSCOPY 31.42 07/12/96 LARYNGOSCOPY WITH BIOPSY 14714 07/12/96 OTHER GROUP THERAPY 94.44 11/26/07 POS AIRWAY PRESSURE CPAP 37625 06/19/17 RECREATIONAL THERAPY 93.81 11/26/07 Internal Medicine Assmt/Plan - Assessment Assessment: 1.SEPTIC SHOCK. 2.ACUTE RENAL FAILURE. 3.ACUTE REPIRATORY FAILURE. 4.PARKINSONS DISEASE. 5.POSSIBLE C DIFF COLITIS. 6.ACUTE METABOLIC ENCEPHALOPATHY. - Plan Plan: CONTINUE ON CURRENT MEDICATION AND DIET. Nutritional Asmnt/Malnutr-PDOC - Dietary Evaluation Malnutrition Findings (Please click <Entered> for more info): Nutritional Asmnt/Malnutrition Start: 06/19/17 13: 46 Text: Status: Complete Freq: Document 06/19/17 13:46 LCHENG (Rec: 06/19/17 13:59 LCHENG [id number]) Nutritional Asmnt/Malnutrition Patient General Information Nutritional Screening High Risk Consult Diagnosis dehydration, tachycardia Pertinent Medical Hx/Surgical Hx [place], UTI, c diff colitis Subjective Information Consult received for BS 294 at admitting. Pt was transfered from [facility]. Pt seen resting in bed at time of visit. RN reported pt on NPO. Per nurse note, pt will start tube feeding when NGT placement verified. ordered Fibersource 30ml/hr continuous to start at dinner time today . Current Diet Order/ Nutrition Support NPO Pertinent Medications D5-0.9ns w/kcl 20meq Pertinent Labs 06/19 Na 135, K 2.9, Cl 106, BUN 23, Cr 1.5, glucose 295, alb 3.5 Nutritional Hx/Data Height 1.68 m Height (Calculated Centimeters) 167.6 Current Weight (lbs) 77.111 kg Weight (Calculated Kilograms) 77.1 Weight (Calculated Grams) 22966.7 [place] Body Weight 130 Body Mass Index (BMI) 27.4 Weight Status Overweight GI Symptoms GI Symptoms None Last BM 06/19 Difficult in: None Skin Integrity/Comment: GROIN AND SACRUM REDDNESS Estimated Nutritional Goals BEE in Kcals: Adj wt of IBW Calories/Kcals/Kg 25-30 Kcals Calculated 7702-7546 Protein: Adj wt of IBW Protein g/k Protein Calculated 64 Fluid: ml 1600-1920ml (1ml/kcal) Nutritional Problem 1. Problem Problem altered nutrition related lab values Etiology hyperglycemia Signs/Symptoms: glucose 295 Intervention/Recommendation Comments 1. Start TF as ordered - Fibersource HN 30ml/hr continuous. This will provide 864kcal, 38g protein and 589ml free water, meeting about 55% of nutritional needs. 2. pt on potassium replacement noted. If K level normal, will consider increase TF rate . 3. Monitor TF rate, tolerance, wt weekly, skin integrity and labs 4. F/U as high risk in 2-3 days, 06/21-06/22 Expected Outcomes/Goals Expected Outcomes/Goals 1. Pt to meet at least 75% of nutritional needs via nutrition support with tolerance 2. Wt stability, skin to remain intact, labs to approach WNL.
--- NOTE | 2017-06-29 20:32 | Infectious Disease Prog Note ---
Infectious Disease Subjective - Review of Systems Service Date: 06/29/17 Subjective: cc c diff uti pn hpi- pt wbc 10 k cx noted ros no fefvr o/e vss chest claera bd soft ext pulse dx uti pn c diff plan po vanco iv flagy doxy continue Infectious Disease Objective - Results Result Diagrams: 06/29/17 06:10 06/29/17 06:10 Recent Labs: Laboratory Last Values WBC 10.7 Th/cmm (4.8-10.8) 06/29/17 06:10 RBC 4.28 Mil/cmm (3.80-5.10) 06/29/17 06:10 Hgb 13.4 gm/dL (12-16) 06/29/17 06:10 Hct 39.6 % (41.0-60) L 06/29/17 06:10 MCV 92.5 fl (81-100) 06/29/17 06:10 MCH 31.3 pg (27.0-31.0) H 06/29/17 06:10 MCHC Differential 33.8 pg (28.0-36.0) 06/29/17 06:10 RDW 16.0 % (11.5-20.0) 06/29/17 06:10 Plt Count 107 Th/cmm (150-400) L 06/29/17 06:10 MPV 8.9 fl 06/29/17 06:10 Neutrophils % 79.4 % (40.0-80.0) 06/29/17 06:10 Band Neutrophils % 6 % (0-10) 06/23/17 04:30 Lymphocytes % 11.6 % (20.0-50.0) L 06/29/17 06:10 Monocytes % 6.1 % (2.0-10.0) 06/29/17 06:10 Eosinophils % 1.9 % (0.0-5.0) 06/29/17 06:10 Basophils % 1.0 % (0.0-2.0) 06/29/17 06:10 Neutrophils (Manual) 81 % (40-80) H 06/23/17 04:30 Lymphocytes 11 % (20-50) L 06/23/17 04:30 Monocytes 2 % (2-10) 06/23/17 04:30 Toxic Granulation 2+ 06/21/17 05:01 Platelet Estimate ADEQUATE (NORMAL) 06/21/17 05:01 PT 11.9 SECONDS (9.5-11.5) H 06/27/17 05:45 INR 1.13 (0.5-1.4) 06/27/17 05:45 PTT (Actin FS) 27.4 SECONDS (26.0-38.0) 06/26/17 05:00 Specimen Source Arterial 06/29/17 17:24 Sample Site Right Radial 06/29/17 17:24 pH 7.48 (7.35-7.45) H 06/29/17 17:24 pCO2 36.0 mmHg (35.0-45.0) 06/29/17 17:24 pO2 168.0 mmHg (80.0-100.0) H 06/29/17 17:24 HCO3 27.6 mEq/L (20.0-26.0) H 06/29/17 17:24 Base Excess 3.3 mEq/L (-3.0-3.0) H 06/29/17 17:24 O2 Saturation 100.0 % (92.0-100.0) 06/29/17 17:24 Stephen Test Positive 06/29/17 17:24 Vent Rate NA 06/29/17 17:24 Inspired O2 37 06/29/17 17:24 Tidal Volume NA 06/29/17 17:24 PEEP NA 06/29/17 17:24 Pressure (ins/psv/peep) NA 06/29/17 17:24 Critical Value SH 06/29/17 17:24 Sodium 146 mEq/L (136-145) H 06/29/17 06:10 Potassium 3.2 mEq/L (3.5-5.1) L 06/29/17 06:10 Chloride 116 mEq/L (98-107) H 06/29/17 06:10 Carbon Dioxide 22.9 mEq/L (21.0-31.0) 06/29/17 06:10 Anion Gap 10.3 (7.0-16.0) 06/29/17 06:10 BUN 9 mg/dL (7-25) 06/29/17 06:10 Creatinine 0.3 mg/dL (0.6-1.2) L 06/29/17 06:10 Est GFR ( Amer) > 60.0 ml/min (>90) 06/29/17 06:10 Est GFR (Non-Af Amer) > 60.0 ml/min 06/29/17 06:10 BUN/Creatinine Ratio 30.0 06/29/17 06:10 Glucose 163 mg/dL (70-105) H 06/29/17 06:10 POC Glucose 81 MG/DL (70 - 105) 06/29/17 17:02 Calcium 7.6 mg/dL (8.6-10.3) L 06/29/17 06:10 Phosphorus 1.4 mg/dL (2.5-5.0) L 06/23/17 04:30 Magnesium 2.5 mg/dL (1.9-2.7) 06/23/17 04:30 Total Bilirubin 0.7 mg/dL (0.3-1.0) 06/29/17 06:10 AST 36 U/L (13-39) 06/29/17 06:10 ALT 29 U/L (7-52) 06/29/17 06:10 Alkaline Phosphatase 98 U/L (34-104) 06/29/17 06:10 Total Protein 4.2 gm/dL (6.0-8.3) L 06/29/17 06:10 Albumin 2.4 gm/dL (3.7-5.3) L 06/29/17 06:10 Globulin 1.8 gm/dL 06/29/17 06:10 Albumin/Globulin Ratio 1.3 (1.0-1.8) 06/29/17 06:10 Urine Source [place] 06/19/17 05:55 Urine Color DARK YELLOW 06/19/17 05:55 Urine Clarity TURBID (CLEAR) H 06/19/17 05:55 Urine pH 5.0 (4.6 - 8.0) 06/19/17 05:55 Ur Specific [place] >= 1.030 (1.005-1.030) 06/19/17 05:55 Urine Protein 30 mg/dL (NEGATIVE) H 06/19/17 05:55 Urine Glucose (UA) NEGATIVE mg/dL (NEGATIVE) 06/19/17 05:55 Urine Ketones 15 mg/dL (NEGATIVE) H 06/19/17 05:55 Urine Blood LARGE (NEGATIVE) H 06/19/17 05:55 Urine Nitrate POSITIVE (NEGATIVE) H 06/19/17 05:55 Urine Bilirubin MODERATE (NEGATIVE) H 06/19/17 05:55 Urine Urobilinogen 1.0 E.U./dL (0.2 - 1.0) 06/19/17 05:55 Ur Leukocyte Esterase NEGATIVE (NEGATIVE) 06/19/17 05:55 Urine RBC 10-25 /hpf (0-5) H 06/19/17 05:55 Urine WBC 2-5 /hpf (0-5) 06/19/17 05:55 Ur Epithelial Cells OCCASIONAL /lpf (FEW) 06/19/17 05:55 Urine Bacteria 3+ /hpf (NONE SEEN) H 06/19/17 05:55 - Physical Exam Vitals and I&O: Vital Signs Temp 97.0 F 06/29/17 20:00 Pulse 107 06/29/17 20:00 Resp 20 06/29/17 20:00 BP 136/82 06/29/17 20:00 Pulse Ox 98 06/29/17 20:00 Intake & Output 06/29/17 06/29/17 06/30/17 06:59 18:59 06:59 Intake Total 410 110 Balance 410 110 Intake: Intake, IV Amount 410 110 Levetiracetam 1,000 mg In 110 110 Sodium Chloride 0.9% 100 ml @ 400 mls/hr IV Q12H [facility] Rx#:[id number] Linezolid 600mg/300mL 600 300 mg In 300 ml @ 300 mls/ hr IV Q12H [facility] Rx#: [id number] Other: Stool Characteristics Soft Soft Liquid Liquid Active Medications: Current Medications Acetaminophen (Tylenol) 650 mg PO Q4H PRN PRN Reason: MILD BACK PAIN Last Admin: 06/21/17 16:48 Dose: 650 mg Amantadine HCl (Symmetrel) 100 mg PO TID [facility] Stop: 08/18/17 20:59 Last Admin: 06/29/17 20:11 Dose: Not Given Calcium/Vitamin D (Oscal W/Vitamin D) 1 tab PO BID [facility] Stop: 08/18/17 16:59 Last Admin: 06/29/17 17:30 Dose: Not Given Carbidopa/Levodopa (Sinemet 25 Mg-250 Mg) 1 tab PO BID [facility] Stop: 08/18/17 16:59 Last Admin: 06/29/17 17:30 Dose: Not Given Carisoprodol (Soma) 350 mg PO DAILY PRN PRN Reason: MUSCLE SPASM Stop: 08/18/17 15:12 Diltiazem HCl (Cardizem) 60 mg PO Q6HR [facility] Stop: 08/18/17 17:59 Last Admin: 06/29/17 18:30 Dose: Not Given Doxycycline Hyclate (Vibramycin) 100 mg PO Q12HR [facility] Stop: 08/23/17 20:59 Last Admin: 06/29/17 20:11 Dose: Not Given Famotidine (Pepcid) 40 mg PO DAILY [facility] Stop: 08/19/17 08:59 Last Admin: 06/29/17 08:52 Dose: Not Given Linezolid (Zyvox) 600 mg in 300 mls @ 300 mls/hr IV Q12H [facility] Stop: 08/19/17 13:59 Last Admin: 06/29/17 16:06 Dose: 300 mls/hr Norepinephrine Bitartrate 4 mg (/ Sodium Chloride) 254 mls @ 30.48 mls/hr IV TITR [facility]; 8 MCG/MIN PRN Reason: Protocol Stop: 08/19/17 14:44 Last Titration: 06/20/17 17:56 Dose: 0 mcg/min, 0 mls/hr Potassium Chloride/Dextrose/Sod Cl (D5-0.45ns W/20 Meq Kcl) 1,000 mls @ 75 mls/ hr IV .[id number] [facility] Stop: 08/26/17 21:49 Last Admin: 06/29/17 11:29 Dose: 75 mls/hr Levetiracetam 1,000 mg/ Sodium (Chloride) 110 mls @ 400 mls/hr IV Q12H [facility] Stop: 08/27/17 10:59 Last Infusion: 06/29/17 11:56 Dose: Infused Insulin Aspart (Novolog Insulin Sliding Scale) 0 units SUBQ Q6HR [facility] PRN Reason: Protocol Stop: 08/24/17 17:59 Last Admin: 06/29/17 20:04 Dose: Not Given Lactobacillus Rhamnosus (Culturelle 15b) 1 each PO DAILY [facility] Stop: 08/20/17 08:59 Last Admin: 06/29/17 08:52 Dose: Not Given Miscellaneous (Probiotic Screen) 1 ea MC PRN PRN PRN Reason: PROTOCOL Stop: 08/19/17 15:00 Ondansetron HCl (Zofran) 4 mg IV Q4H PRN PRN Reason: Nausea / Vomiting Stop: 08/18/17 15:23 Potassium Chloride (Potassium Chloride Elixir) 40 meq NG DAILY [facility] Stop: 08/26/17 08:59 Last Admin: 06/29/17 08:52 Dose: Not Given Potassium Phosphate (K Phos) 1,000 mg NG DAILY [facility] Stop: 08/23/17 10:59 Last Admin: 06/29/17 08:52 Dose: Not Given Vancomycin HCl (Vancomycin Oral) 250 mg NG Q6HR [facility] Stop: 08/18/17 17:59 Last Admin: 06/29/17 20:04 Dose: Not Given - Procedures Procedures: Procedures Procedure Code Date ASSISTANCE WITH RESPIRATORY VENTILATION, <24 HRS, CPAP [id number] 06/19/17 CLOSED [ENDOSCOPIC] BIOPSY OF LARYNX 31.43 07/12/96 INJECT/INFUSE NEC 99.29 11/11/07 LARYGNOSCOPY AND OTH TRACHEOSCOPY 31.42 07/12/96 LARYNGOSCOPY WITH BIOPSY 80590 07/12/96 OTHER GROUP THERAPY 94.44 11/26/07 POS AIRWAY PRESSURE CPAP 60218 06/19/17 RECREATIONAL THERAPY 93.81 11/26/07 Nutritional Asmnt/Malnutr-PDOC - Dietary Evaluation Malnutrition Findings (Please click <Entered> for more info): Nutritional Asmnt/Malnutrition Start: 06/19/17 13: 46 Text: Status: Complete Freq: Document 06/19/17 13:46 LCHENG (Rec: 06/19/17 13:59 LCHENG [place] [id number]) Nutritional Asmnt/Malnutrition Patient General Information Nutritional Screening High Risk Consult Diagnosis dehydration, tachycardia Pertinent Medical Hx/Surgical Hx [place], UTI, c diff colitis Subjective Information Consult received for BS 294 at admitting. Pt was transfered from [facility]. Pt seen resting in bed at time of visit. RN reported pt on NPO. Per nurse note, pt will start tube feeding when NGT placement verified. ordered Fibersource 30ml/hr continuous to start at dinner time today . Current Diet Order/ Nutrition Support NPO Pertinent Medications D5-0.9ns w/kcl 20meq Pertinent Labs 06/19 Na 135, K 2.9, Cl 106, BUN 23, Cr 1.5, glucose 295, alb 3.5 Nutritional Hx/Data Height 1.68 m Height (Calculated Centimeters) 167.6 Current Weight (lbs) 77.111 kg Weight (Calculated Kilograms) 77.1 Weight (Calculated Grams) 00161.7 [place] Body Weight 130 Body Mass Index (BMI) 27.4 Weight Status Overweight GI Symptoms GI Symptoms None Last BM 06/19 Difficult in: None Skin Integrity/Comment: GROIN AND SACRUM REDDNESS Estimated Nutritional Goals BEE in Kcals: Adj wt of IBW Calories/Kcals/Kg 25-30 Kcals Calculated 9795-4537 Protein: Adj wt of IBW Protein g/k Protein Calculated 64 Fluid: ml 1600-1920ml (1ml/kcal) Nutritional Problem 1. Problem Problem altered nutrition related lab values Etiology hyperglycemia Signs/Symptoms: glucose 295 Intervention/Recommendation Comments 1. Start TF as ordered - Fibersource HN 30ml/hr continuous. This will provide 864kcal, 38g protein and 589ml free water, meeting about 55% of nutritional needs. 2. pt on potassium replacement noted. If K level normal, will consider increase TF rate . 3. Monitor TF rate, tolerance, wt weekly, skin integrity and labs 4. F/U as high risk in 2-3 days, 06/21-06/22 Expected Outcomes/Goals Expected Outcomes/Goals 1. Pt to meet at least 75% of nutritional needs via nutrition support with tolerance 2. Wt stability, skin to remain intact, labs to approach WNL.
[2017-06-30] MEDS: INSULIN ASPART SLIDING SCALE 100 UNITS/ML UNIT SUBQ SCH ×4 (01:07→18:00)
[2017-06-30] MEDS: Diltiazem 30 mg Tab PO SCH ×4 (01:11→18:09)
[2017-06-30] MEDS: Vancomycin HCL 250 mg /10mL UDC NG SCH ×2 (02:41→06:19)
[2017-06-30] MEDS: Linezolid 600mg/300mL Premix Bag IV SCH ×2 (02:45→17:10)
[2017-06-30] MEDS: D5-0.45NS w/20 mEq KCL 1,000 ML IV SCH (04:36)
[2017-06-30 07:48] LABS: ANION GAP 8.2 (7.0-16.0); BUN - UREA NITROGEN 7 mg/dL (7-25); CALCIUM SERUM 7.7 mg/dL (8.6-10.3); CHLORIDE 113 mEq/L (98-107); CREATININE - SERUM 0.3 mg/dL (0.6-1.2); GFR AFRICAN-AMERICAN > 60.0 ml/min (>90); GFR NON AFRICAN-AMERICAN > 60.0 ml/min; GLUCOSE 175 mg/dL (70-105); POTASSIUM SERUM 3.2 mEq/L (3.5-5.1); SODIUM SERUM 146 mEq/L (136-145)
--- NOTE | 2017-06-30 08:31 | Operative Report ---
DATE OF SURGERY: 06/29/2017 PREOPERATIVE DIAGNOSES: 1. Dehydration. No IV access. 2. Parkinson's disease. POSTOPERATIVE DIAGNOSES: 1. Dehydration. No IV access. 2. Parkinson's disease. OPERATION DONE: Placement of central line, left subclavian vein under ultrasound guidance. PROCEDURE: The patient was given IV sedation. The patient's left chest was prepped with ChloraPrep and draped in appropriate manner. 1% lidocaine was used to infiltrate. The area identified on ultrasound. An incision was made and size 18 needle was used to locate the vein. Guide was inserted, the dilator and then the triple lumen catheter. This anchored chest wall with 3-0 silk. Portable chest x-ray is ordered. JOB# [id number]
--- NOTE | 2017-06-30 08:38 | Consultation ---
DATE OF CONSULTATION: 06/29/2017 VASCULAR CONSULT REFERRING PHYSICIAN: Dr. Bowers. REASON FOR CONSULTATION: No IV access for fluid and medication administration. Thank you for referring this patient to me. HISTORY OF PRESENT ILLNESS: This is a 62-year-old female with known history of Parkinson's disease, depression, and psychosis. The patient was admitted for UTI, C. diff colitis, sepsis and dehydration. The patient has had some IV placed in the peripheral location in both arms, but all sites have failed. A request for central line placement has been made and family has been notified and consent has been given. I will place the central line in the subclavian location under ultrasound guidance. Thank you Dr. Ford. JOB# [id number]
--- NOTE | 2017-06-30 10:00 | Diagnostic Imaging Report ---
CHEST X-RAY: AP view INDICATION: Shortness of breath COMPARISON: 06/29/2017 FINDINGS: Left subclavian line is stable. Persistent findings of CHF are seen with bilateral effusions right larger than left. Bilateral infiltrates are noted. Cardiomegaly is noted. IMPRESSION: No significant change in pulmonary status.
[2017-06-30] MEDS ORDERED: Potassium Chloride 20 mEq ER Tab PO ONE (12:22)
[2017-06-30] MEDS: Calcium Carb/Vit D 500 mg/200 U Tab PO SCH (12:31)
[2017-06-30] MEDS: Lactobacillus Rhamnosus GG 15 Billion CFU CAP.SPRINK PO SCH (12:32)
[2017-06-30] MEDS: Potassium Chloride Elixir 20 mEq /15 mL UDC NG SCH (12:33)
--- NOTE | 2017-06-30 16:06 | General Progress Note ---
Subjective - Review of Systems Service Date: 06/30/17 Subjective: patient seen and examined more awake Objective - Results Result Diagrams: 06/29/17 06:10 06/30/17 07:10 Recent Labs: Laboratory Last Values WBC 10.7 Th/cmm (4.8-10.8) 06/29/17 06:10 RBC 4.28 Mil/cmm (3.80-5.10) 06/29/17 06:10 Hgb 13.4 gm/dL (12-16) 06/29/17 06:10 Hct 39.6 % (41.0-60) L 06/29/17 06:10 MCV 92.5 fl (81-100) 06/29/17 06:10 MCH 31.3 pg (27.0-31.0) H 06/29/17 06:10 MCHC Differential 33.8 pg (28.0-36.0) 06/29/17 06:10 RDW 16.0 % (11.5-20.0) 06/29/17 06:10 Plt Count 107 Th/cmm (150-400) L 06/29/17 06:10 MPV 8.9 fl 06/29/17 06:10 Neutrophils % 79.4 % (40.0-80.0) 06/29/17 06:10 Band Neutrophils % 6 % (0-10) 06/23/17 04:30 Lymphocytes % 11.6 % (20.0-50.0) L 06/29/17 06:10 Monocytes % 6.1 % (2.0-10.0) 06/29/17 06:10 Eosinophils % 1.9 % (0.0-5.0) 06/29/17 06:10 Basophils % 1.0 % (0.0-2.0) 06/29/17 06:10 Neutrophils (Manual) 81 % (40-80) H 06/23/17 04:30 Lymphocytes 11 % (20-50) L 06/23/17 04:30 Monocytes 2 % (2-10) 06/23/17 04:30 Toxic Granulation 2+ 06/21/17 05:01 Platelet Estimate ADEQUATE (NORMAL) 06/21/17 05:01 PT 11.9 SECONDS (9.5-11.5) H 06/27/17 05:45 INR 1.13 (0.5-1.4) 06/27/17 05:45 PTT (Actin FS) 27.4 SECONDS (26.0-38.0) 06/26/17 05:00 Specimen Source Arterial 06/29/17 17:24 Sample Site Right Radial 06/29/17 17:24 pH 7.48 (7.35-7.45) H 06/29/17 17:24 pCO2 36.0 mmHg (35.0-45.0) 06/29/17 17:24 pO2 168.0 mmHg (80.0-100.0) H 06/29/17 17:24 HCO3 27.6 mEq/L (20.0-26.0) H 06/29/17 17:24 Base Excess 3.3 mEq/L (-3.0-3.0) H 06/29/17 17:24 O2 Saturation 100.0 % (92.0-100.0) 06/29/17 17:24 Stephen Test Positive 06/29/17 17:24 Vent Rate NA 06/29/17 17:24 Inspired O2 37 06/29/17 17:24 Tidal Volume NA 06/29/17 17:24 PEEP NA 06/29/17 17:24 Pressure (ins/psv/peep) NA 06/29/17 17:24 Critical Value SH 06/29/17 17:24 Sodium 146 mEq/L (136-145) H 06/30/17 07:10 Potassium 3.2 mEq/L (3.5-5.1) L 06/30/17 07:10 Chloride 113 mEq/L (98-107) H 06/30/17 07:10 Carbon Dioxide 28.0 mEq/L (21.0-31.0) 06/30/17 07:10 Anion Gap 8.2 (7.0-16.0) 06/30/17 07:10 BUN 7 mg/dL (7-25) 06/30/17 07:10 Creatinine 0.3 mg/dL (0.6-1.2) L 06/30/17 07:10 Est GFR ( Amer) > 60.0 ml/min (>90) 06/30/17 07:10 Est GFR (Non-Af Amer) > 60.0 ml/min 06/30/17 07:10 BUN/Creatinine Ratio 23.3 06/30/17 07:10 Glucose 175 mg/dL (70-105) H 06/30/17 07:10 POC Glucose 119 MG/DL (70 - 105) H 06/30/17 12:40 Calcium 7.7 mg/dL (8.6-10.3) L 06/30/17 07:10 Phosphorus 1.4 mg/dL (2.5-5.0) L 06/23/17 04:30 Magnesium 2.5 mg/dL (1.9-2.7) 06/23/17 04:30 Total Bilirubin 0.7 mg/dL (0.3-1.0) 06/29/17 06:10 AST 36 U/L (13-39) 06/29/17 06:10 ALT 29 U/L (7-52) 06/29/17 06:10 Alkaline Phosphatase 98 U/L (34-104) 06/29/17 06:10 Total Protein 4.2 gm/dL (6.0-8.3) L 06/29/17 06:10 Albumin 2.4 gm/dL (3.7-5.3) L 06/29/17 06:10 Globulin 1.8 gm/dL 06/29/17 06:10 Albumin/Globulin Ratio 1.3 (1.0-1.8) 06/29/17 06:10 Urine Source [place] 06/19/17 05:55 Urine Color DARK YELLOW 06/19/17 05:55 Urine Clarity TURBID (CLEAR) H 06/19/17 05:55 Urine pH 5.0 (4.6 - 8.0) 06/19/17 05:55 Ur Specific [place] >= 1.030 (1.005-1.030) 06/19/17 05:55 Urine Protein 30 mg/dL (NEGATIVE) H 06/19/17 05:55 Urine Glucose (UA) NEGATIVE mg/dL (NEGATIVE) 06/19/17 05:55 Urine Ketones 15 mg/dL (NEGATIVE) H 06/19/17 05:55 Urine Blood LARGE (NEGATIVE) H 06/19/17 05:55 Urine Nitrate POSITIVE (NEGATIVE) H 06/19/17 05:55 Urine Bilirubin MODERATE (NEGATIVE) H 06/19/17 05:55 Urine Urobilinogen 1.0 E.U./dL (0.2 - 1.0) 06/19/17 05:55 Ur Leukocyte Esterase NEGATIVE (NEGATIVE) 06/19/17 05:55 Urine RBC 10-25 /hpf (0-5) H 06/19/17 05:55 Urine WBC 2-5 /hpf (0-5) 06/19/17 05:55 Ur Epithelial Cells OCCASIONAL /lpf (FEW) 06/19/17 05:55 Urine Bacteria 3+ /hpf (NONE SEEN) H 06/19/17 05:55 - Physical Exam Vitals and I&O: Vital Signs Temp 96.8 F 06/30/17 12:36 Pulse 94 06/30/17 12:36 Resp 18 06/30/17 12:36 BP 137/45 06/30/17 12:36 Pulse Ox 99 06/30/17 12:36 Intake & Output 06/29/17 06/30/17 06/30/17 18:59 06:59 18:59 Intake Total 410 1110 Balance 410 1110 Intake: Intake, IV Amount 410 1110 D5-0.45NS w/20 mEq KCL 1, 1000 000 ml @ 75 mls/hr IV . [id number] [facility] Rx#:[id number] Levetiracetam 1,000 mg In 110 110 Sodium Chloride 0.9% 100 ml @ 400 mls/hr IV Q12H [facility] Rx#:[id number] Linezolid 600mg/300mL 600 300 mg In 300 ml @ 300 mls/ hr IV Q12H [facility] Rx#: [id number] Other: Stool Characteristics Soft Soft Liquid Liquid Liquid Green Active Medications: Current Medications Acetaminophen (Tylenol) 650 mg PO Q4H PRN PRN Reason: MILD BACK PAIN Last Admin: 06/21/17 16:48 Dose: 650 mg Amantadine HCl (Symmetrel) 100 mg PO TID [facility] Stop: 08/18/17 20:59 Last Admin: 06/30/17 12:31 Dose: Not Given Calcium/Vitamin D (Oscal W/Vitamin D) 1 tab PO BID LUIS Stop: 08/18/17 16:59 Last Admin: 06/30/17 12:31 Dose: Not Given Carbidopa/Levodopa (Sinemet 25 Mg-250 Mg) 1 tab PO BID [facility] Stop: 08/18/17 16:59 Last Admin: 06/30/17 12:32 Dose: Not Given Carisoprodol (Soma) 350 mg PO DAILY PRN PRN Reason: MUSCLE SPASM Stop: 08/18/17 15:12 Diltiazem HCl (Cardizem) 60 mg PO Q6HR [facility] Stop: 08/18/17 17:59 Last Admin: 06/30/17 12:33 Dose: Not Given Doxycycline Hyclate (Vibramycin) 100 mg PO Q12HR [facility] Stop: 08/23/17 20:59 Last Admin: 06/30/17 12:32 Dose: Not Given Famotidine (Pepcid) 40 mg PO DAILY [facility] Stop: 08/19/17 08:59 Last Admin: 06/30/17 12:32 Dose: Not Given Linezolid (Zyvox) 600 mg in 300 mls @ 300 mls/hr IV Q12H [facility] Stop: 08/19/17 13:59 Last Admin: 06/30/17 02:45 Dose: 300 mls/hr Norepinephrine Bitartrate 4 mg (/ Sodium Chloride) 254 mls @ 30.48 mls/hr IV TITR LUIS; 8 MCG/MIN PRN Reason: Protocol Stop: 08/19/17 14:44 Last Titration: 06/20/17 17:56 Dose: 0 mcg/min, 0 mls/hr Potassium Chloride/Dextrose/Sod Cl (D5-0.45ns W/20 Meq Kcl) 1,000 mls @ 75 mls/ hr IV .[id number] [facility] Stop: 08/26/17 21:49 Last Admin: 06/30/17 04:36 Dose: 75 mls/hr Levetiracetam 1,000 mg/ Sodium (Chloride) 110 mls @ 400 mls/hr IV Q12H [facility] Stop: 08/27/17 10:59 Last Admin: 06/30/17 12:45 Dose: 400 mls/hr Insulin Aspart (Novolog Insulin Sliding Scale) 0 units SUBQ Q6HR LUIS PRN Reason: Protocol Stop: 08/24/17 17:59 Last Admin: 06/30/17 13:47 Dose: Not Given Lactobacillus Rhamnosus (Culturelle 15b) 1 each PO DAILY [facility] Stop: 08/20/17 08:59 Last Admin: 06/30/17 12:32 Dose: Not Given Miscellaneous (Probiotic Screen) 1 ea MC PRN PRN PRN Reason: PROTOCOL Stop: 08/19/17 15:00 Ondansetron HCl (Zofran) 4 mg IV Q4H PRN PRN Reason: Nausea / Vomiting Stop: 08/18/17 15:23 Potassium Chloride (Potassium Chloride Elixir) 40 meq NG DAILY [facility] Stop: 08/26/17 08:59 Last Admin: 06/30/17 12:33 Dose: Not Given Potassium Phosphate (K Phos) 1,000 mg NG DAILY [facility] Stop: 08/23/17 10:59 Last Admin: 06/30/17 12:33 Dose: Not Given General: No acute distress HEENT: Atraumatic, PERRLA Neck: Supple, JVD Cardiovascular: Regular rate Lungs: Other (OCC RHONCHI) Abdomen: Bowel sounds, Soft Extremities: Edema (contractures) - Procedures Procedures: Procedures Procedure Code Date ASSISTANCE WITH RESPIRATORY VENTILATION, <24 HRS, CPAP [id number] 06/19/17 CLOSED [ENDOSCOPIC] BIOPSY OF LARYNX 31.43 07/12/96 INJECT/INFUSE NEC 99.29 11/11/07 INSERTION OF INFUSION DEV INTO SUP VENA CAVA, PERC APPROACH [id number] 06/19/17 LARYGNOSCOPY AND OTH TRACHEOSCOPY 31.42 07/12/96 LARYNGOSCOPY WITH BIOPSY 95362 07/12/96 OTHER GROUP THERAPY 94.44 11/26/07 PLACE CATHETER IN VEIN 54113 06/19/17 POS AIRWAY PRESSURE CPAP 31687 06/19/17 RECREATIONAL THERAPY 93.81 11/26/07 Assessment/Plan - Assessment Assessment: sepsis septic shock acute respiratory failure acute renal failure UTI C. Diff colitis depression parkinson - Plan Plan: renal function and serum sodium improved monitor electrolytes and replace as needed will follow PRN Nutritional Asmnt/Malnutr-PDOC - Dietary Evaluation Malnutrition Findings (Please click <Entered> for more info): Nutritional Asmnt/Malnutrition Start: 06/19/17 13: 46 Text: Status: Complete Freq: Document 06/19/17 13:46 TJG (Rec: 06/19/17 13:59 [facility]) Nutritional Asmnt/Malnutrition Patient General Information Nutritional Screening High Risk Consult Diagnosis dehydration, tachycardia Pertinent Medical Hx/Surgical Hx [place], UTI, c diff colitis Subjective Information Consult received for BS 294 at admitting. Pt was transfered from [facility]. Pt seen resting in bed at time of visit. RN reported pt on NPO. Per nurse note, pt will start tube feeding when NGT placement verified. ordered Fibersource 30ml/hr continuous to start at dinner time today . Current Diet Order/ Nutrition Support NPO Pertinent Medications D5-0.9ns w/kcl 20meq Pertinent Labs 06/19 Na 135, K 2.9, Cl 106, BUN 23, Cr 1.5, glucose 295, alb 3.5 Nutritional Hx/Data Height 1.68 m Height (Calculated Centimeters) 167.6 Current Weight (lbs) 77.111 kg Weight (Calculated Kilograms) 77.1 Weight (Calculated Grams) 08271.7 [place] Body Weight 130 Body Mass Index (BMI) 27.4 Weight Status Overweight GI Symptoms GI Symptoms None Last BM 06/19 Difficult in: None Skin Integrity/Comment: GROIN AND SACRUM REDDNESS Estimated Nutritional Goals BEE in Kcals: Adj wt of IBW Calories/Kcals/Kg 25-30 Kcals Calculated 4398-6940 Protein: Adj wt of IBW Protein g/k Protein Calculated 64 Fluid: ml 1600-1920ml (1ml/kcal) Nutritional Problem 1. Problem Problem altered nutrition related lab values Etiology hyperglycemia Signs/Symptoms: glucose 295 Intervention/Recommendation Comments 1. Start TF as ordered - Fibersource HN 30ml/hr continuous. This will provide 864kcal, 38g protein and 589ml free water, meeting about 55% of nutritional needs. 2. pt on potassium replacement noted. If K level normal, will consider increase TF rate . 3. Monitor TF rate, tolerance, wt weekly, skin integrity and labs 4. F/U as high risk in 2-3 days, 06/21-06/22 Expected Outcomes/Goals Expected Outcomes/Goals 1. Pt to meet at least 75% of nutritional needs via nutrition support with tolerance 2. Wt stability, skin to remain intact, labs to approach WNL.
[2017-06-30] MEDS ORDERED: KCL 20mEq/100mL Premix 20 MEQ/100 ML PIGGYBACK IV SCH (16:08)
--- NOTE | 2017-06-30 17:10 | Operative Report ---
DATE OF SURGERY: 06/30/2017 INPATIENT EGD AND G-TUBE PLACEMENT ENDOSCOPIST: Nilesh Quintero M.D. PREOPERATIVE DIAGNOSES: Dysphagia, Parkinson's disease, anorexia, failed swallow evaluation. POSTOPERATIVE DIAGNOSES: Duodenal ulcers, successful placement of a G-tube. INDICATION: The patient is a 62-year-old female with history of Parkinson's dementia who has been admitted to the hospital recovering from sepsis, who has had a difficult hospital course in such that she has failed multiple swallow evaluations and is unable to take an adequate nutrition by mouth. Thus, given her prolonged recovery from sepsis, it was deemed necessary to put in the G-tube for nutritional support. Her family members have been in agreement with this plan and have consented for the procedure. CONSENT: Informed consent was obtained from the patient's niece. DESCRIPTION OF PROCEDURE: The risks and benefits of the procedure were discussed and included but not limited to infection, bleeding, perforation, need for surgery, cardiopulmonary complications, G-tube site related infection, early G-tube site removal, G-tube site related perforation of the bowel, and . The patient's niece indicated understanding of these risks and risk for the procedure and signed the consent form. ANESTHESIA: The procedure was performed in the main operating room under the care of the general anesthesiologist. PROCEDURE IN DETAIL: The patient was kept in the supine position. She was hooked to the appropriate monitoring devices and after the initiation of general anesthesia via anesthesiologist, a gastroscope was introduced into the mouth and guided under direct visualization into the esophagus and stomach and duodenum. The Z-line was located at 31 cm from the incisors. There was evidence of a 4-5 cm hiatal hernia at this area. No esophagitis or esophageal lesion was noted. In the stomach, there were traces of old heme, but no ulceration or gastritis noted. In the duodenal bulb and duodenal sweep, there were small duodenal ulcers. A biopsy was taken from this area. Additionally, biopsies were taken from the antrum of the stomach as well as AMALIA testing to look for any evidence of H. pylori. Next, an appropriate spot for G-tube placement was found. There was a very narrow area for G-tube placement given that the patient has had abdominal surgeries before and has obese body habitus as well. A very small area near the angularis on the lesser curve of the stomach had appropriate 1:1 correlation with poking from the outside as well as transillumination with the light; thus, this area was marked and sterile procedures were then performed to sterilize the area. Next, a small 22-gauge needle was used to insert lidocaine subcutaneously in this area. This needle was then observed to directly enter into the stomach with ease in the same spot. Next, a small incision was made on the skin and a trocar was placed through the incision and observed directly from the endoscopist sided to enter into the stomach without resistance. The trocar was then secured using a snare device and the needle was removed. A guidewire was placed through the trocar and grasped with the snare. The wire then was removed along with the scope through the patient's mouth. A 20-[place]uv[place] G-tube was affixed to the wire. Using standard pull technique, the G-tube and wire were then pulled back down through the mouth, through the esophagus and snugged to the abdominal wall. At this point, the external bumper was placed and antibiotic ointment was placed at the incision site. The scope was then reintroduced into the mouth and into the stomach and confirmed that the interior bumper was in the correct location at the angularis. The internal bumper was seen to twist freely with manipulation of the scope. At this point, the procedure was complete. Of note, the patient did receive 1 gram of Ancef prior to the procedure. RECOMMENDATIONS: 1. The G-tube can be used immediately for water flushes and medications. 2. Tube feedings can start in 8 hours' time at the discretion of dietary recommendations at 10 mL an hour and increased by 10 mL per hour until the goal rate is reached. 3. Check for residuals every 6 hours and hold for residuals greater than 100 mL. 4. Abdominal binder should be in place at all times. 5. Flush the J-tube with 100 mL of water every 6 hours to maintain patency. 6. If there are any signs of patient decompensation including sepsis, hypotension, or bleeding, we may need to consider a CT scan to ensure that the tube did not go through the bowel as this was a very narrow window for placement. Thank you for allowing me to participate in this patient's care. Please call with any further questions. [facility]# [id number]
--- NOTE | 2017-06-30 21:45 | Progress Notes ---
DATE: 06/30/2017 Case was discussed with staff of the patient, reviewed records. Covering for Dr. Diego. The patient continues to be depressed. Dr. Diego decreased the Zoloft dose because of sedation. Continues to have poor interaction with others, but she has been easier to redirect. No behavioral issues and so we will continue to monitor her behavior. Thank you very much for allowing me to participate in the care of this most interesting lady. JOB# [id number]
--- NOTE | 2017-07-02 12:44 | Pathology Report ---
[id number] Collection date: 06/30/2017 Surgeon: Dr. Sol Galloway Specimen Description: 1. Duodenal biopsy 2. Antrum biopsy Gross Description: Part 1: Received in formalin are two alvarez soft tissue fragments ranging from 0.1 to 0.2 cm in greatest dimension. Totally submitted in one cassette labeled A. Gross Description: Part 2: Received in formalin are two alvarez soft tissue fragments ranging from 0.1 to 0.2 cm in greatest dimension. Totally submitted in one cassette labeled B. Microscopic Description: Part 1: The histologic sections show duodenal mucosa with areas of superficial mucosal ulceration and associated chronic inflammation consisting of lymphocytes and plasma cells. The intestinal villi are generally intact and show no apparent villous abnormality. Diagnosis: Part 1: Superficial mucosal ulceration and chronic inflammation, duodenal biopsy. Microscopic Description: Part 2: The histologic sections show gastric mucosa with chronic inflammation present consisting of lymphocytes and plasma cells. The Giemsa stain shows no evidence for Helicobacter pylori. Diagnosis: Part 2: 1. Chronic gastritis, antrum biopsy. 2. The Giemsa stain is negative for Helicobacter pylori. [facility]# [id number] [facility]
--- NOTE | 2017-07-09 23:37 | Discharge Summary ---
DATE OF DISCHARGE: 06/30/2017 DATE OF : 06/30/2017. FINAL DIAGNOSES: 1. Urinary tract infection. 2. Clostridium difficile colitis. 3. Septic shock. 4. Acute metabolic encephalopathy. 5. Dehydration. 6. Acute kidney injury. 7. Parkinson disease. 8. Seizure disorder. 9. Status post G-tube placement. REVIEW OF HISTORY: The patient is a 62-year-old female with long history of Parkinson disease, resident at [facility] Department transferred to the ICU on 06/19/2017 with acute altered level of consciousness. Initial workup was sent for urinary infection, C. diff colitis, septic shock, dehydration, acute kidney injury. The patient was started on IV fluid, antibiotic. Infectious Disease consultation obtained. COURSE OF HOSPITALIZATION: During hospitalization, the patient was on BiPAP. She was in septic shock. The patient stabilized clinically and transferred to telemetry for continuation of medication hypertension. During her stay, the patient failed the swallow evaluation. GI consultation obtained on the 06/29/2017. The patient had a G-tube placed to start the feeding in 12 hours on the 06/30/2017. The patient went into cardiopulmonary arrest and . Family informed. JOB# [id number]
== END 2017-06-30 21:15 | disposition expired | DRG 871 ==
LOC: MSI 00:55 → ICU 03:48 → TELE 06-25 15:40
PROVIDERS: ADMIT Family Medicine; ATTEND Family Medicine
PROC: 5A09357 Assistance with Respiratory Ventilation, Less than 24 Consecutive Hours, Continuous Positive Airway Pressure (ICD-10-PCS; principal; 2017-06-20)
PROC: 02HV33Z Insertion of Infusion Device into Superior Vena Cava, Percutaneous Approach (ICD-10-PCS; 2017-06-29)
PROC: B548ZZA Ultrasonography of Superior Vena Cava, Guidance (ICD-10-PCS; 2017-06-29)
PROC: 0DH68UZ Insertion of Feeding Device into Stomach, Via Natural or Artificial Opening Endoscopic (ICD-10-PCS; 2017-06-30)
PROC: 0DB98ZX Excision of Duodenum, Via Natural or Artificial Opening Endoscopic, Diagnostic (ICD-10-PCS; 2017-06-30)
PROC: 0DB68ZX Excision of Stomach, Via Natural or Artificial Opening Endoscopic, Diagnostic (ICD-10-PCS; 2017-06-30)
DX: A41.9 Sepsis, unspecified organism (principal); G93.41 Metabolic encephalopathy; J96.00 Acute respiratory failure, unspecified whether with hypoxia or hypercapnia; R65.21 Severe sepsis with septic shock; J18.9 Pneumonia, unspecified organism; N17.9 Acute kidney failure, unspecified; A04.72 Enterocolitis due to Clostridium difficile, not specified as recurrent; N39.0 Urinary tract infection, site not specified; I47.1 Supraventricular tachycardia; F33.9 Major depressive disorder, recurrent, unspecified; J44.0 Chronic obstructive pulmonary disease with (acute) lower respiratory infection; I46.9 Cardiac arrest, cause unspecified; E86.0 Dehydration; G20 Parkinson's disease; G40.909 Epilepsy, unspecified, not intractable, without status epilepticus; Z66 Do not resuscitate; F29 Unspecified psychosis not due to a substance or known physiological condition; R13.10 Dysphagia, unspecified; E11.9 Type 2 diabetes mellitus without complications; F02.80 Dementia in other diseases classified elsewhere, unspecified severity, without behavioral disturbance, psychotic disturbance, mood disturbance, and anxiety; I10 Essential (primary) hypertension; E78.5 Hyperlipidemia, unspecified; K21.9 Gastro-esophageal reflux disease without esophagitis; Z90.49 Acquired absence of other specified parts of digestive tract; Z88.8 Allergy status to other drugs, medicaments and biological substances; Z82.49 Family history of ischemic heart disease and other diseases of the circulatory system
CPT/HCPCS: 36415-UA; 36600-90; 71045-TC; 74000-TC; 80048-TC; 80053-TC; 81001-TC; 82803-TC; 82948-90; 83735-TC; 84100-TC; 85007-TC; 85025-TC; 85027-TC; 85610-TC; 85730-TC; 87086-90; 87338-TC; 90784; 90799; 93005; 93970-TC-50; 94660; 94760; J0282; J0690; J1644; J1650; J1815; J1940; J1953; J2001; J2020; J2060; J2250; J2543; J3370; J3480; J7030; J7040; J7042; J7070; X3401; X6452; Z7506; Z7610